=== PATIENT | female | born 1975 | race Two or more races ===

== ENCOUNTER → 2020-04-09 14:04 | Outpatient (REF) | payer MEDICAID, SELFPAY ==
--- NOTE | 2020-04-09 14:00 | ECG_ITS ---
Hook-up date: 2020-04-09 14:44:00 Duration: 40:23:00 Test Indications: TACHYCARDIA Medications: 459793 QRS complexes 5 Ventricular ectopics which represent <1 % of total QRS comp. 9 Supraventricular ectopics which represent <1 % of total QRS comp. * Paced QRS complexs which represent % of total QRS comp. VENTRICULAR ECTOPY 5 Isolated 0 Bigeminal Cycles 0 Couplets 0 Runs 0 Beats in Runs * Beats LONGEST at * BPM at :: -- * Beats FASTEST at * BPM at :: -- SUPRAVENTRICULAR ECTOPY 9 Isolated 0 Couplets 0 Runs 0 Beats in Runs * Beats LONGEST at * BPM at :: -- * Beats FASTEST at * BPM at :: -- HEART RATES 66 MIN at 02:18:55 2020-04-10 87 AVG 127 MAX at 17:58:15 2020-04-09 LONGEST RR 0.9760 secs at 15:48:35 2020-04-09 S-T LEVELS Channel 1 - 128 mm at 14:44:00 2020-04-09 - 128 mm at 14:44:00 2020-04-09 Channel 2 - 128 mm at 14:44:00 2020-04-09 - 128 mm at 14:44:00 2020-04-09 Channel 3 - 128 mm at 03:40:31 -- - 128 mm at 03:40:31 Underlying rhythm is sinus; Average ventricular rate 87/min; range 66-127/min; About 12% of the rates >100/min; No significant ectopy, tachy or nel arrhythmias; chest pressure', 'fast heart rate' in patient diary without any correlating findings on holter. Referred By: Dakota Monet Overread By: NANETTE PRESCOTT
== END ==
LOC: HO.CARD 14:04
PROVIDERS: Visit Provider Internal Medicine
DX: R00.0 Tachycardia, unspecified (principal)
CPT/HCPCS: 93225; 93226

== ENCOUNTER 2020-04-22 08:00 | Outpatient (RCR) | payer MEDICAID, SELFPAY | END 2020-04-22 08:54 | disposition other institution (70) | LOC: HO.PT 08:00 | PROVIDERS: PCP Internal Medicine; Visit Provider Internal Medicine | DX: M25.50 Pain in unspecified joint (principal) | CPT/HCPCS: 97110; 97140; 97161 ==

== ENCOUNTER 2020-11-30 07:58 | Outpatient (REF) | payer MEDICAID, SELFPAY ==
--- NOTE | ~2020-11-30 | XR_ITS ---
EXAMINATION: XR HAND, RIGHT CLINICAL INFORMATION: Trigger finger right index finger COMPARISON: None TECHNIQUE: PA, lateral, and oblique views of the right hand. FINDINGS: The bones and soft tissues are normal. No fracture. Alignment is anatomic. Joint spaces are maintained. No erosions or soft tissue calcifications. XR/XR hand RT min 3V IMPRESSION: Normal right hand.
== END 2020-11-30 07:59 | disposition home or self-care (01) ==
LOC: HO.XRAY 07:58
PROVIDERS: PCP Internal Medicine; Referring Provider Internal Medicine; Visit Provider Internal Medicine
DX: M65.321 Trigger finger, right index finger (principal)
CPT/HCPCS: 73130

== ENCOUNTER 2021-02-01 08:37 | Outpatient (REF) | payer MEDICAID, SELFPAY ==
--- NOTE | ~2021-02-01 | MM_ITS ---
EXAMINATION: MM SCREENING DIGITAL BREAST TOMOSYNTHESIS, BILATERAL CLINICAL INFORMATION: Screening. Asymptomatic. Prior history reduction mammoplasty over 10 years ago. The lifetime risk of breast cancer based on the Tyrer-Cuzick Model is 13%. COMPARISON: Mammography: 01/23/2020, 06/16/2019, 06/08/2019, 04/23/2018, 04/17/2017, 04/11/2016 TECHNIQUE: Digital breast tomosynthesis is performed in both the craniocaudal and mediolateral oblique views along with computer-aided detection (CAD). Synthesized 2D images are generated from the tomosynthesis. FINDINGS: There are scattered areas of fibroglandular density (ACR BI-RADS breast composition Category b). Parenchymal pattern is similar to prior studies. There is minor bilateral stable scarring consistent with the prior reduction mammoplasty. There are scattered stable bilateral asymmetries and minor shifting fibroglandular densities as expected. No developing density. No interval mass or architectural abnormality or abnormal calcifications. There are dermal lesions overlying the posterior medial breasts. Fine deodorant artifact overlies the axilla on the MLO views, corresponding to the skin on tomography. No significant changes. MM/MM tomosynthesis screening BI IMPRESSION: No significant changes from prior exams. ASSESSMENT: BI-RADS 2: Benign RECOMMENDATION: Routine annual mammography screening. This patient's information was entered into a reminder system with a target due date for their next mammogram.
== END 2021-02-01 08:38 | disposition home or self-care (01) ==
LOC: HO.MAMMO 08:37
PROVIDERS: PCP Internal Medicine; Visit Provider Advanced Practice Midwife
DX: Z12.31 Encounter for screening mammogram for malignant neoplasm of breast (principal)
CPT/HCPCS: 77063; 77067

== ENCOUNTER 2021-05-14 15:18 | Outpatient (REF) | payer MEDICAID, SELFPAY ==
--- NOTE | ~2021-05-14 | US_ITS ---
EXAMINATION: US PELVIS CLINICAL INFORMATION: Abnormal vaginal bleeding. COMPARISON: Previous pelvic ultrasound August 2017. TECHNIQUE: Ultrasound of the pelvis is performed using both transabdominal and transvaginal transducers along with Doppler. Transvaginal imaging is performed due to inadequate visualization transabdominally. FINDINGS: The uterus is anteverted and measures 10.4 x 3.8 x 4.7 cm in dimension. There is an IUD in the uterus in satisfactory position. The endometrium does not appear thickened measuring 0.6 cm. No focal uterine lesion is seen. The right ovary is enlarged and measures 4.4 x 4.1 x 3.5 cm. There is a 3 x 3.2 x 3.2 cm simple right ovarian cyst. The left ovary is normal-appearing and measures 2.8 x 1.4 x 2.8 cm. There is no fluid in the pelvis. US/US pelvic and transvaginal IMPRESSION: IUD in the uterus in satisfactory position. The endometrium does not appear thickened. 3 x 3.2 x 3.2 cm simple right ovarian cyst. This probably represents a benign functional cyst. No follow-up imaging recommended.
== END 2021-05-14 15:19 | disposition home or self-care (01) ==
LOC: HO.US 15:18
PROVIDERS: PCP Internal Medicine; Visit Provider Advanced Practice Midwife
DX: N39.9 Disorder of urinary system, unspecified (principal)
CPT/HCPCS: 76830; 76856

== ENCOUNTER 2021-06-07 07:52 | Outpatient (REF) | payer MEDICAID, SELFPAY ==
[2021-06-07 08:17] LABS: MANUAL DIFF FLAG NO
[2021-06-07 08:24] LABS: Basophils Percent Auto 0.5 % (0-2); Eosinophils Absolute Auto 0.1 X10*3/uL (0.0-0.4); Eosinophils Percent Auto 1.9 % (0-4); Hematocrit 41.6 % (37.0-47.0); Hemoglobin 13.9 g/dl (12.0-16.0); Imm Gran Abs Auto 0.02 X10*3/uL (0.00-0.03); Imm Gran Pct Auto 0.3 % (0.0-0.4); Lymphocytes Absolute Auto 1.6 X10*3/uL (1.2-4.9); Lymphocytes Percent Auto 25.5 % (20-40); Mean Corpuscular HGB Conc 33.4 g/dl (31.0-35.0); Mean Corpuscular Hemoglobin 28.6 pg (27.0-33.0); Mean Corpuscular Volume 85.6 fL (80.0-98.0); Mean Platelet Volume 9.5 fL (9.4-12.3); Monocytes Absolute Auto 0.5 X10*3/uL (0.1-1.2); Monocytes Percent Auto 7.9 % (2-11); Neutrophils Percent Auto 63.9 % (45-73); Platelet Count 196 X10*3/uL (160-400); Red Blood Count 4.86 X10*6/uL (4.20-5.50); Red Cell Distribution Width 13.8 % (11.0-16.0); White Blood Count 6.2 X10*3/uL (4.8-10.8)
[2021-06-07 09:04] LABS: Alanine Aminotransferase 15 U/L (0-31); Albumin Level 4.2 g/dL (3.5-5.0); Alkaline Phosphatase 68 U/L (39-117); Anion Gap 9 (12-20); Aspartate Amino Transferase 15 U/L (5-31); Bilirubin Direct 0.2 mg/dL (0.0-0.5); Bilirubin Total 0.6 mg/dL (0.0-1.0); Blood Urea Nitrogen 16 mg/dL (9-16); Carbon Dioxide 20 mmol/L (22-29); Chloride 114 mmol/L (96-108); Cholesterol 148 mg/dL; Estimated Glomerular Filt Rate > 60; Glucose Random 95 mg/dL (60-115); HDL Cholesterol 46 mg/dL; LDL Cholesterol Calculated 90 mg/dl; Potassium 3.9 mmol/L (3.3-5.1); Sodium 139 mmol/L (135-145); Total Protein 6.9 g/dL (6.5-8.0); Triglycerides 62 mg/dL
[2021-06-07 09:17] LABS: TSH reflex Free T4 1.35 uIU/mL (0.32-4.0); Vitamin D 25-OH Total 36.1 ng/mL (>30)
[2021-06-07 10:31] LABS: Vitamin B12 445 pg/mL (200-900)
[2021-06-10 05:07] LABS: Thyroglobulin Antibodies <1 IU/mL (< or = 1)
== END 2021-06-07 07:53 | disposition home or self-care (01) ==
LOC: HO.LAB 07:52
PROVIDERS: Absent Provider Internal Medicine; PCP Internal Medicine; Visit Provider Pediatrics
DX: D64.9 Anemia, unspecified (principal); E04.9 Nontoxic goiter, unspecified; Q85.00 Neurofibromatosis, unspecified
CPT/HCPCS: 36415; 80053; 80061; 82248; 82306; 82607; 84443; 85025; 86800

== ENCOUNTER 2021-06-18 14:49 | Outpatient (REF) | payer MEDICAID, SELFPAY ==
--- NOTE | ~2021-06-18 | US_ITS ---
EXAMINATION: US THYROID CLINICAL INFORMATION: Nontoxic goiter. COMPARISON: Ultrasound 2009. TECHNIQUE: Linear transducer grayscale and color Doppler examination with attention to the region of the thyroid. FINDINGS: SIZE: Measurements of the thyroid lobes and nodules are given in sagittal, anteroposterior and transverse dimensions respectively. Right Thyroid Lobe: 4.9 x 2.2 x 2.2 cm and volume 12.4 mL. Previously it measured 4.9 x 1.7 x 1.6 cm and volume 6.9 mL. Parenchyma: The gland echotexture is heterogeneous. Thyroid vascularity is hypervascular. There is a punctate calcification lower pole right thyroid lobe. Left Thyroid Lobe: 4.8 x 1.7 x 2.2 CM and volume 9.4 mL. Previously it measured 4.4 x 1.3 x 1.7 cm and volume 5.0 mL.. Parenchyma: The gland echotexture is heterogeneous. Thyroid vascularity is increased. Isthmus: 0.3 cm in maximum AP dimension. Previously it measured 0.4 cm. Estimated total number of nodules greater than or equal to 1 cm: 2. 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 Location: Right isthmus. Size: 1.5 x 0.9 x 1.8 cm, volume 1.2 mL. Previously: 1.2 x 0.4 x 1.0 cm, volume 0.3 mL. Nodule characteristics: Composition: Solid (2). Echogenicity: Hyperechoic (1). Shape: Not taller than wide (0). Margins: Ill-defined (0). Echogenic Foci: None (0). ACR TI-RADS total points: 3 ACR TI-RADS category: 3 Significant change in size (>/= 20% in 2 dimensions and minimal increase of 2 mm or 50% or greater increase in volume): None Change in features: None Change in ACR TI-RADS risk category: Not applicable 2. Location: Right mid. Size: 1.4 x 0.8 x 1.2 cm, volume 0.6 mL. Previously: Not seen. Nodule characteristics: Composition: Solid/almost completely solid (2). Echogenicity: Hyperechoic (1). Shape: Not taller than wide (0). Margins: Ill-defined (0). Echogenic Foci: None (0). ACR TI-RADS total points: 3 ACR TI-RADS category: 3 Significant change in size (>/= 20% in 2 dimensions and minimal increase of 2 mm or 50% or greater increase in volume): Not applicable Change in features: Not applicable Change in ACR TI-RADS risk category: Not applicable 3. Location: Left mid. Size: 0.9 x 0.6 x 0.9 cm, volume 0.3 mL. Previously: Not seen previously. Nodule characteristics: Composition: Mixed cystic and solid (1). Echogenicity: Hypoechoic (2). Shape: Not taller than wide (0). Margins: Smooth (0). Echogenic Foci: None (0). ACR TI-RADS total points: 3 ACR TI-RADS category: 3 Significant change in size (>/= 20% in 2 dimensions and minimal increase of 2 mm or 50% or greater increase in volume): Not applicable Change in features: Not applicable Change in ACR TI-RADS risk category: Not applicable NODES: No lymphadenopathy is seen in the tissue surrounding the thyroid gland. US/US thyroid IMPRESSION: Multinodular enlarged diffuse heterogeneous thyroid gland. Largest 3 nodules measured and are not suspicious. ACR TI-RADS RECOMMENDATION REFERENCE: Ultrasound-guided fine-needle aspiration, followup ultrasound, no further follow up. * TR1 (0 point) and TR 2 (2 points): No FNA or follow up * TR3 (3 points): FNA if more than or equal to 2.5 cm in maximum dimension, followup ultrasound in 1, 3 and 5 years if 1.5 to 2.4 cm in maximum dimension. * TR4 (4-6 points): FNA if more than or equal to 1.5 cm in maximum dimension, followup ultrasound in 1, 2, 3 and 5 years if 1 to 1.4 cm in maximum dimension. * TR5 (more than or equal to 7 points): FNA if more than or equal to 1 cm in maximum dimension, followup ultrasound every year for 5 years if 0.5 to 0.9 cm in maximum dimension. * TR3, TR4 or TR5 nodules that are below the size threshold for follow up receive no follow up.
== END 2021-06-18 14:50 | disposition home or self-care (01) ==
LOC: HO.US 14:49
PROVIDERS: PCP Internal Medicine; Visit Provider Pediatrics
DX: E04.9 Nontoxic goiter, unspecified (principal)
CPT/HCPCS: 76536

== ENCOUNTER 2021-07-05 07:36 | Outpatient (REF) | payer MEDICAID, SELFPAY ==
--- NOTE | ~2021-07-05 | XR_ITS ---
EXAMINATION: XR KNEE, RIGHT CLINICAL INFORMATION: Right knee pain. COMPARISON: None TECHNIQUE: Four views of the right knee. FINDINGS: Small suprapatellar joint effusion. Mild tricompartmental degenerative spurring. There is a cortical erosion or chondral defect involving the lateral condyle seen on the sunrise view. No fracture. XR/XR knee RT 4V IMPRESSION: Small suprapatellar joint effusion. Mild tricompartmental degenerative changes.
== END 2021-07-05 07:37 | disposition home or self-care (01) ==
LOC: HO.XRAY 07:36
PROVIDERS: Absent Provider Internal Medicine; PCP Internal Medicine; Visit Provider Internal Medicine
DX: M25.561 Pain in right knee (principal)
CPT/HCPCS: 73564

== ENCOUNTER → 2021-07-14 15:02 | Outpatient (BNVA) | payer MEDICAID, SELFPAY | PROVIDERS: PCP Internal Medicine; Referring Provider Internal Medicine; Visit Provider Nurse Practitioner Family | DX: Z01.818 Encounter for other preprocedural examination (principal); K59.01 Slow transit constipation; K64.9 Unspecified hemorrhoids | CPT/HCPCS: 99202 ==

== ENCOUNTER 2021-08-22 11:37 | Day surgery (SDC) | payer MEDICAID, SELFPAY ==
[2021-08-15 09:36] VITALS: BMI 30.3
[2021-08-22 12:01] VITALS: BP 111/68; PULSE 84; RESP 16; TEMP 36.5; O2SAT 98
--- NOTE | 2021-08-22 13:24 | MHC.SHP ---
Pre-Procedural Eval Section A Date of Service: 08/22/21 The patient is an INPATIENT: No The History & Physical has been completed within 30 days and I have reviewed it.: No Section B Chief Complaint: screening Details of Present Illness: Colon cancer screening, FH of colon cancer Relevant Family History (Specify if Yes): Yes Relevant Social History: None Present Medications: see Short Stay Collaborative assessment History of Previous Operations: Relevant previous surgery/procedure and date(s) (Hx of bilateral breast reduction surgery Hx of section Hx of colonoscopy Hx of tubal ligation) Allergies: Allergies Allergy/AdvReac Type Severity Reaction Status Date / Time No Known Allergies Allergy Verified 08/22/21 11:45 Review of Systems Sugical H&P ROS: Negative: Constitution, Cardiovascular and Respiratory and Yes, Specify: Gastrointestinal (constipation) Exam Surgical H&P Exam: Normal: Heart, Normal: Lungs, Normal: Extremities and Normal: Abdomen Plan Diagnosis/Plan: Unchanged I have reviewed the history and physical and performed a pertinent physical examination on my patient. No changes have occurred unless specified.
--- NOTE | 2021-08-22 13:25 | W.PM.OPN ---
Operative Note Operative Note Date of Service: 08/22/21 Narrative: Pre-op diagnosis: Colon cancer screen, family history of colon cancer (paternal aunt had colon cancer and at age 65) Post-op diagnosis:?other (hemorrhoids) Procedure: COLONOSCOPY TILL CECUM Consent: Indications for the procedure and potential complications of bleeding, perforation, reaction to medications and missed diagnosis were discussed with the patient and informed consent was obtained. Instrument: Olympus PCF H 190 L variable stiffness pediatric colonoscope Monitoring: Vital signs and clinical assessment, intermittent blood pressure monitoring, continuous EKG monitoring, Pulse oximetry and Carbon Dioxide monitoring were done throughout the procedure. Colon withdrawl time was 12 minutes. Procedure: The patient was placed in the left lateral decubitis position and pre-procedure medications were administered. After a digital rectal examination of the ano-rectum, the video colonoscope was inserted into the rectum and advanced through the colon to the cecum. The colonoscope was slowly withdrawn in a retrograde panoramic fashion and the colon mucosa was carefully examined including a retroflexed view of the rectum. Findings and interventions are described below. Procedure Difficulty: Without difficulty Findings: Terminal Ileum: Distal 10 cms was examined and appeared normal Cecum:? Normal Ascending Colon:? Normal Transverse Colon:? Normal Descending Colon:? Normal Sigmoid Colon:? Normal Rectum:? Normal Ano-rectum:? Moderate non-bleeding internal hemorrhoids Colon preparation: Excellent ? Impression and Post Procedure Diagnosis: Colonoscopy Findings: No polyps were detected. Moderate non-bleeding hemorrhoids on retroflexed exam - likely source for rectal bleeding. Plan: Await pathology results Patient has an appointment on 09/05/21 in the [facility] with Shala Carlisle FNP-BC. Repeat Colonoscopy in 5 years due to positive family hx. Above findings were reviewed with the patient and Hemorrhoids handouts were given in the discharge area Surgeon: Kamar Kim MD Anesthesia:?MAC (Dr Pike) Was an Claims Administrator used for this Procedure?:?No Claims Administrator:?Karen Flood Estimated blood loss (mL):?0 Pathology:?none sent Condition:?stable Disposition:?PACU
[2021-08-22 14:05] VITALS: BP 112/64; PULSE 93; RESP 16; TEMP 36.6; O2SAT 100
[2021-08-22 14:20] VITALS: BP 121/68; PULSE 78; RESP 18; TEMP 36.6; O2SAT 96
--- NOTE | 2021-08-22 17:55 | HO.POSTANES ---
Post Anesthesia Evaluation Post Anesthesia Evaluation Vital Signs: Vital Signs Temp Pulse Resp BP Pulse Ox 08/22/21 14:20 97.8 F 78 18 121/68 96 08/22/21 14:05 97.8 F 93 16 112/64 100 08/22/21 12:01 97.7 F 84 16 111/68 98 Anesthesia: Monitored Mental Status: Awake Pain Control: Satisfactory Nausea/Vomiting: None Hydration: Adequate Anesthesia-Related Issues: No Anes. Related Issues
== END 2021-08-22 14:49 | disposition home or self-care (01) ==
PROVIDERS: PCP Internal Medicine; Visit Provider Internal Medicine Gastroenterology
PROC: 0DJD8ZZ Inspection of Lower Intestinal Tract, Via Natural or Artificial Opening Endoscopic (ICD-10-PCS; CPT 45378; principal; 2021-08-22 12:50)
DX: Z12.11 Encounter for screening for malignant neoplasm of colon (principal); K59.01 Slow transit constipation; Z98.51 Tubal ligation status; Z98.890 Other specified postprocedural states; K64.8 Other hemorrhoids; Z80.0 Family history of malignant neoplasm of digestive organs
CPT/HCPCS: 45378

== ENCOUNTER 2021-08-26 07:24 | Outpatient (REF) | payer MEDICAID, SELFPAY ==
--- NOTE | ~2021-08-26 | XR_ITS ---
EXAMINATION: XR SHOULDER, RIGHT CLINICAL INFORMATION: Pain COMPARISON: 12/09/2018 TECHNIQUE: Three views of the right shoulder. FINDINGS: No acute fracture or dislocation. Acromioclavicular and glenohumeral joints unremarkable. No suspicious osseous lesions. Soft tissues unremarkable. XR/XR shoulder RT min 2V IMPRESSION: Normal right shoulder.
== END 2021-08-26 07:25 | disposition home or self-care (01) ==
LOC: HO.HOSX 07:24
PROVIDERS: Visit Provider Physician Assistant
DX: M75.101 Unspecified rotator cuff tear or rupture of right shoulder, not specified as traumatic (principal)
CPT/HCPCS: 20610; 73030; 99212; J1040

== ENCOUNTER → 2021-09-05 14:58 | Outpatient (BNVA) | payer MEDICAID, SELFPAY | PROVIDERS: PCP Internal Medicine; Referring Provider Internal Medicine; Visit Provider Nurse Practitioner Family | DX: K59.04 Chronic idiopathic constipation (principal); K64.9 Unspecified hemorrhoids; Z98.890 Other specified postprocedural states | CPT/HCPCS: 99212 ==

== ENCOUNTER 2021-11-07 13:54 | Outpatient (REF) | payer MEDICAID, SELFPAY ==
--- NOTE | ~2021-11-07 | CT_ITS ---
EXAMINATION: CT LUMBAR SPINE WITHOUT CONTRAST CLINICAL INFORMATION: Radiculopathy. COMPARISON: None TECHNIQUE: Contiguous axial CT images of the lumbar spine were obtained without contrast. Sagittal and coronal reformats were provided and reviewed. This CT examination was performed using dose optimization techniques as appropriate, variously including the following: *Automated exposure control *Adjustment of mA and/or kV according to patient size (this includes techniques or standardized protocols for targeted exams where dose is matched to indication/reason for exam; i.e. extremities or head) *Use of iterative reconstruction technique DLP; 510 mGy-cm FINDINGS: Normal vertebral body alignment. The lumbar lordosis is maintained. No acute fracture or subluxation. No loss of vertebral body or intervertebral disc height. No concerning lytic or blastic osseous lesion. Bilateral facet arthropathy at L4-L5 and L5-S1. The visualized paraspinal soft tissues are unremarkable. No abnormal soft tissue mass or fluid collection. No significant disc bulge. No central canal or neural foraminal stenosis. CT/CT lumbar spine wo con IMPRESSION: 1. Moderate bilateral facet arthropathy at L4-L5 and L5-S1. 2. No significant disc bulge, central canal stenosis, or neural foraminal stenosis.
== END 2021-11-07 13:55 | disposition home or self-care (01) ==
LOC: HO.CT 13:54
PROVIDERS: PCP Internal Medicine; Visit Provider Internal Medicine
DX: M54.16 Radiculopathy, lumbar region (principal); Q85.00 Neurofibromatosis, unspecified
CPT/HCPCS: 72131

== ENCOUNTER → 2021-12-29 14:58 | Outpatient (BNVA) | payer MEDICAID, SELFPAY | PROVIDERS: PCP Internal Medicine; Visit Provider Anesthesiology | DX: M47.817 Spondylosis without myelopathy or radiculopathy, lumbosacral region (principal); M47.816 Spondylosis without myelopathy or radiculopathy, lumbar region; Q85.01 Neurofibromatosis, type 1 | CPT/HCPCS: 99202 ==

== ENCOUNTER 2022-01-20 06:01 | Outpatient (REF) | payer MEDICAID, SELFPAY ==
--- NOTE | ~2022-01-20 | FL_ITS ---
EXAMINATION: XR FLUOROSCOPY WITH IMAGES CLINICAL INFORMATION: M47.816 - Spondylosis without myelopathy or radiculopathy, lumbar region COMPARISON: CT lumbar spine 11/07/2021 TECHNIQUE: Fluoroscopy performed by Dr. Marcell Costa. Fluoroscopy time: 0.5 minutes. Cumulative Dose: 18.6 mGy. DAP: 5.07 Gy-cm2. Images: 7. FINDINGS: There are spinal needles overlying the bilateral outer L3, L4, and L5 neural foramen. There is contrast seen in the respective nerve sheaths. Some early transforaminal epidural extension is suggested. No visible vascular communication. FL/FL guidance in treatment room IMPRESSION: Fluoroscopy for pain management procedures.
== END 2022-01-20 06:02 | disposition home or self-care (01) ==
LOC: HO.RADIR 06:01
PROVIDERS: Visit Provider Anesthesiology
DX: M47.816 Spondylosis without myelopathy or radiculopathy, lumbar region (principal)
CPT/HCPCS: 64493; 64494

== ENCOUNTER 2022-01-27 06:14 | Outpatient (REF) | payer MEDICAID, SELFPAY ==
--- NOTE | ~2022-01-27 | FL_ITS ---
EXAMINATION: Intraoperative fluoroscopy CLINICAL INFORMATION: Spondylosis COMPARISON: Intraoperative fluoroscopy January 20, 2022 TECHNIQUE: Intraoperative fluoroscopy was provided for use by Dr. Costa. A total of 6 images were saved to PACS. A radiologist was not present during imaging. Today's dictation is only for administrative purposes to document intraoperative fluoroscopic usage. TOTAL FLUOROSCOPIC TIME: 0.6 minutes FL/FL guidance in treatment room FINDINGS~\^^ Intraoperative fluoroscopy provided for use by Dr. Costa. Please see operative note for detailed findings.
== END 2022-01-27 06:15 | disposition home or self-care (01) ==
LOC: CF 06:14
PROVIDERS: Visit Provider Anesthesiology
DX: M47.816 Spondylosis without myelopathy or radiculopathy, lumbar region (principal); M47.817 Spondylosis without myelopathy or radiculopathy, lumbosacral region; Q85.01 Neurofibromatosis, type 1
CPT/HCPCS: 64493; 64494; J3300; Q9965

== ENCOUNTER → 2022-03-09 14:57 | Outpatient (BNVA) | payer MEDICAID, SELFPAY | PROVIDERS: PCP Internal Medicine; Referring Provider Internal Medicine; Visit Provider Nurse Practitioner Family | DX: K59.01 Slow transit constipation (principal) | CPT/HCPCS: 99212 ==

== ENCOUNTER 2022-03-31 06:20 | Outpatient (REF) | payer MEDICAID, SELFPAY ==
--- NOTE | ~2022-03-31 | FL_ITS ---
EXAMINATION: XR FLUOROSCOPY WITH IMAGES CLINICAL INFORMATION: Spondylosis. COMPARISON: CT lumbar spine 11/07/2021. TECHNIQUE: Fluoroscopy Supervised By: Dr. Marcell Costa. Fluoroscopy Time: 0.2 minutes. Cumulative Dose: 9.64 mGy. DAP: 2.62 Gycm2. Images: 3. FINDINGS: There is a spinal needle overlying mid left SI joint and spinal needle overlying mid right SI joint. There is contrast in the periarticular soft tissues with probable early intra-articular contrast on both sides. No definite vasculature communication appreciated. FL/FL guidance in treatment room IMPRESSION: Fluoroscopy for pain management procedures.
== END 2022-03-31 06:21 | disposition home or self-care (01) ==
LOC: CF 06:20
PROVIDERS: Visit Provider Anesthesiology
DX: Z13.89 Encounter for screening for other disorder (principal)

== ENCOUNTER 2022-05-05 06:09 | Outpatient (REF) | payer MEDICAID, SELFPAY | END 2022-05-05 06:10 | disposition home or self-care (01) | LOC: CF 06:09 | PROVIDERS: Visit Provider Anesthesiology | DX: M53.3 Sacrococcygeal disorders, not elsewhere classified (principal); M46.1 Sacroiliitis, not elsewhere classified | CPT/HCPCS: J2795; J3301 ==

== ENCOUNTER 2022-06-02 06:21 | Outpatient (REF) | payer MEDICAID, SELFPAY ==
--- NOTE | ~2022-06-02 | FL_ITS ---
EXAMINATION: XR FLUOROSCOPY WITH IMAGES CLINICAL INFORMATION: Sacrococcygeal disorder COMPARISON: None. TECHNIQUE: Fluoroscopy Supervised By: Loren. Fluoroscopy Time: 0.2 minutes. Cumulative Dose: 4.45 mGy. DAP: 1.21 Gycm2. Images: 2. FINDINGS: 2 digital images obtained revealing needle is positioned and SI joints with contrast opacifying the adjacent soft tissues. The SI joints are symmetrical and normal. No bony abnormality. Incidental finding of an IUD in the pelvis. FL/FL guidance in treatment room IMPRESSION: Fluoroscopy was provided to referring physician for pain management.
== END 2022-06-02 06:22 | disposition home or self-care (01) ==
LOC: CF 06:21
PROVIDERS: Visit Provider Anesthesiology
DX: M47.816 Spondylosis without myelopathy or radiculopathy, lumbar region (principal); M47.817 Spondylosis without myelopathy or radiculopathy, lumbosacral region; M53.3 Sacrococcygeal disorders, not elsewhere classified; M46.1 Sacroiliitis, not elsewhere classified
CPT/HCPCS: 27096; J3301

== ENCOUNTER → 2022-07-06 14:58 | Outpatient (BNVA) | payer MEDICAID, SELFPAY | PROVIDERS: PCP Internal Medicine; Visit Provider Anesthesiology | DX: M53.3 Sacrococcygeal disorders, not elsewhere classified (principal); M47.816 Spondylosis without myelopathy or radiculopathy, lumbar region; M46.1 Sacroiliitis, not elsewhere classified; Q85.01 Neurofibromatosis, type 1 | CPT/HCPCS: 99212 ==

== ENCOUNTER → 2022-09-02 15:47 | Outpatient (BNVA) | payer MEDICAID, SELFPAY | PROVIDERS: PCP Internal Medicine; Visit Provider Anesthesiology | DX: M53.3 Sacrococcygeal disorders, not elsewhere classified (principal); M47.816 Spondylosis without myelopathy or radiculopathy, lumbar region; M46.1 Sacroiliitis, not elsewhere classified; Q85.01 Neurofibromatosis, type 1 | CPT/HCPCS: 99212 ==

== ENCOUNTER 2022-09-22 06:17 | Outpatient (REF) | payer MEDICAID, SELFPAY ==
--- NOTE | ~2022-09-22 | FL_ITS ---
EXAMINATION: XR FLUOROSCOPY WITH IMAGES CLINICAL INFORMATION: M53.3 - Sacrococcygeal disorders, not elsewhere classified COMPARISON: CT lumbar spine 11/07/2021 TECHNIQUE: Fluoroscopy Supervised By: Dr. Marcell Costa. Fluoroscopy Time: 0.2 minutes. Cumulative Dose: 8.28 mGy. DAP: 2.25 Gycm2. Images: 2. FINDINGS: Spinal needle overlies mid left and spinal needle overlies mid right SI joint. There is contrast in the periarticular soft tissues with probable early intra-articular contrast. No definite vasculature communication appreciated. FL/FL guidance in treatment room IMPRESSION: Fluoroscopy for pain management procedure.
== END 2022-09-22 06:18 | disposition home or self-care (01) ==
LOC: CF 06:17
PROVIDERS: Visit Provider Anesthesiology
DX: M47.816 Spondylosis without myelopathy or radiculopathy, lumbar region (principal); M47.817 Spondylosis without myelopathy or radiculopathy, lumbosacral region; M46.1 Sacroiliitis, not elsewhere classified; M53.3 Sacrococcygeal disorders, not elsewhere classified
CPT/HCPCS: 27096; J3301

== ENCOUNTER → 2022-10-28 15:34 | Outpatient (BNVA) | payer MEDICAID, SELFPAY | PROVIDERS: PCP Internal Medicine; Visit Provider Anesthesiology ==

== ENCOUNTER 2023-01-01 14:28 | Outpatient (REF) | payer MEDICAID, SELFPAY ==
[2023-01-04 12:08] LABS: TS Negative Control Passed; TS Panel A 0; TS Panel B 0; TS Positive Control Passed; TSpotTB Negative (Negative)
== END 2023-01-01 14:29 | disposition home or self-care (01) ==
LOC: HO.HHCL 14:28
PROVIDERS: Visit Provider Internal Medicine
DX: Z02.1 Encounter for pre-employment examination (principal)
CPT/HCPCS: 36415; 86481

== ENCOUNTER 2023-01-08 13:25 | Outpatient (REF) | payer MEDICAID, SELFPAY ==
[2023-01-09 09:44] LABS: HBS Num1 0.07 mIU/mL (0-7.99); HBc Num1 0.14 S/CO (0.00-0.79); HBsAGNum1 0.28 S/CO (0.00-0.99); Hepatitis A Antibody IgM 0.29 Index (0-0.79); Hepatitis B Core Antibody Nonreactive (Nonreactive); Hepatitis B Surface Antigen Negative (Negative); ~HepC Num1 0.16 S/CO (0.00-0.79); ~Hepatitis A Antibody IgM Nonreactive (Nonreactive); ~Hepatitis B Surface Antibody NONREACTIVE (Nonreactive); ~Hepatitis C Antibody Nonreactive (Nonreactive)
== END 2023-01-08 13:26 | disposition home or self-care (01) ==
LOC: HO.CHCLDS 13:25
PROVIDERS: Visit Provider Internal Medicine
DX: Z02.1 Encounter for pre-employment examination (principal)
CPT/HCPCS: 36415; 86704; 86706; 86709; 86803; 87340

== ENCOUNTER 2023-01-20 14:42 | Outpatient (AMB) | payer MEDICAID, SELFPAY ==
[2023-01-20 15:04] VITALS: BP 130/76; PULSE 100; RESP 16; O2SAT 96; BMI 34.3
--- NOTE | 2023-01-20 15:04 | MHC.OFFVIS ---
Intake Vital Signs 01/20/23 15:04 Height 4 ft 10 in Weight 164 lb BMI 34.3 BP 130/76 Blood Pressure Location Lt brachial Position Sitting Respiration 16 Pulse 100 Pulse Source Pulse Oximeter Pulse Oximetry (%) 96 Oxygen Delivery Method Room Air Intake Visit Reasons: Procedure Discussion/Confirmed Allergies No Known Allergies Allergy (Verified 01/20/23 15:05) HPI HPI Comments History of Present Illness Details Patient is a 46 years old female who presents today via telehealth encounter to assess response to therapeutic sacroiliac joint injection which was performed on 10/23/2022. She reports about average 50% pain improvement after the procedure. She reports better mobility better activities of daily living better social interaction. She wants to repeat this injection. Also she reports stiffness in the morning on bilateral hands. 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 I will schedule her for rheumatology consult with diagnosis of rheumatoid arthritis. diagnostic bilateral SIJ injections on 03/31/22 resulted in 100% pain relief in her lower back pain on both sides, especially left side for over 24 hours after the procedure. Patient reports increased mobility, functioning and better sleep for one day. Her pain returned to its baseline little over 24 hours and rates it at 8/10 today. Patient is interested to proceed with therapeutic bilateral SIJ injections stim simone/jessica ray PNS versus SI joint fusion discussed with the patient. Unfortunately patient is sole breadwinner and she not a for 8 weeks or more in mobility and activities of daily living limitations. The RFA of SI J is not covered by insurance. Past Procedures: 10/23/2022: Bilateral therapeutic sacroiliac joint injection. 50% pain relief. 03/31/22: Diagnostic bilateral sacroiliac joint injections-100% pain relief >24 hours 01/27/22: Diagnostic bilateral medial branch block L3-L4 dorsal ramus L5-0% pain relief PRIOR Dr. Costa: Ms. Guevara is very pleasant 46 years old female who is in my office complaining on lower back pain and midback pain. She reports that her pain started about 3 years ago of the pain is mostly axial without radiation into lower extremities. She reports pain is 10/10 today. She tried NSAIDs to treat her pain and tizanidine with no effect. she was also administered pregabalin 150 mg b.i.d. she denies help from pregabalin. She went for CT scan which is dictated as below. She tried physical therapy 1 year ago with no significant help. She tried massage therapy which was not helpful. She never tried any injections. Her past medical significant for migraines, mental illness anxiety and depression and anemia. She also complains on dizziness. 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 Her past surgical history significant for C-sections x2 breast reduction and tubal ligation. [facility] Medical History COVID-19 vaccine series completed No pertinent past medical history Surgical History Hx of bilateral breast reduction surgery Hx of section Hx of colonoscopy Hx of tubal ligation Family History Mother Pancreas cancer Father Testicular cancer Paternal Aunt Colon cancer Breast CA Social History Household Members: None Are you a primary health care liaison to a significant other at home: No Do you presently have visiting nurse or other home services: No Alcohol intake: never Patient Tobacco Use Status: Never used Tobacco Current occupational status: employed 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 Review of Systems Const All systems reviewed & are unremarkable except as noted in HPI and below ENT Reports Normal hearing present Neuro Reports Normal hearing present and Denies confusion Psych Denies confusion Physical Exam Vital Signs: Last Vital Signs Pulse 100 01/20/23 15:04 Resp 16 01/20/23 15:04 BP 130/76 01/20/23 15:04 Pulse Ox 96 01/20/23 15:04 Oxygen Delivery Method Room Air 01/20/23 15:04 BMI result Body Mass Index 34.3 Const General: No confusion Orientation/consciousness: No confusion Resp Effort & Inspection: able to speak in complete sentences, no audible wheezes and no cough Back/Spine/Pelvis Other: Positive bilateral Gallo test, Stinchfield test, pelvis compression and pelvis destruction test, Timur finger test. 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 Bilateral Therapeutic SIJ injections with local and fluoroscopy resulted in very good pain relieve. She request to schedule this procedure again. Unable to go for PNS curonix versus SI joint fusion. She is sole breadwinner and cannot afford 8 weeks or more of mobility limitations. With diagnosis of rheumatoid arthritis I will schedule her for rheumatology consult. Anticoagulation: Patient not on anticoagulant Justification for interventional therapy: ? Patient with average pain > 6/10 ? Patient has exhausted conservative therapy, NSAIDs, physical therapy ? Diagnostic SIJ injections provided 100% pain relief for 24 hours Orders: Referrals Rheumatology Referral M06.9 - Rheumatoid arthritis, unspecified Coding Level of Care Code Est Pt Level 4 (75653) Diagnoses Sacroiliac joint dysfunction of both sides M53.3 Recklinghausen disease Q85.01 Neurofibromatosis Q85.00 Spondylosis of lumbar region without myelopathy or radiculopathy M47.816 Sacroiliitis M46.1 Rheumatoid arthritis M06.9 Pain of both sacroiliac joints M53.3
== END 2023-01-20 15:29 | disposition home or self-care (01) ==
PROVIDERS: PCP Internal Medicine; Visit Provider Anesthesiology
DX: M53.3 Sacrococcygeal disorders, not elsewhere classified (principal); Q85.01 Neurofibromatosis, type 1; M47.816 Spondylosis without myelopathy or radiculopathy, lumbar region; M46.1 Sacroiliitis, not elsewhere classified; M06.9 Rheumatoid arthritis, unspecified
CPT/HCPCS: 99214

== ENCOUNTER → 2023-01-20 14:42 | Outpatient (BNVA) | payer MEDICAID, SELFPAY | PROVIDERS: PCP Internal Medicine; Visit Provider Anesthesiology | DX: M53.3 Sacrococcygeal disorders, not elsewhere classified (principal); M47.816 Spondylosis without myelopathy or radiculopathy, lumbar region; M46.1 Sacroiliitis, not elsewhere classified; M06.9 Rheumatoid arthritis, unspecified; Q85.01 Neurofibromatosis, type 1 | CPT/HCPCS: 99212 ==

== ENCOUNTER 2023-02-16 07:33 | Outpatient (REF) | payer MEDICAID, SELFPAY ==
--- NOTE | ~2023-02-16 | FL_ITS ---
EXAMINATION: XR FLUOROSCOPY WITH IMAGES CLINICAL INFORMATION: Sacrococcygeal disorders, not elsewhere classified. COMPARISON: None available. TECHNIQUE: Fluoroscopy Supervised By: Dr. Marcell Costa. Fluoroscopy Time: 0.2 minutes. Cumulative Dose: 2.76 mGy. DAP: 0.753 Gycm2. Images: 2. FINDINGS: Images demonstrate needle placement and contrast injection over the bilateral sacroiliac joints FL/FL guidance in treatment room IMPRESSION: Fluoroscopy guidance for pain management procedure
== END 2023-02-16 07:34 | disposition home or self-care (01) ==
LOC: CF 07:33
PROVIDERS: Visit Provider Anesthesiology
DX: M53.3 Sacrococcygeal disorders, not elsewhere classified (principal); M47.816 Spondylosis without myelopathy or radiculopathy, lumbar region; M47.817 Spondylosis without myelopathy or radiculopathy, lumbosacral region
CPT/HCPCS: 27096; J3301

== ENCOUNTER 2023-02-16 14:54 | Outpatient (AMB) | payer MEDICAID, SELFPAY ==
[2023-02-16 15:05] VITALS: BP 134/76; PULSE 101; RESP 14; O2SAT 98; BMI 34.3
--- NOTE | 2023-02-16 15:05 | A.OFFVIS_ITS ---
Intake Vital Signs 02/16/23 15:05 02/16/23 15:06 Height 4 ft 10 in 4 ft 10 in Weight 164 lb 164 lb BMI 34.3 34.3 BP 134/76 122/62 Blood Pressure Location Rt brachial Lt brachial Position Sitting Sitting Respiration 14 14 Pulse 101 H 99 Pulse Source Pulse Oximeter Pulse Oximeter Pulse Oximetry (%) 98 98 Oxygen Delivery Method Room Air Room Air Comment pre-op post-op Intake Visit Reasons: BILAT SIJ STEROID INJ/LOCAL Allergies No Known Allergies Allergy (Verified 02/16/23 16:01) PFSH Medical History COVID-19 vaccine series completed No pertinent past medical history Surgical History Hx of bilateral breast reduction surgery Hx of section Hx of colonoscopy Hx of tubal ligation Family History Mother Pancreas cancer Father Testicular cancer Paternal Aunt Colon cancer Breast CA Social History Household Members: None Are you a primary senior resident care director to a significant other at home: No Do you presently have visiting nurse or other home services: No Alcohol intake: never Patient Tobacco Use Status: Never used Tobacco Current occupational status: employed 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 Physical Exam Vital Signs: Last Vital Signs Pulse 99 02/16/23 15:06 Resp 14 02/16/23 15:06 BP 122/62 02/16/23 15:06 Pulse Ox 98 02/16/23 15:06 Oxygen Delivery Method Room Air 02/16/23 15:06 BMI result Body Mass Index 34.3 Assessment & Plan Assessment & Plan (1) Spondylosis of lumbar region without myelopathy or radiculopathy: Code(s): M47.816 - Spondylosis without myelopathy or radiculopathy, lumbar region (2) 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 Informed consent was explained thoroughly to the patient.? All questions about benefits and risks for the procedure were answered. ? Patient came to the operating room and was positioned prone on the operating table with the pillow under the pelvis.? ? The lower back and buttocks of the patient were prepped with ChloraPrep prepped and draped with sterile utility towels.? Sterilely draped C-arm was brought over the operating field and sq picture of patient's pelvis was demonstrated on the screen. ? ?For the right joint - tilting C-arm contralateral to the site of the joint the most posterior portion of the joints was superimposed with anterior silhouette of the joint.? Skin was injected in the projection of the joint slightly medial to the location of the joint with 25 gauge 1/2 inch needle using local lidocaine 2% . After that 22 gauge 3 and 1/2 inch needle was driven to the right-joint in tunnel vision fashion.? When needle entered the joint capsule injection of the contrast was performed demonstrating intra-articular and minimally periarticular spread of the contrast.? After that 4 cc. of ropivacaine 0.5% mixed with Kenalog 40 mg was injected into the each joint.? Upon completion of the injections the needle was rediserted at the left side toward the left SI joint and the procedure was performed on the left in the mirroring fashion. After completion of the procedure the needle was removed, ? sterile dressing was applied.? Upon completion of the injection patient was taken outside of the operating room to the recovery room where recovered uneventfully. 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
[2023-02-16 15:06] VITALS: BP 122/62; PULSE 99; RESP 14; O2SAT 98; BMI 34.3
== END 2023-02-16 15:39 | disposition home or self-care (01) ==
LOC: HO.PMCPRC 14:54
PROVIDERS: PCP Internal Medicine; Visit Provider Anesthesiology
DX: M53.3 Sacrococcygeal disorders, not elsewhere classified (principal); M47.816 Spondylosis without myelopathy or radiculopathy, lumbar region; M47.817 Spondylosis without myelopathy or radiculopathy, lumbosacral region
CPT/HCPCS: 27096

== ENCOUNTER 2023-02-23 15:01 | Outpatient (AMB) | payer MEDICAID, SELFPAY ==
--- NOTE | 2023-02-23 15:02 | MHC.OFFVIS ---
Intake Vital Signs 02/23/23 15:06 Height 4 ft 10 in Weight 164 lb BMI 34.3 Intake Visit Reasons: ov- Painful arc syndrome of right shoulder Intake Note: Kenn a 45 year old right hand dominant female who presents today for right shoulder pain, last injection 08/26/22. She reports her last injection gave her a year plus of relief and she will like to repeat her injection. Allergies No Known Allergies Allergy (Verified 02/23/23 15:06) HPI ov- Painful arc syndrome of right shoulder HPI Details 47-year-old right hand dominant female who presents in the office today for a follow up of right shoulder pain. The patient had a cortisone injection in the right shoulder on . The patient reports the last injection gave her a year of relief. She would like to repeat the injection while in the office today. [facility] Medical History COVID-19 vaccine series completed No pertinent past medical history Surgical History Hx of bilateral breast reduction surgery Hx of section Hx of colonoscopy Hx of tubal ligation Family History Mother Pancreas cancer Father Testicular cancer Paternal Aunt Colon cancer Breast CA Social History Household Members: None Are you a primary pediatric acute care unit nurse to a significant other at home: No Do you presently have visiting nurse or other home services: No Alcohol intake: never Patient Tobacco Use Status: Never used Tobacco Current occupational status: employed 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 No ecchymosis, redness or edema. Patient is lacking about 15 degrees of forward flexion. Full range of motion with abduction and able to reach back pocket. Pain with cross-body reach. 4-5 strength with empty can. Negative drop-arm. NVI. Office Procedures Joint Injection/Drain Joint Injection/Drain Primary Site: right shoulder Prep: site was prepped using aseptic technique, ethochloride spray was applied and injection warnings given Injected: 80 mg of, DepoMedrol, with 8 mL of (2% plain lido ) and in the subcromial space Approach Used: posterolateral Procedure: The patient tolerated the procedure well, but had some pain with the injection and there was some relief with the local anesthesia Coding - Large joint Procedure code (CPT) selection complete Results Reviewed Results Reviewed: 02/23/23 15:05 Lidocaine HCl 2 % MPF [Xylocaine 2 % MPF] 5 ml .ROUTE .STK-MED ONE methylPREDNISolone acetate [DEPO-MedroL] 80 mg .ROUTE .STK-MED ONE Assessment & Plan Assessment & Plan (1) Painful arc syndrome of right shoulder: Code(s): M75.101 - Unspecified rotator cuff tear or rupture of right shoulder, not specified as traumatic Plan Ms. Guevara is a 47-year-old right hand dominant female who presents in the office today for a follow up of right shoulder pain. The patient had a cortisone injection in the right shoulder on . The patient reports the last injection gave her a year of relief. She would like to repeat the injection while in the office today. The patient was offered a cortisone injection in the right shoulder with 80 mg of DepoMedrol. The patient was explained the risk, benefits, and alternatives to receiving this injection. After receiving consent for the injection, the patient had the procedure done while in office today. The patient tolerated the procedure well with no complications. Follow up will be PRN, or sooner if needed. Patient Instructions: Scribed for Heather Jennings PA-C by gonzalo Salcedo scribe, on 02/23/2023 at 3:03 pm, EST. Coding Level of Care Code Est Pt Level 3 (46900) Diagnoses Painful arc syndrome of right shoulder M75.101 CPT Codes Coding - Large joint: 36282 - Large joint ([id number])
[2023-02-23 15:06] VITALS: BMI 34.3
== END 2023-02-23 15:15 | disposition home or self-care (01) ==
PROVIDERS: PCP Internal Medicine; Visit Provider Physician Assistant
DX: M75.101 Unspecified rotator cuff tear or rupture of right shoulder, not specified as traumatic (principal)
CPT/HCPCS: 20610; 99213

== ENCOUNTER → 2023-02-23 15:01 | Outpatient (BNVA) | payer MEDICAID, SELFPAY | PROVIDERS: PCP Internal Medicine; Visit Provider Physician Assistant | DX: M75.101 Unspecified rotator cuff tear or rupture of right shoulder, not specified as traumatic (principal) | CPT/HCPCS: 20610; 99212; J1040 ==

== ENCOUNTER 2023-03-22 15:04 | Outpatient (AMB) | payer MEDICAID, SELFPAY ==
[2023-03-22 15:11] VITALS: BP 121/82; PULSE 98; O2SAT 98; BMI 34.4
--- NOTE | 2023-03-22 15:11 | A.OFFVIS_ITS ---
Intake Vital Signs 03/22/23 15:11 Height 4 ft 10 in Weight 164 lb 6 oz BMI 34.4 BP 121/82 Blood Pressure Location Rt brachial Position Sitting Pulse 98 Pulse Source Pulse Oximeter Pulse Oximetry (%) 98 Oxygen Delivery Method Room Air Intake Visit Reasons: BILAT SIJ STEROID INJ 02/16/23/confirmed Intake Note: Pain today 08/10 Pet Care Assistant Required: No Accompanied by: Self / Same As Patient Allergies No Known Allergies Allergy (Verified 03/22/23 15:13) HPI HPI Comments History of Present Illness Details Patient is a pleasant 47 years old female presents today to assess response to Bilateral Therapeutic SIJ injection on 02/16/[address] Costa. Patient reports ongoing 60% pain relief since procedure with improved mobility, daily functioning, sleep and better social interactions. Patient is not interested in peripheral nerve stimulation for a sustained SIJ pain management. Sacroiliac joint RFA was not covered by her insurance. Patient reports current therapeutic SIJ injections allow her to be less symptomatic and more functional. She will continue to monitor her pain and reach out to our office next year when baseline pain symptoms return. Denies any fever, abdominal or groin pain, bladder or bowel dysfunction, or saddle anesthesia. Past Procedures: 10/23/2022: Bilateral therapeutic sacroi liac joint injection. 50% pain relief. 03/31/22: Diagnostic bilateral sacroilia c joint injections-100% pain relief >24 hours 01/27/22: Diagnostic bilateral medial br anch block L3-L4 dorsal ramus L5-0% pain relief PRIOR: Patient is a 46 years old female who presents today via telehealth encounter to assess response to therapeutic sacroiliac joint injection which was performed on 10/23/2022. She reports about average 50% pain improvement after the procedure. She reports better mobility better activities of daily living better social interaction. She wants to repeat this injection. Also she reports stiffness in the morning on bilateral hands. She would like to see a radio station operator. I will schedule her for rheumatology consult with diagnosis of rheumatoid arthritis. diagnostic bilateral SIJ injections on 03/31/22 resulted in 100% pain relief in her lower back pain on both sides, especially left side for over 24 hours after the procedure. Patient reports increased mobility, functioning and better sleep for one day. Her pain returned to its baseline little over 24 hours and rates it at 8/10 today. Patient is interested to proceed with therapeutic bilateral SIJ injections stim simone/jessica ray PNS versus SI joint fusion discussed with the patient. Unfortunately patient is sole breadwinner and she not a for 8 weeks or more in mobility and activities of daily living limitations. The RFA of SI J is not covered by insurance. Past Procedures: 10/23/2022: Bilateral therapeutic sacroi liac joint injection. 50% pain relief. 03/31/22: Diagnostic bilateral sacroilia c joint injections-100% pain relief >24 hours 01/27/22: Diagnostic bilateral medial br anch block L3-L4 dorsal ramus L5-0% pain relief PRIOR Dr. Costa: Ms. Guevara is very pleasant 46 years old female who is in my office complaining on lower back pain and midback pain. She reports that her pain started about 3 years ago of the pain is mostly axial without radiation into lower extremities. She reports pain is 10/10 today. She tried NSAIDs to treat her pain and tizanidine with no effect. she was also administered pregabalin 150 mg b.i.d. she denies help from pregabalin. She went for CT scan which is dictated as below. She tried physical therapy 1 year ago with no significant help. She tried massage therapy which was not helpful. She never tried any injections. Her past medical significant for migraines, mental illness anxiety and depression and anemia. She also complains on dizziness. 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 Her past surgical history significant for C-sections x2 breast reduction and tubal ligation. 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 Alert and oriented. Mood and affect appropriate. Follows and participates in conversation appropriately. Respiratory effort is unlabored. No cough. Able to transition from sit to stand unassisted. Ambulates with bilaterally normal heel strike and toe off. Back/Spine/Pelvis Cervical Spine: cervical ROM normal and No Cervical spine tenderness Thoracic/Lumbar Spine: thoracic and lumbar spine normal to inspection, thoraco- lumbar ROM normal, pain with thoraco-lumbar ROM (mild), No paraspinal muscle tenderness, No thoracic spinal tenderness and No lumbar spinal tenderness Sacroiliac joints: bilaterally (mild pain with Patricks, Pelvic compression) tender to palpation Results Reviewed Results Reviewed: CT lumbar spine without contrast 11/07/2021. Findings: Normal vertebral body alignment. The lumbar lordosis is maintained. No acute fracture subluxation. No loss of vertebral body or intervertebral disc height. No concentric disc or blastic osseous lesion. Bilateral facet arthropathy at L4-5 and L5-S1. No visualized pathology in soft tissues. No abnormal soft tissue mass of fluid collection. No significant disc bulge no central canal or neural foraminal stenosis. Assessment & Plan Assessment & Plan (1) Sacroiliac joint dysfunction of both sides: Code(s): M53.3 - Sacrococcygeal disorders, not elsewhere classified (2) Spondylosis of lumbar region without myelopathy or radiculopathy: Code(s): M47.816 - Spondylosis without myelopathy or radiculopathy, lumbar region Plan Patient is status post bilateral therapeutic sacroiliac joint injection with good pain relief. She is able to function, sleep and move better since injections. Patient is not interested in PNS Curonix trial or SIJ fusion and her insurance does not cover RFA procedure. She will continue to monitor her pain and longevity of most recent injection and notify our office when her symptoms return to baseline. All questions and concerns have been answered and patient agreed with the plan. Follow up as needed. Coding Level of Care Code Est Pt Level 3 (88923) Diagnoses Sacroiliac joint dysfunction of both sides M53.3 Spondylosis of lumbar region without myelopathy or radiculopathy M47.816
== END 2023-03-22 15:15 | disposition home or self-care (01) ==
PROVIDERS: PCP Internal Medicine; Visit Provider Nurse Practitioner Family
DX: M53.3 Sacrococcygeal disorders, not elsewhere classified (principal); M47.816 Spondylosis without myelopathy or radiculopathy, lumbar region
CPT/HCPCS: 99213

== ENCOUNTER → 2023-03-22 15:04 | Outpatient (BNVA) | payer MEDICAID, SELFPAY | PROVIDERS: PCP Internal Medicine; Visit Provider Nurse Practitioner Family | DX: M53.3 Sacrococcygeal disorders, not elsewhere classified (principal); M47.816 Spondylosis without myelopathy or radiculopathy, lumbar region | CPT/HCPCS: 99212 ==

== ENCOUNTER 2023-04-27 08:37 | Outpatient (AMB) | payer MEDICAID, SELFPAY ==
--- NOTE | 2023-04-27 08:39 | A.OFFVIS_ITS ---
Intake Vital Signs 04/27/23 08:40 Height 4 ft 10 in Weight 161 lb 2.526 oz BMI 33.7 BP 140/100 H Blood Pressure Location Rt brachial Position Sitting Pulse 91 Pulse Source Pulse Oximeter Temp 98.1 F Temp Source Skin Pulse Oximetry (%) 99 Oxygen Delivery Method Room Air Intake Visit Reasons: RA Intake Note: New pt presents today for RA consult. Referred by pain mgmt. No prior driver trainee. Diagnosed by PCP. c/o left leg swelling and current sensation, knees, toes, and fingers always locking up . finger tingling and numbness. Shift Engineer Required: No Accompanied by: Self / Same As Patient Allergies No Known Allergies Allergy (Verified 04/27/23 08:42) Medication List - Last Reconciled 04/27/23 by Jason nEgel MD hydroxyzine pamoate 25 mg PO TID PRN levonorgestrel (Mirena) intrauterine lidocaine 5% (Lidoderm) 1 patch topical DAILY loratadine 10 mg PO DAILY PRN melatonin 10 mg PO BEDTIME PRN pregabalin 200 mg PO TID quetiapine 150 mg PO BEDTIME sennosides (senna) 8.6 mg PO BEDTIME PRN sumatriptan succinate 50 mg PO DAILY PRN tizanidine 4 mg PO BEDTIME topiramate 100 mg PO BEDTIME trazodone 50 - 100 mg PO BEDTIME PRN HPI HPI Comments History of Present Illness Details 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 She states that she has diffuse pain throughout her body. She was evaluated by Pain Management and had few procedures with mixed results. She denies having any new rashes, no fevers. No weight change. Denies any history of DVT/PE [facility] Medical History (Updated 04/27/23 @ 09:07 by Jason Engel MD) COVID-19 vaccine series completed No pertinent past medical history Surgical History Hx of colonoscopy Hx of tubal ligation Hx of bilateral breast reduction surgery Hx of section Family History (Updated 04/27/23 @ 09:04 by Jason Engel MD) Mother Pancreas cancer Father Testicular cancer Paternal Aunt Colon cancer Breast CA Son JRA (juvenile rheumatoid arthritis) Social History Household Members: Children Household Members Other:: cat Are you a primary healthcare consulting manager to a significant other at home: No Do you presently have visiting nurse or other home services: No Alcohol intake: current Alcohol intake frequency: holidays/special occasions only Patient Tobacco Use Status: Never used Tobacco Substance Use Type: Marijuana Current occupational status: employed 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, 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 Female Reproductive History Menstrual Total pregnancies: 2 Review of Systems Const Reports headache(s) and Reports weakness ENT Reports dizziness, Reports headache(s), Reports tinnitus and Reports sore throat Resp Reports cough Musc Reports back pain and Reports arthralgias Skin/Breast Denies rash Neuro Reports dizziness, Reports headache(s), Reports memory loss and Reports weakness Psych Reports memory loss Endo Reports polydipsia Physical Exam Vital Signs: Last Vital Signs Temp 98.1 F 04/27/23 08:40 Pulse 91 04/27/23 08:40 BP 140/100 H 04/27/23 08:40 Pulse Ox 99 04/27/23 08:40 Oxygen Delivery Method Room Air 04/27/23 08:40 BMI result Body Mass Index 33.7 Const General: cooperative, healthy appearing and comfortable Nutritional Appearance: obese Orientation/consciousness: patient oriented x3 Limitations: no limitations HEENT Head: Yes normocephalic and Yes atraumatic Mouth: moist mucous membranes Resp Effort & Inspection: normal respiratory effort and able to speak in complete sentences Auscultation: clear to auscultation bilaterally Cardio Rate: regular rate Rhythm: regular rhythm GI Inspection: No distended Palpation (GI): Soft to palpation and nontender Skin Other: Widespread neurofibromatosis rashes Neuro General: patient oriented x3 Extrem Other: No active synovitis Normal nailfold capillaroscopy No swollen or tender joints Assessment & Plan Assessment & Plan (1) Polyarthralgia: Code(s): M25.50 - Pain in unspecified joint Plan: This is a 47-year-old female with neurofibromatosis who presents for evaluation of diffuse pain. I do not see any signs of an autoimmune rheumatic disease. Follow-up as needed Plan I spent 25 minutes reviewing patient's chart, evaluating patient, counseling patient and documenting in the chart Coding Level of Care Code New Pt Level 3 (83497) Diagnoses Polyarthralgia M25.50
[2023-04-27 08:40] VITALS: BP 140/100; PULSE 91; TEMP 36.7; O2SAT 99; BMI 33.7
== END 2023-04-27 09:39 | disposition home or self-care (01) ==
PROVIDERS: PCP Internal Medicine; Visit Provider Student in an Organized Health Care Education/Training Program
DX: M25.50 Pain in unspecified joint (principal)
CPT/HCPCS: 99203

== ENCOUNTER → 2023-04-27 08:37 | Outpatient (BNVA) | payer MEDICAID, SELFPAY | PROVIDERS: PCP Internal Medicine; Visit Provider Student in an Organized Health Care Education/Training Program | DX: M25.50 Pain in unspecified joint (principal) | CPT/HCPCS: 99202 ==

== ENCOUNTER 2023-06-24 08:33 | Outpatient (AMB) | payer MEDICAID, SELFPAY ==
--- NOTE | 2023-06-24 08:36 | A.OFFVIS_ITS ---
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: No Accompanied by: Self / Same As Patient Allergies No Known Allergies Allergy (Verified 06/24/23 08:44) Medication List - Last Reconciled 06/24/23 by VANITA Johnson hydroxyzine pamoate 25 mg PO TID PRN levonorgestrel (Mirena) intrauterine lidocaine 5% (Lidoderm) 1 patch topical DAILY loratadine 10 mg PO DAILY PRN melatonin 10 mg PO BEDTIME PRN meloxicam 15 mg PO DAILY paroxetine HCl 40 mg PO QAM pregabalin 200 mg PO TID quetiapine 150 mg PO BEDTIME sennosides (senna) 8.6 mg PO BEDTIME PRN sumatriptan succinate 50 mg PO DAILY PRN tizanidine 4 mg PO BEDTIME topiramate 100 mg PO BEDTIME trazodone 50 - 100 mg PO BEDTIME PRN HPI HPI Comments History of Present Illness Details Patient presents today for follow up for lower back pain in the project ion of bilateral sacroiliac joint areas. Patient reports previous SIJ therapeutic effects have faded out and she request to repeat therapeutic SIJ injections. Patient is not interested in peripheral nerve stimulation for a sustained SIJ pain management. Sacroiliac joint RFA was not covered by her insurance. Her last SIJ injections were in October 2022 and allowed her to be less symptomatic and more functional. Patient reports she has been taking Tylenol, Meloxicam and Pregabalin daily without significant relief. She continues home exercise program but finds this becoming very difficult due to increase in lower back and lateral hip pain as well as chronic multiple joint pain. Patient reports no annual basic labs in the past 2 years. Denies any recent cough, cold, infection, fever, bladder or bowel dysfunction, saddle anesthesia or any significant changes in her medical history, medications or recent hospitalizations. Past Procedures: 10/23/2022: Bilateral therapeutic sacroi liac joint injection. 50% pain relief. 03/31/22: Diagnostic bilateral sacroilia c joint injections-100% pain relief >24 hours 01/27/22: Diagnostic bilateral medial br anch block L3-L4 dorsal ramus L5-0% pain relief PRIOR: Patient is a 46 years old female who presents today via telehealth encounter to assess response to therapeutic sacroiliac joint injection which was performed on 10/23/2022. She reports about average 50% pain improvement after the procedure. She reports better mobility better activities of daily living better social interaction. She wants to repeat this injection. Also she reports stiffness in the morning on bilateral hands. She would like to see a center rep. I will schedule her for rheumatology consult with diagnosis of rheumatoid arthritis. diagnostic bilateral SIJ injections on 03/31/22 resulted in 100% pain relief in her lower back pain on both sides, especially left side for over 24 hours after the procedure. Patient reports increased mobility, functioning and better sleep for one day. Her pain returned to its baseline little over 24 hours and rates it at 8/10 today. Patient is interested to proceed with therapeutic bilateral SIJ injections stim simone/jessica ray PNS versus SI joint fusion discussed with the patient. Unfortunately patient is sole breadwinner and she not a for 8 weeks or more in mobility and activities of daily living limitations. The RFA of SI J is not covered by insurance. Past Procedures: 10/23/2022: Bilateral therapeutic sacroi liac joint injection. 50% pain relief. 03/31/22: Diagnostic bilateral sacroilia c joint injections-100% pain relief >24 hours 01/27/22: Diagnostic bilateral medial br anch block L3-L4 dorsal ramus L5-0% pain relief PRIOR Dr. Costa: Ms. Guevara is very pleasant 46 years old female who is in my office complaining on lower back pain and midback pain. She reports that her pain started about 3 years ago of the pain is mostly axial without radiation into lower extremities. She reports pain is 10/10 today. She tried NSAIDs to treat her pain and tizanidine with no effect. she was also administered pregabalin 150 mg b.i.d. she denies help from pregabalin. She went for CT scan which is dictated as below. She tried physical therapy 1 year ago with no significant help. She tried massage therapy which was not helpful. She never tried any injections. Her past medical significant for migraines, mental illness anxiety and depression and anemia. She also complains on dizziness. 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 Her past surgical history significant for C-sections x2 breast reduction and tubal ligation. [facility] Medical History COVID-19 vaccine series completed No pertinent past medical history Surgical History Hx of colonoscopy Hx of tubal ligation Hx of bilateral breast reduction surgery Hx of section Family History Mother Pancreas cancer Father Testicular cancer Paternal Aunt Colon cancer Breast CA Son URVASHI (juvenile rheumatoid arthritis) Social History Household Members: Children Household Members Other:: cat Are you a primary customer care voice consultant to a significant other at home: No Do you presently have visiting nurse or other home services: No Alcohol intake: current Alcohol intake frequency: holidays/special occasions only Patient Tobacco Use Status: Never used Tobacco Substance Use Type: Marijuana Current occupational status: employed 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 Alert and oriented. Mood and affect appropriate. Follows and participates in conversation appropriately. Respiratory effort is unlabored. No cough. Able to transition from sit to stand unassisted. Ambulates with bilaterally normal heel strike and toe off. Back/Spine/Pelvis Cervical Spine: cervical ROM normal and No Cervical spine tenderness Thoracic/Lumbar Spine: thoracic and lumbar spine normal to inspection, No Thoracic/lumbar spine scar(s), Lasegue's sign negative, straight leg raise negative bilaterally, pain with thoraco-lumbar ROM, No paraspinal muscle tenderness, thoraco-lumbar ROM limited, No thoracic spinal tenderness and lumbar spinal tenderness at L4 and at L5 Sacroiliac joints: bilaterally (+Patricks, Pelvic compression, Gaenslen, Stinchfield tests) tender to palpation Skin Rashes: rashes noted (widespread neurofibromatosis) Results Reviewed Results Reviewed: CT LUMBAR SPINE WITHOUT CONTRAST 11/07/21 CLINICAL INFORMATION: Radiculopathy. COMPARISON: None FINDINGS: Normal vertebral body alignment. The lumbar lordosis is maintained. No acute fracture or subluxation. No loss of vertebral body or intervertebral disc height. No concerning lytic or blastic osseous lesion. Bilateral facet arthropathy at L4-L5 and L5-S1. The visualized paraspinal soft tissues are unremarkable. No abnormal soft tissue mass or fluid collection. No significant disc bulge. No central canal or neural foraminal stenosis. IMPRESSION: 1. Moderate bilateral facet arthropathy at L4-L5 and L5-S1. 2. No significant disc bulge, central canal stenosis, or neural foraminal stenosis. Assessment & Plan Assessment & Plan (1) Polyarthralgia: Code(s): M25.50 - Pain in unspecified joint (2) Spondylosis of lumbar region without myelopathy or radiculopathy: Code(s): M47.816 - Spondylosis without myelopathy or radiculopathy, lumbar region (3) Pain of both sacroiliac joints: Code(s): M53.3 - Sacrococcygeal disorders, not elsewhere classified (4) Sacroiliitis: Code(s): M46.1 - Sacroiliitis, not elsewhere classified (5) Neurofibromatosis: Code(s): Q85.00 - Neurofibromatosis, unspecified Plan Schedule Bilateral Therapeutic Sacroiliac Joint Injections with local and fluoroscopy for chronic SIJ pain with positive provocative testing. Expectations, risks and benefits were reviewed. Patient is aware she will be contacted to schedule this procedure. Patient is not interested in PNS Curonix trial or SIJ fusion and her insurance does not cover RFA procedure. Lab script provided for CBC and basic metabolic profile to assess kidney function per patient's request. 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 Patient reports she takes Meloxicam for moderate-severe pain. Reports tramadol was ineffective. Continue Tylenol, lidocaine patches, heat therapy, activity modifications, rest and HEP as tolerated. All questions were answered and the patient is in agreement of plan. Follow-up after injections and sooner as needed. Orders: Orders Basic Metabolic Panel Fasting Today M25.50 - Pain in unspecified joint Complete Blood Count Auto Diff Today M25.50 - Pain in unspecified joint Coding Level of Care Code Est Pt Level 4 (85782) Diagnoses Polyarthralgia M25.50 Spondylosis of lumbar region without myelopathy or radiculopathy M47.816 Pain of both sacroiliac joints M53.3 Sacroiliitis M46.1 Neurofibromatosis Q85.00
[2023-06-24 08:43] VITALS: BP 112/69; PULSE 86; O2SAT 98; BMI 34.5
== END 2023-06-24 08:54 | disposition home or self-care (01) ==
PROVIDERS: PCP Internal Medicine; Visit Provider Nurse Practitioner Family
DX: M25.50 Pain in unspecified joint (principal); M47.816 Spondylosis without myelopathy or radiculopathy, lumbar region; M53.3 Sacrococcygeal disorders, not elsewhere classified; M46.1 Sacroiliitis, not elsewhere classified; Q85.00 Neurofibromatosis, unspecified
CPT/HCPCS: 99214

== ENCOUNTER 2023-06-24 08:33 | Outpatient (REF) | payer OTHER, SELFPAY ==
[2023-06-24 09:27] LABS: MANUAL DIFF FLAG NO
[2023-06-24 10:14] LABS: Basophils Absolute Auto 0.1 X10*3/uL (0.0-0.2); Basophils Percent Auto 0.8 % (0-2); Eosinophils Absolute Auto 0.1 X10*3/uL (0.0-0.4); Eosinophils Percent Auto 1.9 % (0-4); Hemoglobin 13.7 g/dl (12.0-16.0); Imm Gran Abs Auto 0.03 X10*3/uL (0.00-0.03); Imm Gran Pct Auto 0.5 % (0.0-0.4); Lymphocytes Absolute Auto 1.4 X10*3/uL (1.2-4.9); Lymphocytes Percent Auto 22.5 % (20-40); Mean Corpuscular HGB Conc 32.6 g/dl (31.0-35.0); Mean Corpuscular Hemoglobin 28.3 pg (27.0-33.0); Mean Corpuscular Volume 86.8 fL (80.0-98.0); Mean Platelet Volume 9.6 fL (9.4-12.3); Monocytes Absolute Auto 0.5 X10*3/uL (0.1-1.2); Monocytes Percent Auto 8.1 % (2-11); Neutrophils Absolute Auto 4.2 x10*3/uL (2.0-8.3); Neutrophils Percent Auto 66.2 % (45-73); Platelet Count 200 X10*3/uL (160-400); Red Blood Count 4.84 X10*6/uL (4.20-5.50); Red Cell Distribution Width 13.4 % (11.0-16.0); White Blood Count 6.3 X10*3/uL (4.8-10.8)
[2023-06-24 11:15] LABS: Anion Gap 12 (12-20); Blood Urea Nitrogen 17 mg/dL (9-16); Calcium 9.3 mg/dL (8.4-10.2); Carbon Dioxide 22 mmol/L (22-29); Chloride 113 mmol/L (96-108); Estimated Glomerular Filt Rate > 60; Glucose Fasting 82 mg/dL (60-99); Potassium 3.8 mmol/L (3.3-5.1); Sodium 143 mmol/L (135-145)
== END 2023-06-24 08:34 | disposition home or self-care (01) ==
LOC: HO.LAB 08:33
PROVIDERS: PCP Internal Medicine; Visit Provider Nurse Practitioner Family
DX: M25.50 Pain in unspecified joint (principal); M53.3 Sacrococcygeal disorders, not elsewhere classified; M47.816 Spondylosis without myelopathy or radiculopathy, lumbar region; M46.1 Sacroiliitis, not elsewhere classified; M25.559 Pain in unspecified hip; M25.642 Stiffness of left hand, not elsewhere classified; M25.641 Stiffness of right hand, not elsewhere classified; Q85.00 Neurofibromatosis, unspecified; Z79.899 Other long term (current) drug therapy
CPT/HCPCS: 36415; 80048; 85025; 99212

== ENCOUNTER 2023-10-21 15:26 | Outpatient (AMB) | payer OTHER, SELFPAY ==
--- NOTE | 2023-10-21 15:51 | MHC.OFFVIS ---
Vital Signs 10/21/23 15:57 Height 4 ft 10 in Weight 142 lb 4 oz BMI 29.7 BP 128/70 Blood Pressure Location Lt brachial Position Sitting Respiration 16 Pulse 91 Pulse Source Pulse Oximeter Pulse Oximetry (%) 98 Oxygen Delivery Method Room Air Intake Visit Reasons: Back pain Intake Note: Patient comes in for back pain. Reports pain 6/10. Allergies No Known Allergies Allergy (Verified 10/21/23 15:56) HPI Comments Details: Lidagma is very pleasant 47 years old female who presents in my office for the follow-up with the complains on the pain in the right sacroiliac joint. She reports that her pain is back. Initially she received diagnostic sacroiliac joint injection in the right which was very successful, she received therapeutic sacroiliac joint 2 times 1 was very successful and 1 was moderately successful for few weeks only. The patient is asking me whether or not we can perform other procedures to help her pain. I explained to the patient that sacroiliac joint fusion is 1 option, sacroiliac joint innervation stimulation is yet another option and possibly sprint PNS on medial cluneal nerve at the projection of the 2nd sacral foramina lateral border could be tried. However all this procedures would require her to abstain from heavy lifting torso twisting forward bending side bending for significant period of time from 8-10 weeks. 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 Then I offered her possible PRP injection into the right sacroiliac joint however it looks like that patient does not want to pay for this procedure. She requested me to schedule her for yet another sacroiliac joint injection. I will comply with her wishes. [facility] Medical History COVID-19 vaccine series completed No pertinent past medical history Surgical History Hx of colonoscopy Hx of tubal ligation Hx of bilateral breast reduction surgery Hx of section Family History Mother Pancreas cancer Father Testicular cancer Paternal Aunt Colon cancer Breast CA Son JRA (juvenile rheumatoid arthritis) Social History (Reviewed 06/24/23 @ 08:40 by NAHUN Johnson Household Members: Children Household Members Other:: cat Are you a primary auto care center manager to a significant other at home: No Do you presently have visiting nurse or other home services: No Alcohol intake: current Alcohol intake frequency: holidays/special occasions only Patient Tobacco Use Status: Never used Tobacco Substance Use Type: Marijuana Current occupational status: employed 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, 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 Review of Systems Const All systems reviewed & are unremarkable except as noted in HPI and below Physical Exam Vital Signs: Last Vital Signs Pulse 91 10/21/23 15:57 Resp 16 10/21/23 15:57 BP 128/70 10/21/23 15:57 Pulse Ox 98 10/21/23 15:57 Oxygen Delivery Method Room Air 10/21/23 15:57 BMI result Body Mass Index 29.7 Const General: healthy appearing, no acute distress and well developed Nutritional Appearance: well nourished Orientation/consciousness: patient oriented x3 HEENT Head: Yes normal to inspection, Yes normocephalic and Yes atraumatic Face and sinus: Yes normal facial exam Mouth: Normal oral and palatal mucosa present Throat: Yes posterior oropharynx normal, Yes tonsils normal and Yes uvula midline Eyes General: appearance normal, both eyes and all related structures Neck Neck: Yes normal visual inspection, Yes full ROM and Yes trachea midline Thyroid: Thyroid normal Resp Effort & Inspection: normal respiratory effort, able to speak in complete sentences, no tracheal deviation and symmetric chest movement Auscultation: clear to auscultation bilaterally Cardio Jugular venous distension: no JVD Rate: regular rate Heart sounds: S1 normal heart sound present, S2 normal heart sound present, no gallops and no murmurs GI Inspection: Yes normal to inspection, No distended and Yes obesity Palpation (GI): Soft to palpation, not firm, nontender and No hepatosplenomegaly present Auscultation: normal bowel sounds General: Yes no CVA tenderness Back/Spine/Pelvis Other: No weakness or numbness in bilateral lower extremities able to walk without difficulties stand on bilateral tiptoes and stand on bilateral heels. Loading test is positive on physical exam. Flexing forward and flexing backwards extremely painful. Tenderness of palpation paraspinal spinal region in the projection of the lower lumbar spine. Back: no CVA tenderness Skin General skin exam: elasticity normal, turgor normal and dry skin Neuro General: patient oriented x3 Psych Appearance: grossly normal Mental Status: mental status grossly normal Speech and movement: Normal speech and movement present Affect: normal affect Attitude: cooperative Thought process: Normal thought process present Thought content: Normal thought content present Insight: Good insight present (Psych) Judgement: Good judgement present (Psych) Assessment & Plan Assessment & Plan (1) Polyarthralgia: Code(s): M25.50 - Pain in unspecified joint Category: Medical (2) Spondylosis of lumbar region without myelopathy or radiculopathy: Code(s): M47.816 - Spondylosis without myelopathy or radiculopathy, lumbar region Category: Medical (3) Pain of both sacroiliac joints: Code(s): M53.3 - Sacrococcygeal disorders, not elsewhere classified Category: Medical (4) Sacroiliitis: Code(s): M46.1 - Sacroiliitis, not elsewhere classified Category: Medical (5) Neurofibromatosis: Code(s): Q85.00 - Neurofibromatosis, unspecified Category: Medical Plan Schedule Bilateral Therapeutic Sacroiliac Joint Injections with local and fluoroscopy for chronic SIJ pain with positive provocative testing. Expectations, risks and benefits were reviewed. Patient is aware she will be contacted to schedule this procedure. Patient is not interested in PNS Curonix trial or SIJ fusion and her insurance does not cover RFA procedure. PRP is explained patient is not interested. Coding Level of Care Code Est Pt Level 3 (11469) Diagnoses Polyarthralgia M25.50 Spondylosis of lumbar region without myelopathy or radiculopathy M47.816 Pain of both sacroiliac joints M53.3 Sacroiliitis M46.1 Neurofibromatosis Q85.00
[2023-10-21 15:57] VITALS: BP 128/70; PULSE 91; RESP 16; O2SAT 98; BMI 29.7
== END 2023-10-21 16:03 | disposition home or self-care (01) ==
PROVIDERS: PCP Internal Medicine; Visit Provider Anesthesiology
DX: M25.50 Pain in unspecified joint (principal); M47.816 Spondylosis without myelopathy or radiculopathy, lumbar region; M53.3 Sacrococcygeal disorders, not elsewhere classified; M46.1 Sacroiliitis, not elsewhere classified; Q85.00 Neurofibromatosis, unspecified
CPT/HCPCS: 99213

== ENCOUNTER → 2023-10-21 15:26 | Outpatient (BNVA) | payer OTHER, SELFPAY | PROVIDERS: PCP Internal Medicine; Visit Provider Anesthesiology | DX: M46.1 Sacroiliitis, not elsewhere classified (principal); M53.3 Sacrococcygeal disorders, not elsewhere classified; M47.816 Spondylosis without myelopathy or radiculopathy, lumbar region; M25.50 Pain in unspecified joint; Q85.00 Neurofibromatosis, unspecified | CPT/HCPCS: 99212 ==

== ENCOUNTER 2024-04-29 08:19 | Outpatient (REF) | payer OTHER, SELFPAY | END 2024-04-29 08:20 | disposition home or self-care (01) | LOC: HO.MAMMO 08:19 | PROVIDERS: PCP Internal Medicine; Visit Provider Internal Medicine | DX: Z12.31 Encounter for screening mammogram for malignant neoplasm of breast (principal) | CPT/HCPCS: 77063; 77067 ==

== ENCOUNTER → 2024-04-29 08:30 | Outpatient (BNV) | payer OTHER, SELFPAY | PROVIDERS: PCP Internal Medicine; Visit Provider Internal Medicine | DX: Z12.31 Encounter for screening mammogram for malignant neoplasm of breast (principal) | CPT/HCPCS: 77063; 77067 ==

== ENCOUNTER 2024-06-22 15:23 | Outpatient (AMB) | payer OTHER, SELFPAY ==
--- NOTE | 2024-06-22 15:24 | A.OFFVIS_ITS ---
Vital Signs 06/22/24 15:28 Height 4 ft 10 in Weight 137 lb 8 oz BMI 28.7 Intake Visit Reasons: soft tissue tumor on left foot Intake Note: This patient presents for soft tissue tumor left foot. Pt c/o; no complaints. Addiction Treatment Counselor Required: No Accompanied by: Self / Same As Patient Allergies No Known Allergies Allergy (Verified 06/22/24 15:28) Medication List - Last Reconciled 06/22/24 by George Smith MD hydroxyzine pamoate 25 mg PO TID PRN levonorgestrel (Mirena) intrauterine lidocaine 5% (Lidoderm) 1 patch topical DAILY loratadine 10 mg PO DAILY PRN melatonin 10 mg PO BEDTIME PRN meloxicam 15 mg PO DAILY paroxetine HCl 40 mg PO QAM pregabalin 200 mg PO TID quetiapine 150 mg PO BEDTIME sennosides (senna) 8.6 mg PO BEDTIME PRN sumatriptan succinate 50 mg PO DAILY PRN tizanidine 4 mg PO BEDTIME topiramate 100 mg PO BEDTIME trazodone 50 - 100 mg PO BEDTIME PRN HPI HPI soft tissue tumor on left foot: Details: 48 year old female referred for lesion on the plantar aspect of the left foot. She says she has had this for about 15 years but this has been increasing in size. She therefore describes some pain and discomfort now. She wants this removed. She says she is in good health overall. She does have known neurofibromatosis. [facility] Medical History (Updated 06/22/24 @ 15:33 by George Smith MD) Foot lesion COVID-19 vaccine series completed No pertinent past medical history Surgical History Hx of colonoscopy Hx of tubal ligation Hx of bilateral breast reduction surgery Hx of section Family History Mother Pancreas cancer Father Testicular cancer Paternal Aunt Colon cancer Breast CA Son JRA (juvenile rheumatoid arthritis) Social History Household Members: Children Household Members Other:: cat Are you a primary long term care social worker to a significant other at home: No Do you presently have visiting nurse or other home services: No Alcohol intake: current Alcohol intake frequency: holidays/special occasions only Patient Tobacco Use Status: Never used Tobacco Substance Use Type: Marijuana Current occupational status: employed 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, 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 Review of Systems Const Denies chills and Denies fever(s) Card Denies chest pain, Denies dyspnea and Denies dyspnea on exertion Resp Denies cough, Denies dyspnea and Denies dyspnea on exertion GI Denies hematochezia and Denies change in bowel habits Denies hematuria Musc Denies back pain and Denies limited range of motion Neuro Denies focal weakness and Denies convulsions Psych Denies depression and Denies mood swings Physical Exam Vital Signs: BMI result Body Mass Index 28.7 Const General: comfortable and no acute distress Orientation/consciousness: patient oriented x3 Neck Neck: Yes no lymphadenopathy Resp Auscultation: clear to auscultation bilaterally Cardio Rhythm: regular rhythm GI Palpation (GI): Soft to palpation, nontender and no guarding Neuro General: patient oriented x3 Extrem Other: Left foot with a soft, fleshy mass, about 1.2 cm in diameter, with a narrow base Assessment & Plan Assessment & Plan (1) Foot lesion: Code(s): L98.9 - Disorder of the skin and subcutaneous tissue, unspecified Category: Medical Plan: She has a lesion on the plantar aspect of the left foot as described above. This is likely to be part of her neurofibromatosis. She wants this excised that this has been bothering her. I explained the technique of excision under local anesthesia. I reviewed the risks including but not limited to bleeding and infections, as well as the benefits and alternatives. She understands and wants to proceed. This will be done in the office under local anesthesia. Coding Level of Care Code New Pt Level 3 (47145) Diagnoses Foot lesion L98.9
[2024-06-22 15:28] VITALS: BMI 28.7
--- OUTSIDE RECORDS SUMMARY | 2024-06-22 16:26 | XMS_ITS | Encounter Summary ---
Author Organization [employer] Address [address] [address] Care Team Providers Care Iphone Developer Name Role Phone Dakota Monet MD Primary Care Provider [phone] Reason for Visit * Reason Onset Date Comments PA 06/06/2024 Encounter Details Date Type Department Care Team (Late st Contact Info) Description 06/06/2024 Telephone [facility] MEDICINE [address] [place] [address] Dakota Monet MD [address] [place] [address] PA Social History Tobacco Use Types Packs/Day Years Used Date Smoking Tobacco: Never Passive Smoke Exposure: Never Smokeless Tobacco: Never Alcohol Use Standard Drinks/Week Comments Never 0 (1 standard drink = 0.6 oz pur e alcohol) Depression Answer Date Recorded Patient Health Questionnaire-9 Score 10 05/19/2022 Depression Answer Date Recorded Patient Health Questionnaire-2 Score 3 05/19/2022 Comments Unknown Sex and Gender Information Value Date Recorded Sex Assigned at Female 03/02/2022 10:16 AM EDT Legal Sex Female 10:16 AM EDT Gender Identity Female 03/02/2022 10:16 AM EDT Sexual Orientation Straight 03/02/2022 10 :16 AM EDT documented as of this encounter Miscellaneous Notes * Telephone Encounter - Chayito Ly - 06/21/2024 10:31 AM EST TC from pt requesting status on PA request. * Telephone Encounter - Anaid Heller LPN - 06/06/2024 11:52 AM EST Please review message below . If medication changed to Sumatriptan no Pa needed TC from pt requesting a PA for Medication Atogepant (Qulipta) 30 MG tablet Contact pt at [phone] * Telephone Encounter - Mike Parkinson - 06/06/2024 8:53 AM EST TC from pt requesting a PA for Medication Atogepant (Qulipta) 30 MG tablet Contact pt at [phone] documented in this encounter Plan of Treatment Upcoming Encounters Date Type Department Care Team ([facility] st Contact Info) Description 07/17/2024 3:30 PM EDT Office Visit [facility] MED & PEDS [address] [place] [address] Dakota Monet MD [address] [place] [address] documented as of this encounter Visit Diagnoses Not on filedocumented in this encounter Additional Health Concerns Assessment Noted Time PHQ-9 Depression Total Score: 10 023 3:54 PM EST documented as of this encounter Care Teams Iphone Developer Relationship Specialty Start Date End Date Dakota Monet MD [address] [place] [address] PCP - General Internal Medicine 05/10/13 documented as of this encounter
--- OUTSIDE RECORDS SUMMARY | 2024-06-22 16:26 | XMS_ITS | Encounter Summary ---
Author Organization [employer] Address [address] [place] [id number] Care Team Providers Care Program Management Intern Name Role Phone Dakota Monet MD Primary Care Provider [phone] Reason for Visit * Reason Comments Med Refill Encounter Details Date Type Department Care Team (Late Contact Info) Description 05/28/2024 Refill [facility] MEDICINE [address] [place], [place] [phone] Ann Givens MD [address] [place] [address] Primary insomnia Social History Tobacco Use Types Packs/Day Years [...] AM EDT documented as of this encounter Plan of Treatment Upcoming Encounters Date Type Department Care Team ([facility] Contact Info) Description 07/17/2024 3:30 PM EDT Office Visit [facility] MED & PEDS [address] [place], [place] [phone] Dakota Monet MD [address] [place] [address] documented as of this encounter Visit Diagnoses Diagnosis Primary insomnia Persistent disorder of initiating or maintaining sleep documented in this encounter Additional Health Concerns Assessment Noted Time PHQ-9 Depression Total Score: 10 023 3:54 PM EST documented as of this encounter Care Teams Program Management Intern Relationship Specialty Start Date End Date Dakota Monet MD [address] [place] [address] PCP - General Internal Medicine 05/10/13 documented as of this encounter
--- OUTSIDE RECORDS SUMMARY | 2024-06-22 16:26 | XMS_ITS | Clinical Summary ---
Author Organization [employer] Address [address] [place] [address] Care Team Providers Care Ticker Installer Name Role Phone Dakota Monet MD Primary Care Provider [phone] Allergies No known active allergies Medications traZODone (Desyrel) 50 MG tablet TAKE 1-2 TABLETS BY ORAL ROUTE 1 TIME PER DAY AT BEDTIME NEEDED INSOMNIA. Active SUMAtriptan (Imitrex) 50 MG tablet TAKE 1 TABLET BY MOUTH EVERY DAY NEEDED *FOR 30 DAYS* Active topiramate (Topamax) 100 MG tablet Take 100 mg by mouth at bedtime. Active Senna-Time 8.6 MG tablet TAKE 1 TABLET BY MOUTH EVERY DAY AT BEDTIME NEEDED FOR CONSTIPATION Active GaviLAX 17 GM/SCOOP powder MIX 1 CAPFUL (17G) WITH 8 OUNCES OF FLUID AND DRINK DAILY Active Levonorgestrel (Mirena, 52 MG,) 20 MCG/DAY intrauterine device 52 mg. Active hydrOXYzine HCl (Atarax) 50 MG tablet TAKE 1 TABLET BY ORAL ROUTE 3 TIMES PER DAY NEEDED FOR ANXIETY Active hydrocortisone (Anusol-HC) 2.5 % rectal cream APPLY RECTALLY 4 TIMES DAILY NEEDED FOR HEMORRHOIDS Active estradiol (Estrace) 0.1 MG/GM vaginal cream INSERT (1 GRAM) VAGINALLY TWICE A WEEK Active docusate sodium (Colace) 100 MG capsule Take 100 mg by mouth at bedtime. 022 Active Diclofenac Sodium 1 % gel APPLY 2 GRAMS TO AFFECTED AREA TWICE A DAY Active fexofenadine (Ashely) 180 MG tabletIndicatio ns:Seasonal allergies Take 1 tablet (180 mg) by mouth if needed each day (Allergies). 30 tablet 3 023 Active traMADol (Ultram) 50 MG tabletIndicatio ns:Chronic pain syndrome TAKE 1 TABLET BY MOUTH EVERY 12 HOURS NEEDED FOR SEVERE PAIN 30 tablet 023 Active rizatriptan (Maxalt) 10 MG tablet TAKE 1 TABLET BY MOUTH EVERY DAY NEEDED 10 023 Active Flowflex COVID-19 Ag Home Test kit USE DIRECTED 023 Active lidocaine (Lidoderm) 5 % patchIndication s:Radiculopathy , lumbar region APPLY 1 PATCH EVERY DAY MAY WEAR UP TO 12 HOURS DAILY 30 patch 5 024 Active fluticasone (Flonase) 50 MCG/ACT nasal sprayIndication s:Seasonal allergies SPRAY 2 SPRAYS INTO EACH NOSTRIL IN THE MORNING 48 mL 024 Active Blood Pressure kitIndications: Elevated BP without diagnosis of hypertension BP check at home daily 1 kit 024 Active gabapentin (Neurontin) 600 MG tabletIndicatio ns:Chronic pain syndrome Take 1 tablet (600 mg) by mouth 3 times daily. 90 tablet 11 024 2024 Active loratadine (Claritin) 10 MG tablet TAKE 1 TABLET BY MOUTH EVERY DAY NEEDED 90 tablet 1 024 Active tiZANidine (Zanaflex) 4 MG tabletIndicatio ns:Chronic pain syndrome TAKE 1 TABLET BY ORAL ROUTE ONCE A DAY AT BEDTIME 30 tablet 3 024 Active PARoxetine (Paxil) 40 MG tabletIndicatio ns:Anxiety TAKE 1 TABLET BY MOUTH EVERY DAY IN THE MORNING 30 tablet 5 024 Active hydrOXYzine pamoate (Vistaril) 25 MG capsule TAKE 1 CAPSULE BY MOUTH 3 TIMES EVERY DAY NEEDED FOR ANXIETY 90 capsule 1 024 Active QUEtiapine (SEROquel) 50 MG tabletIndicatio ns:Primary insomnia TAKE 3 TABLETS BY MOUTH AT BEDTIME 30 tablet 1 025 Active Atogepant (Qulipta) 30 MG tabletIndicatio ns:Chronic migraine with aura without status migrainosus, not intractable Take 30 mg by mouth Once per day. 30 tablet 2 025 Active celecoxib (CeleBREX) 200 MG capsuleIndicati ons:Chronic pain syndrome,Chroni c right-sided low back pain with right-sided sciatica TAKE 1 CAPSULE BY MOUTH 2 TIMES DAILY. 60 capsule 025 Active SUMAtriptan (Imitrex) 50 MG tabletIndicatio ns:Chronic migraine with aura without status migrainosus, not intractable Take 1 tablet (50 mg) by mouth 1 (one) time if needed for migraine for up to 108 doses. May repeat dose once in 2 hours if no relief. Do not exceed 2 doses in 24 hours. 9 tablet 11 025 Active QUEtiapine (SEROquel) 50 MG tabletIndicatio ns:Primary insomnia TAKE 3 TABLETS BY MOUTH AT BEDTIME 30 tablet 1 024 2024 Discontinued celecoxib (CeleBREX) 200 MG capsuleIndicati ons:Chronic pain syndrome,Chroni c right-sided low back pain with right-sided sciatica TAKE 1 CAPSULE BY MOUTH 2 TIMES DAILY. 60 capsule 025 2024 Discontinued Diclofenac Sodium 1 % gel To apply to the affected area 3 times a day 100 g 025 2024 Discontinued(E ntered in error) Active Problems Problem Noted Date Diagnosed Date Chronic pain syndrome 05/20/2022 Chronic pain of right knee 05/07/2022 Overview (05/07/2022): Steroid Injection -07/22 -05/25 Assessment & Plan (02/18/2023 4:22 PM EDT): Patient took the injection well, with no mayor or any complications. Patient was advised of the risks and side effects during, and after the procedure. Recommended to apply ice on the affected area. Additionally, patient was advised to notify the office if she notices a reaction or any side effect on the injection site. Assessment & Plan (05/07/2022 4:44 PM EST): Tolerated procedure well, recommended icing this afternoon and return to care if worsening symptoms or any signs of infection. 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 Anemia 10/22/2011 Depressive disorder 10/22/2011 Migraine 10/22/2011 Tachycardia 10/22/2011 Encounters Date Type Department Care Team Description 06/22/2024 Orders Only [facility] MED & PEDS [address] [place] [address] Dakota Monet MD Chronic migraine with aura without status migrainosus, not intractable (Primary Dx) 06/06/2024 Telephone [facility] MEDICINE [address] [place] [address] Dakota Monet MD PA 06/03/2024 Refill [facility] MED & PEDS [address] [place] [address] Dakota Monet MD Chronic pain syndrome; Chronic right-sided low back pain with right-sided sciatica 05/30/2024 4:00 PM EST Office Visit [facility] PED[facility] [address] [place] [address] Dakota Monet MD Neurofibromatosis syndrome (CMS/HCC) (Primary Dx); Chronic migraine with aura without status migrainosus, not intractable; Soft tissue tumor of left foot 05/30/2024 Travel 05/28/2024 Refill [facility] MEDICINE [address] [place] [address] Ann Givens MD Primary insomnia 05/02/2024 Refill [facility] MED & PEDS [address] [place] [address] Dakota Monet MD Chronic pain syndrome; Chronic right-sided low back pain with right-sided sciatica 04/29/2024 Orders Only [facility] MED & PEDS [address] [place] [address] Dakota Monet MD 04/17/2024 Telephone [facility] P[facility] [address] [place] [address] Dakota Monet MD Appointment Request (Pt needs appt ) 04/12/2024 Refill [facility] MEDICINE [address] [place] [address] Dakota Monet MD Primary insomnia 04/12/2024 Telephone [facility] MED[facility]INE [address] [place] [address] Dakota Monet MD Referral 04/07/2024 Refill [facility] PEDS [address] [place] [address] Ann Givens MD 04/07/2024 Refill [facility] PEDS [address] [place] [address] Dakota Monet MD Anxiety 03/27/2024 Telephone [facility] MEDICINE [address] [place] [address] Dakota Monet MD Nurse Triage 03/23/2024 Refill [facility] PEDS [address] [place] [address] Dakota Monet MD Chronic pain syndrome from Last 3 Months Immunizations Name Administration Dates Next Due HepB-CpG 03/02/2023,01/11/2023 Influenza Injectable Quadriv alant Preservative Free IIV4 MDCK 02/13/2019,12/27/2016 Influenza injectable quadriv alent preservative free 03/02/2023,02/25/2022,02/05/2021,2019,01/15/2018,01/21/2016 Influenza, High Dose Seasona l, Preservative Free 02/04/2017 Influenza, IIV3, injectable 01/23/2011, 0 Influenza, Injectable, MDCK, preservative free 12/26/2023 Moderna Covid-19 Vaccine 12+ 08/19/2020,07/23/19 21 Tdap 02/28/2024,12/08/2010 Social History Tobacco Use Types Packs/Day Years Used Date Smoking Tobacco: Never Passive Smoke Exposure: Never Smokeless Tobacco: Never Tobacco Cessation:Counseling Given: Not Answered Alcohol Use Standard Drinks/Week Comments Never 0 [...] Orientation Straight 03/02/2022 10 :16 AM EDT Last Filed Vital Signs Vital Sign Reading Time Taken Comments Blood Pressure 119/76 05/30/2024 3:49 PM EST Pulse 96 05/30/2024 3:49 PM EST Temperature 36.7 ??C (98 ??F) 05/30/2024 3:49 PM EST Respiratory Rate 20 05/30/2024 3:49 PM EST Oxygen Saturation 98% 05/30/2024 3:49 PM EST Inhaled Oxygen Concentration - - Weight 60.8 kg (134 lb) 05/30/2024 3:49 PM EST Height 149 cm (4' 10.66 ) 05/30/2024 3:49 PM EST Body Mass Index 27.38 05/30/2024 3:49 PM EST Plan of Treatment Upcoming Encounters Date Type Department Care Team (Late st Contact Info) Description 07/17/2024 3:30 PM EDT Office Visit [facility] MED & PEDS [address] [place] [address] Dakota Monet MD [address] [place] [address] Health Maintenance Due Date Last Done Comments CT Colonography 1975 FIT DNA/Cologuard 1975 FIT 1975 FOBT 1975 HIV Screening 1975 SDOH Screening 1975 Sigmoidoscopy 1975 Derm Melanoma Skin Check 06/18/1976 Alcohol/Substance Use Screening 1987 Family Planning (PISQ) 12/16/1990 Depression Monitoring (PHQ-9) 11/16/2022 05/19/2022, 05/19/2022 Depression Screening 05/19/2023 05/19/2022, 05/19/19 Pap Smear 11/28/2023 11/27/2020 Tobacco Screening 05/30/2025 05/30/2024 Cervical Cancer Screening 11/27/2025 HPV/Cotest 11/27/2025 11/27/2020, 04/13/2017 Zoster Vaccines (1 of 2) 12/16/2025 Mammogram 04/29/2026 04/29/2024, 01/02, 06/16/2019, Additional history exists Colonoscopy 08/22/2026 08/22/2021 Colorectal Cancer Screening 08/22/2026 DTaP/Tdap/Td Vaccines (3 - Td or Tdap) 02/27/2034 02/28/2024, 12/08/2010 RSV Patients and Patients Aged 60 years or older (1 - 1-dose 75+ series) 12/16/2050 Hepatitis C Screening Completed 01/08/2023 Hepatitis B Vaccines Completed 03/02/2023, 01/12/20 Influenza Vaccine Completed 12/26/2023, , 02/25/2022, Additional history exists COVID-19 Vaccine Completed 12/27/2023, , 02/28/2021, Additional history exists HIB Vaccines Aged Out No longer eligi ble based on patient's age to complete this topic HPV Vaccines Aged Out No longer eligi ble based on patient's age to complete this topic Hepatitis A Vaccines Aged Out No long er eligible based on patient's age to complete this topic IPV Vaccines Aged Out No longer eligi ble based on patient's age to complete this topic Meningococcal Vaccine Aged Out No luis f adryan eligible based on patient's age to complete this topic Pneumococcal Vaccine: Pediatrics (0 to 5 Years) and At-Risk Patients (6 to 49) Years) Aged Out No longer eligible based on patient's age to complete this topic RSV under 20 months Aged Out No longe r eligible based on patient's age to complete this topic Rotavirus Vaccines Aged Out No longer eligible based on patient's age to complete this topic Procedures Procedure Name Priority Date/Time Associated Diagnosis Comments BI MAMMOGRAM SCREENING TOMOSYNTHESIS BILATERAL Routine 04/29/2024 8:25 AM EST HEPATITIS PANEL, GENERAL Routine 01/08/2023 1:27 PM EDT Pre-employment examination HM COLONOSCOPY Routine 08/22/2021 HPV MRNA E6/E7 Routine 11/27/2020 3:44 PM EDT THINPREP PAP Routine 11/27/2020 3:44 PM EDT from Last 3 Months or Most Recently Relevant to Health Maintenance Results * BI Mammogram Screening Tomosynthesis Bilateral (04/29/2024 8:25 AM EST) Anatomical Region Laterality Modality Breast Bilateral Mammography 04/29/2024 8:25 AM EST Narrative 05/12/2024 3:20 PM EST ? [facility] [place] ? [address] ?[place] [address] ? Mammography Report ? Signed ? Patient: Paola,Lidagma ?MR#: [id number] ?? [id number] ? : 1975 ?Acct:[id number] ? Age/Sex: 48 / F ?ADM Date: 12/28/24 ? Loc: HO.MAMMO ? Attending Dr: Dakota Monet MD ? Ordering Physician: Dakota Monet MD ?Results: 2 ?? Benign Findings ? Date of Service: 12/28/24 ?Follow Up: 1 Year From Orig ?? inal Mammogram ? Procedure(s): MM tomosynthesis screening BI ?? Accession Number(s): [id number] ? cc: Dakota Monet MD ? EXAMINATION: ?? MM SCREENING DIGITAL BREAST TOMOSYNTHESIS, BILATERAL ? CLINICAL INFORMATION: ? Screening. Asymptomatic. ? COMPARISON: ?? Mammography: Comparison is made with available priors ? TECHNIQUE: ?? Digital breast mammography with tomosynthesis is performed in both the ?? craniocaudal and mediolateral oblique views along with computer-aided ?? detection (CAD). ? FINDINGS: ?? The breasts are heterogeneously dense, which may obscure small masses ?? (ACR BI-RADS breast composition Category c). ?? Bilateral reduction mammoplasty. ?? There are no significant masses, abnormal calcifications, or other ?? abnormalities. ? MM/MM tomosynthesis screening BI ?? IMPRESSION: ?? No mammographic evidence of malignancy. ? ASSESSMENT: ? BI-RADS BI-RADS 2 - Benign Findings ? RECOMMENDATION: ?? Routine annual mammography screening. ? 1 year F/U ? This examination should not preclude the clinical evaluation of a ?? suspicious palpable abnormality. ? This patient's information was entered into a reminder system with a ?? target due date for their next mammogram. ? Electronically signed by: ??Mishel Miles DO ??05/12/2024 03:16 PM EST ?? RP ? Dictated By: ?Mishel Miles DO ? Signed By: ?<Electronically signed by Mishel Miles, DO in OV> ? 05/12/24 1516 ? DD/ 4 ? TD/TT: 04/29/2436 ? Healthcare Administration Intern: ? Procedure Note Nallely, Image - 05/12/2024 [facility] [address] [place] [address] Dr. Jacob, [place]FA[place] [address] Mammography Report Signed Patient: Gerald Guevara#: [id number] : 1975Acct:[id number] Age/Sex: 48 / FADM Date: 04/29/24 Loc: HO.MAMMO Attending Dr: Dakota Monet MD Ordering Physician: Dakota Monet MDResults: 2 Benign Findings Date of Service: 04/29/24Follow Up: 1 Year From Orig ina Mammogram Procedure(s): MM tomosynthesis screening BI Accession Number(s): [id number] cc: Dakota Monet MD EXAMINATION: MM SCREENING DIGITAL BREAST TOMOSYNTHESIS, BILATERAL CLINICAL INFORMATION: Screening. Asymptomatic. COMPARISON: Mammography: Comparison is made with available priors TECHNIQUE: Digital breast mammography with tomosynthesis is performed in both the craniocaudal and mediolateral oblique views along with computer-aided detection (CAD). FINDINGS: The breasts are heterogeneously dense, which may obscure small masses (ACR BI-RADS breast composition Category c). Bilateral reduction mammoplasty. There are no significant masses, abnormal calcifications, or other abnormalities. MM/MM tomosynthesis screening BI IMPRESSION: No mammographic evidence of malignancy. ASSESSMENT: BI-RADS BI-RADS 2 - Benign Findings RECOMMENDATION: Routine annual mammography screening. 1 year F/U This examination should not preclude the clinical evaluation of a suspicious palpable abnormality. This patient's information was entered into a reminder system with a target due date for their next mammogram. Electronically signed by: Mishel Miles DO 05/12/2024 03:16 PM EST Dictated By: Mishel Miles DO Signed By: <Electronically signed by Mishel Miles DO in OV> 05/12/24 1516 DD/ 0825 TD/TT: 04/29/24 0836 Healthcare Administration Intern: us Dakota Monet MD IMG BI PROCEDURES Final Res ult * Hepatitis Panel, General (01/08/2023 1:27 PM EDT) Hepatitis A IgM Nonreactive Nonreactive [facility] Comment:IgM antibodies to MARIE V not detected; does not exclude earlyacute or recovered HAV infection. ~Hepatitis B Surface Antibody NONREACTIVE Nonreactive [facility] Comment:Nonreactive: < 8.00 mIU/mL Hepatitis B Core Antibody Nonreactive Nonreactive [facility] Hepatitis C Antibody Nonreactive Nonreactive [facility] Comment:Antibodies to HCV no t detected; does not exclude early acuteHCV infection. Hepatitis B Surface Ag Negative Negative [facility] Blood 01/08/2023 1:27 PM EDT 01/08/2023 2:43 PM EDT Dakota Monet MD LAB BLOOD ORDERABLES Final Result [facility] [address] [place] [phone] [phone] * Hm Colonoscopy (08/22/2021) Colonoscopy Normal Normal Narrative Milagro Bear - 08/22/2021 Recommended 5 year follow up Historical Provider HEALTH MAINTENANCE Final Result * THINPREP PAP (11/27/2020 3:44 PM EDT) Clinical Information: None given [facility] COMMENT SEE COMMENT [facility] Comment: EXPLANATORY NOTE: ? The Pap is a screening test for cervical cancer. It is ?? not a diagnostic test and is subject to false negative ?? and false positive results. It is most reliable when a ?? satisfactory sample, regularly obtained, is submitted ?? with relevant clinical findings and history, and when ?? the Pap result is evaluated along with historic and ?? current clinical information. ?? Oil Spraying Machine Operator : SEE COMMENT [facility] Comment: KF, CT(ASCP) CT screening location: [address] ??[id number] Interpretation/R esult: Negative for intraepithelial lesion or malignancy. [facility] LMP: NONE GIVEN [facility] Prev. BX: NONE [facility]IVEN [facility] Prev. PAP: NONE [facility]IVEN [facility] SOURCE: None given [facility] Statement Of Adequacy: SEE COMMENT [facility] Comment: Satisfactory for evaluation. Endocervical/transformation zone component absent. Age and/or menstrual status not provided 11/27/2020 3:44 PM EDT Tamar Carbajal [facility] PATHOLOGY ORDERABLES Final Result Performing Organization Address [facility] Co de Phone Number [facility] [address] * HPV mRNA E6/E7 (11/27/2020 3:44 PM EDT) HPV nRNA E6/E7 Not Detected Not Detected [facility] Comment: Methodology: Retail Coverage Merchandiser-Mediated Amplification This assay detects E6/E7 viral messenger RNA (mRNA) from 14 high-risk HPV types (16,18,31,33,35,39,45,51,52,56,58,59,66,68). ? The analytical performance characteristics of this assay have been determined by [employer]. The modifications have not been cleared or approved by the FDA. This assay has been validated pursuant to the CLIA regulations and is used for clinical purposes. ?? For additional information, please refer to http://education.[employer]/faq/LNX461i6 (This link if provided for information/ educational purposes only.) 11/27/2020 3:44 PM EDT Tamar Carbajal [facility] LAB BLOOD ORDERABLES Josiane l Result Performing Organization Address [facility] de Phone Number [facility] [address] from Last 3 Months or Most Recently Relevant to Health Maintenance Insurance [facility] [address] [place] [address] Care Teams Ticker Installer Relationship Specialty Start Date End Date Dakota Monet MD [address] [place] [phone] PCP - General Internal Medicine 05/10/13
--- OUTSIDE RECORDS SUMMARY | 2024-06-22 16:26 | XMS_ITS | Encounter Summary ---
Author Organization [email or web address] Address [address] [place] [address] [address] [place] [address] Care Team Providers Care Stock Patcher Name Role Phone Dakota Monet MD Primary Care Provider [phone] Encounter Details Date Type Department Care Team ([facility] Contact Info) Description 2023 Orders Only [facility] PED[facility] [address] [place], [place] [phone] Dakota Monet MD [address] [place] [address] Social History Tobacco Use Types Packs/Day Years [...] Encounters Date Type Department Care Team (Late Contact Info) Description 07/17/2024 3:30 PM EDT Office Visit [facility] [address] [place], [place] [phone] Dakota Monet MD [address] [place] [address] documented as of this encounter Visit Diagnoses Not on filedocumented in this encounter Additional Health Concerns Assessment Noted Time PHQ-9 Depression Total Score: 10 023 3:54 PM EST documented as of this encounter Care Teams Stock Patcher Relationship Specialty Start Date End Date Dakota Monet MD [address] [place] [address] [place] [address] PCP - General Internal Medicine 05/10/13 documented as of this encounter
--- OUTSIDE RECORDS SUMMARY | 2024-06-22 16:26 | XMS_ITS | Encounter Summary ---
Author Organization [email or web address] Address [address] [place] [address] [address] [address] Care Team Providers Care Cdl Bulk Driver Name Role Phone Dakota Monet MD Primary Care Provider [phone] Encounter Details Date Type Department Care Team (Late Contact Info) Description 03/05/2023 Abstract [facility] [address] [place] [address] Milagro Bear Social History Tobacco Use Types Packs/Day Years [...] Description 07/17/2024 3:30 PM EDT Office Visit [facility] PEDS [address] [place], [place] [phone] Dakota Monet MD [address] [place] [address] documented as of this encounter Procedures Procedure Name Priority Date/Time Associated Diagnosis Comments HM COLONOSCOPY Routine 08/22/2021 documented in this encounter Results * Hm Colonoscopy (08/22/2021) Colonoscopy Normal Normal Narrative Milagro Bear - 08/22/2021 Recommended 5 year follow up Historical Provider MD HEALTH MAINTENANCE Final Result documented in this encounter Visit Diagnoses Not on filedocumented in this encounter Additional Health Concerns Assessment Noted Time PHQ-9 Depression Total Score: 10 023 3:54 PM EST documented as of this encounter Care Teams Cdl Bulk Driver Relationship Specialty Start Date End Date Dakota Monet MD [address] [place] [phone] PCP - General Internal Medicine 05/10/13 documented as of this encounter
--- OUTSIDE RECORDS SUMMARY | 2024-06-22 16:26 | XMS_ITS | Encounter Summary ---
Author Organization [employer] Address [address] [place] [address] Care Team Providers Care Major Donor Coordinator Name Role Phone Dakota Monet MD Primary Care Provider [phone] Reason for Visit * Reason Comments Med Refill Encounter Details Date Type Department Care Team ([facility] Contact Info) Description 01/16/2024 Refill [facility] [address] [place] [address] Dakota Monet MD [address] [place] [address] Chronic pain syndrome; Chronic right-sided low back pain with right-sided sciatica Social History Tobacco Use Types Packs/Day Years [...] Upcoming Encounters Date Type Department Care Team ([facility] Contact Info) Description 07/17/2024 3:30 PM EDT Office Visit [facility] [address] [place] [address] Dakota Monet MD [address] [place] [address] documented as of this encounter Visit Diagnoses Diagnosis Chronic pain syndrome Chronic right-sided low back pain with right-sided sciatica documented in this encounter Additional Health Concerns Assessment Noted Time PHQ-9 Depression Total Score: 10 023 3:54 PM EST documented as of this encounter Care Teams Major Donor Coordinator Relationship Specialty Start Date End Date Dakota Monet MD [address] [place] [address] PCP - General Internal Medicine 05/10/13 documented as of this encounter
--- OUTSIDE RECORDS SUMMARY | 2024-06-22 16:26 | XMS_ITS | Encounter Summary ---
Author Organization [employer] Address [address] [address] Care Team Providers Care Conservation Coordinator Name Role Phone Dakota Monet MD Primary Care Provider +[phone]- [phone] Reason for Visit * Reason Onset Date Comments Appointment Request 04/22/2022 Encounter Details Date Type Department Care Team ([facility] st Contact Info) Description 04/22/2022 Telephone [facility] MEDICINE [address] [place] [address] Dakota Monet MD [address] [place], [place] [phone] Appointment Request Social History Tobacco Use Types Packs/Day Years Used Date Smoking Tobacco: Never Assessed Depression Answer Date Recorded Patient Health Questionnaire-9 Score 10 05/19/2022 Depression Answer Date Recorded Patient Health Questionnaire-2 Score 3 05/19/2022 Comments Unknown Sex and Gender Information Value Date Recorded Sex Assigned at Female 03/02/2022 10:16 AM EDT Legal Sex Female 10:16 AM EDT Gender Identity Female 03/02/2022 10:16 AM EDT Sexual Orientation Straight 03/02/2022 10 :16 AM EDT COVID-19 Exposure Response Date Recorded In the last 10 days, have yo u been in contact with someone who was confirmed or suspected to have Coronavirus/COVID-19? No / Unsure 09/24/2022 2:25 PM EDT documented as of this encounter Miscellaneous Notes * Telephone Encounter - Tianna Arron - 05/05/2022 3:37 PM EST Tc from pt requesting prescription for Lyrica, meloxicam, Seroquel, tramadol. * Telephone Encounter - Sita Arredondo RN - 04/22/2022 7:10 PM EST Call placed to pt. Per pt, seen by Dr. Ocampo months ago for an injection for right knee pain. Pt states the injection was very effective in relieving pain and requesting an appt for follow up. Pt c/o right knee pain for over 1 year. States the pain has worsened in the last 1.5 weeks. Also reports swelling to the knee. Pt denies redness or warmth to site. Denies injury or fall. Per pt, taking ibuprofen and using heating pads with no relief. Also reports use of knee brace/elevation which she states helps with pain/swelling somewhat. Pt agrees to follow up with Dr. Ocampo on 05/07/22 @3:30pm. Advised home recs. Pt to continue to monitor and follow up sooner as needed. Pt agrees. Will forward toDr. Ocampo to review. * Telephone Encounter - Zia Salas - 04/22/2022 3:44 PM EST Tc from pt returning call regarding message from 04/17/22, pt would like shot injection appt. Please contact at [phone] documented in this encounter Plan of Treatment Upcoming Encounters Date Type Department Care Team (Late st Contact Info) Description 07/17/2024 3:30 PM EDT Office Visit [facility] CHC MED & PEDS [address] [place] [address] Dakota Monet MD [address] [place] [address] documented as of this encounter Visit Diagnoses Not on filedocumented in this encounter Care Teams Conservation Coordinator Relationship Specialty Start Date End Date Dakota Monet MD [address] [place] [address] PCP - General Internal Medicine 05/10/13 documented as of this encounter
--- OUTSIDE RECORDS SUMMARY | 2024-06-22 16:26 | XMS_ITS | Encounter Summary ---
Author Organization [employer] Address [address] [place] [address] Care Team Providers Care Pull Worker Name Role Phone Dakota Monet MD Primary Care Provider [phone] Reason for Visit * Reason Comments Med Refill Encounter Details Date Type Department Care Team ([facility] Contact Info) Description 03/19/2024 Refill [facility] MED & PEDS [address] [place] [address] Dakota Monet MD [address] [place] [address] Primary insomnia Social History Tobacco Use Types [...] Upcoming Encounters Date Type Department Care Team ([facility] Contact Info) Description 07/17/2024 3:30 PM EDT Office Visit [facility] MED & PEDS [address] [place] [address] Dakota Monet MD [address] [place] [address] documented as of this encounter Visit Diagnoses Diagnosis Primary insomnia Persistent disorder of initiating or maintaining sleep documented in this encounter Additional Health Concerns Assessment Noted Time PHQ-9 Depression Total Score: 10 023 3:54 PM EST documented as of this encounter Care Teams Pull Worker Relationship Specialty Start Date End Date Dakota Monet MD [address] [place] [address] PCP - General Internal Medicine 05/10/13 documented as of this encounter
--- OUTSIDE RECORDS SUMMARY | 2024-06-22 16:26 | XMS_ITS | Encounter Summary ---
Author Organization [employer] Address [address] [place] [address] Care Team Providers Care Rental Car Porter Name Role Phone Dakota Monet MD Primary Care Provider +[phone] Reason for Visit * Reason Onset Date Comments Results 01/06/2023 Encounter Details Date Type Department Care Team ([facility] st Contact Info) Description 01/06/2023 Telephone [facility] CHC MED & PEDS [address] [place], [place] [phone] Dakota Monet MD [address] [place] [address] Results Social History Tobacco Use Types Packs/Day Years [...] encounter Miscellaneous Notes * Telephone Encounter - Sita Arredondo RN - 01/11/2023 1:57 PM EDT Call placed to pt and pt informed of below. Pt verbalizes understanding. States she will get the vaccine at [facility] pharmacy. Pt also requesting this message be forwarded to medical records to inform. Per pt, left vaccination forms with HIM dept. * Telephone Encounter - Sita Arredondo RN - 01/11/2023 1:56 PM EDT ----- Message from Dakota Monet MD sent at 01/11/2023 12:18 PM EDT ----- Please call. Hep B neg. Pt will need to get her Hep B series. * Telephone Encounter - Giovana Marie RN - 01/07/2023 8:51 AM EDT TC placed to pt regarding message below per Dr. Monet. Pt verbalized understanding. Pt reports no access to [employer]. RN informed link will be sent to pt's phone number. Pt in agreement. Pt to F/U as needed. T-spot neg. Hepatis panel still pending. The forms dropped off is being processed. Pt can reach outto Medical record to find out if the form is done. Ms Cornel Guevara can access my Chart to lookat her results. TC from pt requesting lab results and also some paper work that she dropped off 2 weeks ago . Please call pt to clarify . * Telephone Encounter - Chayito Ly - 01/06/2023 1:58 PM EDT TC from pt requesting lab results and also some paper work that she dropped off 2 weeks ago . Please call pt to clarify . documented in this encounter Plan of Treatment Upcoming Encounters Date Type Department Care Team (Late st Contact Info) Description 07/17/2024 3:30 PM EDT Office Visit [facility] MED & PEDS [address] [place] [address] Dakota Monet MD [address] [place] [address] documented as of this encounter Visit Diagnoses Diagnosis Chronic pain syndrome documented in this encounter Additional Health Concerns Assessment Noted Time PHQ-9 Depression Total Score: 10 023 3:54 PM EST documented as of this encounter Care Teams Rental Car Porter Relationship Specialty Start Date End Date Dakota Monet MD [address] [place] [address] PCP - General Internal Medicine 05/10/13 documented as of this encounter
--- OUTSIDE RECORDS SUMMARY | 2024-06-22 16:26 | XMS_ITS | Encounter Summary ---
Author Organization [employer] Address [address] [facility] [address] [place] [address] Care Team Providers Care Bacon De Rinder Name Role Phone Dakota Monet MD Primary Care Provider [phone]- [phone] Reason for Visit * Reason Onset Date Comments Referral 04/12/2024 Encounter Details Date Type Department Care Team ([facility] st Contact Info) Description 04/12/2024 Telephone [facility] MEDICINE [address] [place] [address] Dakota Monet MD [address] [place], [place] [phone] Referral Social History Tobacco Use Types Packs/Day Years [...] encounter Miscellaneous Notes * Telephone Encounter - Jazmín Luna RN - 04/14/2024 2:33 PM EST TC to pt- she states she has been with Dr Fuentes for 14 years. According to pt he doesn't even examine me anymore when I go, I have asked he try changing my medication and he does not listen. She would like to see: TC from pt requesting new referral : Address: [address] [place] [address] Facility Name: [facility] Type of Specialist: Neurology * Telephone Encounter - Toño Patel - 04/12/2024 10:06 AM EST TC from pt requesting new referral : Address: [address] [place] [address] Facility Name: [facility] Type of Specialist: Neurology documented in this encounter Plan of Treatment Upcoming Encounters Date Type Department Care Team (Late st Contact Info) Description 07/17/2024 3:30 PM EDT Office Visit [facility] MED & PEDS [address] [place] [address] Dakota Monet MD [address] [place] [address] documented as of this encounter Visit Diagnoses Not on filedocumented in this encounter Additional Health Concerns Assessment Noted Time PHQ-9 Depression Total Score: 10 023 3:54 PM EST documented as of this encounter Care Teams Bacon De Rinder Relationship Specialty Start Date End Date Dakota Monet MD [address] [place] [address] PCP - General Internal Medicine 05/10/13 documented as of this encounter
--- OUTSIDE RECORDS SUMMARY | 2024-06-22 16:26 | XMS_ITS | Encounter Summary ---
Author Organization [employer] Address [address] [place] [address] Care Team Providers Care International Trade Compliance Manager Name Role Phone Dakota Monet MD Primary Care Provider [phone] [phone] Reason for Visit * Reason Onset Date Comments Med Refill 12/21/2022 Encounter Details Date Type Department Care Team ([facility] st Contact Info) Description 12/21/2022 Telephone [facility] CHC MED & PEDS [address] [place] [address] Dakota Monet MD [address] [place] [address] Med Refill Social History Tobacco Use Types Packs/Day Years [...] encounter Miscellaneous Notes * Telephone Encounter - Patricia Menjivar LPN - 12/21/2022 12:09 PM EDT Medication pended to PCP. * Telephone Encounter - Gaby Rudy - 12/21/2022 11:35 AM EDT Tc from patient requesting a med refill for medication tiZANidine (Zanaflex) [address] Monet documented in this encounter Plan of Treatment Upcoming Encounters Date Type Department Care Team (Late st Contact Info) Description 07/17/2024 3:30 PM EDT Office Visit [facility] MED & PEDS [address] [place] [address] Dakota Monet MD [address] [place] [address] documented as of this encounter Visit Diagnoses Not on filedocumented in this encounter Additional Health Concerns Assessment Noted Time PHQ-9 Depression Total Score: 10 023 3:54 PM EST documented as of this encounter Care Teams International Trade Compliance Manager Relationship Specialty Start Date End Date Dakota Monet MD [address] [place] [address] PCP - General Internal Medicine 05/10/13 documented as of this encounter
--- OUTSIDE RECORDS SUMMARY | 2024-06-22 16:26 | XMS_ITS | Encounter Summary ---
Author Organization [employer] Address [address] [place] [address] Care Team Providers Care Blocker And Polisher Gold Wheel Name Role Phone Dakota Monet MD Primary Care Provider [phone] Reason for Visit * Reason Comments Med Refill Encounter Details Date Type Department Care Team ([facility] Contact Info) Description 06/03/2024 Refill [facility] MED & PEDS [address] [place] [address] Dakota Monet MD [address] [place] [address] Chronic pain syndrome; Chronic right-sided low back [...] Upcoming Encounters Date Type Department Care Team ([facility] Contact Info) Description 07/17/2024 3:30 PM EDT Office Visit [facility] MED & PEDS [address] [place] [address] Dakota Monet MD [address] [place] [address] documented as of this encounter Visit Diagnoses Diagnosis Chronic pain syndrome Chronic right-sided low back pain with right-sided sciatica documented in this encounter Additional Health Concerns Assessment Noted Time PHQ-9 Depression Total Score: 10 023 3:54 PM EST documented as of this encounter Care Teams Blocker And Polisher Gold Wheel Relationship Specialty Start Date End Date Dakota Monet MD [address] [place] [address] PCP - General Internal Medicine 05/10/13 documented as of this encounter
--- OUTSIDE RECORDS SUMMARY | 2024-06-22 16:26 | XMS_ITS | Encounter Summary ---
Author Organization [employer] Address [address] [place] [address] 7 [place] [address] Care Team Providers Care Wastewater Technician Name Role Phone Dakota Monet MD Primary Care Provider +1- [phone] Encounter Details Date Type Department Care Team (Latest Contact Info) Description 03/17/2023 Orders Only [facility] MED & PEDS [address] [place], [place] [phone] Dakota Monet MD [address] [place] [address] Neurofibromatosis syndrome (CMS/HCC) (Primary Dx) Social History Tobacco Use Types Packs/Day Years [...] Upcoming Encounters Date Type Department Care Team ( st Contact Info) Description 07/17/2024 3:30 PM EDT Office Visit [facility] MED & PEDS [address] [place], [place] [phone] Dakota Monet MD [address] [place] [address] documented as of this encounter Visit Diagnoses Diagnosis 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
--- OUTSIDE RECORDS SUMMARY | 2024-06-22 16:26 | XMS_ITS | Encounter Summary ---
Author Organization [employer] Address [address] [place] [address] 7 [place] [address] Care Team Providers Care Heavy Truck Mechanic Name Role Phone Dakota Monet MD Primary Care Provider +1 [phone] Encounter Details Date Type Department Care Team (Latest Contact Info) Description 02/06/2021 Abstract [facility] Dental, Provider, DDS Social History Tobacco Use Types Packs/Day Years Used Date Smoking Tobacco: Never Assessed Comments Unknown Sex and Gender Information Value [...] Description 07/17/2024 3:30 PM EDT Office Visit [facility] CHC MED & PEDS [address] [place] [address] Dakota Monet MD [address] [place] [address] documented as of this encounter Visit Diagnoses Not on filedocumented in this encounter Care Teams Heavy Truck Mechanic Relationship Specialty Start Date End Date Dakota Monet MD [address] [place] [address] PCP - General Internal Medicine 05/10/13 documented as of this encounter
--- OUTSIDE RECORDS SUMMARY | 2024-06-22 16:26 | XMS_ITS | Encounter Summary ---
Author Organization [employer] Address [address] [place] [address] 7 [place] [address] Care Team Providers Care Fifth Grade Teacher Name Role Phone Dakota Monet MD Primary Care Provider +1- [phone] Encounter Details Date Type Department Care Team (Late Contact Info) Description 06/22/2024 Orders Only [facility] MED & PEDS [address] [place], [place] [phone] Dakota Monet MD [address] [place] [address] Chronic migraine with aura without status migrainosus, not intractable (Primary Dx) Social History Tobacco Use Types [...] 07/17/2024 3:30 PM EDT Office Visit [facility] MED & PEDS [address] [place] [address] Dakota Monet MD [address] [place] [address] documented as of this encounter Visit Diagnoses Diagnosis Chronic migraine with aura without status migrainosus, not intractable- Primary documented in this encounter Additional Health Concerns Assessment Noted Time PHQ-9 Depression Total Score: 10 023 3:54 PM EST documented as of this encounter Care Teams Fifth Grade Teacher Relationship Specialty Start Date End Date Dakota Monet MD [address] [place] [address] PCP - General Internal Medicine 05/10/13 documented as of this encounter
--- OUTSIDE RECORDS SUMMARY | 2024-06-22 16:26 | XMS_ITS | Encounter Summary ---
Author Organization [employer] Address [address] [place] [address] Care Team Providers Care Hoop Flaring Machine Operator Helper Name Role Phone Dakota Monet MD Primary Care Provider +1- [phone] Reason for Visit * Reason Onset Date Comments Referral 03/19/2023 Encounter Details Date Type Department Care Team ([facility] st Contact Info) Description 03/19/2023 Telephone [facility] CHC MED & PEDS [address] [place], [place] [phone] Dakota Monet MD [address] [place] [address] Referral Social History Tobacco Use Types Packs/Day [...] encounter Miscellaneous Notes * Telephone Encounter - Sharri Gann - 03/23/2023 2:41 PM EST Thank you. Referral cancelled. * Telephone Encounter - Jazmín Luna RN - 03/23/2023 2:01 PM EST Incoming message from provider: We will hold off on the referral for now. Pt will be reevaluated sooner. I will ask to schedule her for that and then consider a new referral. TC to pt and she agrees to ov w/ PCP 04.22.23. 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 * Telephone Encounter - Sharri Gann - 03/22/2023 3:06 PM EST TC to [facility] neuro-surgery and there is doctors that will see patient with diagnosis but requires an MRI? Please advise, thank you. * Telephone Encounter - Didi Calhoun RN - 03/19/2023 3:45 PM EST Placed call to [facility] neuro regarding message below. Referral was received in October 2022 but Neurologist reviewed notes and felt pt is better suited to see a plastic surgeon. Office informed message would be sent to PCP for review of referral request to plastics. * Telephone Encounter - Promise Bailon - 03/19/2023 2:57 PM EST Tc from pt stating that for referral for Neurology, pt advised she called [facility] for an appt and [facility] advised they will not see her without explanation in why. Please contact pt at [phone] documented in this encounter Plan of Treatment Upcoming Encounters Date Type Department Care Team (Late st Contact Info) Description 07/17/2024 3:30 PM EDT Office Visit [facility] MED & PEDS [address] [place], [place] [phone] Dakota Monet MD [address] [place] [address] documented as of this encounter Visit Diagnoses Not on filedocumented in this encounter Additional Health Concerns Assessment Noted Time PHQ-9 Depression Total Score: 10 023 3:54 PM EST documented as of this encounter Care Teams Hoop Flaring Machine Operator Helper Relationship Specialty Start Date End Date Dakota Monet MD [address] [place] [address] RAFAEL Palacios [address] PCP - General Internal Medicine 05/10/13 documented as of this encounter
--- OUTSIDE RECORDS SUMMARY | 2024-06-22 16:26 | XMS_ITS | Encounter Summary ---
Author Organization [employer] Address [address] [place] [address], [place] [address] Care Team Providers Care Renewable Energy Project Manager Name Role Phone Dakota Monet MD Primary Care Provider +1- [phone] Encounter Details Date Type Department Care Team (Latest Contact Info) Description 05/30/2024 Travel Social History Tobacco Use Types Packs/Day Years [...] 3:30 PM EDT Office Visit [facility] CHC MED & PEDS [address] [place], [place] [phone] Dakota Monet MD [address] [place] [address] documented as of this encounter Visit Diagnoses Not on filedocumented in this encounter Additional Health Concerns Assessment Noted Time PHQ-9 Depression Total Score: 10 023 3:54 PM EST documented as of this encounter Care Teams Renewable Energy Project Manager Relationship Specialty Start Date End Date Dakota Monet MD [address] [place] [address] PCP - General Internal Medicine 05/10/13 documented as of this encounter
--- OUTSIDE RECORDS SUMMARY | 2024-06-22 16:26 | XMS_ITS | Encounter Summary ---
Author Organization [employer] Address [address] [place] [address] 7 [place] [address] Care Team Providers Care Register In Chancery Name Role Phone Dakota Monet MD Primary Care Provider [phone] Reason for Referral * Consultation (Routine) - Authorized Specialty Diagnoses / Procedures Referred By Diana t Referred To Contact General Surgery Diagnoses Soft tissue tumor of left foot Dakota Monet MD [address] [place] [address] Phone: tel: fax: [facility] General Surgeons [address] [place], [place] Phone: tel: fax: Referral ID Status Reason Start Date Expiration Date Visits Requested Visits Authorized [id number] Authorized Specialty Services Required 05/30/2024 05/30/2025 1 1 * Consultation (Routine) - Authorized Specialty Diagnoses / Procedures Referred By Contac t Referred To Contact Neurology Diagnoses Neurofibromatosis syndrome (CMS/HCC) Chronic migraine with aura without status migrainosus, not intractable Dakota Monet MD [address] [place] [address] Phone: tel: fax: Gay Fuentes MD [address] [place] [address] [place] [address] Phone: tel: fax: Referral ID Status Reason Start Date Expiration Date Visits Requested Visits Authorized [id number] Authorized Specialty Services Required 05/30/2024 05/30/2025 1 1 Reason for Visit * Reason Comments Follow-up Encounter Details Date Type Department Care Team (Latest Contact Info) Description 05/30/2024 4:00 PM EST Office Visit [facility] MED & PEDS [address] [place] [address] Dakota Monet MD [address] [place] [address] Neurofibromatosis syndrome (CMS/HCC) (Primary Dx); Chronic migraine with aura without status migrainosus, not intractable; Soft tissue tumor of left foot Social History Tobacco Use Types Packs/Day Years [...] AM EDT documented as of this encounter Last Filed Vital Signs Vital Sign Reading [...] Mass Index 27.38 05/30/2024 3:49 PM EST documented in this encounter Progress Notes * Dakota Monet MD - 05/30/2024 4:00 PM EST Subjective Patient ID: Cornel Guevara is a 48 y.o. female who presents for Follow-up. HPI Patient with history of neurofibromatosis and migraine here to request a referral to neurology. Patient has chronic daily migraine headache treated with topiramate and Fioricet without significant improvement. No reported associated fever, other constitutional symptoms. Patient Active Problem List Diagnosis Neurofibromatosis syndrome (CMS/HCC) Anemia Depressive disorder Migraine Class 1 obesity Tachycardia Macromastia Chronic pain of right knee Chronic pain syndrome Current Outpatient Medications on File Prior to Visit Medication Sig Dispense Refill Blood Pressure kit BP check at home daily 1 kit 0 celecoxib (CeleBREX) 200 MG capsule TAKE 1 CAPSULE BY MOUTH 2 TIMES DAILY. 60 capsule 0 Diclofenac Sodium 1 % gel APPLY 2 GRAMS TO AFFECTED AREA TWICE A DAY docusate sodium (Colace) 100 MG capsule Take 100 mg by mouth at bedtime. estradiol (Estrace) 0.1 MG/GM vaginal cream INSERT (1 GRAM) VAGINALLY TWICE A WEEK fexofenadine (Ashely) 180 MG tablet Take 1 tablet (180 mg) by mouth if needed each day (Allergies). 30 tablet 3 Flowflex COVID-19 Ag Home Test kit USE DIRECTED fluticasone (Flonase) 50 MCG/ACT nasal spray SPRAY 2 SPRAYS INTO EACH NOSTRIL IN THE MORNING 48 mL 0 gabapentin (Neurontin) 600 MG tablet Take 1 tablet (600 mg) by mouth 3 times daily. 90 tablet 11 GaviLAX 17 GM/SCOOP powder MIX 1 CAPFUL (17G) WITH 8 OUNCES OF FLUID AND DRINK DAILY hydrocortisone (Anusol-HC) 2.5 % rectal cream APPLY RECTALLY 4 TIMES DAILY NEEDED FOR HEMORRHOIDS hydrOXYzine HCl (Atarax) 50 MG tablet TAKE 1 TABLET BY ORAL ROUTE 3 TIMES PER DAY NEEDED FOR ANXIETY hydrOXYzine pamoate (Vistaril) 25 MG capsule TAKE 1 CAPSULE BY MOUTH 3 TIMES EVERY DAY NEEDED FOR ANXIETY 90 capsule 1 Levonorgestrel (Mirena, 52 MG,) 20 MCG/DAY intrauterine device 52 mg. lidocaine (Lidoderm) 5 % patch APPLY 1 PATCH EVERY DAY MAY WEAR UP TO 12 HOURS DAILY 30 patch 5 loratadine (Claritin) 10 MG tablet TAKE 1 TABLET BY MOUTH EVERY DAY NEEDED 90 tablet 1 PARoxetine (Paxil) 40 MG tablet TAKE 1 TABLET BY MOUTH EVERY DAY IN THE MORNING 30 tablet 5 QUEtiapine (SEROquel) 50 MG tablet TAKE 3 TABLETS BY MOUTH AT BEDTIME 30 tablet 1 rizatriptan (Maxalt) 10 MG tablet TAKE 1 TABLET BY MOUTH EVERY DAY NEEDED 10 Senna-Time 8.6 MG tablet TAKE 1 TABLET BY MOUTH EVERY DAY AT BEDTIME NEEDED FOR CONSTIPATION SUMAtriptan (Imitrex) 50 MG tablet TAKE 1 TABLET BY MOUTH EVERY DAY NEEDED *FOR 30 DAYS* tiZANidine (Zanaflex) 4 MG tablet TAKE 1 TABLET BY ORAL ROUTE ONCE A DAY AT BEDTIME 30 tablet 3 topiramate (Topamax) 100 MG tablet Take 100 mg by mouth at bedtime. traMADol (Ultram) 50 MG tablet TAKE 1 TABLET BY MOUTH EVERY 12 HOURS NEEDED FOR SEVERE PAIN 30 tablet 0 traZODone (Desyrel) 50 MG tablet TAKE 1-2 TABLETS BY ORAL ROUTE 1 TIME PER DAY AT BEDTIME NEEDEDINSOMNIA. [DISCONTINUED] QUEtiapine (SEROquel) 50 MG tablet TAKE 3 TABLETS BY MOUTH AT BEDTIME 30 tablet 1 No current facility-administered medications on file prior to visit. No Known Allergies Review of Systems Constitutional: Negative for appetite change, chills and diaphoresis. Eyes: Negative for photophobia, pain and redness. Respiratory: Negative for cough, choking and shortness of breath. Cardiovascular: Negative for leg swelling. Gastrointestinal: Negative for abdominal pain and anal bleeding. Musculoskeletal: Positive for arthralgias and back pain. Neurological: Positive for headaches. Objective Physical Exam Constitutional: General: She is not in acute distress. Appearance: Normal appearance. She is not ill-appearing, toxic-appearing or diaphoretic. Cardiovascular: Rate and Rhythm: Normal rate. Pulmonary: Effort: Pulmonary effort is normal. Abdominal: General: Abdomen is flat. Skin: Comments: 1 x 1 cm pedunculated growth of the left sole Neurological: Mental Status: She is alert. Assessment/Plan Diagnoses and all orders for this visit: Neurofibromatosis syndrome (CMS/HCC) - Referral to Neurology; Future Chronic migraine with aura without status migrainosus, not intractable - Referral to Neurology; Future - Atogepant (Qulipta) 30 MG tablet; Take 30 mg by mouth Once per day. Soft tissue tumor of left foot - Referral to General Surgery; Future documented in this encounter Plan of Treatment Upcoming Encounters Date Type Department Care Team (Late st Contact Info) Description 07/17/2024 3:30 PM EDT Office Visit [facility] MED [facility] [address] [place] [address] Dakota Monet MD [address] [place] [address] Scheduled Referrals Name Type Priority Associated Diagnoses Orde r Schedule Referral to Neurology Outpatient Referral Routine Neurofibromatosis syndrome (CMS/HCC) Chronic migraine with aura without status migrainosus, not intractable Expected: 05/30/2024 (Approximate), Expires: 05/30/2025 Referral to General Surgery Outpatient Referral Routine Soft tissue tumor of left foot Expected: 05/30/2024 (Approximate), Expires: 05/30/2025 documented as of this encounter Visit Diagnoses Diagnosis Neurofibromatosis syndrome (CMS/HCC)- Primary Neurofibromatosis, unspecified Chronic migraine with aura without status migrainosus, not intractable Soft tissue tumor of left foot documented in this encounter Additional Health Concerns Assessment Noted Time PHQ-9 Depression Total Score: 10 023 3:54 PM EST documented as of this encounter Care Teams Register In Chancery Relationship Specialty Start Date End Date Dakota Monet MD [address] [place] [address] PCP - General Internal Medicine 05/10/13 documented as of this encounter
== END 2024-06-22 15:34 | disposition home or self-care (01) ==
PROVIDERS: PCP Internal Medicine; Visit Provider Surgery
DX: L98.9 Disorder of the skin and subcutaneous tissue, unspecified (principal)
CPT/HCPCS: 99203

== ENCOUNTER 2024-06-24 16:15 | Emergency (ER) | payer OTHER, SELFPAY ==
--- NOTE | ~2024-06-24 | CT_ITS ---
CLINICAL HISTORY: fall, head strike, pain CT head without contrast Comparison: None Findings: Left lateral periorbital piercing metallic foreign body. Additional piercings include bilateral ureters, bilateral nodes. No acute intracranial hemorrhage. No midline shift or hydrocephalus. No arterial territorial infarction by CT. Mucosal thickening of the imaged paranasal sinuses. Imaged mastoid air cells are well aerated. No acute skull fracture, accounting for artifacts. Additional metal noted in imaged mouth. IMPRESSION: No acute intracranial abnormality by CT. This document has been electronically signed by: Javed Queen MD on 06/24/2024 19:28:13
--- NOTE | ~2024-06-24 | CT_ITS ---
CLINICAL HISTORY: fall, pain CT lumbar spine without contrast Comparison: CT of the lumbar spine from 11/07/2021 Findings: Normal heights of 5 lumbar vertebrae. New mild/minimal anterolisthesis at L4-L5. Worsening of multifocal facet arthropathy particularly L4-L5 and L5-S1, with gas phenomenon in the L4-L5 facet joints. No osseous spinal stenosis by CT. No paraspinal hematoma. Multifocal dermal nodularity as can be seen with neurofibromatosis. Moderate to severe stool burden in the [id number]. Cholelithiasis in the [id number]. IMPRESSION: 1. No acute fracture of the lumbar spine. 2. Worsening lower lumbar facet arthropathy compared to 11/07/2021. This document has been electronically signed by: Javed Queen MD on 06/24/2024 19:36:00
--- NOTE | ~2024-06-24 | CT_ITS ---
CLINICAL HISTORY: fall, head strike, pain CT cervical spine without contrast Comparison: None available Findings: No acute fracture cervical spine. Trace anterolisthesis at C2-C3 and C3-C4. Mild straightening of the cervical lordosis. Degenerative changes include multifocal facet arthropathy. No paraspinal hematoma. Multifocal dermal nodularity. Mild scarring of the imaged lung apices. IMPRESSION: No acute fracture of the cervical spine. This document has been electronically signed by: Javed Queen MD on 06/24/2024 19:25:18
--- NOTE | ~2024-06-24 | CT_ITS ---
CLINICAL HISTORY: fall, midline TTP T5-12, R posterior rib pain CT chest without contrast Comparison: None Findings: Airspace disease is nonspecific and multifocal including lower lobes, left worse than right. Superimposed on chronic lung disease with multifocal emphysematous changes, mild right upper bronchiectasis, and mild peripheral scarring. No pleural effusion or pneumothorax. Mild/borderline cardiomegaly. Nonenlarged mediastinal lymphadenopathy in this noncontrast study. No mediastinal hematoma. Foci of sclerosis appear nonaggressive including T2 and T3. Bone islands are considered most likely. Scalloping of upper thoracic vertebrae is nonspecific but likely due to nerve sheath tumors such as neurofibromas particularly given multifocal dermal nodularity. No acute fracture. Superficial metal piercing artifacts noted. Multiple cholelithiasis of the imaged upper abdomen. IMPRESSION: 1. No mediastinal hematoma from acute trauma. 2. Multifocal airspace disease is nonspecific and concerning for pneumonitis/pneumonia. Recommend attention on follow-up to ensure resolution. 3. Cholelithiasis. This document has been electronically signed by: Javed Queen MD on 06/24/2024 19:33:51
[2024-06-24 16:31] VITALS: BP 118/73; PULSE 107; RESP 16; TEMP 36.7; O2SAT 98; BMI 28.5
--- NOTE | 2024-06-24 16:31 | ED_ITS ---
HPI - General Adult General Chief complaint: Fall Stated complaint: slipped down stairs/back hurts Time Seen by Provider: 06/24/24 16:58 Source: patient Mode of arrival: wheelchair Limitations: no limitations History of Present Illness ED Provider: Kaylan Underwood NP HPI narrative: Patient is a 40-year-old female who presents emergency department with family for evaluation. Reports that this afternoon at approximately 15:00 she was walking down outdoor flight of stairs that was icy she slipped on the top step and ultimately fell backwards landing onto her buttock in her back and slid down approximately 12-14 stairs. Reports that she struck her head against the stairs. Denies any loss of consciousness. Denies use of anticoagulants or known coagulation disorders. She is complaining of the pain diffusely from her neck down her back and to the right lateral side. Denies dizziness, lightheadedness, vision changes, chest pain, shortness of breath, difficulty breathing, abdominal pain, nausea, vomiting, numbness or tingling of the extremities, bladder bowel dysfunction, saddle paresthesias. Related Data Home Medications ?Medication ?Instructions ?Recorded ?Confirmed melatonin 10 mg capsule 10 mg PO BEDTIME PRN 09/05/21 06/22/24 loratadine 10 mg tablet 10 mg PO DAILY PRN 12/29/21 06/22/24 quetiapine 50 mg tablet 150 mg PO BEDTIME 12/29/21 06/22/24 tizanidine 4 mg tablet 4 mg PO BEDTIME 12/29/21 06/22/24 lidocaine 5 % topical patch 1 patch topical DAILY 04/03/22 06/22/24 (Lidoderm) sumatriptan succinate 50 mg tablet 50 mg PO DAILY PRN 04/03/22 06/22/24 topiramate 100 mg tablet 100 mg PO BEDTIME 04/03/22 06/22/24 trazodone 50 mg tablet 50 - 100 mg PO BEDTIME PRN insomnia 04/03/22 06/22/24 hydroxyzine pamoate 25 mg capsule 25 mg PO TID PRN anxiety 03/22/23 06/22/24 sennosides 8.6 mg tablet (senna) 8.6 mg PO BEDTIME PRN constipation 03/22/23 06/22/24 levonorgestrel 21 mcg/24 hr (up to intrauterine 04/27/23 06/22/24 8 years) 52 mg intrauterine device (Mirena) pregabalin 200 mg capsule 200 mg PO TID 04/27/23 06/22/24 meloxicam 15 mg tablet 15 mg PO DAILY 06/24/23 06/22/24 paroxetine HCl 40 mg tablet 40 mg PO QAM 06/24/23 06/22/24 Allergies Allergy/AdvReac Type Severity Reaction Status Date / Time No Known Allergies Allergy Verified 06/24/24 16:34 Review of Systems Review of Systems: Yes all other systems are reviewed and are negative [facility] Past Medical History Attestation statement: The following information was validated with the patient. Source: old records reviewed Medical History Foot lesion COVID-19 vaccine series completed No pertinent past medical history Surgical History Hx of colonoscopy Hx of tubal ligation Hx of bilateral breast reduction surgery Hx of section Family History Family History Mother Pancreas cancer Father Testicular cancer Paternal Aunt Colon cancer Breast CA Son JRA (juvenile rheumatoid arthritis) Social History Social History Household Members: Children Household Members Other:: cat Are you a primary childcare attendant to a significant other at home: No Do you presently have visiting nurse or other home services: No Alcohol intake: current Alcohol intake frequency: holidays/special occasions only Patient Tobacco Use Status: Never used Tobacco Substance Use Type: Marijuana Advance Directives: No Advance Directives Information Provided: No Do you have a plan to hurt others: No Plan Current occupational status: employed 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 No acute distress.?Normal affect. Head: Normocephalic Eyes: Pupils equal, round and reactive to light. EOMI. Conjunctiva and sclera normal? No Valverde sign noted. No raccoon eyes noted ENT: No septal hematoma, nares patent bilaterally. External auditory canal normal tympanic membrane pearly resendiz and intact bilaterally. Dentition normal, no fractured teeth. No lesions or lacerations of oropharynx. Uvula midline. Moist mucous membranes. Neck/ back: Normal inspection.? Neck supple.? Hard cervical collar in place apurva or to my evaluation, placed in triage. Midline palpable tenderness C4-C7, T7- T12, L3-L5, without midline palpable step-offs or deformities CVS: Heart sounds normal. Normal heart rate and rhythm.? Pulses normal.?? Respiratory: No respiratory distress.? Lung sounds clear to auscultation bilaterally?? Abdomen: Soft and non-tender. Normoactive bowel sounds. ?? Skin: Skin warm and dry.? Normal skin color.? ?? Extremities: No lower extremity edema.? Neuro: Moves all extremities spontaneously. Sensation intact bilaterally. CN II- XII intact. No focal neuro deficits. Course Course Course Narrative: RME performed by Re Barber PA-C. Patient is a 48 year old assigned female at presenting to the emergency department with neck and back pain. Patient states that she slipped and fell down multiple steps due to ice, hit her head, and does have neck and back pain. Detailed physical exam and review of systems are deferred to the admissions clinician. Imaging ordered. Patient placed back in the waiting room pending room availability and results. Reevaluation(s) Reevaluation #1: Patient signed out to Connor GALEANO pending CT scans and re-evaluation Time: 18:58 Reevaluation #2: Re Barber PA-C ---> Patient's CT scans were largely unremarkable however, the radiologist made mention of possible pneumonia. The patient denies any symptoms consistent with this. No shortness of breath, no cough, no chest pain. I explained these results to the patient and made sure she understood the importance of following up with her PCP about this. Time: 20:00 Medications Administered Discontinued Medications Generic Name Dose Route Start Last Admin Trade Name Freq PRN Reason Stop Dose Admin Acetaminophen 975 mg 06/24/24 17:24 06/24/24 18:05 Acetaminophen 325 Mg Tablet PO 06/24/24 17:25 975 mg ONCE ONE Administration Tramadol HCl 50 mg 06/24/24 17:24 06/24/24 18:04 Tramadol Hcl 50 Mg Tablet PO 06/24/24 17:25 50 mg ONCE ONE Administration Medical Decision Making Medical Decision Making [facility] Narrative: Patient is a 48-year-old female with reported past medical history of migraine, arthritis, neurofibromatosis who presents emergency department for evaluation after mechanical slip and fall on the stairs sliding down them essentially semi seated position/supine as per HPI. Endorsing pain diffusely down the back and on the right side of her posterior thorax. On evaluation she has tenderness to palpation midline C4-C7 T7-T12, L3-L5, without midline palpable step-offs or deformities, diffusely tender throughout the right scapular region. Full range of motion to bilateral upper and lower extremities with positive straight leg test bilaterally. CT as per A orders; head, cervical spine, lumbar spine to evaluate for ICH, SDH, fracture, subluxation, in addition given palpable thoracic spine tenderness and right posterior chest wall tenderness, additionally obtaining CT chest to exclude rib fracture. Differential Diagnosis Differential Diagnoses: The differential diagnosis associated with the presentation includes (See narrative above) Admission/Observation Consideration of admission/observation: Escalation of care including admission/observation considered Radiology Impression Discussion of test interpretation with radiology: I have reviewed the radiologist's reading. Independent Historian Clinical information obtained from an independent historian. History obtained from or confirmed by: Other (Daughter) External Record Review External record reviewed: Outpatient record Prescription Management I considered prescription management with: Pain Medication Chronic Conditions Patient?s care impacted by: Other (See narrative above) Discharge Plan Discharge Clinical Impression: Fall Patient Disposition: Home, Self-Care Instructions: Fall Prevention (ED) Additional Instructions: Your chest CT showed evidence of pneumonia however, you have no clinical symptoms consistent with this diagnosis. This must be followed up on by your PCP. Follow up with your primary care provider. Return to the emergency department immediately if your symptoms worsen or if you develop any dizziness, shortness of breath, difficulty breathing, chest pain, blurry vision, loss of vision, nausea, vomiting, abdominal pain, fever, chills, back pain, or any other complaints. Prescriptions: No Action melatonin 10 mg capsule 10 mg PO BEDTIME PRN tizanidine 4 mg tablet 4 mg PO BEDTIME quetiapine 50 mg tablet 150 mg PO BEDTIME loratadine 10 mg tablet 10 mg PO DAILY PRN sumatriptan succinate 50 mg tablet 50 mg PO DAILY PRN lidocaine [Lidoderm] 5 % adhesive patch,medicated 1 patch topical DAILY trazodone 50 mg tablet 50 - 100 mg PO BEDTIME PRN (Reason: insomnia) topiramate 100 mg tablet 100 mg PO BEDTIME pregabalin 200 mg capsule 200 mg PO TID Mirena 21 mcg/24 hours (8 yrs) 52 mg intrauterine device intrauterine paroxetine HCl 40 mg tablet 40 mg PO QAM meloxicam 15 mg tablet 15 mg PO DAILY sennosides [senna] 8.6 mg tablet 8.6 mg PO BEDTIME PRN (Reason: constipation) hydroxyzine pamoate 25 mg capsule 25 mg PO TID PRN (Reason: anxiety) Referrals: Dakota Monet MD [Primary Care Provider] - Interventions: ED Discharge Assessment Last Done: 06/24/24 20:15 Discharge Date/Time: 06/24/24 20:16 Print Language: Cambodian
[2024-06-24] MEDS: traMADoL HCL 50 MG TABLET PO (18:04)
[2024-06-24] MEDS: Acetaminophen 325 MG TABLET 975 MG PO (18:05)
[2024-06-24 20:15] VITALS: BP 118/73; PULSE 107; RESP 16; TEMP 36.7; O2SAT 98
== END 2024-06-24 20:16 | disposition home or self-care (01) ==
PROVIDERS: Emergency Provider Emergency Medicine; PCP Internal Medicine
DX: M54.2 Cervicalgia (principal); R51.9 Headache, unspecified; Z91.81 History of falling
CPT/HCPCS: 70450; 71250; 72125; 72131; 99283; 99284

== ENCOUNTER → 2024-06-24 16:33 | Outpatient (BNV) | payer OTHER, SELFPAY | PROVIDERS: Emergency Provider Emergency Medicine; PCP Internal Medicine; Visit Provider Radiology Neuroradiology | DX: S00.93XA Contusion of unspecified part of head, initial encounter (principal); W19.XXXA Unspecified fall, initial encounter; M54.2 Cervicalgia; M54.50 Low back pain, unspecified; R07.82 Intercostal pain | CPT/HCPCS: 70450; 71250; 72125; 72131 ==

== ENCOUNTER 2024-06-29 16:24 | Outpatient (REF) | payer OTHER, SELFPAY ==
[2024-06-29 18:22] LABS: MANUAL DIFF FLAG NO
[2024-06-29 18:31] LABS: Basophils Percent Auto 0.6 % (0-2); Eosinophils Absolute Auto 0.1 X10*3/uL (0.0-0.4); Eosinophils Percent Auto 1.5 % (0-4); Hematocrit 39.2 % (37.0-47.0); Hemoglobin 13.1 g/dl (12.0-16.0); Imm Gran Abs Auto 0.02 X10*3/uL (0.00-0.03); Imm Gran Pct Auto 0.3 % (0.0-0.4); Lymphocytes Absolute Auto 1.9 X10*3/uL (1.2-4.9); Lymphocytes Percent Auto 28.9 % (20-40); Mean Corpuscular HGB Conc 33.4 g/dl (31.0-35.0); Mean Corpuscular Volume 86.7 fL (80.0-98.0); Mean Platelet Volume 9.6 fL (9.4-12.3); Monocytes Absolute Auto 0.5 X10*3/uL (0.1-1.2); Monocytes Percent Auto 8.2 % (2-11); Neutrophils Percent Auto 60.5 % (45-73); Platelet Count 226 X10*3/uL (160-400); Red Blood Count 4.52 X10*6/uL (4.20-5.50); White Blood Count 6.6 X10*3/uL (4.8-10.8)
[2024-06-29 18:57] LABS: Alanine Aminotransferase 51 U/L (0-31); Albumin Level 4.2 g/dL (3.5-5.0); Alkaline Phosphatase 77 U/L (39-117); Anion Gap 11 (12-20); Aspartate Amino Transferase 22 U/L (5-31); Bilirubin Total 0.5 mg/dL (0.0-1.0); Blood Urea Nitrogen 17 mg/dL (9-16); Calcium 9.3 mg/dL (8.4-10.2); Carbon Dioxide 26 mmol/L (22-29); Chloride 106 mmol/L (96-108); Cholesterol 163 mg/dL (<200); Estimated Glomerular Filt Rate > 60; Glucose Random 80 mg/dL (60-115); HDL Cholesterol 51 mg/dL (>40); LDL Cholesterol Calculated 95 mg/dL (<100); Potassium 3.9 mmol/L (3.3-5.1); Sodium 139 mmol/L (135-145); Total Protein 7.4 g/dL (6.5-8.0); Triglycerides 88 mg/dL (<150)
[2024-06-29 19:13] LABS: TSH reflex Free T4 3.04 uIU/mL (0.32-4.0)
--- OUTSIDE RECORDS SUMMARY | 2024-06-29 19:26 | XMS_ITS | Encounter Summary ---
Author Organization [employer] Address [address] [place] [address] Care Team Providers Care Senior Supply Chain Analyst Name Role Phone Dakota Monet MD Primary Care Provider [phone] Reason for Visit * Reason Onset Date Comments ER Follow-up 06/26/2024 Encounter Details Date Type Department Care Team ([facility] st Contact Info) Description 06/26/2024 Telephone [facility] [address] [place], [place] [id number] Dakota Monet MD [address] [place] [address] ER Follow-up Social History Tobacco Use Types Packs/Day Years [...] encounter Miscellaneous Notes * Telephone Encounter - Kendra Tee RN - 06/26/2024 11:00 AM EST TC to pt. Post ED follow up appointment scheduled for 06/29/24 at 3:30PM. Pt verbalized agreement with appointment date and time. Pt instructed to call office if appointment date or time cannot be kept. * Telephone Encounter - Chayito Ly - 06/26/2024 10:06 AM EST Patient calling to report ED visit on : Date: 06/24/24 Hospital: [facility] Seen for: fall but was also information follow up with pcp due to Pneumonia . Pt states has no symptoms Symptomatic No *if yes message should go to Triage Patient advised will forward to team nurse for follow up documented in this encounter Plan of Treatment Upcoming Encounters Date Type Department Care Team (Late st Contact Info) Description 07/17/2024 3:30 PM EDT Office Visit [facility] [address] [place] [address] Dakota Monet MD [address] [place] [address] documented as of this encounter Visit Diagnoses Not on filedocumented in this encounter Additional Health Concerns Assessment Noted Time PHQ-9 Depression Total Score: 10 023 3:54 PM EST documented as of this encounter Care Teams Senior Supply Chain Analyst Relationship Specialty Start Date End Date Dakota Monet MD [address] [place] [address] PCP - General Internal Medicine 05/10/13 documented as of this encounter
--- OUTSIDE RECORDS SUMMARY | 2024-06-29 19:26 | XMS_ITS | Encounter Summary ---
Author Organization [employer] Address [address] [place] [address] Care Team Providers Care Bilingual Secretary Name Role Phone Dakota Monet MD Primary Care Provider [phone] Reason for Visit * Reason Onset Date Comments Med Refill 12/21/2022 Encounter Details Date Type Department Care Team ([facility] st Contact Info) Description 12/21/2022 Telephone [facility] [address] [place] [address] Dakota Monet MD [address] [place] [address] Med Refill Social History Tobacco Use Types [...] 3:30 PM EDT Office Visit [facility] MED & PEDS [address] [place] [address] Dakota Monet MD [address] [place] [address] documented as of this encounter Visit Diagnoses Not on filedocumented in this encounter Additional Health Concerns Assessment Noted Time PHQ-9 Depression Total Score: 10 023 3:54 PM EST documented as of this encounter Care Teams Bilingual Secretary Relationship Specialty Start Date End Date Dakota Monet MD [address] [place] [address] PCP - General Internal Medicine 05/10/13 documented as of this encounter
--- OUTSIDE RECORDS SUMMARY | 2024-06-29 19:26 | XMS_ITS | Encounter Summary ---
Author Organization [employer] Address [address] [place] [address] [address] [address] Care Team Providers Care Claims Coordinator Name Role Phone Dakota Monet MD Primary Care Provider [phone]- [phone] Encounter Details Date Type Department Care Team [...] Description 07/17/2024 3:30 PM EDT Office Visit [facility] PEDS [address] [place], [place] [id number] Dakota Monet MD [address] [place] [address] documented as of this encounter Visit Diagnoses Not on filedocumented in this encounter Additional Health Concerns Assessment Noted Time PHQ-9 Depression Total Score: 10 023 3:54 PM EST documented as of this encounter Care Teams Claims Coordinator Relationship Specialty Start Date End Date Dakota Monet MD [address] [place] [id number] PCP - General Internal Medicine 05/10/13 documented as of this encounter
--- OUTSIDE RECORDS SUMMARY | 2024-06-29 19:26 | XMS_ITS | Encounter Summary ---
Author Organization [employer] Address [address] [place] [address] [address] [place] [address] Care Team Providers Care Boring Mill Set Up Operator Vertical Name Role Phone Dakota Monet MD Primary Care Provider [phone] Encounter Details Date Type Department Care Team (Latest Contact Info) Description 02/06/2021 Abstract [facility] CONVERSIONS Dental, Provider, DDS Social History Tobacco [...] Description 07/17/2024 3:30 PM EDT Office Visit [facility] MED & PEDS [address] [place] [address] Dakota Monet MD [address] [place] [address] documented as of this encounter Visit Diagnoses Not on filedocumented in this encounter Care Teams Boring Mill Set Up Operator Vertical Relationship Specialty Start Date End Date Dakota Monet MD [address] [place] [address] PCP - General Internal Medicine 05/10/13 documented as of this encounter
--- OUTSIDE RECORDS SUMMARY | 2024-06-29 19:26 | XMS_ITS | Encounter Summary ---
Author Organization [employer] Address [address] [place] [address] Care Team Providers Care Reinsurance Claims Analyst Name Role Phone Dakota Monet MD Primary Care Provider [phone]- [phone] Reason for Visit * Reason Onset Date Comments chart prep 06/26/2024 Encounter Details Date Type Department Care Team ([facility] st Contact Info) Description 06/26/2024 Telephone [facility] CH[facility] MED & PEDS [address] [place] [address] Dakota Monet MD [address] [place] [address] chart prep Social History Tobacco Use Types Packs/Day Years [...] encounter Miscellaneous Notes * Telephone Encounter - Tami YoungbloodRAFAEL borrero - 06/26/2024 12:57 PM EST Chart Prep Labs: not done Images: done Vaccines due: yes Referrals: complete Screenings: Overdue care gaps: Glucose, Sbirt, SDOH documented in this encounter Plan of Treatment Upcoming Encounters Date Type Department Care Team ([facility] st Contact Info) Description 07/17/2024 3:30 PM EDT Office Visit [facility] MED & PEDS [address] [place] [address] Dakota Monet MD [address] [place] [address] documented as of this encounter Visit Diagnoses Not on filedocumented in this encounter Additional Health Concerns Assessment Noted Time PHQ-9 Depression Total Score: 10 023 3:54 PM EST documented as of this encounter Care Teams Reinsurance Claims Analyst Relationship Specialty Start Date End Date Dakota Monet MD [address] [place] [address] PCP - General Internal Medicine 05/10/13 documented as of this encounter
--- OUTSIDE RECORDS SUMMARY | 2024-06-29 19:26 | XMS_ITS | Clinical Summary ---
Author Organization [employer] Address [address] [facility] [address] [place] [address] Care Team Providers Care Slitter Scorer Name Role Phone Dakota Monet MD Primary Care Provider [phone] Allergies No known active allergies Medications traZODone [...] AT BEDTIME 30 tablet 1 025 Active celecoxib (CeleBREX) 200 MG capsuleIndicati [...] 24 hours. 9 tablet 11 025 Active Atogepant (Qulipta) 30 MG tabletIndicatio ns:Chronic migraine with aura without status migrainosus, not intractable Take 30 mg by mouth Once per day. 30 tablet 2 025 Active celecoxib (CeleBREX) 200 MG capsuleIndicati ons:Chronic pain syndrome,Chroni c right-sided low back pain with right-sided sciatica TAKE 1 CAPSULE BY MOUTH 2 TIMES DAILY. 60 capsule 025 2024 Discontinued Atogepant (Qulipta) 30 MG tabletIndicatio ns:Chronic migraine with aura without status migrainosus, not intractable Take 30 mg by mouth Once per day. 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); Biliary calculus of other site without obstruction; Chronic pain syndrome; Chronic right-sided low back pain with right-sided sciatica; Calculus of gallbladder without cholecystitis without obstruction; Chronic migraine with aura without status migrainosus, not intractable 06/29/2024 Travel 06/26/2024 Telephone [facility] [address] [place] [address] Dakota Monet MD chart prep 06/26/2024 Telephone [facility] [address] [place] [address] Dakota Monet MD ER Follow-up 06/22/2024 Orders Only [facility] [address] [place] [address] Dakota Monet MD Chronic migraine with aura without status migrainosus, not intractable (Primary Dx) 06/06/2024 Telephone [facility] [address] [place] [phone] Dakota Monet MD PA 06/03/2024 Refill [facility] [address] [place] [address] Dakota Monet MD Chronic pain syndrome; Chronic right-sided low back pain with right-sided sciatica 05/30/2024 4:00 PM EST Office Visit [facility] [address] [place] [address] Dakota Monet MD Neurofibromatosis syndrome (CMS/HCC) (Primary Dx); Chronic migraine with aura without status migrainosus, not intractable; Soft tissue tumor of left foot 05/30/2024 Travel 05/28/2024 Refill [facility] [address] [place] [address] Ann Givens MD Primary insomnia 05/02/2024 Refill [facility] [address] [place] [address] Dakota Monet MD Chronic pain syndrome; Chronic right-sided low back pain with right-sided sciatica 04/29/2024 Orders Only [facility] [address] [place] [address] Dakota Monet MD 04/17/2024 Telephone [facility] [address] [place] [address] Dakota Monet MD Appointment Request (Pt needs appt ) 04/12/2024 Refill [facility] [address] [place] [address] Dakota Monet MD Primary insomnia 04/12/2024 Telephone [facility] [address] [place] [address] Dakota Monet MD Referral 04/07/2024 Refill [facility] [address] [place] [address] Ann Givens MD 04/07/2024 Refill [facility] [address] [place] [address] Dakota Monet MD Anxiety from Last 3 Months Immunizations Name Administration [...] Answer Date Recorded Patient Health Questionnaire-9 Score 8 06/29/2024 Patient Health Questionnaire-9 Score 8 06/29/2024 Last PHQ-9: Questionnaire Data Not on file 0 06/29/2024 Housing Stability Answer Date Recorded What is your housing situation today? I have rojelio wang 06/29/[address] you li ve. Do you have problems with any of the following? Mold;Water leaks 06/29/2024 Food Insecurity Answer Date Recorded Within the past 12 months, y ou worried that your food would run out before you got money to buy more: Sometimes True 2024 Within the past 12 months,th e food you bought just didn't last and you didn't have enough money to get more: Never True 06/29/2024 Transportation Answer Date Recorded In the past 12 months, has l ack of transportation kept you from medical appts, meetings, work or from getting things needed for daily living? No 06/29/2024 Utilities Answer Date Recorded In the past 12 months, has t he electric, gas, oil or water company threatened to shut off services in your home? Yes 06/29/2024 Depression Answer Date Recorded Patient Health Questionnaire-2 Score 2 06/29/2024 Internet Access Answer Date Recorded Internet Access Q1 Yes 06/29/2024 Internet Access Q2 Not on file 06/29/2024 Comments Unknown Sex and Gender Information Value Date Recorded Sex Assigned at Female 03/02/2022 10:16 AM EDT Legal Sex Female 10:16 AM EDT Gender Identity Female 03/02/2022 10:16 AM EDT Sexual Orientation Straight 03/02/2022 10 :16 AM EDT Last Filed Vital Signs Vital Sign Reading Time Taken Comments Blood Pressure 113/70 06/29/2024 3:32 PM EST Pulse 72 06/29/2024 3:32 PM EST Temperature 37 ??C (98.6 ??F) 06/29/2024 3:32 PM EST Respiratory Rate 20 06/29/2024 3:32 PM EST Oxygen Saturation 98% 06/29/2024 3:32 PM EST Inhaled Oxygen Concentration - - Weight 62.1 kg (136 lb 12.8 oz) 06/29/2024 3:32 PM EST Height 147.3 cm (4' 10 ) 06/29/2024 3:32 PM EST Body Mass Index 28.59 06/29/2024 3:32 PM EST Plan of Treatment Upcoming Encounters Date Type Department Care Team (Late st Contact Info) Description 07/17/2024 3:30 PM EDT Office Visit [facility] [address] [place] [address] Dakota Monet MD [address] [place] [address] Health Maintenance Due Date Last Done Comments CT Colonography 1975 FIT DNA/Cologuard 1975 FIT 1975 FOBT 1975 HIV Screening 1975 Sigmoidoscopy 1975 Derm Melanoma Skin Check 06/18/1976 Family Planning (PISQ) 12/16/1990 Pap Smear 11/28/2023 11/27/2020 Alcohol/Substance Use Screening 06/29/2025 06/29/2024 Depression Screening 06/29/2025 06/29/2024, 06/29/19 25 SDOH Screening 06/29/2025 06/29/2024 Tobacco Screening 06/29/2025 06/29/2024 Cervical Cancer Screening 11/27/2025 HPV/Cotest 11/27/2025 11/27/2020, 04/13/2017 Zoster Vaccines (1 of 2) 12/16/2025 Mammogram 04/29/2026 04/29/2024, 092 06/2019, 06/16/2019, Additional history exists Colonoscopy 08/22/2026 08/22/2021 [...] Procedure Name Priority Date/Time Associated Diagnosis Comments TSH W/REFLEX TO FT4 Routine 06/29/2024 4 :26 PM EST Elevated BP without diagnosis of hypertension LIPID PANEL, STANDARD Routine 06/29/2024 4:26 PM EST Elevated BP without diagnosis of hypertension COMPREHENSIVE METABOLIC PANEL Routine 06/29/2024 4:26 PM EST Elevated BP without diagnosis of hypertension CBC WITH AUTO DIFFERENTIAL Routine 06/29/2024 4:26 PM EST Elevated BP without diagnosis of hypertension CT LUMBAR SPINE WO CONTRAST Routine 06/24/2024 7:[address] CHEST WO CONTRAST Routine 06/24/2024 7:[address] HEAD WO CONTRAST Routine 06/24/2024 7 :[address] CERVICAL SPINE WO CONTRAST Routine 06/24/2024 7:25 PM EST BI MAMMOGRAM SCREENING TOMOSYNTHESIS BILATERAL Routine 04/29/2024 8:25 AM EST HEPATITIS PANEL, GENERAL Routine 01/08/2023 1:27 PM EDT Pre-employment examination HM COLONOSCOPY Routine 08/22/2021 HPV MRNA E6/E7 Routine 11/27/2020 3:44 PM EDT THINPREP PAP Routine 11/27/2020 3:44 PM EDT from Last 3 Months or Most Recently Relevant to Health Maintenance Results * TSH W/Reflex to FT4 (06/29/2024 4:26 PM EST) TSH reflex Free T4 3.04 0.32 - 4.0 uIU/mL [facility] Blood Venous blood specimen / Unknown 06/29/2024 4:26 PM EST 06/29/2024 6:11 PM EST us Dakota Monet MD LAB BLOOD ORDERABLES Final Result [facility] [address] [place] [address] [phone] * CBC auto differential (06/29/2024 4:26 PM EST) White Blood Count 6.6 4.8 - 10.8 X10*3/uL [facility] Red Blood Count 4.52 4.20 - 5.50 X10*6/uL [facility] Hemoglobin 13.1 12.0 - 16.0 g/dl [facility] Hematocrit 39.2 37.0 - 47.0 % [facility] Mean Corpuscular Volume 86.7 80.0 - 98.0 fL [facility] Mean Corpuscular Hemoglobin 29.0 27.0 - 33.0 pg [facility] Mean Corpuscular HGB Conc 33.4 31.0 - 35.0 g/dl [facility] Red Cell Distribution Width 13.0 11.0 - 16.0 % [facility] Platelet Count 226 160 - 400 X10*3/uL [facility] Mean Platelet Volume 9.6 9.4 - 12.3 fL [facility] Neutrophils Percent Auto 60.5 45 - 73 % [facility] Imm Gran Pct Auto 0.3 0.0 - 0.4 % [facility] Lymphocytes Percent Auto 28.9 20 - 40 % [facility] Monocytes Percent Auto 8.2 2 - 11 % [facility] Eosinophils Percent Auto 1.5 0 - 4 % [facility] Basophils Percent Auto 0.6 0 - 2 % [facility] NRBC Pct Auto 0.0 0.0 - 0.2 /100WBC [facility] Neutrophils Absolute Auto 4.0 2.0 - 8.3 x10*3/uL [facility] Imm Gran Abs Auto 0.02 0.00 - 0.03 X10*3/uL [facility] Lymphocytes Absolute Auto 1.9 1.2 - 4.9 X10*3/uL [facility] Monocytes Absolute Auto 0.5 0.1 - 1.2 X10*3/uL [facility] Eosinophils Absolute Auto 0.1 0.0 - 0.4 X10*3/uL [facility] Basophils Absolute Auto 0.0 0.0 - 0.2 X10*3/uL [facility] NRBC Abs Auto 0.000 0.0 - 0.012 X10*3/uL [facility] Blood Venous blood specimen / Unknown 06/29/2024 4:26 PM EST 06/29/2024 6:11 PM EST us Dakota Monet MD LAB BLOOD ORDERABLES Final Result Performing Organization Address [facility]/ZIP Co de Phone Number [facility] [address] [place] [address] [phone] * Lipid Panel, Standard (06/29/2024 4:26 PM EST) Triglycerides 88 <150 mg/dL [facility] Comment:Desirable Triglyceri de: less than 150 mg/dLBorderline High Triglyceride 150-199 mg/dLHigh Triglyceride: 200-499 mg/dLVery High Triglyceride: greater than or equal to 5OO mg/dL Cholesterol 163 <200 mg/dL [facility] Comment:Desirable Cholestero l: less than 200 mg/dLBorderline High Cholesterol: 200-239 mg/dLHigh Cholesterol: greater than 239 mg/dL LDL Cholesterol Calculated 95 <100 mg/dL [facility] Comment:Desirable LDL: less than 100 mg/dLNear Optimal/Above Optimal LDL: 110- 129 mg/dLBorderline High LDL: 130-159 mg/dLHigh LDL: 160-189 mg/dLVery High LDL: greater than or equal to 190 mg/dL HDL Cholesterol 51 >40 mg/dL [facility] Comment:Desirable HDL: great er than 40 mg/dL Note: This HDL assay may give artificially low results in patients with liver disease. Blood Venous blood specimen / Unknown 06/29/2024 4:26 PM EST 06/29/2024 6:11 PM EST us Dakota Monet MD LAB BLOOD ORDERABLES Final Result Performing Organization Address [facility]/ZIP Co de Phone Number [facility] [address] [place] [address] [phone] * (ABNORMAL) Comprehensive Metabolic Panel (06/29/2024 4:26 PM EST) Sodium 139 135 - 145 mmol/L [facility] Potassium 3.9 3.3 - 5.1 mmol/L [facility] Chloride 106 96 - 108 mmol/L [facility] Carbon Dioxide 26 22 - 29 mmol/L [facility] Anion Gap 11(L) 12 - 20 [facility] Urea Nitrogen (BUN) 17(H) 9 - 16 mg/dL [facility] Creatinine, Serum 0.66 0.5 - 1.4 mg/dL [facility] Estimated Glomerular Filt Rate >60 [facility] Comment:Chronic Kidney Disea se: Estimated GFR < 60 mL/min/1.75o1Lvywpv Kidney Disease: Estimated GFR < 15 mL/min/1.73m2 Glucose 80 60 - 115 mg/dL [facility] Calcium 9.3 8.4 - 10.2 mg/dL [facility] Bilirubin, Total 0.5 0.0 - 1.0 mg/dL [facility] Aspartate Amino Transferase 22 5 - 31 U/L [facility] Alanine Aminotransferase 51(H) 0 - 31 U/L [facility] Total Protein 7.4 6.5 - 8.0 g/dL [facility] Albumin Level 4.2 3.5 - 5.0 g/dL [facility] Alkaline Phosphatase 77 39 - 117 U/L [facility] Blood Venous blood specimen / Unknown 06/29/2024 4:26 PM EST 06/29/2024 6:11 PM EST us Dakota Monet MD LAB BLOOD ORDERABLES Final Result Performing Organization Address City/State/[facility] Co de Phone Number [facility] [address] [place] [address] [phone] * CT Lumbar Spine w/o Contrast (06/24/2024 7:36 PM EST) Anatomical Region Laterality Modality Spine, L-spine Computed Tomogra phy 06/24/2024 7:36 PM EST Narrative 06/24/2024 7:37 PM EST ? [facility] ?[address] ?[place] [address] ? CT Scan Report ? Signed ? Patient: Paola,Lidagma ?MR#: [id number] ?? 356 ? : 1975 ?Acct:[id number] ? Age/Sex: 48 / F ?ADM Date: 06/24/24 ? Loc: HO.ED ? Attending Dr: ? Ordering Physician: Re Barber ?? Date of Service: 06/24/24 ?? Procedure(s): CT lumbar spine wo IV con ?? Accession Number(s): [id number] ? cc: Dakota Monet MD; Re Barber ? Report Number: ?? [id number]: Total DLP = 2098.00 mGy-cm ? CLINICAL HISTORY: fall, pain ? CT lumbar spine without contrast ? Comparison: CT of the lumbar spine from 11/07/2021 ? Findings: ?? Normal heights of 5 lumbar vertebrae. ?? New mild/minimal anterolisthesis at L4-L5. ?? Worsening of multifocal facet arthropathy particularly L4-L5 and L5-S1, ?? with gas phenomenon in the L4-L5 facet joints. ?? No osseous spinal stenosis by CT. ?? No paraspinal hematoma. Multifocal dermal nodularity as can be seen with ?? neurofibromatosis. ?? Moderate to severe stool burden in the fqajc-dy-supi. Cholelithiasis in ?? the rfdhe-se-kkle. ? IMPRESSION: ?? 1. No acute fracture of the lumbar spine. ? 2. Worsening lower lumbar facet arthropathy compared to 11/07/2021. ? This document has been electronically signed by: Javed Queen MD on ?? 06/24/2024 19:36:00 ? Dictated By: ?Javed Queen MD ? Signed By: ?<Electronically signed by Javed Queen MD in OV> ? 06/24/241935 ? DD/ 35 ? TD/TT: 06/24/241935 ? Sewer Repairer: ? Procedure Note Satish Browning - 06/24/[address] [address] [address] Scan Report Signed Patient: Gerald Guevara#: [id number] 356 : 1975Acct:[id number] Age/Sex: 48 / FADM Date: 06/24/24 Loc: HO.ED Attending Dr: Ordering Physician: Re Barber Date of Service: 06/24/24 Procedure(s): CT lumbar spine wo IV con Accession Number(s): [id number] cc: Dakota Monet MD; Re Barber Report Number: [id number]: Total DLP = 2098.00 mGy-cm CLINICAL HISTORY: fall, pain CT lumbar spine without contrast Comparison: CT of the lumbar spine from 11/07/2021 Findings: Normal heights of 5 lumbar vertebrae. New mild/minimal anterolisthesis at L4-L5. Worsening of multifocal facet arthropathy particularly L4-L5 and L5-S1, with gas phenomenon in the L4-L5 facet joints. No osseous spinal stenosis by CT. No paraspinal hematoma. Multifocal dermal nodularity as can be seen with neurofibromatosis. Moderate to severe stool burden in the bdlhp-nn-avfn. Cholelithiasis in the wncor-hr-mtlv. IMPRESSION: 1. No acute fracture of the lumbar spine. 2. Worsening lower lumbar facet arthropathy compared to 11/07/2021. This document has been electronically signed by: Javed Queen MD on 06/24/2024 19:36:00 Dictated By: Javed Queen MD Signed By: <Electronically signed by Javed Queen MD in OV> 06/24/241935 DD/ 35 TD/TT: 06/24/241935 Sewer Repairer: [facility] External Provider IMG CT PROCEDURES Edited Result - Final * CT Chest w/o Contrast (06/24/2024 7:33 PM EST) Anatomical Region Laterality Modality Body, Chest Computed Tomogra phy 06/24/2024 7:33 PM EST Narrative 06/24/2024 7:35 PM EST ? [facility] ?[address] ?[place] [address] ? CT Scan Report ? Signed ? Patient: Paola,Lidagma ?MR#: [id number] ?? 356 ? : 1975 ?Acct:[id number] ? Age/Sex: 48 / F ?ADM Date: 02/22/25 ? Loc: HO.ED ? Attending Dr: ? Ordering Physician: Kaylan Underwood CNP ?? Date of Service: 06/24/24 ?? Procedure(s): CT chest wo IV con ?? Accession Number(s): [id number] ? cc: Kaylan Underwood CNP; Dakota Monet MD ? Report Number: ?? [id number]: Total DLP = 2098.00 mGy-cm ? CLINICAL HISTORY: fall, midline TTP T5-12, R posterior rib pain ? CT chest without contrast ? Comparison: None ? Findings: ?? Airspace disease is nonspecific and multifocal including lower lobes, left ?? worse than right. Superimposed on chronic lung disease with multifocal ?? emphysematous changes, mild right upper bronchiectasis, and mild ?? peripheral scarring. No pleural effusion or pneumothorax. Mild/borderline ?? cardiomegaly. Nonenlarged mediastinal lymphadenopathy in this noncontrast ?? study. No mediastinal hematoma. ?? Foci of sclerosis appear nonaggressive including T2 and T3. Bone islands ?? are considered most likely. Scalloping of upper thoracic vertebrae is ?? nonspecific but likely due to nerve sheath tumors such as neurofibromas ?? particularly given multifocal dermal nodularity. No acute fracture. ?? Superficial metal piercing artifacts noted. ?? Multiple cholelithiasis of the imaged upper abdomen. ? IMPRESSION: ?? 1. No mediastinal hematoma from acute trauma. ?? 2. Multifocal airspace disease is nonspecific and concerning for ?? pneumonitis/pneumonia. Recommend attention on follow-up to ensure ?? resolution. ?? 3. Cholelithiasis. ? This document has been electronically signed by: Javed Queen MD on ?? 06/24/2024 19:33:51 ? Dictated By: ?Javed Queen MD ? Signed By: ?<Electronically signed by Javed Queen MD in OV> ? 06/24/241933 ? DD/ 32 ? TD/TT: 06/24/241932 ? Sewer Repairer: ? Procedure Note Satish Browning - 06/24/[address] [address] [address] Scan Report Signed Patient: Sindy GuevaraZhanna#: [id number] 356 : 1975Acct:[id number] Age/Sex: 48 / FADM Date: 06/24/24 Loc: HO.ED Attending Dr: Ordering Physician: Kaylan Underwood CNP Date of Service: 06/24/24 Procedure(s): CT chest wo IV con Accession Number(s): [id number] cc: Kaylan Underwood CNP; Dakota Monet MD Report Number: [id number]: Total DLP = 2098.00 mGy-cm CLINICAL HISTORY: fall, midline TTP T5-12, R posterior rib pain CT chest without contrast Comparison: None Findings: Airspace disease is nonspecific and multifocal including lower lobes, left worse than right. Superimposed on chronic lung disease with multifocal emphysematous changes, mild right upper bronchiectasis, and mild peripheral scarring. No pleural effusion or pneumothorax. Mild/borderline cardiomegaly. Nonenlarged mediastinal lymphadenopathy in this noncontrast study. No mediastinal hematoma. Foci of sclerosis appear nonaggressive including T2 and T3. Bone islands are considered most likely. Scalloping of upper thoracic vertebrae is nonspecific but likely due to nerve sheath tumors such as neurofibromas particularly given multifocal dermal nodularity. No acute fracture. Superficial metal piercing artifacts noted. Multiple cholelithiasis of the imaged upper abdomen. IMPRESSION: 1. No mediastinal hematoma from acute trauma. 2. Multifocal airspace disease is nonspecific and concerning for pneumonitis/pneumonia. Recommend attention on follow-up to ensure resolution. 3. Cholelithiasis. This document has been electronically signed by: Javed Queen MD on 06/24/2024 19:33:51 Dictated By: Javed Queen MD Signed By: <Electronically signed by Javed Queen MD in OV> 06/24/241933 DD/ 32 TD/TT: 06/24/241932 Sewer Repairer: [facility] External Provider IMG CT PROCEDURES Edited Result - Final * CT Head w/o Contrast (06/24/2024 7:28 PM EST) Anatomical Region Laterality Modality Head, Neck Computed Tomogra phy 06/24/2024 7:28 PM EST Narrative 06/24/2024 7:30 PM EST ? [facility] ?[address] ?[place] [address] ? CT Scan Report ? Signed ? Patient: Paola,Lidagma ?MR#: [id number] ?? 356 ? : 1975 ?Acct:[id number] ? Age/Sex: 48 / F ?ADM Date: 06/24/24 ? Loc: HO.ED ? Attending Dr: ? Ordering Physician: Re Barber ?? Date of Service: 06/24/24 ?? Procedure(s): CT head/brain wo IV con ?? Accession Number(s): [id number] ? cc: Dakota Monet MD; Re Barber ? Report Number: ?? [id number]: Total DLP = 2098.00 mGy-cm ? CLINICAL HISTORY: fall, head strike, pain ? CT head without contrast ? Comparison: None ? Findings: ?? Left lateral periorbital piercing metallic foreign body. Additional ?? piercings include bilateral ureters, bilateral nodes. ?? No acute intracranial hemorrhage. No midline shift or hydrocephalus. No ?? arterial territorial infarction by CT. ?? Mucosal thickening of the imaged paranasal sinuses. Imaged mastoid air ?? cells are well aerated. ?? No acute skull fracture, accounting for artifacts. Additional metal noted ?? in imaged mouth. ? IMPRESSION: ?? No acute intracranial abnormality by CT. ? This document has been electronically signed by: Javed Queen MD on ?? 06/24/2024 19:28:13 ? Dictated By: ?Javed Queen MD ? Signed By: ?<Electronically signed by Javed Queen MD in OV> ? 06/24/241928 ? DD/ 27 ? TD/TT: 06/24/241927 ? Sewer Repairer: ? Procedure Note Nallely, Image - 06/24/[address] [address] [address] Scan Report Signed Patient: Gerald Guevara#: [id number] 356 : 1975Acct:[id number] Age/Sex: 48 / FADM Date: 06/24/24 Loc: HO.ED Attending Dr: Ordering Physician: Re Barber Date of Service: 06/24/24 Procedure(s): CT head/brain wo IV con Accession Number(s): [id number] cc: Dakota Monet MD; Re Barber Report Number: [id number]: Total DLP = 2098.00 mGy-cm CLINICAL HISTORY: fall, head strike, pain CT head without contrast Comparison: None Findings: Left lateral periorbital piercing metallic foreign body. Additional piercings include bilateral ureters, bilateral nodes. No acute intracranial hemorrhage. No midline shift or hydrocephalus. No arterial territorial infarction by CT. Mucosal thickening of the imaged paranasal sinuses. Imaged mastoid air cells are well aerated. No acute skull fracture, accounting for artifacts. Additional metal noted in imaged mouth. IMPRESSION: No acute intracranial abnormality by CT. This document has been electronically signed by: Javed Queen MD on 06/24/2024 19:28:13 Dictated By: Javed Queen MD Signed By: <Electronically signed by Javed Queen MD in OV> 06/24/241928 DD/ 27 TD/TT: 06/24/241927 Sewer Repairer: [facility] External Provider IMG CT PROCEDURES Edited Result - Final * CT Cervical Spine w/o Contrast (06/24/2024 7:25 PM EST) Anatomical Region Laterality Modality Spine, C-spine Computed Tomogra phy 06/24/2024 7:25 PM EST Narrative 06/24/2024 7:27 PM EST ? [facility] ?[address] ?[place] [address] ? CT Scan Report ? Signed ? Patient: Paola,Lidagma ?MR#: [id number] ?? 356 ? : 1975 ?Acct:[id number] ? Age/Sex: 48 / F ?ADM Date: 02/22/25 ? Loc: HO.ED ? Attending Dr: ? Ordering Physician: Re Barber ?? Date of Service: 06/24/24 ?? Procedure(s): CT cervical spine wo IV con ?? Accession Number(s): [id number] ? cc: Dakota Monet MD; Re Barber ? Report Number: ?? [id number]: Total DLP = 2098.00 mGy-cm ? CLINICAL HISTORY: fall, head strike, pain ? CT cervical spine without contrast ? Comparison: None available ? Findings: ?? No acute fracture cervical spine. ?? Trace anterolisthesis at C2-C3 and C3-C4. ?? Mild straightening of the cervical lordosis. ?? Degenerative changes include multifocal facet arthropathy. ?? No paraspinal hematoma. Multifocal dermal nodularity. Mild scarring of the ?? imaged lung apices. ? IMPRESSION: ?? No acute fracture of the cervical spine. ? This document has been electronically signed by: Javed Queen MD on ?? 06/24/2024 19:25:18 ? Dictated By: ?Javed Queen MD ? Signed By: ?<Electronically signed by Javed Queen MD in OV> ? 06/24/246 ? DD/ 24 ? TD/TT: 06/24/241924 ? Sewer Repairer: ? Procedure Note Nallely, Satish - 06/24/[address] [place] [address] [address] Scan Report Signed Patient: Gerald Guevara#: [id number] : 1975Acct:[id number] Age/Sex: 48 / FADM Date: 06/24/24 Loc: HO.ED Attending Dr: Ordering Physician: Re Barber Date of Service: 06/24/24 Procedure(s): CT cervical spine wo IV con Accession Number(s): [id number] cc: Dakota Monet MD; Re Barber Report Number: [id number]: Total DLP = 2098.00 mGy-cm CLINICAL HISTORY: fall, head strike, pain CT cervical spine without contrast Comparison: None available Findings: No acute fracture cervical spine. Trace anterolisthesis at C2-C3 and C3-C4. Mild straightening of the cervical lordosis. Degenerative changes include multifocal facet arthropathy. No paraspinal hematoma. Multifocal dermal nodularity. Mild scarring of the imaged lung apices. IMPRESSION: No acute fracture of the cervical spine. This document has been electronically signed by: Javed Queen MD on 06/24/2024 19:25:18 Dictated By: Javed Queen MD Signed By: <Electronically signed by Javed Queen MD in OV> 06/24/241925 DD/ 24 TD/TT: 06/24/241924 Sewer Repairer: [facility] External Provider IMG CT PROCEDURES Edited Result - Final * BI Mammogram Screening Tomosynthesis Bilateral (04/29/2024 8:25 AM EST) Anatomical Region Laterality Modality Breast Bilateral Mammography 04/29/2024 8:25 AM EST Narrative 05/12/2024 3:20 PM EST ? [facility] [place] ? [address] ?[place] [address] ? Mammography Report ? Signed ? Patient: Paola,Lidagma ?MR#: [id number] ?? [id number] ? : 1975 ?Acct:[id number] ? Age/Sex: 48 / F ?ADM Date: 12/28/24 ? Loc: HO.MAMMO ? Attending Dr: Dakota Monet MD ? Ordering Physician: Dakota Monet MD ?Results: 2 ?? Benign Findings ? Date of Service: 12/28/24 ?Follow Up: 1 Year From Orig ?? inal Mammogram ? Procedure(s): MM tomosynthesis screening BI ?? Accession Number(s): [id number] ? cc: Dakota Monet MD ? EXAMINATION: [...] ? DD/ 4 ? TD/TT: 04/29/2436 ? Sewer Repairer: ? Procedure Note Nallely, Image - 05/12/2024 [facility] [address] [place] [address] Dr. Jacob, RAFAEL [address] Mammography Report Signed Patient: Gerald Guevara#: [id number] : 1975Acct:[id number] Age/Sex: 48 / FADM Date: 04/29/24 Loc: HO.MAMMO Attending Dr: Dakota Monet MD Ordering Physician: Dakota Monet MDResults: 2 Benign Findings Date of Service: 04/29/24Follow Up: 1 Year From Orig ina Mammogram Procedure(s): MM tomosynthesis screening BI Accession Number(s): [id number] cc: Dakota Monet MD EXAMINATION: MM SCREENING [...] 05/12/24 1516 DD/ 0825 TD/TT: 04/29/24 0836 Sewer Repairer: us Dakota Monet MD IMG BI PROCEDURES Final Res ult * Hepatitis Panel, General (01/08/2023 1:27 PM EDT) Hepatitis A IgM Nonreactive Nonreactive [facility] Comment:IgM antibodies to MARIE V not detected; does not exclude earlyacute or recovered HAV infection. ~Hepatitis B Surface Antibody NONREACTIVE Nonreactive [facility] Comment:Nonreactive: < 8.00 mIU/mL Hepatitis B Core Antibody Nonreactive Nonreactive [facility] Hepatitis C Antibody Nonreactive Nonreactive [facility] Comment:Antibodies to HCV no t detected; does not exclude early acuteHCV infection. Hepatitis B Surface Ag Negative Negative [facility] Blood 01/08/2023 1:27 PM EDT 01/08/2023 2:43 PM EDT Dakota Monet MD LAB BLOOD ORDERABLES Final Result [facility] [address] [place] [address] [phone] * Hm Colonoscopy (08/22/2021) Colonoscopy Normal [...] historic and ?? current clinical information. ?? Cook Helper Vegetable : SEE COMMENT [facility] Comment: KF, CT(ASCP) CT screening location: [address] ??[address] Interpretation/R esult: Negative for intraepithelial lesion or malignancy. [facility] LMP: NONE [facility]IV[facility] Prev. BX: NONE [facility]IV[facility] Prev. PAP: NONE [facility]IV[facility] SOURCE: None given [facility] Statement Of Adequacy: SEE COMMENT [facility] Comment: Satisfactory for evaluation. Endocervical/transformation zone component absent. Age and/or menstrual status not provided 11/27/2020 3:44 PM EDT Tamar Carbajal [facility] PATHOLOGY ORDERABLES Final Result Performing Organization Address [facility] Co de Phone Number [facility] [address] * HPV mRNA E6/E7 (11/27/2020 3:44 PM EDT) HPV nRNA E6/E7 Not Detected Not Detected [facility] Comment: Methodology: Algology Teacher-Mediated Amplification This assay detects E6/E7 viral messenger RNA (mRNA) from 14 high-risk HPV types (16,18,31,33,35,39,45,51,52,56,58,59,66,68). ? The analytical performance characteristics of this assay have been determined by [employer]. The modifications have not been cleared or approved by the FDA. This assay has been validated pursuant to the CLIA regulations and is used for clinical purposes. ?? For additional information, please refer to http://education.[employer]/faq/PRW127c7 (This link if provided for information/ educational purposes only.) 11/27/2020 3:44 PM EDT Tamar Carbajal [facility] LAB BLOOD ORDERABLES Josiane l Result Performing Organization Address [facility] de Phone Number [facility] [address] from Last 3 Months or Most Recently Relevant to Health Maintenance Insurance [facility] [address] [place] [address] Care Teams Slitter Scorer Relationship Specialty Start Date End Date Dakota Monet MD [address] [place] [address] PCP - General Internal Medicine 05/10/13
--- OUTSIDE RECORDS SUMMARY | 2024-06-29 19:26 | XMS_ITS | Encounter Summary ---
Author Organization [employer] Address [address] [place] [address] Care Team Providers Care Tray Line Worker Name Role Phone Dakota Monet MD Primary Care Provider [phone] Reason for Visit * Reason Comments Med Refill Encounter Details Date Type Department Care Team ([facility] Contact Info) Description 01/16/2024 Refill [facility] [address] [place] [address] Dakota Monet MD [address] [place] [address] Chronic pain syndrome; Chronic right-sided low back [...] Upcoming Encounters Date Type Department Care Team ([facility] Contact Info) Description 07/17/2024 3:30 PM EDT Office Visit [facility] [address] [place] [address] Dakota Monet MD [address] [place] [address] documented as of this encounter Visit Diagnoses Diagnosis Chronic pain syndrome Chronic right-sided low back pain with right-sided sciatica documented in this encounter Additional Health Concerns Assessment Noted Time PHQ-9 Depression Total Score: 10 023 3:54 PM EST documented as of this encounter Care Teams Tray Line Worker Relationship Specialty Start Date End Date Dakota Monet MD [address] [place] [address] PCP - General Internal Medicine 05/10/13 documented as of this encounter
--- OUTSIDE RECORDS SUMMARY | 2024-06-29 19:26 | XMS_ITS | Encounter Summary ---
Author Organization [employer] Address [address] [place] [address] [address] [place] [address] Care Team Providers Care Recorder Of Deeds Name Role Phone Dakota Monet MD Primary Care Provider [phone] Encounter Details Date Type Department Care Team ([facility] Contact Info) Description 2023 Orders Only [facility] MED & PEDS [address] [place], [place] [phone] Dakota Monet MD [address] [place] [address] Social History Tobacco Use Types Packs/Day Years [...] Description 07/17/2024 3:30 PM EDT Office Visit [facility] [address] [place], [place] [phone] Dakota Monet MD [address] [place] [address] documented as of this encounter Visit Diagnoses Not on filedocumented in this encounter Additional Health Concerns Assessment Noted Time PHQ-9 Depression Total Score: 10 023 3:54 PM EST documented as of this encounter Care Teams Recorder Of Deeds Relationship Specialty Start Date End Date Dakota Monet MD [address] [place] [address] [place]FA[place]ios [address] PCP - General Internal Medicine 05/10/13 documented as of this encounter
--- OUTSIDE RECORDS SUMMARY | 2024-06-29 19:26 | XMS_ITS | Encounter Summary ---
Author Organization [employer] Address [address] [place] [address] 7 [place] [address] Care Team Providers Care Machine Packaging Technician Name Role Phone Dakota Monet MD Primary Care Provider [phone] Reason for Referral * Consultation (Routine) - Authorized Specialty Diagnoses / Procedures Referred By Diana t Referred To Contact General Surgery Diagnoses Soft tissue tumor of left foot Dakota Monet MD [address] [place] [address] Phone: tel: fax: [facility] General Surgeons [address] [place], [place] Phone: tel: fax: Referral ID Status Reason Start Date Expiration Date Visits Requested Visits Authorized [id number] Authorized Specialty Services Required 05/30/2024 05/30/2025 1 1 * Consultation (Routine) - Authorized Specialty Diagnoses / Procedures Referred By Contac t Referred To Contact Neurology Diagnoses Neurofibromatosis syndrome (CMS/HCC) Chronic migraine with aura without status migrainosus, not intractable Dakota Monet MD [address] [place] [address] Phone: tel: fax: Gay Fuentes MD [address] [place] [address] [place] [address] Phone: tel: fax: Referral ID Status Reason Start Date Expiration Date Visits Requested Visits Authorized [id number] Authorized Specialty Services Required 05/30/2024 05/30/2025 1 1 Reason for Visit * Reason Comments Follow-up Encounter Details Date Type Department Care Team (Latest Contact Info) Description 05/30/2024 4:00 PM EST Office Visit [facility] [address] [place] [address] Dakota Monet MD [address] [place] [address] Neurofibromatosis syndrome (CMS/HCC) (Primary Dx); Chronic migraine [...] 07/17/2024 3:30 PM EDT Office Visit [facility] [address] [place] [address] Dakota Monet MD [address] [place] [address] Scheduled Referrals Name Type Priority Associated Diagnoses [...] documented as of this encounter Care Teams Machine Packaging Technician Relationship Specialty Start Date End Date Dakoat Monet MD [address] [place] [address] PCP - General Internal Medicine 05/10/13 documented as of this encounter
--- OUTSIDE RECORDS SUMMARY | 2024-06-29 19:26 | XMS_ITS | Encounter Summary ---
Author Organization [employer] Address [address] [place] [address] Care Team Providers Care Card Dealer Name Role Phone Dakota Monet MD Primary Care Provider [phone] Reason for Visit * Reason Onset Date Comments Results 01/06/2023 Encounter Details Date Type Department Care Team ([facility] st Contact Info) Description 01/06/2023 Telephone [facility]EDS [address] [place], [place] [phone] Dakota Monet MD [address] [place] [address] Results Social History Tobacco Use Types Packs/Day [...] States she will get the vaccine at [facility] pharmacy. Pt also requesting this message be [...] verbalized understanding. Pt reports no access to [employer]*. RN informed link will be sent to [...] 3:30 PM EDT Office Visit [facility] MED [facility] [address] [place] [address] Dakota Monet MD [address] [place] [address] documented as of this encounter Visit Diagnoses Diagnosis Chronic pain syndrome documented in this encounter Additional Health Concerns Assessment Noted Time PHQ-9 Depression Total Score: 10 023 3:54 PM EST documented as of this encounter Care Teams Card Dealer Relationship Specialty Start Date End Date Dakota Monet MD [address] [place] [address] PCP - General Internal Medicine 05/10/13 documented as of this encounter
--- OUTSIDE RECORDS SUMMARY | 2024-06-29 19:26 | XMS_ITS | Encounter Summary ---
Author Organization [employer] Address [address] [place] [address] Care Team Providers Care Bit And Shank Department Supervisor Name Role Phone Dakota Monet MD Primary Care Provider [phone] Reason for Referral * Medications - Pending Review Specialty Diagnoses / Procedures Referred By Contac t Referred To Contact Diagnoses Chronic migraine with aura without status migrainosus, not intractable Dakota Monet MD [address] [place] [address] Phone: tel: fax: Referral ID Status Reason Start Date Expiration Date V isits Requested Visits Authorized [id number] Pending Review 06/29/2024 06/29/2025 1 1 Encounter Details Date Type Department Care Team (Latest Contact Info) Description 06/29/2024 3:30 PM EST Office Visit [facility]EDS [address] [place] [address] Dakota Monet MD [address] [place] [address] 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 female who presents for No chief complaint on file.. HPI Patient is here for an emergency department visit follow-up. She presented herself on June 24, 2024 after she slipped down stairs and fell. Patient reports that the door was icy and landed on herbuttock. Fell over 12-14 stairs. No reported loss of consciousness. Was complaining of pain from her neck down to her low back especially on the right side. CT of the lumbar spine: Unremarkable Chest CT: No rib fracture, possible pneumonia. Patient had no symptoms consistent with pneumonia. His low back pain has improved since his evaluation at the emergency department. No alarming symptoms. Patient is requesting to get Qulipta prescribed Patient Active Problem List Diagnosis Neurofibromatosis syndrome (CMS/HCC) Anemia Depressive disorder Migraine Class 1 obesity Tachycardia Macromastia Chronic pain of right knee Chronic pain syndrome Calculus of gallbladder without cholecystitis without obstruction Current Outpatient Medications on File Prior to [...] MOUTH EVERY DAY NEEDED *FOR 30 DAYS* SUMAtriptan (Imitrex) 50 MG tablet Take 1 tablet (50 mg) by mouth 1 (one) time if needed for migraine for up to 108 doses. May repeat dose once in 2 hours if no relief. Do not exceed 2 doses in 24 hours. 9 tablet 11 tiZANidine (Zanaflex) 4 MG tablet TAKE 1 [...] TIME PER DAY AT BEDTIME NEEDEDINSOMNIA. [DISCONTINUED] Atogepant (Qulipta) 30 MG tablet Take 30 mg by mouth Once per day. 30 tablet 2 No current facility-administered medications on file prior to visit. No Known Allergies Review of Systems Constitutional: Negative for appetite change, chills and diaphoresis. Respiratory: Negative for cough, choking and chest tightness. Cardiovascular: Negative for leg swelling. Gastrointestinal: Negative for anal bleeding, blood in stool and constipation. Musculoskeletal: Positive for back pain. Objective BP 113/70 (BP Location: Right arm, Patient Position: Sitting, BP Cuff Size: Adult) Pulse 72 Temp 98.6 ??F (37 ??C) (Oral) Resp 20 Ht 4' 10 (1.473 m) Wt 136 lb 12.8 oz (62.1 kg) SpO2 98% BMI 28.59 kg/m?? Physical Exam Constitutional: General: She is not in acute distress. Appearance: Normal appearance. She is not ill-appearing, toxic-appearing or diaphoretic. Cardiovascular: Rate and Rhythm: Normal rate. Pulmonary: Effort: Pulmonary effort is normal. Neurological: General: No focal deficit present. Mental Status: She is alert. Psychiatric: Mood and Affect: Mood normal. 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 Patient will be contacted with the results Orders: - XR Chest 2 Views; Future Biliary calculus of other site without obstruction Comments: Incidental finding during the last ED visit No acute intervention needed Patient is to contact the office if having right upper quadrant abdominal pain Chronic pain syndrome Comments: Continue with the current medication for now Chronic right-sided low back pain with right-sided sciatica Calculus of gallbladder without cholecystitis without obstruction Chronic migraine with aura without status migrainosus, not intractable Comments: We will fill out prior authorization for Qulipta if requested. Orders: - Atogepant (Qulipta) 30 MG tablet; Take 30 mg by mouth Once per day. 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)- Primary Biliary calculus of other site without obstruction Chronic pain syndrome Chronic right-sided low back pain with right-sided sciatica Calculus of gallbladder without cholecystitis without obstruction Chronic migraine with aura without status migrainosus, not intractable documented in this encounter Additional Health Concerns Assessment Noted Time PHQ-9 Depression Total Score: 8 06/29/19 25 3:42 PM EST documented as of this encounter Care Teams Bit And Shank Department Supervisor Relationship Specialty Start Date End Date Dakota Monet MD [address] [place] [address] PCP - General Internal Medicine 05/10/13 documented as of this encounter
--- OUTSIDE RECORDS SUMMARY | 2024-06-29 19:26 | XMS_ITS | Encounter Summary ---
Author Organization [employer] Address [address] [place] [address] Care Team Providers Care Six Color Press Operator Name Role Phone Dakota Monet MD Primary Care Provider [phone] Reason for Visit * Reason Comments Med Refill Encounter Details Date Type Department Care Team (Late Contact Info) Description 05/28/2024 Refill [facility] [address] [place], [place] [phone] Ann Givens MD [address] [place] [address] Primary insomnia Social History Tobacco Use Types [...] Upcoming Encounters Date Type Department Care Team ([facility] Contact Info) Description 07/17/2024 3:30 PM EDT Office Visit [facility] [address] [place], [place] [phone] Dakota Monet MD [address] [place] [address] documented as of this encounter Visit Diagnoses Diagnosis Primary insomnia Persistent disorder of initiating or maintaining sleep documented in this encounter Additional Health Concerns Assessment Noted Time PHQ-9 Depression Total Score: 10 023 3:54 PM EST documented as of this encounter Care Teams Six Color Press Operator Relationship Specialty Start Date End Date Dakota Monet MD [address] [place] [address] PCP - General Internal Medicine 05/10/13 documented as of this encounter
--- OUTSIDE RECORDS SUMMARY | 2024-06-29 19:26 | XMS_ITS | Encounter Summary ---
Author Organization [employer] Address [address] [place] [address] Care Team Providers Care Physical Security Manager Name Role Phone Dakota Monet MD Primary Care Provider [phone] Reason for Visit * Reason Comments Med Refill Encounter Details Date Type Department Care Team ([facility] Contact Info) Description 06/03/2024 Refill [facility] MED [facility] PED[facility] [address] [place] [address] Dakota Monet MD [address] [place] [address] Chronic pain syndrome; Chronic right-sided low back [...] Upcoming Encounters Date Type Department Care Team ([facility] Contact Info) Description 07/17/2024 3:30 PM EDT Office Visit [facility] P[facility] [address] [place] [address] Dakota Monet MD [address] [place] [address] documented as of this encounter Visit Diagnoses Diagnosis Chronic pain syndrome Chronic right-sided low back pain with right-sided sciatica documented in this encounter Additional Health Concerns Assessment Noted Time PHQ-9 Depression Total Score: 10 023 3:54 PM EST documented as of this encounter Care Teams Physical Security Manager Relationship Specialty Start Date End Date Dakota Monet MD [address] [place] [address] PCP - General Internal Medicine 05/10/13 documented as of this encounter
--- OUTSIDE RECORDS SUMMARY | 2024-06-29 19:26 | XMS_ITS | Encounter Summary ---
Author Organization [employer] Address [address] [facility] [address] [place] [address] Care Team Providers Care Supervisor Rubber Covering Name Role Phone Dakota Monet MD Primary Care Provider [phone] Reason for Visit * Reason Onset Date Comments Referral 04/12/2024 Encounter Details Date Type Department Care Team ([facility] st Contact Info) Description 04/12/2024 Telephone [facility] MED[facility] [address] [place] [address] Dakota Monet MD [address] [place], [place] [phone] Referral Social History Tobacco Use Types Packs/Day [...] from pt requesting new referral : Address: [address] [place] [address] Facility Name: [facility] Type of Specialist: Neurology * Telephone Encounter - Toño Patel - 04/12/2024 10:06 AM EST TC from pt requesting new referral : Address: [address] [place] [address] Facility Name: [facility] Type of Specialist: Neurology documented in this encounter Plan of Treatment Upcoming Encounters Date Type Department Care Team (Late st Contact Info) Description 07/17/2024 3:30 PM EDT Office Visit [facility] MED & PEDS [address] [place] [address] Dakota Monet MD [address] [place] [address] documented as of this encounter Visit Diagnoses Not on filedocumented in this encounter Additional Health Concerns Assessment Noted Time PHQ-9 Depression Total Score: 10 023 3:54 PM EST documented as of this encounter Care Teams Supervisor Rubber Covering Relationship Specialty Start Date End Date Dakota Monet MD [address] [place] [address] PCP - General Internal Medicine 05/10/13 documented as of this encounter
--- OUTSIDE RECORDS SUMMARY | 2024-06-29 19:26 | XMS_ITS | Encounter Summary ---
Author Organization [employer] Address [address] [facility] 7t [place] [address] Care Team Providers Care Coat Cutter Name Role Phone Dakota Monet MD Primary Care Provider [phone] Encounter Details Date Type Department Care Team (Latest Contact Info) Description 06/29/2024 Travel Social History Tobacco Use Types Packs/Day [...] is your housing situation today? I have rojeliosinan wang 06/29/[address] you [...] Description 07/17/2024 3:30 PM EDT Office Visit [facility] MED & PEDS [address] [place] [address] Dakota Monet MD [address] [place] [address] documented as of this encounter Visit Diagnoses Not on filedocumented in this encounter Additional Health Concerns Assessment Noted Time PHQ-9 Depression Total Score: 8 06/29/19 25 3:42 PM EST documented as of this encounter Care Teams Coat Cutter Relationship Specialty Start Date End Date Dakota Monet MD [address] [place] [address] PCP - General Internal Medicine 05/10/13 documented as of this encounter
--- OUTSIDE RECORDS SUMMARY | 2024-06-29 19:26 | XMS_ITS | Encounter Summary ---
Author Organization [employer] Address [address] [address] Care Team Providers Care Development Rep Name Role Phone Dakota Monet MD Primary Care Provider [phone] Reason for Visit * Reason Onset Date Comments PA 06/06/2024 Encounter Details Date Type Department Care Team (Late st Contact Info) Description 06/06/2024 Telephone [facility] MEDICINE [address] [place] [address] Dakota Monet MD [address] [place] [address] PA Social History Tobacco Use Types Packs/Day [...] (Qulipta) 30 MG tablet Contact pt at [phone] * Telephone Encounter - Mike Parkinson - 06/06/2024 8:53 AM EST TC from pt requesting a PA for Medication Atogepant (Qulipta) 30 MG tablet Contact pt at [phone] documented in this encounter Plan of Treatment Upcoming Encounters Date Type Department Care Team ([facility] st Contact Info) Description 07/17/2024 3:30 PM EDT Office Visit [facility] MED & PEDS [address] [place] [address] Dakota Monet MD [address] [place] [address] documented as of this encounter Visit Diagnoses Not on filedocumented in this encounter Additional Health Concerns Assessment Noted Time PHQ-9 Depression Total Score: 10 023 3:54 PM EST documented as of this encounter Care Teams Development Rep Relationship Specialty Start Date End Date Dakota Monet MD [address] [place] [address] PCP - General Internal Medicine 05/10/13 documented as of this encounter
--- OUTSIDE RECORDS SUMMARY | 2024-06-29 19:26 | XMS_ITS | Encounter Summary ---
Author Organization [employer] [facility] [employer] Address [address] [place] [address] Care Team Providers Care Court Security Officer Name Role Phone Dakota Monet MD Primary Care Provider [phone] Reason for Visit * Reason Comments Med Refill Encounter Details Date Type Department Care Team ([facility] Contact Info) Description 03/19/2024 Refill [facility] MED & PEDS [address] [place] [address] Dakota Monet MD [address] [place] [address] Primary insomnia Social History Tobacco Use Types [...] Upcoming Encounters Date Type Department Care Team ([facility] Contact Info) Description 07/17/2024 3:30 PM EDT Office Visit [facility] MED & PEDS [address] [place] [address] Dakota Monet MD [address] [place] [address] documented as of this encounter Visit Diagnoses Diagnosis Primary insomnia Persistent disorder of initiating or maintaining sleep documented in this encounter Additional Health Concerns Assessment Noted Time PHQ-9 Depression Total Score: 10 023 3:54 PM EST documented as of this encounter Care Teams Court Security Officer Relationship Specialty Start Date End Date Dakota Monet MD [address] [place] [address] PCP - General Internal Medicine 05/10/13 documented as of this encounter
--- OUTSIDE RECORDS SUMMARY | 2024-06-29 19:26 | XMS_ITS | Encounter Summary ---
Author Organization [employer] Address [address] [place] [address] 7 [place] [address] Care Team Providers Care Bakery Clerk Name Role Phone Dakota Monet MD Primary Care Provider [phone] Encounter Details Date Type Department Care Team (Late Contact Info) Description 06/22/2024 Orders Only [facility] MED & PEDS [address] [place], [place] [phone] Dakota Monet MD 505 [place] [address] Chronic migraine with aura without status migrainosus, [...] [facility] MED & PEDS [address] [place] [address] Dakota Monet MD 505 [facility] [place] [address] documented as of this encounter Procedures Procedure Name Priority Date/Time Associated Diagnosis Comments CT LUMBAR SPINE WO CONTRAST Routine 06/24/2024 7:[address] CHEST WO CONTRAST Routine 06/24/2024 7:[address] HEAD WO CONTRAST Routine 06/24/2024 7 :[address] CERVICAL SPINE WO CONTRAST Routine 06/24/2024 7:25 PM EST documented in this encounter Results * CT Lumbar Spine w/o Contrast (06/24/2024 7:36 PM EST) Anatomical Region Laterality Modality Spine, L-spine Computed Tomogra phy 06/24/2024 7:36 PM EST Narrative 06/24/2024 7:37 PM EST ? [facility] ?[address] ?[place] [address] ? CT Scan Report ? Signed ? Patient: Paola,Lidagma ?MR#: [id number] ?? 356 ? : 1975 ?Acct:[id number] ? Age/Sex: 48 / F ?ADM Date: 06/24/24 ? Loc: HO.ED ? Attending Dr: ? Ordering Physician: Re Barber ?? Date of Service: 06/24/24 ?? Procedure(s): CT lumbar spine wo IV con ?? Accession Number(s): [id number] ? cc: Dakota Monet MD; Re Barber ? Report Number: ?? [id number]: Total DLP = 2098.00 mGy-cm ? CLINICAL [...] Moderate to severe stool burden in the wclue-ad-vzoa. Cholelithiasis in ?? the fehlw-dz-pctl. ? IMPRESSION: ?? 1. No acute fracture of the lumbar spine. ? 2. Worsening lower lumbar facet arthropathy compared to 11/07/2021. ? This document has been electronically signed by: Javed Queen MD on ?? 06/24/2024 19:36:00 ? Dictated By: ?Javed Queen MD ? Signed By: ?<Electronically signed by Javed Queen MD in OV> ? 06/24/24 1936 ? DD/ 35 ? TD/TT: 06/24/241935 ? Hat Measurer: ? Procedure Note Dondanielter, Image - 06/24/[address] [place] [address] [address] Scan Report Signed Patient: Gerald Guevara#: [id number] 356 : 1975Acct:[id number] Age/Sex: 48 / FADM Date: 06/24/24 Loc: HO.ED Attending Dr: Ordering Physician: Re Barber Date of Service: 06/24/24 Procedure(s): CT lumbar spine wo IV con Accession Number(s): [id number] cc: Dakota Monet MD; Re Barber Report Number: [id number]: Total DLP = 2098.00 mGy-cm CLINICAL HISTORY: [...] Moderate to severe stool burden in the ecptq-op-gncc. Cholelithiasis in the zzswg-ql-zvjn. IMPRESSION: 1. No acute fracture of the lumbar spine. 2. Worsening lower lumbar facet arthropathy compared to 11/07/2021. This document has been electronically signed by: Javed Queen MD on 06/24/2024 19:36:00 Dictated By: Javed Queen MD Signed By: <Electronically signed by Javed Queen MD in OV> 06/24/241935 DD/ 35 TD/TT: 06/24/241935 Hat Measurer: [facility] External Provider IMG CT PROCEDURES Edited Result - Final * CT Chest w/o Contrast (06/24/2024 7:33 PM EST) Anatomical Region Laterality Modality Body, Chest Computed Tomogra phy 06/24/2024 7:33 PM EST Narrative 06/24/2024 7:35 PM EST ? [facility] ?[address] ?[place] [address] ? CT Scan Report ? Signed ? Patient: Paola,Lidagma ?MR#: [id number] ?? 356 ? : 1975 ?Acct:[id number] ? Age/Sex: 48 / F ?ADM Date: 06/24/24 ? Loc: HO.ED ? Attending Dr: ? Ordering Physician: Kaylan Underwood CNP ?? Date of Service: 06/24/24 ?? Procedure(s): CT chest wo IV con ?? Accession Number(s): [id number] ? cc: Kaylan Underwood CNP; Dakota Monet MD ? Report Number: ?? [id number]: Total DLP = 2098.00 mGy-cm ? CLINICAL [...] on ?? 06/24/2024 19:33:51 ? Dictated By: ?aJved Queen MD ? Signed By: ?<Electronically signed by Javed Queen MD in OV> ? 06/24/241933 ? DD/ 32 ? TD/TT: 06/24/241932 ? Hat Measurer: ? Procedure Note Nallely, Satish - 06/24/[address] [place] [address] [address] Scan Report Signed Patient: Gerald Guevara#: [id number] 356 : 1975Acct:[id number] Age/Sex: 48 / FADM Date: 06/24/24 Loc: HO.ED Attending Dr: Ordering Physician: Kaylan Underwood CNP Date of Service: 06/24/24 Procedure(s): CT chest wo IV con Accession Number(s): [id number] cc: Kaylan Underwood CNP; Dakota Monet MD Report Number: [id number]: Total DLP = 2098.00 mGy-cm CLINICAL HISTORY: [...] in OV> 06/24/241933 DD/ 32 TD/TT: 06/24/241932 Hat Measurer: [facility] External Provider IMG CT PROCEDURES Edited Result - Final * CT Head w/o Contrast (06/24/2024 7:28 PM EST) Anatomical Region Laterality Modality Head, Neck Computed Tomogra phy 06/24/2024 7:28 PM EST Narrative 06/24/2024 7:30 PM EST ? [facility] ?[address] ?[place] [address] ? CT Scan Report ? Signed ? Patient: Paola,Lidagma ?MR#: [id number] ?? 356 ? : 1975 ?Acct:[id number] ? Age/Sex: 48 / F ?ADM Date: 06/24/24 ? Loc: HO.ED ? Attending Dr: ? Ordering Physician: Re Barber ?? Date of Service: 06/24/24 ?? Procedure(s): CT head/brain wo IV con ?? Accession Number(s): [id number] ? cc: Dakota Monet MD; Re Barber ? Report Number: ?? [id number]: Total DLP = 2098.00 mGy-cm ? CLINICAL [...] ? DD/ 27 ? TD/TT: 06/24/241927 ? Hat Measurer: ? Procedure Note Nallely, Image - 06/24/[address] [place] [address] [address] Scan Report Signed Patient: Gerald Guevara#: [id number] 356 : 1975Acct:[id number] Age/Sex: 48 / FADM Date: 06/24/24 Loc: HO.ED Attending Dr: Ordering Physician: Re Barber Date of Service: 06/24/24 Procedure(s): CT head/brain wo IV con Accession Number(s): [id number] cc: Dakota Monet MD; Re Barber Report Number: [id number]: Total DLP = 2098.00 mGy-cm CLINICAL HISTORY: [...] in OV> 06/24/241928 DD/ 27 TD/TT: 06/24/241927 Hat Measurer: [facility] External Provider IMG CT PROCEDURES Edited Result - Final * CT Cervical Spine w/o Contrast (06/24/2024 7:25 PM EST) Anatomical Region Laterality Modality Spine, C-spine Computed Tomogra phy 06/24/2024 7:25 PM EST Narrative 06/24/2024 7:27 PM EST ? [facility] ?[address] ?[place] [address] ? CT Scan Report ? Signed ? Patient: Paola,Lidagma ?MR#: [id number] ?? 356 ? : 1975 ?Acct:[id number] ? Age/Sex: 48 / F ?ADM Date: 06/24/24 ? Loc: HO.ED ? Attending Dr: ? Ordering Physician: Re Barber ?? Date of Service: 06/24/24 ?? Procedure(s): CT cervical spine wo IV con ?? Accession Number(s): [id number] ? cc: Dakota Monet MD; Re Barber ? Report Number: ?? [id number]: Total DLP = 2098.00 mGy-cm ? CLINICAL [...] by Javed Queen MD in OV> ? 06/24/241925 ? DD/ 24 ? TD/TT: 06/24/241924 ? Hat Measurer: ? Procedure Note Donotuseinterpreter, Image - 06/24/[address] [address] [address] Scan Report Signed Patient: Gerald Guevara#: [id number] 356 : 1975Acct:[id number] Age/Sex: 48 / FADM Date: 06/24/24 Loc: HO.ED Attending Dr: Ordering Physician: Re Barber Date of Service: 06/24/24 Procedure(s): CT cervical spine wo IV con Accession Number(s): [id number] cc: Dakota Monet MD; Re Barber Report Number: [id number]: Total DLP = 2098.00 mGy-cm CLINICAL HISTORY: [...] in OV> 06/24/241925 DD/ 24 TD/TT: 06/24/241924 Hat Measurer: [facility] External Provider IMG CT PROCEDURES Edited Result - Final documented in this encounter Visit Diagnoses Diagnosis Chronic migraine with aura without status migrainosus, not intractable- Primary documented in this encounter Additional Health Concerns Assessment Noted Time PHQ-9 Depression Total Score: 10 023 3:54 PM EST documented as of this encounter Care Teams Bakery Clerk Relationship Specialty Start Date End Date Dakota Monet MD [address] [place] [address] PCP - General Internal Medicine 05/10/13 documented as of this encounter
--- OUTSIDE RECORDS SUMMARY | 2024-06-29 19:26 | XMS_ITS | Encounter Summary ---
Author Organization [employer] Address [address] [place] [address] Care Team Providers Care Communications Tower Climber Name Role Phone Dakota Monet MD Primary Care Provider [phone]- [phone] Reason for Visit * Reason Onset Date Comments Referral 03/19/2023 Encounter Details Date Type Department Care Team ([facility] st Contact Info) Description 03/19/2023 Telephone [facility] CHC MED & PEDS [address] [place], [place] [phone] Dakota Monet MD 505 [place] [address] Referral Social History Tobacco Use Types Packs/Day [...] to ov w/ PCP 04.22.23. Will FYI distribution specialist neuro referral on hold for now. * Telephone Encounter - Sharri Gann - 03/22/2023 3:06 PM EST TC to [facility] [place] neuro-surgery and there is doctors that will see patient with diagnosis but requires an MRI? Please advise, thank you. * Telephone Encounter - Didi Calhoun RN - 03/19/2023 3:45 PM EST Placed call to [facility] [place] neuro regarding message below. Referral was received [...] referral for Neurology, pt advised she called [facility] [place] for an appt and [facility] [place] advised they will not see her without explanation in why. Please contact pt at [phone] documented in this encounter Plan of Treatment Upcoming Encounters Date Type Department Care Team (Late st Contact Info) Description 07/17/2024 3:30 PM EDT Office Visit [facility] MED & PEDS [address] [place], [place] [phone] Dakota Monet MD [address] [place] [address] documented as of this encounter Visit Diagnoses Not on filedocumented in this encounter Additional Health Concerns Assessment Noted Time PHQ-9 Depression Total Score: 10 023 3:54 PM EST documented as of this encounter Care Teams Communications Tower Climber Relationship Specialty Start Date End Date Dakota Monet MD [address] [place] [address] [place] [address] PCP - General Internal Medicine 05/10/13 documented as of this encounter
--- OUTSIDE RECORDS SUMMARY | 2024-06-29 19:26 | XMS_ITS | Encounter Summary ---
Author Organization [employer] Address [address] [place] [address] 7 [place] [address] Care Team Providers Care Valve Lapper Name Role Phone Dakota Monet MD Primary Care Provider [phone]- [phone] Encounter Details Date Type Department Care Team (Latest Contact Info) Description 03/17/2023 Orders Only [facility] MED & PEDS [address] [place], [place] [phone] Dakota Monet MD [address] [place] [address] Neurofibromatosis syndrome (CMS/HCC) (Primary Dx) Social History [...] 3:30 PM EDT Office Visit [facility] MED & PEDS [address] [place], [place] [phone] Dakota Monet MD [address] [place] [address] documented as of this encounter Visit Diagnoses Diagnosis Neurofibromatosis syndrome (CMS/HCC)- Primary Neurofibromatosis, unspecified documented in this encounter Additional Health Concerns Assessment Noted Time PHQ-9 Depression Total Score: 10 023 3:54 PM EST documented as of this encounter Care Teams Valve Lapper Relationship Specialty Start Date End Date Dakota Monet MD [address] [place] [address] PCP - General Internal Medicine 05/10/13 documented as of this encounter
--- OUTSIDE RECORDS SUMMARY | 2024-06-29 19:27 | XMS_ITS | Encounter Summary ---
Author Organization [employer] Address [address] [place] [address] [place], [place] [address] Care Team Providers Care Personal Security Specialist Name Role Phone Dakota Monet MD Primary Care Provider [phone]- [phone] Encounter Details Date Type Department Care Team (Late Contact Info) Description 03/05/2023 Abstract [facility] MEDICINE [address] [place] [address] Milagro Bear Social History Tobacco Use Types [...] Description 07/17/2024 3:30 PM EDT Office Visit [facility] CHC MED & PEDS [address] [place], [place] [phone] Dakota Monet MD 505 [place] [address] documented as of this encounter Procedures Procedure [...] documented as of this encounter Care Teams Personal Security Specialist Relationship Specialty Start Date End Date Dakota Monet MD [address] [place] [address] PCP - General Internal Medicine 05/10/13 documented as of this encounter
== END 2024-06-29 16:25 | disposition home or self-care (01) ==
LOC: HO.CHCLDS 16:24
PROVIDERS: Visit Provider Internal Medicine
DX: R03.0 Elevated blood-pressure reading, without diagnosis of hypertension (principal)
CPT/HCPCS: 36415; 80053; 80061; 84443; 85025

== ENCOUNTER 2024-07-01 08:01 | Outpatient (REF) | payer OTHER, SELFPAY ==
--- NOTE | ~2024-07-01 | XR_ITS ---
EXAMINATION: XR CHEST 2 VIEWS HISTORY: pain COMPARISON: There are no prior studies for comparison. FINDINGS: PA and lateral views of the chest are submitted. The lungs are expanded and clear. There is no pleural effusion, pneumothorax, or pulmonary vascular congestion. The heart is normal in size. The bones are intact. XR/XR chest 2V IMPRESSION: Clear lungs. Electronically signed by: Geoff Millan MD 07/03/2024 09:59 AM EST
[2024-07-03 09:13] LABS: HBS Num1 40.73 mIU/mL (0-7.99); HBc Num1 0.07 S/CO (0.00-0.79); HBsAGNum1 1.59 S/CO (0.00-0.99); Hepatitis A Antibody IgM 0.23 Index (0-0.79); Hepatitis B Core Antibody Nonreactive (Nonreactive); ~Hepatitis A Antibody IgM Nonreactive (Nonreactive); ~Hepatitis B Surface Antibody REACTIVE (Nonreactive); ~Hepatitis C Antibody Nonreactive (Nonreactive)
[2024-07-03 10:08] LABS: HBsAGNum2 Nonreactive
[2024-07-03 10:09] LABS: HBsAGNum3 Nonreactive; Hepatitis B Surface Antigen NEGATIVE (Negative)
== END 2024-07-01 08:02 | disposition home or self-care (01) ==
LOC: HO.XRAY 08:01
PROVIDERS: PCP Internal Medicine; Visit Provider Internal Medicine
DX: J66.8 Airway disease due to other specific organic dusts (principal); R74.01 Elevation of levels of liver transaminase levels; R52 Pain, unspecified
CPT/HCPCS: 36415; 71046; 86704; 86706; 86709; 86803; 87340

== ENCOUNTER → 2024-07-01 08:16 | Outpatient (BNV) | payer OTHER, SELFPAY | PROVIDERS: PCP Internal Medicine; Visit Provider Radiology Diagnostic Radiology | DX: R07.9 Chest pain, unspecified (principal); J66.8 Airway disease due to other specific organic dusts | CPT/HCPCS: 71046 ==

== ENCOUNTER 2024-07-03 15:22 | Outpatient (AMB) | payer OTHER, SELFPAY ==
--- NOTE | 2024-07-03 15:23 | A.OFFVIS_ITS ---
Intake Visit Reasons: excision soft tissue tumor on left foot Intake Note: Office procedure: excision soft tissue tumor on left foot [employer] Farm Manager Required: No Accompanied by: Self / Same As Patient Allergies No Known Allergies Allergy (Verified 07/03/24 15:23) HPI HPI excision soft tissue tumor on left foot: Details: She is here for excision of soft-tissue mass on the left foot PFSH Medical History Foot lesion COVID-19 vaccine series completed No pertinent past medical history Surgical History Hx of colonoscopy Hx of tubal ligation Hx of bilateral breast reduction surgery Hx of section Family History Mother Pancreas cancer Father Testicular cancer Paternal Aunt Colon cancer Breast CA Son JRA (juvenile rheumatoid arthritis) Social History Household Members: Children Household Members Other:: cat Are you a primary workforce investment act career manager to a significant other at home: No Do you presently have visiting nurse or other home services: No Alcohol intake: current Alcohol intake frequency: holidays/special occasions only Patient Tobacco Use Status: Never used Tobacco Substance Use Type: Marijuana Current occupational status: employed 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 Lidocaine 1% was used for local anesthesia. I made an elliptical incision on the skin surrounding this lesion. This was carried down through the full-thickness of the skin and subcutaneous fat to excise this entire lesion. The lesion was a soft, fleshy mass, about 1.3 cm in diameter. The incision with a closed with full-thickness nylon 3-0 simple interrupted sutures. Dressings were applied. The procedure was completed. She tolerated the procedure well. There were no immediate complications. There was minimal blood loss. 31023-ehlqt/arms/legs 1.1-2cm Procedure code (CPT) selection complete Assessment & Plan Assessment & Plan (1) Foot lesion: Code(s): L98.9 - Disorder of the skin and subcutaneous tissue, unspecified Category: Medical Plan: Excision was done in the office under local anesthesia. She was given wound car e instructions. I will see her in the office for removal sutures in about 2 weeks. Coding Level of Care Code Procedure Only Diagnoses Foot lesion L98.9 CPT Codes Trunk/Arms/Legs - CPT: 93949-vpytr/arms/legs 1.1-2cm ([id number]) Scalp/Neck/Hands/Feet/Genetalia - CPT: 38171-Gmzmzcfo s calp/neck/hands/feet/genitalia 1.1cm-2cm ([id number])
--- OUTSIDE RECORDS SUMMARY | 2024-07-03 18:16 | XMS_ITS | Encounter Summary ---
Author Organization [employer] Address [address] [facility] 7t [place] [address] Care Team Providers Care International Affairs Vice President Name Role Phone Dakota Monet MD Primary Care Provider [phone] Encounter Details Date Type Department Care Team ([facility] st Contact Info) Description 06/30/2024 Telephone [facility] MEDICINE [address] [place] [address] Dakota Monet MD [address] [place] [address] Social History Tobacco Use Types Packs/Day Years [...] encounter Miscellaneous Notes * Telephone Encounter - Milena Richey RN - 06/30/2024 11:19 AM EST TC placed to pt to inform and advise of below PCP message. Pt verbalized understanding of results and orders and denies questions or concerns at this time. ----- Message from Dakota Monet MD sent at 06/30/2024 9:05 AM EST ----- Please call. Labs reviewed. Normal blood work except for abnormal liver test. Patient needs an hepatitis panel and an ultrasound of the abdomen. The test ordered and placed in the chart. documented in this encounter Plan of Treatment Upcoming Encounters Date Type Department Care Team (Late st Contact Info) Description 07/17/2024 3:30 PM EDT Office Visit [facility] MED & PEDS [address] [place], [place] [phone] Dakota Monet MD [address] [place] [address] documented as of this encounter Visit Diagnoses Not on filedocumented in this encounter Additional Health Concerns Assessment Noted Time PHQ-9 Depression Total Score: 8 06/29/19 25 3:42 PM EST documented as of this encounter Care Teams International Affairs Vice President Relationship Specialty Start Date End Date Dakota Monet MD [address] [place] [address] PCP - General Internal Medicine 05/10/13 documented as of this encounter
--- OUTSIDE RECORDS SUMMARY | 2024-07-03 18:16 | XMS_ITS | Encounter Summary ---
Author Organization [employer] Address [address] [place] [address] 7 [place] [address] Care Team Providers Care Lead Carpenter Name Role Phone Dakota Monet MD Primary Care Provider [phone] Encounter Details Date Type Department Care Team (Latest Contact Info) Description 02/06/2021 Abstract [facility] CONVERSIONS Dental, Provider, DDS Social History Tobacco [...] 3:30 PM EDT Office Visit [facility] CHC MED & PEDS [address] [place] [address] Dakota Monet MD [address] [place] [address] documented as of this encounter Visit Diagnoses Not on filedocumented in this encounter Care Teams Lead Carpenter Relationship Specialty Start Date End Date Dakota Monet MD [address] [place] [address] PCP - General Internal Medicine 05/10/13 documented as of this encounter
--- OUTSIDE RECORDS SUMMARY | 2024-07-03 18:16 | XMS_ITS | Encounter Summary ---
Author Organization [employer] Address [address] [place] [address] Care Team Providers Care Textile Machinery Sales Representative Name Role Phone Dakota Monet MD Primary Care Provider [phone] Reason for Visit * Reason Comments Med Refill Encounter Details Date Type Department Care Team ([facility] Contact Info) Description 06/03/2024 Refill [facility] MED & PEDS [address] [place] [address] Dakota Monet MD [address] [place] [address] Chronic pain syndrome; Chronic right-sided low back [...] Upcoming Encounters Date Type Department Care Team ([facility] Contact Info) Description 07/17/2024 3:30 PM EDT Office Visit [facility] MED & PEDS [address] [place] [address] Dakota Monet MD [address] [place] [address] documented as of this encounter Visit Diagnoses Diagnosis Chronic pain syndrome Chronic right-sided low back pain with right-sided sciatica documented in this encounter Additional Health Concerns Assessment Noted Time PHQ-9 Depression Total Score: 10 023 3:54 PM EST documented as of this encounter Care Teams Textile Machinery Sales Representative Relationship Specialty Start Date End Date Dakota Monet MD [address] [place] [address] PCP - General Internal Medicine 05/10/13 documented as of this encounter
--- OUTSIDE RECORDS SUMMARY | 2024-07-03 18:16 | XMS_ITS | Clinical Summary ---
Author Organization [employer] Address [address] [facility] 7[address] [place] [address] Care Team Providers Care Pizzamaker Name Role Phone Dakota Monet MD Primary Care Provider [phone] Allergies No known active allergies Medications traZODone [...] Encounters Date Type Department Care Team Description 07/03/[address] [address] Dakota Monet MD Prior Authorization 07/01/2024 Orders Only [facility] [address] [place] [address] Dakota Monet MD 06/30/[address] [address] Dakota Monet MD 06/30/2024 Orders Only [address] [address] Dakota Monet MD Transaminitis (Primary Dx) 06/29/2024 3:30 PM EST Office Visit [facility] [address] [place] [address] Dakota Monet MD 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); Biliary calculus of other site without obstruction; Chronic pain syndrome; Chronic right-sided low back pain with right-sided sciatica; Calculus of gallbladder without cholecystitis without obstruction; Chronic migraine with aura without status migrainosus, not intractable 06/29/2024 Travel 06/26/2024 Telephone [facility] [address] [facility] [place] [address] Dakota Monet MD chart prep 06/26/2024 Telephone [facility] [address] [place] [place] [address] Dakota Monet MD ER Follow-up 06/22/2024 Orders Only [facility] [address] [place], [place] [phone] Dakota Monet MD Chronic migraine with aura without status migrainosus, not intractable (Primary Dx) 06/06/2024 Telephone [facility] [address] [place] [address] Dakota Monet MD PA 06/03/2024 Refill [facility] [address] [place], [place] [phone] Dakota Monet MD Chronic pain syndrome; Chronic right-sided low back pain with right-sided sciatica 05/30/2024 4:00 PM EST Office Visit [facility] [address] [place], [place] [phone] Dakota Monet MD Neurofibromatosis syndrome (CMS/HCC) (Primary Dx); Chronic migraine with aura without status migrainosus, not intractable; Soft tissue tumor of left foot 05/30/2024 Travel 05/28/2024 Refill [facility] [address] [place] [address] Ann Givens MD Primary insomnia 05/02/2024 Refill [facility] [address] [place], [place] [phone] Dakota Monet MD Chronic pain syndrome; Chronic right-sided low back pain with right-sided sciatica 04/29/2024 Orders Only [facility] [address] [place], [place] [phone] Dakota Monet MD 04/17/2024 Telephone [facility] [address] [place], [place] [phone] Dakota Monet MD Appointment Request (Pt needs appt ) 04/12/2024 Refill [facility] [address] [place] [address] Dakota Monet MD Primary insomnia 04/12/2024 Telephone [facility] [address] [place], [place] [phone] Dakota Monet MD Referral 04/07/2024 Refill [facility] [address] [place] [address] Ann iGvens MD 04/07/2024 Refill [facility] [address] [place] [address] Dakota Monet MD Anxiety from Last 3 [...] 3:30 PM EDT Office Visit [facility] [address] [place] [address] Dakota Monet MD [address] [place] [address] Health Maintenance Due Date Last Done Comments [...] (1 - 1-dose 75+ series) 12/16/2050 Hepatitis B Vaccines Completed 03/02/2023, 01/12/20 23 Influenza Vaccine Completed 12/26/2023, , 02/25/2022, Additional history exists COVID-19 Vaccine Completed 12/27/2023, , 02/28/2021, Additional history exists Hepatitis C Screening Completed 07/01/2024, 023 HIB Vaccines Aged Out No longer eligi [...] Procedure Name Priority Date/Time Associated Diagnosis Comments XR CHEST 2 VIEWS Routine 07/01/2024 8:16 AM EST 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) HEPATITIS B SURFACE ANTIGEN (NON ORDERABLE) Routine 07/01/2024 8:14 AM EST HEPATITIS PANEL, GENERAL Routine 07/01/2024 8:14 AM EST Transaminitis TSH W/REFLEX TO FT4 Routine 06/29/2024 4 [...] TOMOSYNTHESIS BILATERAL Routine 04/29/2024 8:25 AM EST HM COLONOSCOPY Routine 08/22/2021 HPV MRNA E6/E7 Routine 11/27/2020 3:44 PM EDT THINPREP PAP Routine 11/27/2020 3:44 PM EDT from Last 3 Months or Most Recently Relevant to Health Maintenance Results * XR Chest 2 Views (07/01/2024 8:16 AM EST) Anatomical Region Laterality Modality Chest Radiographic Odette ging 07/01/2024 8:16 AM EST Narrative 07/03/2024 10:02 AM EST ? [facility] ?[address] ?[place] [address] ?XRay Report ? Signed ? Patient: Paola,Lidagma ?MR#: [id number] ?? 356 ? : 1975 ?Acct:[id number] ? Age/Sex: 48 / F ?ADM Date: 07/01/24 ? Loc: HO.XRAY ? Attending Dr: Dakota Monet MD ? Ordering Physician: Dakota Monet MD ?? Date of Service: 07/01/24 ?? Procedure(s): XR chest 2V ?? Accession Number(s): [id number] ? cc: Dakota Monet MD ? EXAMINATION: ??XR CHEST 2 VIEWS ? HISTORY: pain ? COMPARISON: There are no prior studies for comparison. ? FINDINGS: ??PA and lateral views of the chest are submitted. The lungs ?? are expanded and clear. ??There is no pleural effusion, pneumothorax, or ?? pulmonary vascular congestion. ??The heart is normal in size. ??The bones ?? are intact. ? XR/XR chest 2V ?? IMPRESSION: ?? Clear lungs. ? Electronically signed by: ??Geoff Millan MD ??07/03/2024 09:59 AM EST ?? RP ? Dictated By: ?Geoff Millan MD ? Signed By: ?<Electronically signed by Geoff Millan MD in OV> ?07/03/24 0959 ? DD/ 5 ? TD/TT: 07/01/248[address] ? Mechanical Maintenance: ? Procedure Note Satish Browning - 07/03/[address] [address] XRay Report Signed Patient: Gerald Guevara#: [id number] 356 : 1975Acct:[id number] Age/Sex: 48 / FADM Date: 07/01/24 Loc: HO.XRAY Attending Dr: Dakota Monet MD Ordering Physician: Dakota Monet MD Date of Service: 07/01/24 Procedure(s): XR chest 2V Accession Number(s): [id number] cc: Dakota Monet MD EXAMINATION: XR CHEST 2 VIEWS HISTORY: pain COMPARISON: There are no prior studies for comparison. FINDINGS: PA and lateral views of the chest are submitted. The lungs are expanded and clear. There is no pleural effusion, pneumothorax, or pulmonary vascular congestion. The heart is normal in size. The bones are intact. XR/XR chest 2V IMPRESSION: Clear lungs. Electronically signed by: Geoff Millan MD 07/03/2024 09:59 AM EST RP Dictated By: Geoff Millan MD Signed By: <Electronically signed by Geoff Millan MD in OV> 07/03/24 0959 DD/ 0816 TD/TT: 07/01/24 0824 Mechanical Maintenance: us Dakota Monet MD IMG XR PROCEDURES Final Res ult * Hepatitis B Surface Antigen (07/01/2024 8:14 AM EST) Pathologist [facility] Hepatitis B Surface Ag NEGATIVE Negative [facility] 07/01/2024 8:14 AM EST 07/01/2024 8:14 AM EST us Dakota Monet MD HISTORICAL/NON ORDERABLE LA BS Final Result [facility] [address] [place] [phone] * Hepatitis A,B,C Profile (07/01/2024 8:14 AM EST) Hepatitis A IgM Nonreactive Nonreactive [facility] Comment:IgM antibodies to MARIE V not detected; does not exclude earlyacute or recovered HAV infection. ~Hepatitis B Surface Antibody REACTIVE Nonreactive [facility] Comment:REACTIVE: > 11.99 mI U/mL Hepatitis B Core Antibody Nonreactive Nonreactive [facility] Hepatitis C Antibody Nonreactive Nonreactive [facility] Comment:Antibodies to HCV no t detected; does not exclude early acuteHCV infection. Blood Venous blood specimen / Unknown 07/01/2024 8:14 AM EST 07/01/2024 8:14 AM EST Dakota Monet MD LAB BLOOD ORDERABLES Final Result Performing Organization Address [facility] Co de Phone Number [facility] [address] [place] [phone] * TSH W/Reflex to FT4 (06/29/2024 4:26 PM EST) Pathologist [facility] TSH reflex Free T4 3.04 0.32 - 4.0 uIU/mL [facility] Blood Venous blood specimen / Unknown 06/29/2024 4:26 PM EST 06/29/2024 6:11 PM EST us Dakota Monet MD LAB BLOOD ORDERABLES Final Result Performing Organization Address [facility] de Phone Number [facility] [address] [place] [phone] * CBC auto differential (06/29/2024 4:26 PM EST) White Blood Count 6.6 4.8 - 10.8 X10*3/uL [facility] Red Blood Count 4.52 4.20 - 5.50 X10*6/uL [facility] Hemoglobin 13.1 12.0 - 16.0 g/dl [facility] Hematocrit 39.2 37.0 - 47.0 % [facility] Mean Corpuscular Volume 86.7 80.0 - 98.0 fL [facility] Mean Corpuscular Hemoglobin 29.0 27.0 - 33.0 pg [facility] Mean Corpuscular HGB Conc 33.4 31.0 - 35.0 g/dl [facility] Red Cell Distribution Width 13.0 11.0 - 16.0 % [facility] Platelet Count 226 160 - 400 X10*3/uL [facility] Mean Platelet Volume 9.6 9.4 - 12.3 fL [facility] Neutrophils Percent Auto 60.5 45 - 73 % [facility] Imm Gran Pct Auto 0.3 0.0 - 0.4 % [facility] Lymphocytes Percent Auto 28.9 20 - 40 % [facility] Monocytes Percent Auto 8.2 2 - 11 % [facility] Eosinophils Percent Auto 1.5 0 - 4 % [facility] Basophils Percent Auto 0.6 0 - 2 % [facility] NRBC Pct Auto 0.0 0.0 - 0.2 /100WBC [facility] Neutrophils Absolute Auto 4.0 2.0 - 8.3 x10*3/uL [facility] Imm Gran Abs Auto 0.02 0.00 - 0.03 X10*3/uL [facility] Lymphocytes Absolute Auto 1.9 1.2 - 4.9 X10*3/uL [facility] Monocytes Absolute Auto 0.5 0.1 - 1.2 X10*3/uL [facility] Eosinophils Absolute Auto 0.1 0.0 - 0.4 X10*3/uL [facility] Basophils Absolute Auto 0.0 0.0 - 0.2 X10*3/uL [facility] NRBC Abs Auto 0.000 0.0 - 0.012 X10*3/uL [facility] Blood Venous blood specimen / Unknown 06/29/2024 4:26 PM EST 06/29/2024 6:11 PM EST us Dakota Monet MD LAB BLOOD ORDERABLES Final Result [facility] [address] [place] [phone] * Lipid Panel, Standard (06/29/2024 4:26 PM EST) Triglycerides 88 <150 mg/dL [facility] Comment:Desirable Triglyceri de: less than 150 mg/dLBorderline High Triglyceride 150-199 mg/dLHigh Triglyceride: 200-499 mg/dLVery High Triglyceride: greater than or equal to 5OO mg/dL Cholesterol 163 <200 mg/dL [facility] Comment:Desirable Cholestero l: less than 200 mg/dLBorderline High Cholesterol: 200-239 mg/dLHigh Cholesterol: greater than 239 mg/dL LDL Cholesterol Calculated 95 <100 mg/dL [facility] Comment:Desirable LDL: less than 100 mg/dLNear Optimal/Above Optimal LDL: 110- 129 mg/dLBorderline High LDL: 130-159 mg/dLHigh LDL: 160-189 mg/dLVery High LDL: greater than or equal to 190 mg/dL HDL Cholesterol 51 >40 mg/dL [facility] Comment:Desirable HDL: great er than 40 mg/dL Note: This HDL assay may give artificially low results in patients with liver disease. Blood Venous blood specimen / Unknown 06/29/2024 4:26 PM EST 06/29/2024 6:11 PM EST us Dakota Monet MD LAB BLOOD ORDERABLES Final Result [facility] [address] [place] [phone] * (ABNORMAL) Comprehensive Metabolic Panel (06/29/2024 4:26 PM EST) Pathologist [facility] Sodium 139 135 - 145 mmol/L [facility] Potassium 3.9 3.3 - 5.1 mmol/L [facility] Chloride 106 96 - 108 mmol/L [facility] Carbon Dioxide 26 22 - 29 mmol/L [facility] Anion Gap 11(L) 12 - 20 [facility] Urea Nitrogen (BUN) 17(H) 9 - 16 mg/dL [facility] Creatinine, Serum 0.66 0.5 - 1.4 mg/dL [facility] Estimated Glomerular Filt Rate >60 [facility] Comment:Chronic Kidney Disea se: Estimated GFR < 60 mL/min/1.89e1Oqmjrw Kidney Disease: Estimated GFR < 15 mL/min/1.73m2 Glucose 80 60 - 115 mg/dL [facility] Calcium 9.3 8.4 - 10.2 mg/dL [facility] Bilirubin, Total 0.5 0.0 - 1.0 mg/dL [facility] Aspartate Amino Transferase 22 5 - 31 U/L [facility] Alanine Aminotransferase 51(H) 0 - 31 U/L [facility] Total Protein 7.4 6.5 - 8.0 g/dL [facility] Albumin Level 4.2 3.5 - 5.0 g/dL [facility] Alkaline Phosphatase 77 39 - 117 U/L [facility] Blood Venous blood specimen / Unknown 06/29/2024 4:26 PM EST 06/29/2024 6:11 PM EST us Dakota Monet MD LAB BLOOD ORDERABLES Final Result [facility] [address] [place] [phone] [phone] * CT Lumbar Spine w/o Contrast (06/24/2024 7:36 PM EST) Anatomical Region Laterality Modality Spine, L-spine Computed Tomogra phy 06/24/2024 7:3 6 PM EST Narrative 06/24/2024 7:37 PM EST ? [facility] ?[address] ?[place] [address] ? CT Scan Report ? Signed ? Patient: Paola,Lidagma ?MR#: [id number] ?? 356 ? : 1975 ?Acct:[id number] ? Age/Sex: 48 / F ?ADM Date: 02/22/25 ? Loc: HO.ED ? Attending Dr: ? Ordering Physician: Re Barber ?? Date of Service: 06/24/24 ?? Procedure(s): CT lumbar spine wo IV con ?? Accession Number(s): [id number] ? cc: Dakota Monet MD; Re Barber ? Report Number: ?? [id number]: Total DLP = 2098.00 mGy-cm ? CLINICAL [...] Moderate to severe stool burden in the weiry-lo-wmbm. Cholelithiasis in ?? the omytc-eb-pqia. ? IMPRESSION: ?? 1. No acute fracture of the lumbar spine. ? 2. Worsening lower lumbar facet arthropathy compared to 11/07/2021. ? This document has been electronically signed by: Javed Queen MD on ?? 06/24/2024 19:36:00 ? Dictated By: ?Javed Queen MD ? Signed By: ?<Electronically signed by Javed Queen MD in OV> ? 06/24/241935 ? DD/ 35 ? TD/TT: 06/24/241935 ? Mechanical Maintenance: ? Procedure Note Nallely, Image - 06/24/[address] [place] [address] [address] Scan Report Signed Patient: Gerald Guevara#: [id number] 356 : 1975Acct:[id number] Age/Sex: 48 / FADM Date: 06/24/24 Loc: HO.ED Attending Dr: Ordering Physician: Re Barber Date of Service: 06/24/24 Procedure(s): CT lumbar spine wo IV con Accession Number(s): [id number] cc: Dakota Monet MD; Re Barber Report Number: [id number]: Total DLP = 2098.00 mGy-cm CLINICAL HISTORY: [...] Moderate to severe stool burden in the mwztl-dy-ersc. Cholelithiasis in the lzonp-fm-hpic. IMPRESSION: 1. No acute fracture of the lumbar spine. 2. Worsening lower lumbar facet arthropathy compared to 11/07/2021. This document has been electronically signed by: Javed Queen MD on 06/24/2024 19:36:00 Dictated By: Javed Queen MD Signed By: <Electronically signed by Javed Queen MD in OV> 06/24/241935 DD/ 35 TD/TT: 06/24/241935 Mechanical Maintenance: [facility] External Provider IMG CT PROCEDURES Edited Result - Final * CT Chest w/o Contrast (06/24/2024 7:33 PM EST) Anatomical Region Laterality Modality Body, Chest Computed Tomogra phy 06/24/2024 7:33 PM EST Narrative 06/24/2024 7:35 PM EST ? [facility] ?[address] ?[place] [address] ? CT Scan Report ? Signed ? Patient: Paola,Lidagma ?MR#: [id number] ?? 356 ? : 1975 ?Acct:[id number] ? Age/Sex: 48 / F ?ADM Date: //25 ? Loc: HO.ED ? Attending Dr: ? Ordering Physician: Kaylan Underwood CNP ?? Date of Service: 06/24/24 ?? Procedure(s): CT chest wo IV con ?? Accession Number(s): [id number] ? cc: Kaylan Underwood CNP; Dakota Monet MD ? Report Number: ?? [id number]: Total DLP = 2098.00 mGy-cm ? CLINICAL [...] ? DD/ 32 ? TD/TT: 06/24/241932 ? Mechanical Maintenance: ? Procedure Note Satish Browning - 06/24/[address] [place] [address] [address] Scan Report Signed Patient: Gerald Guevara#: [id number] 356 : 1975Acct:[id number] Age/Sex: 48 / FADM Date: 06/24/24 Loc: HO.ED Attending Dr: Ordering Physician: Kaylan Underwood CNP Date of Service: 06/24/24 Procedure(s): CT chest wo IV con Accession Number(s): [id number] cc: Kaylan Underwood CNP; Dakota Monet MD Report Number: [id number]: Total DLP = 2098.00 mGy-cm CLINICAL HISTORY: [...] in OV> 06/24/241933 DD/ 32 TD/TT: 06/24/241932 Mechanical Maintenance: [facility] External Provider IMG CT PROCEDURES Edited Result - Final * CT Head w/o Contrast (06/24/2024 7:28 PM EST) Anatomical Region Laterality Modality Head, Neck Computed Tomogra phy 06/24/2024 7:28 PM EST Narrative 06/24/2024 7:30 PM EST ? [facility] ?[address] ?[place] [address] ? CT Scan Report ? Signed ? Patient: Paola,Lidagma ?MR#: [id number] ?? 356 ? : 1975 ?Acct:[id number] ? Age/Sex: 48 / F ?ADM Date: 02/22/25 ? Loc: HO.ED ? Attending Dr: ? Ordering Physician: Re Barber ?? Date of Service: 06/24/24 ?? Procedure(s): CT head/brain wo IV con ?? Accession Number(s): [id number] ? cc: Dakota Monet MD; Re Barber ? Report Number: ?? [id number]: Total DLP = 2098.00 mGy-cm ? CLINICAL [...] ? DD/ 27 ? TD/TT: 06/24/241927 ? Mechanical Maintenance: ? Procedure Note Nallely, Image - 06/24/[address] [place] [address] [address] Scan Report Signed Patient: Gerald Guevara#: [id number] 356 : 1975Acct:[id number] Age/Sex: 48 / FADM Date: 06/24/24 Loc: HO.ED Attending Dr: Ordering Physician: Re Barber Date of Service: 06/24/24 Procedure(s): CT head/brain wo IV con Accession Number(s): [id number] cc: Dakota Monet MD; Re Barber Report Number: [id number]: Total DLP = 2098.00 mGy-cm CLINICAL HISTORY: [...] in OV> 06/24/241928 DD/ 27 TD/TT: 06/24/241927 Mechanical Maintenance: [facility] External Provider IMG CT PROCEDURES Edited Result - Final * CT Cervical Spine w/o Contrast (06/24/2024 7:25 PM EST) Anatomical Region Laterality Modality Spine, C-spine Computed Tomogra phy 06/24/2024 7:25 PM EST Narrative 06/24/2024 7:27 PM EST ? [facility] ?[address] ?[place] [address] ? CT Scan Report ? Signed ? Patient: Paola,Lidagma ?MR#: [id number] ?? 356 ? : 1975 ?Acct:[id number] ? Age/Sex: 48 / F ?ADM Date: 06/24/24 ? Loc: HO.ED ? Attending Dr: ? Ordering Physician: Re Barber ?? Date of Service: 06/24/24 ?? Procedure(s): CT cervical spine wo IV con ?? Accession Number(s): [id number] ? cc: Dakota Monet MD; Re Barber ? Report Number: ?? [id number]: Total DLP = 2098.00 mGy-cm ? CLINICAL [...] ? DD/ 24 ? TD/TT: 06/24/241924 ? Mechanical Maintenance: ? Procedure Note Dondanielter, Image - 06/24/[address] [place] [address] [address] Scan Report Signed Patient: Gerald Guevara#: [id number] 356 : 1975Acct:[id number] Age/Sex: 48 / FADM Date: 06/24/24 Loc: HO.ED Attending Dr: Ordering Physician: Re Barber Date of Service: 06/24/24 Procedure(s): CT cervical spine wo IV con Accession Number(s): [id number] cc: Dakota Monet MD; Re Barbre Report Number: [id number]: Total DLP = 2098.00 mGy-cm CLINICAL HISTORY: [...] in OV> 06/24/241925 DD/ 24 TD/TT: 06/24/241924 Mechanical Maintenance: us [facility] External Provider IMG CT PROCEDURES Edited Result - Final * BI Mammogram Screening Tomosynthesis Bilateral (04/29/2024 8:25 AM EST) Anatomical Region Laterality Modality Breast Bilateral Mammography 04/29/2024 8:25 AM EST Narrative 05/12/2024 3:20 PM EST ? [facility] ? [address] ?[place] [address] ? Mammography Report ? Signed ? Patient: Paola,Lidagma ?MR#: [id number] ?? 356 ? : 1975 ?Acct:[id number] ? Age/Sex: 48 / F ?ADM Date: 04/29/ ? Loc: HO.MAMMO ? Attending Dr: Dakota Monet MD ? Ordering Physician: Dakota Monet MD ?Results: 2 ?? Benign Findings ? Date of Service: 04/29/ ?Follow Up: 1 Year From Orig ?? inal Mammogram ? Procedure(s): MM tomosynthesis screening BI ?? Accession Number(s): [id number] ? cc: Dakota Monet MD ? EXAMINATION: [...] ??Mishel Miles DO ??05/12/2024 03:16 PM EST ? Dictated By: ?Mishel Miles DO ? Signed By: ?<Electronically signed by Mishel Miles, DO in OV> ? 05/12/24 1516 ? DD/ 0825 ? TD/TT: 04/29/24 0836 ? Mechanical Maintenance: ? Procedure Note Maximinojami, Image - 05/12/2024 [facility] [address] [place] [address] Mammography Report Signed Patient: Gerald Guevara#: [id number] 356 : 1975Acct:[id number] Age/Sex: 48 / FADM Date: 04/29/24 Loc: HO.MAMMO Attending Dr: Dakota Monet MD Ordering Physician: Dakota Monet MDResults: 2 Benign Findings Date of Service: 04/29/24Follow Up: 1 Year From Orig inal Mammogram Procedure(s): MM tomosynthesis screening BI Accession Number(s): [id number] cc: Dakota Monet MD EXAMINATION: MM SCREENING [...] 05/12/24 1516 DD/ 0825 TD/TT: 04/29/24 0836 Mechanical Maintenance: Dakota Monet MD IMG BI PROCEDURES Final Res ult * Hm Colonoscopy (08/22/2021) Colonoscopy Normal Normal [...] historic and ?? current clinical information. ?? Health Science Instructor : SEE COMMENT [facility] Comment: KF, CT(ASCP) CT screening location: [address] ??[address] Interpretation/R esult: Negative for intraepithelial lesion or malignancy. [facility] LMP: NONE GIVEN [facility] Prev. BX: NONE GIVEN [facility] Prev. PAP: NONE GIVEN [facility] SOURCE: None given [facility] Statement Of Adequacy: SEE COMMENT [facility] Comment: Satisfactory for evaluation. Endocervical/transformation zone component absent. Age and/or menstrual status not provided 11/27/2020 3:44 PM EDT [facility] PATHOLOGY ORDERABLES Final Result Performing Organization Address [facility] de Phone Number [facility] [address] * HPV mRNA E6/E7 (11/27/2020 3:44 PM EDT) HPV nRNA E6/E7 Not Detected Not Detected [facility] Comment: Methodology: Log Marker-Mediated Amplification This assay detects E6/E7 viral messenger RNA (mRNA) from 14 high-risk HPV types (16,18,31,33,35,39,45,51,52,56,58,59,66,68). ? The analytical performance characteristics of this assay have been determined by [employer]. The modifications have not been cleared or approved by the FDA. This assay has been validated pursuant to the CLIA regulations and is used for clinical purposes. ?? For additional information, please refer to http://education.[employer].Colppy/faq/CHC926z1 (This link if provided for information/ educational purposes only.) 11/27/2020 3:44 PM EDT [facility] BLOOD ORDERABLES Josiane l Result Performing Organization Address [facility] Co de Phone Number [facility] [address] from Last 3 Months or Most Recently Relevant to Health Maintenance Insurance [facility] , [address] [place] [address] Care Teams Pizzamaker Relationship Specialty Start Date End Date Dakota Monet MD [address] [place] [phone] PCP - General Internal Medicine 05/10/13
--- OUTSIDE RECORDS SUMMARY | 2024-07-03 18:16 | XMS_ITS | Encounter Summary ---
Author Organization [email or web address] Address [address] [place] [address] Care Team Providers Care Dental Equipment Installer And Servicer Name Role Phone Dakota Monet MD Primary Care Provider [phone] Reason for Visit * Reason Onset Date Comments Med Refill 12/21/2022 Encounter Details Date Type Department Care Team ([facility] st Contact Info) Description 12/21/2022 Telephone [facility] [address] [place] [phone] Dakota Monet MD [address] [place] [address] Med Refill Social History Tobacco Use Types [...] 07/17/2024 3:30 PM EDT Office Visit [facility] [address] [place] [address] Dakota Mnoet MD [address] [place] [address] documented as of this encounter Visit Diagnoses Not on filedocumented in this encounter Additional Health Concerns Assessment Noted Time PHQ-9 Depression Total Score: 10 023 3:54 PM EST documented as of this encounter Care Teams Dental Equipment Installer And Servicer Relationship Specialty Start Date End Date Dakota Monet MD [address] [place] [address] PCP - General Internal Medicine 05/10/13 documented as of this encounter
--- OUTSIDE RECORDS SUMMARY | 2024-07-03 18:16 | XMS_ITS | Encounter Summary ---
Author Organization [employer] Address [address] [address] Care Team Providers Care Visitor Service Assistant Name Role Phone Dakota Monet MD Primary Care Provider [phone] Reason for Visit * Reason Onset Date Comments Prior Authorization 07/03/2024 Encounter Details Date Type Department Care Team ([facility] Contact Info) Description 07/03/[address] [facility] MEDICINE [address] [place] [address] Dakota Monet MD [address] [place] [address] Prior Authorization Social History Tobacco Use Types Packs/Day Years [...] your housing situation today? I have rojelio kathleen 06/29/[address] you li [...] encounter Miscellaneous Notes * Telephone Encounter - Anaid Heller LPN - 07/03/2024 1:21 PM EST Pa generated and placed on PCP desk for review and signature. TC from pt reports speaking to her insurance that is requiring another PA for Atogepant (Qulipta) 30 MG tablet . Pt states pcp team should also contact [facility] . * Telephone Encounter - Tobi Rubio - 07/03/2024 11:04 AM EST TC from pt reports speaking to her insurance that is requiring another PA for Atogepant (Qulipta) 30 MG tablet . Pt states pcp team should also contact [facility] . documented in this encounter Plan of Treatment Upcoming Encounters Date Type Department Care Team ([facility] st Contact Info) Description 07/17/2024 3:30 PM EDT Office Visit [facility] MED & PEDS 505 [place] [address] Dakota Monet MD [address] [place], [place] [phone] documented as of this encounter Visit Diagnoses Not on filedocumented in this encounter Additional Health Concerns Assessment Noted Time PHQ-9 Depression Total Score: 8 06/29/19 25 3:42 PM EST documented as of this encounter Care Teams Visitor Service Assistant Relationship Specialty Start Date End Date Dakota Monet MD [address] [place] [address] PCP - General Internal Medicine 05/10/13 documented as of this encounter
--- OUTSIDE RECORDS SUMMARY | 2024-07-03 18:16 | XMS_ITS | Encounter Summary ---
Author Organization [employer] Address [address] [place] [address] [facility] [place] [address] Care Team Providers Care Crane Rigger Name Role Phone Dakota Monet MD Primary Care Provider [phone]- [phone] Encounter Details Date Type Department Care Team ([facility] Contact Info) Description 2023 Orders Only [facility] MED & PEDS [address] [place], [place] [phone] Dakota Monet MD 505 [place] [address] Social History Tobacco Use Types Packs/Day Years [...] 3:30 PM EDT Office Visit [facility] MED & PEDS [address] [place], [place] [phone] Dakota Monet MD 505 [place] [address] documented as of this encounter Visit Diagnoses Not on filedocumented in this encounter Additional Health Concerns Assessment Noted Time PHQ-9 Depression Total Score: 10 023 3:54 PM EST documented as of this encounter Care Teams Crane Rigger Relationship Specialty Start Date End Date Dakota Monet MD [address] [place] [address] [place] Pal[place]ios [address] PCP - General Internal Medicine 05/10/13 documented as of this encounter
--- OUTSIDE RECORDS SUMMARY | 2024-07-03 18:16 | XMS_ITS | Encounter Summary ---
Author Organization [employer] Address 75 [facility] 7 [place] [address] Care Team Providers Care Art Gallery Internship Name Role Phone Dakota Monet MD Primary Care Provider [phone]- [phone] Reason for Visit * Reason Onset Date Comments Referral 04/12/2024 Encounter Details Date Type Department Care Team ([facility] st Contact Info) Description 04/12/2024 Telephone [facility] MEDICINE 230 [place] [address] Dakota Monet MD [address] [place], [place] [phone] Referral Social History Tobacco Use Types Packs/Day [...] from pt requesting new referral : Address: [address] [place] [address] Facility Name: [facility] Type of Specialist: Neurology * Telephone Encounter - Toño Patel - 04/12/2024 10:06 AM EST TC from pt requesting new referral : Address: [address] [place] [address] Facility Name: [facility] Type of Specialist: Neurology documented in this encounter Plan of Treatment Upcoming Encounters Date Type Department Care Team (Late st Contact Info) Description 07/17/2024 3:30 PM EDT Office Visit [facility] MED & PEDS 505 [place] [address] Dakota Monet MD [address] [place] [address] documented as of this encounter Visit Diagnoses Not on filedocumented in this encounter Additional Health Concerns Assessment Noted Time PHQ-9 Depression Total Score: 10 023 3:54 PM EST documented as of this encounter Care Teams Art Gallery Internship Relationship Specialty Start Date End Date Dakota Monet MD [address] [place] [address] PCP - General Internal Medicine 05/10/13 documented as of this encounter
--- OUTSIDE RECORDS SUMMARY | 2024-07-03 18:16 | XMS_ITS | Encounter Summary ---
Author Organization [employer] Address [address] [address] Care Team Providers Care Solar Sales Name Role Phone Dakota Monet MD Primary Care Provider [phone] Reason for Visit * Reason Onset Date Comments PA 06/06/2024 Encounter Details Date Type Department Care Team (Late st Contact Info) Description 06/06/2024 Telephone [facility] MEDICINE 230 [place] [address] Dakota Monet MD 505 [place] [address] PA Social History Tobacco Use Types Packs/Day [...] (Qulipta) 30 MG tablet Contact pt at [phone] * Telephone Encounter - Mike Parkinson - 06/06/2024 8:53 AM EST TC from pt requesting a PA for Medication Atogepant (Qulipta) 30 MG tablet Contact pt at [phone] documented in this encounter Plan of Treatment Upcoming Encounters Date Type Department Care Team ([facility] st Contact Info) Description 07/17/2024 3:30 PM EDT Office Visit [facility] MED & PEDS 505 [place] [address] Dakota Monet MD 505 [place] [address] documented as of this encounter Visit Diagnoses Not on filedocumented in this encounter Additional Health Concerns Assessment Noted Time PHQ-9 Depression Total Score: 10 023 3:54 PM EST documented as of this encounter Care Teams Solar Sales Relationship Specialty Start Date End Date Dakota Monet MD 505 [place] [address] PCP - General Internal Medicine 05/10/13 documented as of this encounter
--- OUTSIDE RECORDS SUMMARY | 2024-07-03 18:16 | XMS_ITS | Encounter Summary ---
Author Organization [employer] Address 75 [facility] 7t [place] [address] Care Team Providers Care Electroencephalographic Technician Name Role Phone Dakota Monet MD Primary Care Provider [phone] Encounter Details Date Type Department Care Team ([facility] st Contact Info) Description 07/01/2024 Orders Only [facility] MED & PEDS 505 [place], [place] [phone] Dakota Monet MD 505 [place] [address] Social History Tobacco Use Types Packs/Day Years [...] [facility] MED & PEDS [address] [place] [address] Dakota Monet MD [address] [place] [address] documented as of this encounter Procedures Procedure Name Priority Date/Time Associated Diagnosis Comments HEPATITIS B SURFACE ANTIGEN (NON ORDERABLE) Routine 07/01/2024 8:14 AM EST documented in this encounter Results * Hepatitis B Surface Antigen (07/01/2024 8:14 AM EST) Hepatitis B Surface Ag NEGATIVE Negative [facility] 07/01/2024 8:14 AM EST 07/01/2024 8:14 AM EST us Dakota Monet MD HISTORICAL/NON ORDERABLE LA BS Final Result [facility] [address] [place] [address] [phone] documented in this encounter Visit Diagnoses Not on filedocumented in this encounter Additional Health Concerns Assessment Noted Time PHQ-9 Depression Total Score: 8 06/29/19 25 3:42 PM EST documented as of this encounter Care Teams Electroencephalographic Technician Relationship Specialty Start Date End Date Dakota Monet MD [address] [place] [address] PCP - General Internal Medicine 05/10/13 documented as of this encounter
--- OUTSIDE RECORDS SUMMARY | 2024-07-03 18:16 | XMS_ITS | Encounter Summary ---
Author Organization [employer] Address [address] [place] [address] 7 [place] [address] Care Team Providers Care Merchandise Complaint Adjuster Name Role Phone Dakota Monet MD Primary Care Provider [phone]- [phone] Encounter Details Date Type Department Care Team (Late Contact Info) Description 06/22/2024 Orders Only [facility] MED & PEDS [address] [place] [address] Dakota Monet MD [address] [place] [address] Chronic migraine with aura without status migrainosus, [...] [facility] [address] [place] [address] Dakota Monet MD 505 [facility] [place] [address] documented as of this encounter Procedures Procedure [...] EST Narrative 06/24/2024 7:37 PM EST ? [facility] ?[address] ?[place] [address] ? CT Scan Report ? Signed ? Patient: Paola,Lidagma ?MR#: [id number] ?? 356 ? : 1975 ?Acct:[id number] ? Age/Sex: 48 / F ?ADM Date: 06/24/24 ? Loc: HO.ED ? Attending Dr: ? Ordering Physician: Re Barber ?? Date of Service: 06/24/24 ?? Procedure(s): CT lumbar spine wo IV con ?? Accession Number(s): [id number] ? cc: Dakota Monet MD; Re Barber ? Report Number: ?? [id number]: Total DLP = 2098.00 mGy-cm ? CLINICAL [...] Moderate to severe stool burden in the qyedp-xk-vzsu. Cholelithiasis in ?? the fadyh-di-guqa. ? IMPRESSION: ?? 1. No acute fracture of the lumbar spine. ? 2. Worsening lower lumbar facet arthropathy compared to 11/07/2021. ? This document has been electronically signed by: Javed Queen MD on ?? 06/24/2024 19:36:00 ? Dictated By: ?Javed Queen MD ? Signed By: ?<Electronically signed by Javed Queen MD in OV> ? 06/24/24 1936 ? DD/ 35 ? TD/TT: 06/24/241935 ? Singing Messenger: ? Procedure Note Dondanielter, Image - 06/24/[address] [place] [address] [address] Scan Report Signed Patient: Gerald Guevara#: [id number] 356 : 1975Acct:[id number] Age/Sex: 48 / FADM Date: 06/24/24 Loc: HO.ED Attending Dr: Ordering Physician: Re Barber Date of Service: 06/24/24 Procedure(s): CT lumbar spine wo IV con Accession Number(s): [id number] cc: Dakota Monet MD; Re Barber Report Number: [id number]: Total DLP = 2098.00 mGy-cm CLINICAL HISTORY: [...] Moderate to severe stool burden in the ovkxj-nn-nvhi. Cholelithiasis in the yxief-by-nico. IMPRESSION: 1. No acute fracture of the lumbar spine. 2. Worsening lower lumbar facet arthropathy compared to 11/07/2021. This document has been electronically signed by: Javed Queen MD on 06/24/2024 19:36:00 Dictated By: Javed Queen MD Signed By: <Electronically signed by Javed Queen MD in OV> 06/24/241935 DD/ 35 TD/TT: 06/24/241935 Singing Messenger: [facility] External Provider IMG CT PROCEDURES Edited Result - Final * CT Chest w/o Contrast (06/24/2024 7:33 PM EST) Anatomical Region Laterality Modality Body, Chest Computed Tomogra phy 06/24/2024 7:33 PM EST Narrative 06/24/2024 7:35 PM EST ? [facility] ?[address] ?[place] [address] ? CT Scan Report ? Signed ? Patient: Paola,Lidagma ?MR#: [id number] ?? 356 ? : 1975 ?Acct:[id number] ? Age/Sex: 48 / F ?ADM Date: 06/24/24 ? Loc: HO.ED ? Attending Dr: ? Ordering Physician: Kaylan Underwood CNP ?? Date of Service: 06/24/24 ?? Procedure(s): CT chest wo IV con ?? Accession Number(s): [id number] ? cc: Kaylan Underwood CNP; Dakota Monet MD ? Report Number: ?? [id number]: Total DLP = 2098.00 mGy-cm ? CLINICAL [...] ? DD/ 32 ? TD/TT: 06/24/241932 ? Singing Messenger: ? Procedure Note Nallely, Satish - 06/24/[address] [place] [address] [address] Scan Report Signed Patient: Gerald Guevara#: [id number] 356 : 1975Acct:[id number] Age/Sex: 48 / FADM Date: 06/24/24 Loc: HO.ED Attending Dr: Ordering Physician: Kaylan Underwood CNP Date of Service: 06/24/24 Procedure(s): CT chest wo IV con Accession Number(s): [id number] cc: Kaylan Underwood CNP; Dakota Monet MD Report Number: [id number]: Total DLP = 2098.00 mGy-cm CLINICAL HISTORY: [...] in OV> 06/24/241933 DD/ 32 TD/TT: 06/24/241932 Singing Messenger: [facility] External Provider IMG CT PROCEDURES Edited Result - Final * CT Head w/o Contrast (06/24/2024 7:28 PM EST) Anatomical Region Laterality Modality Head, Neck Computed Tomogra phy 06/24/2024 7:28 PM EST Narrative 06/24/2024 7:30 PM EST ? [facility] ?[address] ?[place] [address] ? CT Scan Report ? Signed ? Patient: Paola,Lidagma ?MR#: [id number] ?? 356 ? : 1975 ?Acct:[id number] ? Age/Sex: 48 / F ?ADM Date: 06/24/24 ? Loc: HO.ED ? Attending Dr: ? Ordering Physician: Re Barber ?? Date of Service: 06/24/24 ?? Procedure(s): CT head/brain wo IV con ?? Accession Number(s): [id number] ? cc: Dakota Monet MD; Re Barber ? Report Number: ?? [id number]: Total DLP = 2098.00 mGy-cm ? CLINICAL [...] ? DD/ 27 ? TD/TT: 06/24/241927 ? Singing Messenger: ? Procedure Note Nallely, Image - 06/24/[address] [place] [address] [address] Scan Report Signed Patient: Gerald Guevara#: [id number] 356 : 1975Acct:[id number] Age/Sex: 48 / FADM Date: 06/24/24 Loc: HO.ED Attending Dr: Ordering Physician: Re Barber Date of Service: 06/24/24 Procedure(s): CT head/brain wo IV con Accession Number(s): [id number] cc: Dakota Monet MD; Re Barber Report Number: [id number]: Total DLP = 2098.00 mGy-cm CLINICAL HISTORY: [...] in OV> 06/24/241928 DD/ 27 TD/TT: 06/24/241927 Singing Messenger: [facility] External Provider IMG CT PROCEDURES Edited Result - Final * CT Cervical Spine w/o Contrast (06/24/2024 7:25 PM EST) Anatomical Region Laterality Modality Spine, C-spine Computed Tomogra phy 06/24/2024 7:25 PM EST Narrative 06/24/2024 7:27 PM EST ? [facility] ?[address] ?[place] [address] ? CT Scan Report ? Signed ? Patient: Paola,Lidagma ?MR#: [id number] ?? 356 ? : 1975 ?Acct:[id number] ? Age/Sex: 48 / F ?ADM Date: 06/24/24 ? Loc: HO.ED ? Attending Dr: ? Ordering Physician: Re Barber ?? Date of Service: 06/24/24 ?? Procedure(s): CT cervical spine wo IV con ?? Accession Number(s): [id number] ? cc: Dakota Monet MD; Re Barber ? Report Number: ?? [id number]: Total DLP = 2098.00 mGy-cm ? CLINICAL [...] ? DD/ 24 ? TD/TT: 06/24/241924 ? Singing Messenger: ? Procedure Note Donotuseinterpreter, Image - 06/24/[address] [address] [address] Scan Report Signed Patient: Gerald Guevara#: [id number] 356 : 1975Acct:[id number] Age/Sex: 48 / FADM Date: 06/24/24 Loc: HO.ED Attending Dr: Ordering Physician: Re Barber Date of Service: 06/24/24 Procedure(s): CT cervical spine wo IV con Accession Number(s): [id number] cc: Dakota Monet MD; Re Barber Report Number: [id number]: Total DLP = 2098.00 mGy-cm CLINICAL HISTORY: [...] in OV> 06/24/241925 DD/ 24 TD/TT: 06/24/241924 Singing Messenger: [facility] External Provider IMG CT PROCEDURES Edited Result - Final documented in this encounter Visit Diagnoses Diagnosis Chronic migraine with aura without status migrainosus, not intractable- Primary documented in this encounter Additional Health Concerns Assessment Noted Time PHQ-9 Depression Total Score: 10 023 3:54 PM EST documented as of this encounter Care Teams Merchandise Complaint Adjuster Relationship Specialty Start Date End Date Dakota Monet MD [address] [place] [address] PCP - General Internal Medicine 05/10/13 documented as of this encounter
--- OUTSIDE RECORDS SUMMARY | 2024-07-03 18:16 | XMS_ITS | Encounter Summary ---
Author Organization [employer] Address [address] [place] [address] Care Team Providers Care Director Business Systems Name Role Phone Dakota Monet MD Primary Care Provider [phone] Reason for Referral * Imaging (Routine) - Closed Specialty Diagnoses / Procedures Referred By Contanabela t Referred To Contact Radiology Diagnoses Transaminitis Procedures US Abdomen Complete Dakota Monet MD [address] [place] [address] Phone: tel: fax: [address] Phone: tel: fax: Referral ID Status Reason Start Date Expiration Date Visits Re quested Visits Authorized [id number] Closed 06/30/2024 06/30/2025 1 1 Encounter Details Date Type Department Care Team (Late st Contact Info) Description 06/30/2024 Orders Only [facility] MEDICINE [address] [place] [address] Dakota Monet MD [address] [place] [address] Transaminitis (Primary Dx) Social History Tobacco Use Types [...] Upcoming Encounters Date Type Department Care Team ([facility] st Contact Info) Description 07/17/2024 3:30 PM EDT Office Visit [facility] MED & PEDS [address] [place] [address] Dakota Monet MD [address] [place] [address] Scheduled Orders Name Type Priority Associated Diagnoses Orde r Schedule US Abdomen Complete Imaging Routine Transaminitis Expected: 06/30/2024, Expires: 06/30/2025 documented as of this encounter Procedures Procedure Name Priority Date/Time Associated Diagnosis Comments HEPATITIS PANEL, GENERAL Routine 07/01/2024 8:14 AM EST Transaminitis documented in this encounter Results * Hepatitis A,B,C Profile (07/01/2024 8:14 AM EST) Hepatitis A IgM Nonreactive Nonreactive [facility] Comment:IgM antibodies to MARIE V not detected; does not exclude earlyacute or recovered HAV infection. ~Hepatitis B Surface Antibody REACTIVE Nonreactive [facility] Comment:REACTIVE: > 11.99 mI U/mL Hepatitis B Core Antibody Nonreactive Nonreactive [facility] Hepatitis C Antibody Nonreactive Nonreactive [facility] Comment:Antibodies to HCV no t detected; does not exclude early acuteHCV infection. Blood Venous blood specimen / Unknown 07/01/2024 8:14 AM EST 07/01/2024 8:14 AM EST us Dakota Monet MD LAB BLOOD ORDERABLES Final Result [facility] [address] [place] [address] [phone] documented in this encounter Visit Diagnoses Diagnosis Transaminitis- Primary Nonspecific elevation of levels of transaminase or lactic acid dehydrogenase (LDH) documented in this encounter Additional Health Concerns Assessment Noted Time PHQ-9 Depression Total Score: 8 06/29/19 25 3:42 PM EST documented as of this encounter Care Teams Director Business Systems Relationship Specialty Start Date End Date Dakota Monet MD [address] [place] [address] PCP - General Internal Medicine 05/10/13 documented as of this encounter
--- OUTSIDE RECORDS SUMMARY | 2024-07-03 18:17 | XMS_ITS | Encounter Summary ---
Author Organization [employer] Address [address] [place] [address] Care Team Providers Care Event Producer Name Role Phone Dakota Monet MD Primary Care Provider [phone] Reason for Visit * Reason Onset Date Comments chart prep 06/26/2024 Encounter Details Date Type Department Care Team ([facility] st Contact Info) Description 06/26/2024 Telephone [facility] MED & PEDS [address] [place] [address] Dakota Monet MD [address] [place] [address] chart prep Social History Tobacco Use Types [...] Upcoming Encounters Date Type Department Care Team ([facility] st Contact Info) Description 07/17/2024 3:30 PM EDT Office Visit [facility] MED & PEDS [address] [place] [address] Dakota Monet MD [address] [place] [address] documented as of this encounter Visit Diagnoses Not on filedocumented in this encounter Additional Health Concerns Assessment Noted Time PHQ-9 Depression Total Score: 10 023 3:54 PM EST documented as of this encounter Care Teams Event Producer Relationship Specialty Start Date End Date Dakota Monet MD [address] [place] [address] PCP - General Internal Medicine 05/10/13 documented as of this encounter
--- OUTSIDE RECORDS SUMMARY | 2024-07-03 18:17 | XMS_ITS | Encounter Summary ---
Author Organization [employer] Address [address] [place] [address] Care Team Providers Care Windchill Administrator Name Role Phone Dakota Monet MD Primary Care Provider [phone] Reason for Visit * Reason Onset Date Comments ER Follow-up 06/26/2024 Encounter Details Date Type Department Care Team ([facility] st Contact Info) Description 06/26/2024 Telephone [facility] MED [facility] PEDS [address] [place], [place] [phone] Dakota Monet MD [address] [place] [address] ER Follow-up Social History Tobacco Use Types [...] ED visit on : Date: 06/24/24 Hospital: [facility] Seen for: fall but was also information [...] 3:30 PM EDT Office Visit [facility] MED & PEDS [address] [place] [address] Dakota Monet MD [address] [place] [address] documented as of this encounter Visit Diagnoses Not on filedocumented in this encounter Additional Health Concerns Assessment Noted Time PHQ-9 Depression Total Score: 10 023 3:54 PM EST documented as of this encounter Care Teams Windchill Administrator Relationship Specialty Start Date End Date Dakota Monet MD [address] [place] [address] PCP - General Internal Medicine 05/10/13 documented as of this encounter
--- OUTSIDE RECORDS SUMMARY | 2024-07-03 18:17 | XMS_ITS | Encounter Summary ---
Author Organization [employer] Address [address] [place] [address] Care Team Providers Care Direct Service Worker Name Role Phone Dakota Monet MD Primary Care Provider [phone] Reason for Visit * Reason Onset Date Comments Results 01/06/2023 Encounter Details Date Type Department Care Team ([facility] st Contact Info) Description 01/06/2023 Telephone [facility] MED & PEDS [address] [place], [place] [phone] Dakota Monet MD [address] [place] [address] Results Social History Tobacco Use Types Packs/Day [...] States she will get the vaccine at [facility] pharmacy. Pt also requesting this message [...] verbalized understanding. Pt reports no access to [employer] RN informed link will be sent to [...] [facility] [address] [place] [address] Dakota Monet MD [address] [place] [address] documented as of this encounter Visit Diagnoses Diagnosis Chronic pain syndrome documented in this encounter Additional Health Concerns Assessment Noted Time PHQ-9 Depression Total Score: 10 023 3:54 PM EST documented as of this encounter Care Teams Direct Service Worker Relationship Specialty Start Date End Date Dakota Monet MD [address] [place] [address] PCP - General Internal Medicine 05/10/13 documented as of this encounter
--- OUTSIDE RECORDS SUMMARY | 2024-07-03 18:17 | XMS_ITS | Encounter Summary ---
Author Organization [employer] Address [address] [place] [address] Care Team Providers Care Senior Product Designer Name Role Phone Dakota Monet MD Primary Care Provider [phone] Reason for Visit * Reason Comments Med Refill Encounter Details Date Type Department Care Team ([facility] Contact Info) Description 01/16/2024 Refill [facility] MED [facility] PEDS [address] [place] [address] Dakota Monet MD [address] [place] [address] Chronic pain syndrome; Chronic right-sided low back [...] Upcoming Encounters Date Type Department Care Team ([facility] Contact Info) Description 07/17/2024 3:30 PM EDT Office Visit [facility] MED [facility] PEDS [address] [place] [address] Dakota Monet MD [address] [place] [address] documented as of this encounter Visit Diagnoses Diagnosis Chronic pain syndrome Chronic right-sided low back pain with right-sided sciatica documented in this encounter Additional Health Concerns Assessment Noted Time PHQ-9 Depression Total Score: 10 023 3:54 PM EST documented as of this encounter Care Teams Senior Product Designer Relationship Specialty Start Date End Date Dakota Monet MD [address] [place] [address] PCP - General Internal Medicine 05/10/13 documented as of this encounter
--- OUTSIDE RECORDS SUMMARY | 2024-07-03 18:17 | XMS_ITS | Encounter Summary ---
Author Organization [email or web address] Address [address] [place] [address] Care Team Providers Care Rustic Fence Builder Name Role Phone Dakota Monet MD Primary Care Provider [phone] Reason for Referral * Medications - Pending Review Specialty Diagnoses / Procedures Referred By Contac t Referred To Contact Diagnoses Chronic migraine with aura without status migrainosus, not intractable Dakota Monet MD [address] [place] [address] Phone: tel: fax: Referral ID Status Reason Start Date Expiration Date V isits Requested Visits Authorized [id number] Pending Review 06/29/2024 06/29/2025 1 1 Encounter Details Date Type Department Care Team (Latest Contact Info) Description 06/29/2024 3:30 PM EST Office Visit [facility] CHC MED & PEDS [address] [place] [address] Dakota Monet MD [address] [place] [address] Airway disease due to other specific organic [...] Progress Notes * Dakota Monet MD - 06/29/2024 3:30 PM EST Subjective [...] disease due to other specific organic dusts ([facility]) Comments: An x-ray was ordered to perform [...] Encounters Date Type Department Care Team ([facility] Contact Info) Description 07/17/2024 3:30 PM EDT Office Visit 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 [facility] ?[address] ?[place] [address] ?XRay Report ? Signed ? Patient: Paola,Lidagma ?MR#: [id number] ?? [id number] ? : 1975 ?Acct:[id number] ? Age/Sex: 48 / F ?ADM Date: 07/01/24 ? Loc: HO.XRAY ? Attending Dr: Dakota Monet MD ? Ordering Physician: Dakota Monet MD ?? Date of Service: 07/01/24 ?? Procedure(s): XR chest 2V ?? Accession Number(s): [id number] ? cc: Dakota Monet MD ? EXAMINATION: [...] Millan MD in OV> ?07/03/24 0959 ? DD/DT: 03//25 0816 ? TD/TT: 07/01/25 0824 ? Signal Intelligence Analyst: ? Procedure Note Donotuseinterpreter, Image - 07/03/[address] [address] XRay Report Signed Patient: Gerald Guevara#: [id number] : 1975Acct:[id number] Age/Sex: 48 / FADM Date: 07/01/24 Loc: HO.XRAY Attending Dr: Dakota Monet MD Ordering Physician: Dakota Monet MD Date of Service: 07/01/24 Procedure(s): XR chest 2V Accession Number(s): [id number] cc: Dakota Monet MD EXAMINATION: XR CHEST [...] Geoff Millan MD 07/03/2024 09:59 AM EST Dictated By: Geoff Millan MD Signed By: <Electronically signed by Geoff Millan MD in OV> 07/03/24 0959 DD/ 0816 TD/TT: 07/01/24 0824 Signal Intelligence Analyst: Dakota Monet MD IMG XR PROCEDURES Final Res ult documented in this encounter Visit Diagnoses Diagnosis 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 ([facility])- Primary Biliary calculus of other site without obstruction Chronic pain syndrome Chronic right-sided low back pain with right-sided sciatica Calculus of gallbladder without cholecystitis without obstruction Chronic migraine with aura without status migrainosus, not intractable documented in this encounter Additional Health Concerns Assessment Noted Time PHQ-9 Depression Total Score: 8 06/29/19 25 3:42 PM EST documented as of this encounter Care Teams Rustic Fence Builder Relationship Specialty Start Date End Date Dakota Monet MD [address] [place] [address] PCP - General Internal Medicine 05/10/13 documented as of this encounter
--- OUTSIDE RECORDS SUMMARY | 2024-07-03 18:17 | XMS_ITS | Encounter Summary ---
Author Organization [employer] Address [address] [place] [address] 7 [place] [address] Care Team Providers Care Hemodialysis Patient Care Specialist Name Role Phone Dakota Monet MD Primary Care Provider [phone] Encounter Details Date Type Department Care Team (Latest Contact Info) Description 03/17/2023 Orders Only [facility] MED & PEDS [address] [place], [place] [phone] Dakota Monet MD 505 [place] [address] Neurofibromatosis syndrome (CMS/HCC) (Primary Dx) Social History [...] Visit [facility] MED & PEDS [address] [place], [place] [phone] Dakota Monet MD [address] [place] [address] documented as of this encounter Visit Diagnoses Diagnosis 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
--- OUTSIDE RECORDS SUMMARY | 2024-07-03 18:17 | XMS_ITS | Encounter Summary ---
Author Organization [employer] Address [address] [place] [address] 7 [place] [address] Care Team Providers Care Smt Technician Name Role Phone Dakota Monet MD Primary Care Provider [phone] Encounter Details Date Type Department Care Team (Late Contact Info) Description 03/05/[address] [facility] MEDICINE [address] [place] [address] Milagro Bear Social History Tobacco Use Types [...] PM EDT Office Visit [facility] CHC MED & PEDS [address] [place], [place] [phone] Dakota Monet MD 505 [place] [address] documented as of this encounter Procedures Procedure [...] documented as of this encounter Care Teams Smt Technician Relationship Specialty Start Date End Date Dakota Monet MD [address] [place] [address] PCP - General Internal Medicine 05/10/13 documented as of this encounter
--- OUTSIDE RECORDS SUMMARY | 2024-07-03 18:17 | XMS_ITS | Encounter Summary ---
Author Organization [employer] Address [address] [facility] 7t [place] [address] Care Team Providers Care Cnc Supervisor Name Role Phone Dakota Monet MD Primary Care Provider [phone] Encounter Details Date Type Department Care Team [...] Description 07/17/2024 3:30 PM EDT Office Visit [facility] CHC MED & PEDS [address] [place] [address] Dakota Monet MD [address] [place] [address] documented as of this encounter Visit Diagnoses Not on filedocumented in this encounter Additional Health Concerns Assessment Noted Time PHQ-9 Depression Total Score: 8 06/29/19 25 3:42 PM EST documented as of this encounter Care Teams Cnc Supervisor Relationship Specialty Start Date End Date Dakota Monet MD [address] [place] [address] PCP - General Internal Medicine 05/10/13 documented as of this encounter
--- OUTSIDE RECORDS SUMMARY | 2024-07-03 18:17 | XMS_ITS | Encounter Summary ---
Author Organization [employer] Address [address] [place] [address] Care Team Providers Care Mold Insert Changer Name Role Phone Dakota Monet MD Primary Care Provider [phone] Reason for Visit * Reason Comments Med Refill Encounter Details Date Type Department Care Team ([facility] Contact Info) Description 03/19/2024 Refill [facility] MED & PEDS [address] [place] [address] Dakota Monet MD [address] [place] [address] Primary insomnia Social History Tobacco Use Types [...] Upcoming Encounters Date Type Department Care Team ([facility] Contact Info) Description 07/17/2024 3:30 PM EDT Office Visit [facility] MED & PEDS [address] [place] [address] Dakota Monet MD [address] [place] [address] documented as of this encounter Visit Diagnoses Diagnosis Primary insomnia Persistent disorder of initiating or maintaining sleep documented in this encounter Additional Health Concerns Assessment Noted Time PHQ-9 Depression Total Score: 10 023 3:54 PM EST documented as of this encounter Care Teams Mold Insert Changer Relationship Specialty Start Date End Date Dakota Monet MD [address] [place] [address] PCP - General Internal Medicine 05/10/13 documented as of this encounter
--- OUTSIDE RECORDS SUMMARY | 2024-07-03 18:17 | XMS_ITS | Encounter Summary ---
Author Organization [employer] Address [address] [place] [address] Care Team Providers Care Stitching Machine Setter Name Role Phone Dakota Monet MD Primary Care Provider [phone] Reason for Visit * Reason Onset Date Comments Referral 03/19/2023 Encounter Details Date Type Department Care Team ([facility] st Contact Info) Description 03/19/2023 Telephone [facility] CHC MED & PEDS [address] [place], [place] [phone] Dakota Monet MD [address] [place] [address] Referral Social History Tobacco Use Types Packs/Day [...] to ov w/ PCP 04.22.23. Will FYI pr specialist neuro referral on hold for now. * Telephone Encounter - Sharri Gann - 03/22/2023 3:06 PM EST TC to [facility] neuro-surgery and there is doctors that will see patient with diagnosis but requires an MRI? Please advise, thank you. * Telephone Encounter - Didi Calhoun RN - 03/19/2023 3:45 PM EST Placed call to [facility] neuro regarding message below. Referral was received [...] referral for Neurology, pt advised she called [facility] for an appt and [facility] advised they will not see her without explanation in why. Please contact pt at [phone] documented in this encounter Plan of Treatment Upcoming Encounters Date Type Department Care Team (Late st Contact Info) Description 07/17/2024 3:30 PM EDT Office Visit [facility] MED & PEDS [address] [place], [place] [phone] Dakota Monet MD [address] [place] [address] documented as of this encounter Visit Diagnoses Not on filedocumented in this encounter Additional Health Concerns Assessment Noted Time PHQ-9 Depression Total Score: 10 023 3:54 PM EST documented as of this encounter Care Teams Stitching Machine Setter Relationship Specialty Start Date End Date Dakota Monet MD [address] [place] [address] RAFAEL Palacios [address] PCP - General Internal Medicine 05/10/13 documented as of this encounter
== END 2024-07-03 15:52 | disposition home or self-care (01) ==
PROVIDERS: PCP Internal Medicine; Visit Provider Surgery
DX: L98.9 Disorder of the skin and subcutaneous tissue, unspecified (principal)
CPT/HCPCS: 11403

== ENCOUNTER 2024-07-03 15:22 | Outpatient (REF) | payer OTHER, SELFPAY ==
--- OUTSIDE RECORDS SUMMARY | 2024-07-03 18:37 | XMS_ITS | Encounter Summary ---
Author Organization [employer] Address [address] [facility] 7t [place] [address] Care Team Providers Care Engraver Lettering Name Role Phone Dakota Monet MD Primary Care Provider [phone] Encounter Details Date Type Department Care Team ([facility] st Contact Info) Description 07/01/2024 Orders Only [facility] CHC MED & PEDS [address] [place], [place] [phone] Dakota Monet MD [address] [place] [address] Social History Tobacco Use Types Packs/Day Years [...] Description 07/17/2024 3:30 PM EDT Office Visit [facility] MED & PEDS [address] [place] [address] Dakota Monet MD 505 [place] [address] documented as of this encounter Procedures Procedure Name Priority Date/Time Associated Diagnosis Comments HEPATITIS B SURFACE ANTIGEN (NON ORDERABLE) Routine 07/01/2024 8:14 AM EST documented in this encounter Results * Hepatitis B Surface Antigen (07/01/2024 8:14 AM EST) Hepatitis B Surface Ag NEGATIVE Negative [facility] 07/01/2024 8:14 AM EST 07/01/2024 8:14 AM EST us Dakota Monet MD HISTORICAL/NON ORDERABLE LA BS Final Result [facility] [address] [place] [phone] documented in this encounter Visit Diagnoses Not on filedocumented in this encounter Additional Health Concerns Assessment Noted Time PHQ-9 Depression Total Score: 8 06/29/19 25 3:42 PM EST documented as of this encounter Care Teams Engraver Lettering Relationship Specialty Start Date End Date Dakota Monet MD [address] [place] [address] PCP - General Internal Medicine 05/10/13 documented as of this encounter
--- OUTSIDE RECORDS SUMMARY | 2024-07-03 18:37 | XMS_ITS | Encounter Summary ---
Author Organization [employer] Address [address] [facility] 7t [place] [address] Care Team Providers Care Hat Finishing Materials Preparer Name Role Phone Dakota Monet MD Primary Care Provider [phone] Encounter Details Date Type Department Care Team ([facility] st Contact Info) Description 06/30/2024 Telephone [facility] MEDICINE [address] [place] [address] Dakota Monet MD [address] [place] [address] Social History Tobacco Use Types Packs/Day Years [...] 07/17/2024 3:30 PM EDT Office Visit [facility] MED & PEDS [address] [place], [place] [phone] Dakota Monet MD 505 [place] [address] documented as of this encounter Visit Diagnoses Not on filedocumented in this encounter Additional Health Concerns Assessment Noted Time PHQ-9 Depression Total Score: 8 06/29/19 25 3:42 PM EST documented as of this encounter Care Teams Hat Finishing Materials Preparer Relationship Specialty Start Date End Date Dakota Monet MD [address] [place] [address] PCP - General Internal Medicine 05/10/13 documented as of this encounter
--- OUTSIDE RECORDS SUMMARY | 2024-07-03 18:37 | XMS_ITS | Encounter Summary ---
Author Organization [employer] Address [address] [place] [address] Care Team Providers Care Flying I Instructor Name Role Phone Dakota Monet MD Primary Care Provider [phone] Reason for Visit * Reason Onset Date Comments Med Refill 12/21/2022 Encounter Details Date Type Department Care Team ([facility] st Contact Info) Description 12/21/[address] [facility] CHC MED & PEDS [address] [place] [address] Dakota Monet MD [address] [place] [address] Med Refill Social History Tobacco Use Types [...] [facility] MED & PEDS [address] [place] [address] Dakota Monet MD [address] [place] [address] documented as of this encounter Visit Diagnoses Not on filedocumented in this encounter Additional Health Concerns Assessment Noted Time PHQ-9 Depression Total Score: 10 023 3:54 PM EST documented as of this encounter Care Teams Flying I Instructor Relationship Specialty Start Date End Date Dakota Monet MD [address] [place] [address] PCP - General Internal Medicine 05/10/13 documented as of this encounter
--- OUTSIDE RECORDS SUMMARY | 2024-07-03 18:37 | XMS_ITS | Encounter Summary ---
Author Organization [employer] Address [address] [address] Care Team Providers Care Mechanical And Auto Body Car Checker Name Role Phone Dakota Monet MD Primary Care Provider [phone] Reason for Visit * Reason Onset Date Comments Prior Authorization 07/03/2024 Encounter Details Date Type Department Care Team ([facility] Contact Info) Description 07/03/2024 Telephone [facility] MEDICINE [address] [place] [address] Dakota Monet MD [address] [place] [address] Prior Authorization Social History Tobacco Use Types [...] Upcoming Encounters Date Type Department Care Team ([facility] st Contact Info) Description 07/17/2024 3:30 PM EDT Office Visit [facility] MED & PEDS [address] [place] [address] Dakota Monet MD [address] [place], [place] [phone] documented as of this encounter Visit Diagnoses Not on filedocumented in this encounter Additional Health Concerns Assessment Noted Time PHQ-9 Depression Total Score: 8 06/29/19 25 3:42 PM EST documented as of this encounter Care Teams Mechanical And Auto Body Car Checker Relationship Specialty Start Date End Date Dakota Monet MD [address] [place] [address] PCP - General Internal Medicine 05/10/13 documented as of this encounter
--- OUTSIDE RECORDS SUMMARY | 2024-07-03 18:37 | XMS_ITS | Encounter Summary ---
Author Organization [employer] Address [address] [place] [address] Care Team Providers Care Clipper And Turner Name Role Phone Dakota Monet MD Primary Care Provider [phone] Reason for Referral * Imaging (Routine) - Closed Specialty Diagnoses / Procedures Referred By Contanabela t Referred To Contact Radiology Diagnoses Transaminitis Procedures US Abdomen Complete Dakota Monet MD [address] [place] [address] Phone: tel: fax: [address] Phone: tel: fax: Referral ID Status Reason Start Date Expiration Date Visits Re quested Visits Authorized [id number] Closed 06/30/2024 06/30/2025 1 1 Encounter Details Date Type Department Care Team (Late st Contact Info) Description 06/30/2024 Orders Only [facility] MEDICINE [address] [place] [address] Dakota Monet MD [address] [place] [address] Transaminitis (Primary Dx) Social History [...] Upcoming Encounters Date Type Department Care Team ([facility] st Contact Info) Description 07/17/2024 3:30 PM EDT Office Visit [facility] CHC MED & PEDS [address] [place] [address] Dakota Monet MD [address] [place] [address] Scheduled Orders Name Type Priority Associated Diagnoses Orde r Schedule US Abdomen Complete Imaging Routine Transaminitis Expected: 06/30/2024, Expires: 06/30/2025 documented as of this encounter Procedures Procedure Name Priority Date/Time Associated Diagnosis Comments HEPATITIS PANEL, GENERAL Routine 07/01/2024 8:14 AM EST Transaminitis documented in this encounter Results * Hepatitis A,B,C Profile (07/01/2024 8:14 AM EST) Hepatitis A IgM Nonreactive Nonreactive [facility] Comment:IgM antibodies to MARIE V not detected; does not exclude earlyacute or recovered HAV infection. ~Hepatitis B Surface Antibody REACTIVE Nonreactive [facility] Comment:REACTIVE: > 11.99 mI U/mL Hepatitis B Core Antibody Nonreactive Nonreactive [facility] Hepatitis C Antibody Nonreactive Nonreactive [facility] Comment:Antibodies to HCV no t detected; does not exclude early acuteHCV infection. Blood Venous blood specimen / Unknown 07/01/2024 8:14 AM EST 07/01/2024 8:14 AM EST us Dakota Monet MD LAB BLOOD ORDERABLES Final Result [facility] [address] [place] [address] [phone] documented in this encounter Visit Diagnoses Diagnosis Transaminitis- Primary Nonspecific elevation of levels of transaminase or lactic acid dehydrogenase (LDH) documented in this encounter Additional Health Concerns Assessment Noted Time PHQ-9 Depression Total Score: 8 06/29/19 25 3:42 PM EST documented as of this encounter Care Teams Clipper And Turner Relationship Specialty Start Date End Date Dakota Monet MD [address] [place] [phone] PCP - General Internal Medicine 05/10/13 documented as of this encounter
--- OUTSIDE RECORDS SUMMARY | 2024-07-03 18:37 | XMS_ITS | Encounter Summary ---
Author Organization [employer] Address [address] [place] [address] 7 [place] [address] Care Team Providers Care Supervisor Metal Placing Name Role Phone Dakota Monet MD Primary Care Provider [phone] Encounter Details Date Type Department Care Team (Latest Contact Info) Description 02/06/2021 Abstract [facility] Dental, Provider, DDS Social [...] Description 07/17/2024 3:30 PM EDT Office Visit [facility] CHC MED & PEDS [address] [place] [address] Dakota Monet MD [address] [place] [address] documented as of this encounter Visit Diagnoses Not on filedocumented in this encounter Care Teams Supervisor Metal Placing Relationship Specialty Start Date End Date Dakota Monet MD [address] [place] [address] PCP - General Internal Medicine 05/10/13 documented as of this encounter
--- OUTSIDE RECORDS SUMMARY | 2024-07-03 18:38 | XMS_ITS | Encounter Summary ---
Author Organization [employer] Address [address] [place] [address] Care Team Providers Care Media Planner / Buyer Name Role Phone Dakota Monet MD Primary Care Provider [phone] Reason for Visit * Reason Comments Med Refill Encounter Details Date Type Department Care Team ([facility] Contact Info) Description 06/03/2024 Refill [facility] MED & PEDS [address] [place] [address] Dakota Monet MD [address] [place] [address] Chronic pain syndrome; Chronic right-sided low back [...] Upcoming Encounters Date Type Department Care Team ([facility] Contact Info) Description 07/17/2024 3:30 PM EDT Office Visit [facility] MED & PEDS [address] [place] [address] Dakota Monet MD [address] [place] [address] documented as of this encounter Visit Diagnoses Diagnosis Chronic pain syndrome Chronic right-sided low back pain with right-sided sciatica documented in this encounter Additional Health Concerns Assessment Noted Time PHQ-9 Depression Total Score: 10 023 3:54 PM EST documented as of this encounter Care Teams Media Planner / Buyer Relationship Specialty Start Date End Date Dakota Monet MD [address] [place] [address] PCP - General Internal Medicine 05/10/13 documented as of this encounter
--- OUTSIDE RECORDS SUMMARY | 2024-07-03 18:38 | XMS_ITS | Encounter Summary ---
Author Organization [employer] Address [address] [place] [id number] Care Team Providers Care Special Trackwork Blacksmith Name Role Phone Dakota Monet MD Primary Care Provider [phone] Reason for Referral * Medications - Pending Review Specialty Diagnoses / Procedures Referred By Contac t Referred To Contact Diagnoses Chronic migraine with aura without status migrainosus, not intractable Dakota Monet MD [address] [place] [address] Phone: tel: fax: Referral ID Status Reason Start Date Expiration Date V isits Requested Visits Authorized [id number] Pending Review 06/29/2024 06/29/2025 1 1 Encounter Details Date Type Department Care Team (Latest Contact Info) Description 06/29/2024 3:30 PM EST Office Visit [facility] [address] [place] [address] Dakota Monet MD [address] [place] [address] Airway disease due to other specific organic [...] disease due to other specific organic dusts ([facility]) Comments: An x-ray was ordered to perform [...] Upcoming Encounters Date Type Department Care Team ([facility] Contact Info) Description 07/17/2024 3:30 PM EDT Office Visit [facility] [address] [place] [address] Dakota Monet MD [address] [facility] 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 [facility] ?[address] ?[place] [address] ?XRay Report ? Signed ? Patient: Paola,Lidagma ?MR#: [id number] ?? [id number] ? : 1975 ?Acct:[id number] ? Age/Sex: 48 / F ?ADM Date: 07/01/24 ? Loc: HO.XRAY ? Attending Dr: Dakota Monet MD ? Ordering Physician: Dakota Monet MD ?? Date of Service: 07/01/24 ?? Procedure(s): XR chest 2V ?? Accession Number(s): [id number] ? cc: Dakota Monet MD ? EXAMINATION: [...] 03//25 0816 ? TD/TT: 07/01/25 0824 ? Founder: ? 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 ([facility])- Primary Biliary calculus of other site without obstruction Chronic pain syndrome Chronic right-sided low back pain with right-sided sciatica Calculus of gallbladder without cholecystitis without obstruction Chronic migraine with aura without status migrainosus, not intractable documented in this encounter Additional Health Concerns Assessment Noted Time PHQ-9 Depression Total Score: 8 06/29/19 25 3:42 PM EST documented as of this encounter Care Teams Special Trackwork Blacksmith Relationship Specialty Start Date End Date Dakota Monet MD [address] [place] [id number] PCP - General Internal Medicine 05/10/13 documented as of this encounter
--- OUTSIDE RECORDS SUMMARY | 2024-07-03 18:38 | XMS_ITS | Clinical Summary ---
Author Organization [employer] Address [address] [facility] 7[address] [place] [address] Care Team Providers Care Nylon Mender Name Role Phone Dakota Monet MD Primary Care Provider [phone] Allergies No known active allergies Medications traZODone [...] Type Department Care Team Description 07/03/[address] [address] Dakota Monet MD Prior Authorization 07/01/2024 Orders Only [facility] [address] [place] [address] Dakota Monet MD 06/30/[address] [address] Dakota Monet MD 06/30/2024 Orders Only [address] [address] Dakota Monet MD Transaminitis (Primary Dx) 06/29/2024 3:30 PM EST Office Visit [facility] [address] [place] [address] Dakota Monet MD 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); Biliary calculus of other site without obstruction; Chronic pain syndrome; Chronic right-sided low back pain with right-sided sciatica; Calculus of gallbladder without cholecystitis without obstruction; Chronic migraine with aura without status migrainosus, not intractable 06/29/2024 Travel 06/26/2024 Telephone [facility] [address] [facility] [place] [address] Dakota Monet MD chart prep 06/26/2024 Telephone [facility] [address] [facility] [place] [address] Dakota Monet MD ER Follow-up 06/22/2024 Orders Only [facility] [address] [place], [place] [phone] Dakota Monet MD Chronic migraine with aura without status migrainosus, not intractable (Primary Dx) 06/06/[address] [facility] [address] [place] [address] Dakota Monet MD PA 06/03/2024 Refill [facility] [address] [place], [place] [phone] Dakota Monet MD Chronic pain syndrome; Chronic right-sided low back pain with right-sided sciatica 05/30/2024 4:00 PM EST Office Visit [facility] [address] [place], [place] [phone] aDkota Monet MD Neurofibromatosis syndrome (CMS/HCC) (Primary Dx); Chronic migraine with aura without status migrainosus, not intractable; Soft tissue tumor of left foot 05/30/2024 Travel 05/28/[address] [facility] [address] [place] [address] Ann Givens MD Primary insomnia 05/02/2024 Refill [facility] [address] [place], [place] [phone] Dakota Monet MD Chronic pain syndrome; Chronic right-sided low back pain with right-sided sciatica 04/29/2024 Orders Only [facility] [address] [place], [place] [phone] Dakota Monet MD 04/17/2024 Telephone [facility] [address] [place], [place] [phone] Dakota Monet MD Appointment Request (Pt needs appt ) 04/12/[address] [facility] [address] [place] [address] Dakota Monet MD Primary insomnia 04/12/[address] [facility] [address] [place], [place] [phone] Dakota Monet MD Referral 04/07/2024 Refill [facility] [address] [place] [address] Ann Givens MD 04/07/[address] [facility] [address] [place] [address] Dakota Monet MD Anxiety from Last 3 [...] Description 07/17/2024 3:30 PM EDT Office Visit [facility] [address] [place] [address] Dakota Monet MD [address] [place] [address] Health Maintenance Due Date Last Done Comments [...] EST Narrative 07/03/2024 10:02 AM EST ? [facility] ?[address] ?[place] [address] ?XRay Report ? Signed ? Patient: Paola,Lidagma ?MR#: [id number] ?? 356 ? : 1975 ?Acct:[id number] ? Age/Sex: 48 / F ?ADM Date: 07/01/24 ? Loc: HO.XRAY ? Attending Dr: Dakota Monet MD ? Ordering Physician: Dakota Monet MD ?? Date of Service: 07/01/24 ?? Procedure(s): XR chest 2V ?? Accession Number(s): [id number] ? cc: Dakota Monet MD ? EXAMINATION: [...] EST ?? RP ? Dictated By: ?Geoff Millna MD ? Signed By: ?<Electronically signed by Geoff Millan MD in OV> ?07/03/24 0959 ? DD/ 5 ? TD/TT: 07/01/24823 ? Food Services Coordinator: ? Procedure Note Satish Browning - 07/03/[address] [address] XRay Report Signed Patient: Gerlad Guevara#: [id number] 356 : 1975Acct:[id number] Age/Sex: 48 / FADM Date: 07/01/24 Loc: HO.XRAY Attending Dr: Dakota Monet MD Ordering Physician: Dakota Monet MD Date of Service: 07/01/24 Procedure(s): XR chest 2V Accession Number(s): [id number] cc: Dakota Monet MD EXAMINATION: XR CHEST [...] 07/03/24 0959 DD/ 0816 TD/TT: 07/01/24 0824 Food Services Coordinator: us Dakota Monet MD IMG XR PROCEDURES Final Res ult * Hepatitis B Surface Antigen (07/01/2024 8:14 AM EST) Pathologist [facility] Hepatitis B Surface Ag NEGATIVE Negative [facility] 07/01/2024 8:14 AM EST 07/01/2024 8:14 AM EST us Dakota Monet MD HISTORICAL/NON ORDERABLE LA BS Final Result [facility] [address] [place] [phone] * Hepatitis A,B,C Profile (07/01/2024 8:14 AM EST) Hepatitis A IgM Nonreactive Nonreactive [facility] Comment:IgM antibodies to MARIE V not detected; does not exclude earlyacute or recovered HAV infection. ~Hepatitis B Surface Antibody REACTIVE Nonreactive [facility] Comment:REACTIVE: > 11.99 mI U/mL Hepatitis B Core Antibody Nonreactive Nonreactive [facility] Hepatitis C Antibody Nonreactive Nonreactive [facility] Comment:Antibodies to HCV no t detected; does not exclude early acuteHCV infection. Blood Venous blood specimen / Unknown 07/01/2024 8:14 AM EST 07/01/2024 8:14 AM EST Dakota Monet MD LAB BLOOD ORDERABLES Final Result Performing Organization Address [facility] Co de Phone Number [facility] [address] [place] [phone] * TSH W/Reflex to FT4 (06/29/2024 4:26 PM EST) Pathologist [facility] TSH reflex Free T4 3.04 0.32 - 4.0 uIU/mL [facility] Blood Venous blood specimen / Unknown 06/29/2024 4:26 PM EST 06/29/2024 6:11 PM EST us Dakota Monet MD LAB BLOOD ORDERABLES Final Result Performing Organization Address [facility] de Phone Number [facility] [address] [place] [phone] * CBC auto differential (06/29/2024 4:26 PM EST) White Blood Count 6.6 4.8 - 10.8 X10*3/uL [facility] Red Blood Count 4.52 4.20 - 5.50 X10*6/uL [facility] Hemoglobin 13.1 12.0 - 16.0 g/dl [facility] Hematocrit 39.2 37.0 - 47.0 % [facility] Mean Corpuscular Volume 86.7 80.0 - 98.0 fL [facility] Mean Corpuscular Hemoglobin 29.0 27.0 - 33.0 pg [facility] Mean Corpuscular HGB Conc 33.4 31.0 - 35.0 g/dl [facility] Red Cell Distribution Width 13.0 11.0 - 16.0 % [facility] Platelet Count 226 160 - 400 X10*3/uL [facility] Mean Platelet Volume 9.6 9.4 - 12.3 fL [facility] Neutrophils Percent Auto 60.5 45 - 73 % [facility] Imm Gran Pct Auto 0.3 0.0 - 0.4 % [facility] Lymphocytes Percent Auto 28.9 20 - 40 % [facility] Monocytes Percent Auto 8.2 2 - 11 % [facility] Eosinophils Percent Auto 1.5 0 - 4 % [facility] Basophils Percent Auto 0.6 0 - 2 % [facility] NRBC Pct Auto 0.0 0.0 - 0.2 /100WBC [facility] Neutrophils Absolute Auto 4.0 2.0 - 8.3 x10*3/uL [facility] Imm Gran Abs Auto 0.02 0.00 - 0.03 X10*3/uL [facility] Lymphocytes Absolute Auto 1.9 1.2 - 4.9 X10*3/uL [facility] Monocytes Absolute Auto 0.5 0.1 - 1.2 X10*3/uL [facility] Eosinophils Absolute Auto 0.1 0.0 - 0.4 X10*3/uL [facility] Basophils Absolute Auto 0.0 0.0 - 0.2 X10*3/uL [facility] NRBC Abs Auto 0.000 0.0 - 0.012 X10*3/uL [facility] Blood Venous blood specimen / Unknown 06/29/2024 4:26 PM EST 06/29/2024 6:11 PM EST us Dakota Monet MD LAB BLOOD ORDERABLES Final Result [facility] [address] [place] [address] [phone] * Lipid Panel, Standard (06/29/2024 4:26 PM EST) Triglycerides 88 <150 mg/dL [facility] Comment:Desirable Triglyceri de: less than 150 mg/dLBorderline High Triglyceride 150-199 mg/dLHigh Triglyceride: 200-499 mg/dLVery High Triglyceride: greater than or equal to 5OO mg/dL Cholesterol 163 <200 mg/dL [facility] Comment:Desirable Cholestero l: less than 200 mg/dLBorderline High Cholesterol: 200-239 mg/dLHigh Cholesterol: greater than 239 mg/dL LDL Cholesterol Calculated 95 <100 mg/dL [facility] Comment:Desirable LDL: less than 100 mg/dLNear Optimal/Above Optimal LDL: 110- 129 mg/dLBorderline High LDL: 130-159 mg/dLHigh LDL: 160-189 mg/dLVery High LDL: greater than or equal to 190 mg/dL HDL Cholesterol 51 >40 mg/dL [facility] Comment:Desirable HDL: great er than 40 mg/dL Note: This HDL assay may give artificially low results in patients with liver disease. Blood Venous blood specimen / Unknown 06/29/2024 4:26 PM EST 06/29/2024 6:11 PM EST us Dakota Monet MD LAB BLOOD ORDERABLES Final Result [facility] [address] [place] [phone] * (ABNORMAL) Comprehensive Metabolic Panel (06/29/2024 4:26 PM EST) Pathologist [facility] Sodium 139 135 - 145 mmol/L [facility] Potassium 3.9 3.3 - 5.1 mmol/L [facility] Chloride 106 96 - 108 mmol/L [facility] Carbon Dioxide 26 22 - 29 mmol/L [facility] Anion Gap 11(L) 12 - 20 [facility] Urea Nitrogen (BUN) 17(H) 9 - 16 mg/dL [facility] Creatinine, Serum 0.66 0.5 - 1.4 mg/dL [facility] Estimated Glomerular Filt Rate >60 [facility] Comment:Chronic Kidney Disea se: Estimated GFR < 60 mL/min/1.38o3Dhdjsu Kidney Disease: Estimated GFR < 15 mL/min/1.73m2 Glucose 80 60 - 115 mg/dL [facility] Calcium 9.3 8.4 - 10.2 mg/dL [facility] Bilirubin, Total 0.5 0.0 - 1.0 mg/dL [facility] Aspartate Amino Transferase 22 5 - 31 U/L [facility] Alanine Aminotransferase 51(H) 0 - 31 U/L [facility] Total Protein 7.4 6.5 - 8.0 g/dL [facility] Albumin Level 4.2 3.5 - 5.0 g/dL [facility] Alkaline Phosphatase 77 39 - 117 U/L [facility] Blood Venous blood specimen / Unknown 06/29/2024 4:26 PM EST 06/29/2024 6:11 PM EST us Dakota Monet MD LAB BLOOD ORDERABLES Final Result [facility] [address] [place] [address] [phone] * CT Lumbar Spine w/o Contrast (06/24/2024 7:36 PM EST) Anatomical Region Laterality Modality Spine, L-spine Computed Tomogra phy 06/24/2024 7:3 6 PM EST Narrative 06/24/2024 7:37 PM EST ? [facility] ?[address] ?[place] [address] ? CT Scan Report ? Signed ? Patient: Paola,Lidagma ?MR#: [id number] ?? 356 ? : 1975 ?Acct:[id number] ? Age/Sex: 48 / F ?ADM Date: 02/22/25 ? Loc: HO.ED ? Attending Dr: ? Ordering Physician: Re Barber ?? Date of Service: 06/24/24 ?? Procedure(s): CT lumbar spine wo IV con ?? Accession Number(s): [id number] ? cc: Dakota Monet MD; Re Barber ? Report Number: ?? [id number]: Total DLP = 2098.00 mGy-cm ? CLINICAL [...] Moderate to severe stool burden in the bzasj-du-flpg. Cholelithiasis in ?? the bwkti-lj-soca. ? IMPRESSION: ?? 1. No acute fracture of the lumbar spine. ? 2. Worsening lower lumbar facet arthropathy compared to 11/07/2021. ? This document has been electronically signed by: Javed Queen MD on ?? 06/24/2024 19:36:00 ? Dictated By: ?Javed Queen MD ? Signed By: ?<Electronically signed by Javed Queen MD in OV> ? 06/24/241935 ? DD/ 35 ? TD/TT: 06/24/241935 ? Food Services Coordinator: ? Procedure Note Nallely, Image - 06/24/[address] [place] [address] [address] Scan Report Signed Patient: Gerald Guevara#: [id number] 356 : 1975Acct:[id number] Age/Sex: 48 / FADM Date: 06/24/24 Loc: HO.ED Attending Dr: Ordering Physician: Re Barber Date of Service: 06/24/24 Procedure(s): CT lumbar spine wo IV con Accession Number(s): [id number] cc: Dakota Monet MD; Re Barber Report Number: [id number]: Total DLP = 2098.00 mGy-cm CLINICAL HISTORY: [...] Moderate to severe stool burden in the segpf-rr-uqwq. Cholelithiasis in the haiot-qj-fned. IMPRESSION: 1. No acute fracture of the lumbar spine. 2. Worsening lower lumbar facet arthropathy compared to 11/07/2021. This document has been electronically signed by: Javed Queen MD on 06/24/2024 19:36:00 Dictated By: Javed Queen MD Signed By: <Electronically signed by Javed Queen MD in OV> 06/24/241935 DD/ 35 TD/TT: 06/24/241935 Food Services Coordinator: [facility] External Provider IMG CT PROCEDURES Edited Result - Final * CT Chest w/o Contrast (06/24/2024 7:33 PM EST) Anatomical Region Laterality Modality Body, Chest Computed Tomogra phy 06/24/2024 7:33 PM EST Narrative 06/24/2024 7:35 PM EST ? [facility] ?[address] ?[place] [address] ? CT Scan Report ? Signed ? Patient: Paola,Lidagma ?MR#: [id number] ?? 356 ? : 1975 ?Acct:[id number] ? Age/Sex: 48 / F ?ADM Date: //25 ? Loc: HO.ED ? Attending Dr: ? Ordering Physician: Kaylan Underwood CNP ?? Date of Service: 06/24/24 ?? Procedure(s): CT chest wo IV con ?? Accession Number(s): [id number] ? cc: Kaylan Underwood CNP; Dakota Monet MD ? Report Number: ?? [id number]: Total DLP = 2098.00 mGy-cm ? CLINICAL [...] ? DD/ 32 ? TD/TT: 06/24/241932 ? Food Services Coordinator: ? Procedure Note Satish Browning - 06/24/[address] [place] [address] [address] Scan Report Signed Patient: Gerald Guevara#: [id number] 356 : 1975Acct:[id number] Age/Sex: 48 / FADM Date: 06/24/24 Loc: HO.ED Attending Dr: Ordering Physician: Kaylan Underwood CNP Date of Service: 06/24/24 Procedure(s): CT chest wo IV con Accession Number(s): [id number] cc: Kaylan Underwood CNP; Dakota Monet MD Report Number: [id number]: Total DLP = 2098.00 mGy-cm CLINICAL HISTORY: [...] in OV> 06/24/241933 DD/ 32 TD/TT: 06/24/241932 Food Services Coordinator: [facility] External Provider IMG CT PROCEDURES Edited Result - Final * CT Head w/o Contrast (06/24/2024 7:28 PM EST) Anatomical Region Laterality Modality Head, Neck Computed Tomogra phy 06/24/2024 7:28 PM EST Narrative 06/24/2024 7:30 PM EST ? [facility] ?[address] ?[place] [address] ? CT Scan Report ? Signed ? Patient: Paola,Lidagma ?MR#: [id number] ?? 356 ? : 1975 ?Acct:[id number] ? Age/Sex: 48 / F ?ADM Date: 02/22/25 ? Loc: HO.ED ? Attending Dr: ? Ordering Physician: Re Barber ?? Date of Service: 06/24/24 ?? Procedure(s): CT head/brain wo IV con ?? Accession Number(s): [id number] ? cc: Dakota Monet MD; Re Barber ? Report Number: ?? [id number]: Total DLP = 2098.00 mGy-cm ? CLINICAL [...] ? DD/ 27 ? TD/TT: 06/24/241927 ? Food Services Coordinator: ? Procedure Note Nallely, Image - 06/24/[address] [place] [address] [address] Scan Report Signed Patient: Gerald Guevaar#: [id number] 356 : 1975Acct:[id number] Age/Sex: 48 / FADM Date: 06/24/24 Loc: HO.ED Attending Dr: Ordering Physician: Re Barber Date of Service: 06/24/24 Procedure(s): CT head/brain wo IV con Accession Number(s): [id number] cc: Dakota Monet MD; Re Barber Report Number: [id number]: Total DLP = 2098.00 mGy-cm CLINICAL HISTORY: [...] in OV> 06/24/241928 DD/ 27 TD/TT: 06/24/241927 Food Services Coordinator: [facility] External Provider IMG CT PROCEDURES Edited Result - Final * CT Cervical Spine w/o Contrast (06/24/2024 7:25 PM EST) Anatomical Region Laterality Modality Spine, C-spine Computed Tomogra phy 06/24/2024 7:25 PM EST Narrative 06/24/2024 7:27 PM EST ? [facility] ?[address] ?[place] [address] ? CT Scan Report ? Signed ? Patient: Paola,Lidagma ?MR#: [id number] ?? 356 ? : 1975 ?Acct:[id number] ? Age/Sex: 48 / F ?ADM Date: 06/24/24 ? Loc: HO.ED ? Attending Dr: ? Ordering Physician: Re Barber ?? Date of Service: 06/24/24 ?? Procedure(s): CT cervical spine wo IV con ?? Accession Number(s): [id number] ? cc: Dakota Monet MD; Re Barber ? Report Number: ?? [id number]: Total DLP = 2098.00 mGy-cm ? CLINICAL [...] ? DD/ 24 ? TD/TT: 06/24/241924 ? Food Services Coordinator: ? Procedure Note Dondanielter, Image - 06/24/[address] [place] [address] [address] Scan Report Signed Patient: Gerald Guevara#: [id number] 356 : 1975Acct:[id number] Age/Sex: 48 / FADM Date: 06/24/24 Loc: HO.ED Attending Dr: Ordering Physician: Re Barber Date of Service: 06/24/24 Procedure(s): CT cervical spine wo IV con Accession Number(s): [id number] cc: Dakota Monet MD; Re Barber Report Number: [id number]: Total DLP = 2098.00 mGy-cm CLINICAL HISTORY: [...] in OV> 06/24/241925 DD/ 24 TD/TT: 06/24/241924 Food Services Coordinator: us [facility] External Provider IMG CT PROCEDURES Edited Result - Final * BI Mammogram Screening Tomosynthesis Bilateral (04/29/2024 8:25 AM EST) Anatomical Region Laterality Modality Breast Bilateral Mammography 04/29/2024 8:25 AM EST Narrative 05/12/2024 3:20 PM EST ? [facility] [place] ? [address] ?[place] [address] ? Mammography Report ? Signed ? Patient: Paola,Lidagma ?MR#: [id number] ?? 356 ? : 1975 ?Acct:[id number] ? Age/Sex: 48 / F ?ADM Date: 04/29/ ? Loc: HO.MAMMO ? Attending Dr: Dakota Monet MD ? Ordering Physician: Dakota Monet MD ?Results: 2 ?? Benign Findings ? Date of Service: 04/29/ ?Follow Up: 1 Year From Orig ?? inal Mammogram ? Procedure(s): MM tomosynthesis screening BI ?? Accession Number(s): [id number] ? cc: Dakota Monet MD ? EXAMINATION: [...] DD/ 0825 ? TD/TT: 04/29/24 0836 ? Food Services Coordinator: ? Procedure Note Maximinojami, Image - 05/12/2024 [facility] [address] [place] [address] Mammography Report Signed Patient: Gerald Guevara#: [id number] 356 : 1975Acct:[id number] Age/Sex: 48 / FADM Date: 04/29/24 Loc: HO.MAMMO Attending Dr: Dakota Monet MD Ordering Physician: Dakota Monet MDResults: 2 Benign Findings Date of Service: 04/29/24Follow Up: 1 Year From Orig inal Mammogram Procedure(s): MM tomosynthesis screening BI Accession Number(s): [id number] cc: Dakota Monet MD EXAMINATION: MM SCREENING [...] 05/12/24 1516 DD/ 0825 TD/TT: 04/29/24 0836 Food Services Coordinator: Dakota Monet MD IMG BI PROCEDURES Final [...] historic and ?? current clinical information. ?? Road Mender : SEE COMMENT [facility] Comment: KF, CT(ASCP) CT screening location: [address] ??[address] Interpretation/R esult: Negative for intraepithelial lesion or malignancy. [facility] LMP: NONE GIVEN [facility] Prev. BX: NONE GIVEN [facility] Prev. PAP: NONE GIVEN [facility] SOURCE: None given [facility] Statement Of Adequacy: SEE COMMENT [facility] Comment: Satisfactory for evaluation. Endocervical/transformation zone component absent. Age and/or menstrual status not provided 11/27/2020 3:44 PM EDT [facility] PATHOLOGY ORDERABLES Final Result Performing Organization Address [facility] de Phone Number [facility] [address] * HPV mRNA E6/E7 (11/27/2020 3:44 PM EDT) HPV nRNA E6/E7 Not Detected Not Detected [facility] Comment: Methodology: Hopper Attendant-Mediated Amplification This assay detects E6/E7 viral messenger RNA (mRNA) from 14 high-risk HPV types (16,18,31,33,35,39,45,51,52,56,58,59,66,68). ? The analytical performance characteristics of this assay have been determined by [employer]. The modifications have not been cleared or approved by the FDA. This assay has been validated pursuant to the CLIA regulations and is used for clinical purposes. ?? For additional information, please refer to http://education.[employer]/faq/IBC302l9 (This link if provided for information/ educational purposes only.) 11/27/2020 3:44 PM EDT [facility] BLOOD ORDERABLES Josiane l Result Performing Organization Address [facility] Co de Phone Number [facility] [address] from Last 3 Months or Most Recently Relevant to Health Maintenance Insurance [facility] , [address] [place] [address] Care Teams Nylon Mender Relationship Specialty Start Date End Date Dakota Monet MD [address] [place] [phone] PCP - General Internal Medicine 05/10/13
--- OUTSIDE RECORDS SUMMARY | 2024-07-03 18:38 | XMS_ITS | Encounter Summary ---
Author Organization [employer] Address [address] [place] [address] Care Team Providers Care Herbarium Worker Name Role Phone Dkaota Monet MD Primary Care Provider [phone] Reason for Visit * Reason Onset Date Comments Results 01/06/2023 Encounter Details Date Type Department Care Team ([facility] st Contact Info) Description 01/06/2023 Telephone [facility] [address] [place], [place] [phone] Dakota Monet MD [address] [place] [address] Results Social History Tobacco Use Types Packs/Day [...] States she will get the vaccine at [facility] pharmacy. Pt also requesting this message [...] verbalized understanding. Pt reports no access to [facility]. RN informed link will be sent to [...] 3:30 PM EDT Office Visit [facility] [address] [place] [address] Dakota Monet MD [address] [place] [address] documented as of this encounter Visit Diagnoses Diagnosis Chronic pain syndrome documented in this encounter Additional Health Concerns Assessment Noted Time PHQ-9 Depression Total Score: 10 023 3:54 PM EST documented as of this encounter Care Teams Herbarium Worker Relationship Specialty Start Date End Date Dakota Monet MD [address] [place] [address] PCP - General Internal Medicine 05/10/13 documented as of this encounter
--- OUTSIDE RECORDS SUMMARY | 2024-07-03 18:38 | XMS_ITS | Encounter Summary ---
Author Organization [employer] Address [address] [place] [address] [facility] [address] Care Team Providers Care Motors And Controls Tester Name Role Phone Dakota Monet MD Primary Care Provider [phone] Encounter Details Date Type Department Care Team ([facility] Contact Info) Description 2023 Orders Only [facility] [address] [place], [place] [phone] Dakota Monet MD [address] [place] [address] Social History Tobacco Use Types Packs/Day Years [...] [facility] [address] [place], [place] [phone] Dakota Monet MD [address] [place] [address] documented as of this encounter Visit Diagnoses Not on filedocumented in this encounter Additional Health Concerns Assessment Noted Time PHQ-9 Depression Total Score: 10 023 3:54 PM EST documented as of this encounter Care Teams Motors And Controls Tester Relationship Specialty Start Date End Date Dakota Monet MD [address] [place] [address] [place] [address] PCP - General Internal Medicine 05/10/13 documented as of this encounter
--- OUTSIDE RECORDS SUMMARY | 2024-07-03 18:38 | XMS_ITS | Encounter Summary ---
Author Organization [employer] Address [address] [place] [address] 7 [place] [address] Care Team Providers Care Project Control Manager Name Role Phone Dakota Monet MD Primary Care Provider [phone]- [phone] Encounter Details Date Type Department Care Team (Latest Contact Info) Description 03/17/2023 Orders Only [facility] MED & PEDS [address] [place], [place] [phone] Dakota Monet MD 505 [place] [address] Neurofibromatosis syndrome (CMS/HCC) (Primary Dx) Social History [...] [facility] [address] [place], [place] [phone] Dakota Monet MD 505 [place] [address] documented as of this encounter Visit Diagnoses Diagnosis Neurofibromatosis syndrome (CMS/HCC)- Primary Neurofibromatosis, unspecified documented in this encounter Additional Health Concerns Assessment Noted Time PHQ-9 Depression Total Score: 10 023 3:54 PM EST documented as of this encounter Care Teams Project Control Manager Relationship Specialty Start Date End Date Dakota Monet MD 505 [place] [address] PCP - General Internal Medicine 05/10/13 documented as of this encounter
--- OUTSIDE RECORDS SUMMARY | 2024-07-03 18:38 | XMS_ITS | Encounter Summary ---
Author Organization [employer] Address [address] [place] [address] Care Team Providers Care Land Management Forester Name Role Phone Dakota Monet MD Primary Care Provider +[phone] Reason for Visit * Reason Comments Med Refill Encounter Details Date Type Department Care Team ([facility] Contact Info) Description 01/16/2024 Refill [facility] MED & PEDS [address] [place] [address] Dakota Monet MD 505 [place] [address] Chronic pain syndrome; Chronic right-sided low back [...] Upcoming Encounters Date Type Department Care Team ([facility] Contact Info) Description 07/17/2024 3:30 PM EDT Office Visit [facility] MED & PEDS [address] [place] [address] Dakota Monet MD 505 [place] [address] documented as of this encounter Visit Diagnoses Diagnosis Chronic pain syndrome Chronic right-sided low back pain with right-sided sciatica documented in this encounter Additional Health Concerns Assessment Noted Time PHQ-9 Depression Total Score: 10 023 3:54 PM EST documented as of this encounter Care Teams Land Management Forester Relationship Specialty Start Date End Date Dakota Monet MD 505 [place] [address] PCP - General Internal Medicine 05/10/13 documented as of this encounter
--- OUTSIDE RECORDS SUMMARY | 2024-07-03 18:38 | XMS_ITS | Encounter Summary ---
Author Organization [employer] Address [address] [place] [address] 7 [place] [address] Care Team Providers Care Land Developer Name Role Phone Dakota Monet MD Primary Care Provider [phone]- [phone] Encounter Details Date Type Department Care Team (Late Contact Info) Description 06/22/2024 Orders Only [facility] MED & PEDS [address] [place] [address] Dakota Monet MD 505 [place] [address] Chronic migraine with aura without status migrainosus, [...] [facility] MED & PEDS [address] [place] [address] Dakota Monet MD 505 [facility] [place] [address] documented as of this encounter Procedures Procedure [...] EST Narrative 06/24/2024 7:37 PM EST ? [facility] ?[address] ?[place] [address] ? CT Scan Report ? Signed ? Patient: Paola,Lidagma ?MR#: [id number] ?? 356 ? : 1975 ?Acct:[id number] ? Age/Sex: 48 / F ?ADM Date: 06/24/24 ? Loc: HO.ED ? Attending Dr: ? Ordering Physician: Re Barber ?? Date of Service: 06/24/24 ?? Procedure(s): CT lumbar spine wo IV con ?? Accession Number(s): [id number] ? cc: Dakota Monet MD; Re Barber ? Report Number: ?? [id number]: Total DLP = 2098.00 mGy-cm ? CLINICAL [...] Moderate to severe stool burden in the bggxi-bx-yliq. Cholelithiasis in ?? the yyypf-lu-bwmv. ? IMPRESSION: ?? 1. No acute fracture of the lumbar spine. ? 2. Worsening lower lumbar facet arthropathy compared to 11/07/2021. ? This document has been electronically signed by: Javed Queen MD on ?? 06/24/2024 19:36:00 ? Dictated By: ?Javed Queen MD ? Signed By: ?<Electronically signed by Javed Queen MD in OV> ? 06/24/24 1936 ? DD/ 35 ? TD/TT: 06/24/241935 ? Hearing Therapy Director: ? Procedure Note Dondanielter, Image - 06/24/[address] [place] [address] [address] Scan Report Signed Patient: Gerald Guevara#: [id number] 356 : 1975Acct:[id number] Age/Sex: 48 / FADM Date: 06/24/24 Loc: HO.ED Attending Dr: Ordering Physician: Re Barber Date of Service: 06/24/24 Procedure(s): CT lumbar spine wo IV con Accession Number(s): [id number] cc: Dakota Monet MD; Re Barber Report Number: [id number]: Total DLP = 2098.00 mGy-cm CLINICAL HISTORY: [...] Moderate to severe stool burden in the rgyvs-gy-yuut. Cholelithiasis in the leiqd-dr-jyoh. IMPRESSION: 1. No acute fracture of the lumbar spine. 2. Worsening lower lumbar facet arthropathy compared to 11/07/2021. This document has been electronically signed by: Javed Queen MD on 06/24/2024 19:36:00 Dictated By: Javed Queen MD Signed By: <Electronically signed by Javed Queen MD in OV> 06/24/241935 DD/ 35 TD/TT: 06/24/241935 Hearing Therapy Director: [facility] External Provider IMG CT PROCEDURES Edited Result - Final * CT Chest w/o Contrast (06/24/2024 7:33 PM EST) Anatomical Region Laterality Modality Body, Chest Computed Tomogra phy 06/24/2024 7:33 PM EST Narrative 06/24/2024 7:35 PM EST ? [facility] ?[address] ?[place] [address] ? CT Scan Report ? Signed ? Patient: Paola,Lidagma ?MR#: [id number] ?? 356 ? : 1975 ?Acct:[id number] ? Age/Sex: 48 / F ?ADM Date: 06/24/24 ? Loc: HO.ED ? Attending Dr: ? Ordering Physician: Kaylan Underwood CNP ?? Date of Service: 06/24/24 ?? Procedure(s): CT chest wo IV con ?? Accession Number(s): [id number] ? cc: Kaylan Underwood CNP; Dakota Monet MD ? Report Number: ?? [id number]: Total DLP = 2098.00 mGy-cm ? CLINICAL [...] ? DD/ 32 ? TD/TT: 06/24/241932 ? Hearing Therapy Director: ? Procedure Note Nallely, Satish - 06/24/[address] [place] [address] [address] Scan Report Signed Patient: Gerald Guevara#: [id number] 356 : 1975Acct:[id number] Age/Sex: 48 / FADM Date: 06/24/24 Loc: HO.ED Attending Dr: Ordering Physician: Kaylan Underwood CNP Date of Service: 06/24/24 Procedure(s): CT chest wo IV con Accession Number(s): [id number] cc: Kaylan Underwood CNP; Dakota Monet MD Report Number: [id number]: Total DLP = 2098.00 mGy-cm CLINICAL HISTORY: [...] in OV> 06/24/241933 DD/ 32 TD/TT: 06/24/241932 Hearing Therapy Director: [facility] External Provider IMG CT PROCEDURES Edited Result - Final * CT Head w/o Contrast (06/24/2024 7:28 PM EST) Anatomical Region Laterality Modality Head, Neck Computed Tomogra phy 06/24/2024 7:28 PM EST Narrative 06/24/2024 7:30 PM EST ? [facility] ?[address] ?[place] [address] ? CT Scan Report ? Signed ? Patient: Paola,Lidagma ?MR#: [id number] ?? 356 ? : 1975 ?Acct:[id number] ? Age/Sex: 48 / F ?ADM Date: 06/24/24 ? Loc: HO.ED ? Attending Dr: ? Ordering Physician: Re Barber ?? Date of Service: 06/24/24 ?? Procedure(s): CT head/brain wo IV con ?? Accession Number(s): [id number] ? cc: Dakota Monet MD; Re Barber ? Report Number: ?? [id number]: Total DLP = 2098.00 mGy-cm ? CLINICAL [...] ? DD/ 27 ? TD/TT: 06/24/241927 ? Hearing Therapy Director: ? Procedure Note Nallely, Image - 06/24/[address] [place] [address] [address] Scan Report Signed Patient: Gerald Guevara#: [id number] 356 : 1975Acct:[id number] Age/Sex: 48 / FADM Date: 06/24/24 Loc: HO.ED Attending Dr: Ordering Physician: Re Barber Date of Service: 06/24/24 Procedure(s): CT head/brain wo IV con Accession Number(s): [id number] cc: Dakota Monet MD; Re Barber Report Number: [id number]: Total DLP = 2098.00 mGy-cm CLINICAL HISTORY: [...] in OV> 06/24/241928 DD/ 27 TD/TT: 06/24/241927 Hearing Therapy Director: [facility] External Provider IMG CT PROCEDURES Edited Result - Final * CT Cervical Spine w/o Contrast (06/24/2024 7:25 PM EST) Anatomical Region Laterality Modality Spine, C-spine Computed Tomogra phy 06/24/2024 7:25 PM EST Narrative 06/24/2024 7:27 PM EST ? [facility] ?[address] ?[place] [address] ? CT Scan Report ? Signed ? Patient: Paola,Lidagma ?MR#: [id number] ?? 356 ? : 1975 ?Acct:[id number] ? Age/Sex: 48 / F ?ADM Date: 06/24/24 ? Loc: HO.ED ? Attending Dr: ? Ordering Physician: Re Barber ?? Date of Service: 06/24/24 ?? Procedure(s): CT cervical spine wo IV con ?? Accession Number(s): [id number] ? cc: Dakota Monet MD; Re Barber ? Report Number: ?? [id number]: Total DLP = 2098.00 mGy-cm ? CLINICAL [...] ? DD/ 24 ? TD/TT: 06/24/241924 ? Hearing Therapy Director: ? Procedure Note Donotuseinterpreter, Image - 06/24/[address] [address] [address] Scan Report Signed Patient: Gerald Guevara#: [id number] 356 : 1975Acct:[id number] Age/Sex: 48 / FADM Date: 06/24/24 Loc: HO.ED Attending Dr: Ordering Physician: Re Barber Date of Service: 06/24/24 Procedure(s): CT cervical spine wo IV con Accession Number(s): [id number] cc: Dakota Monet MD; Re Barber Report Number: [id number]: Total DLP = 2098.00 mGy-cm CLINICAL HISTORY: [...] in OV> 06/24/241925 DD/ 24 TD/TT: 06/24/241924 Hearing Therapy Director: [facility] External Provider IMG CT PROCEDURES Edited Result - Final documented in this encounter Visit Diagnoses Diagnosis Chronic migraine with aura without status migrainosus, not intractable- Primary documented in this encounter Additional Health Concerns Assessment Noted Time PHQ-9 Depression Total Score: 10 023 3:54 PM EST documented as of this encounter Care Teams Land Developer Relationship Specialty Start Date End Date Dakota Monet MD [address] [place] [address] PCP - General Internal Medicine 05/10/13 documented as of this encounter
--- OUTSIDE RECORDS SUMMARY | 2024-07-03 18:38 | XMS_ITS | Encounter Summary ---
Author Organization [employer] Address [address] [address] Care Team Providers Care Cardiovascular Surgeon Name Role Phone Dakota Monet MD Primary Care Provider [phone] Reason for Visit * Reason Onset Date Comments PA 06/06/2024 Encounter Details Date Type Department Care Team (Late st Contact Info) Description 06/06/2024 Telephone [facility] MEDICINE [address] [place] [address] Dakota Monet MD [address] [place] [address] PA Social History Tobacco Use Types Packs/Day [...] (Qulipta) 30 MG tablet Contact pt at [phone] * Telephone Encounter - Mike Parkinson - 06/06/2024 8:53 AM EST TC from pt requesting a PA for Medication Atogepant (Qulipta) 30 MG tablet Contact pt at [phone] documented in this encounter Plan of Treatment Upcoming Encounters Date Type Department Care Team ([facility] st Contact Info) Description 07/17/2024 3:30 PM EDT Office Visit [facility] MED & PEDS 505 [place] [address] Dakota Monet MD 505 [place] [address] documented as of this encounter Visit Diagnoses Not on filedocumented in this encounter Additional Health Concerns Assessment Noted Time PHQ-9 Depression Total Score: 10 023 3:54 PM EST documented as of this encounter Care Teams Cardiovascular Surgeon Relationship Specialty Start Date End Date Dakota Monet MD 505 [place] [address] PCP - General Internal Medicine 05/10/13 documented as of this encounter
--- OUTSIDE RECORDS SUMMARY | 2024-07-03 18:38 | XMS_ITS | Encounter Summary ---
Author Organization [employer] Address 75 [facility] 7t [place] [address] Care Team Providers Care Recycling Crew Supervisor Name Role Phone Dakota Monet MD Primary Care Provider [phone] Encounter Details Date Type Department Care Team [...] Description 07/17/2024 3:30 PM EDT Office Visit [facility] CHC MED & PEDS 505 [place] [address] Dakota Monet MD 505 [place] [address] documented as of this encounter Visit Diagnoses Not on filedocumented in this encounter Additional Health Concerns Assessment Noted Time PHQ-9 Depression Total Score: 8 06/29/19 25 3:42 PM EST documented as of this encounter Care Teams Recycling Crew Supervisor Relationship Specialty Start Date End Date Dakota Monet MD 505 [place] [address] PCP - General Internal Medicine 05/10/13 documented as of this encounter
--- OUTSIDE RECORDS SUMMARY | 2024-07-03 18:38 | XMS_ITS | Encounter Summary ---
Author Organization [employer] Address [address] [place] [address] Care Team Providers Care Wind Up Operator Name Role Phone Dakota Monet MD Primary Care Provider [phone] Reason for Visit * Reason Comments Med Refill Encounter Details Date Type Department Care Team ([facility] Contact Info) Description 03/19/2024 Refill [facility] MED & PEDS 505 [place] [address] Dakota Monet MD 505 [place] [address] Primary insomnia Social History Tobacco Use Types [...] Upcoming Encounters Date Type Department Care Team ([facility] Contact Info) Description 07/17/2024 3:30 PM EDT Office Visit [facility] MED & PEDS 505 [place] [address] Dakota Monet MD 505 [place] [address] documented as of this encounter Visit Diagnoses Diagnosis Primary insomnia Persistent disorder of initiating or maintaining sleep documented in this encounter Additional Health Concerns Assessment Noted Time PHQ-9 Depression Total Score: 10 023 3:54 PM EST documented as of this encounter Care Teams Wind Up Operator Relationship Specialty Start Date End Date Dakota Monet MD 505 [place] [address] PCP - General Internal Medicine 05/10/13 documented as of this encounter
--- OUTSIDE RECORDS SUMMARY | 2024-07-03 18:38 | XMS_ITS | Encounter Summary ---
Author Organization [employer] Address 75 [facility] 7 [place] [address] Care Team Providers Care Manager Labor Delivery Name Role Phone Dakota Monet MD Primary Care Provider [phone]- [phone] Reason for Visit * Reason Onset Date Comments Referral 04/12/2024 Encounter Details Date Type Department Care Team ([facility] st Contact Info) Description 04/12/2024 Telephone [facility] MEDICINE [address] [place] [address] Dakota Monet MD 505 [place], [place] [phone] Referral Social History Tobacco Use Types Packs/Day [...] from pt requesting new referral : Address: [address] [place] [address] Facility Name: [facility] Type of Specialist: Neurology * Telephone Encounter - Toño Patel - 04/12/2024 10:06 AM EST TC from pt requesting new referral : Address: [address] [place] [address] Facility Name: [facility] Type of Specialist: Neurology documented in this encounter Plan of Treatment Upcoming Encounters Date Type Department Care Team (Late st Contact Info) Description 07/17/2024 3:30 PM EDT Office Visit [facility] MED & PEDS [address] [place] [address] Dakota Monet MD [address] [place] [address] documented as of this encounter Visit Diagnoses Not on filedocumented in this encounter Additional Health Concerns Assessment Noted Time PHQ-9 Depression Total Score: 10 023 3:54 PM EST documented as of this encounter Care Teams Manager Labor Delivery Relationship Specialty Start Date End Date Dakota Monet MD [address] [place] [address] PCP - General Internal Medicine 05/10/13 documented as of this encounter
--- OUTSIDE RECORDS SUMMARY | 2024-07-03 18:38 | XMS_ITS | Encounter Summary ---
Author Organization [employer] Address [address] [place] [address] Care Team Providers Care Memorial Marker Designer Name Role Phone Dakota Monet MD Primary Care Provider [phone] Reason for Visit * Reason Onset Date Comments Referral 03/19/2023 Encounter Details Date Type Department Care Team ([facility] st Contact Info) Description 03/19/2023 Telephone [facility] CHC MED & PEDS [address] [place], [place] [phone] Dakota Monet MD 505 [place] [address] Referral Social History Tobacco Use Types Packs/Day [...] to ov w/ PCP 04.22.23. Will FYI yard specialist neuro referral on hold for now. * Telephone Encounter - Sharri Gann - 03/22/2023 3:06 PM EST TC to [facility] neuro-surgery and there is doctors that will see patient with diagnosis but requires an MRI? Please advise, thank you. * Telephone Encounter - Didi Calhoun RN - 03/19/2023 3:45 PM EST Placed call to [facility] neuro regarding message below. Referral was received [...] referral for Neurology, pt advised she called [facility] for an appt and [facility] advised they will not see her without explanation in why. Please contact pt at [phone] documented in this encounter Plan of Treatment Upcoming Encounters Date Type Department Care Team (Late st Contact Info) Description 07/17/2024 3:30 PM EDT Office Visit [facility] MED & PEDS [address] [place], [place] [phone] Dakota Monet MD [address] [place] [address] documented as of this encounter Visit Diagnoses Not on filedocumented in this encounter Additional Health Concerns Assessment Noted Time PHQ-9 Depression Total Score: 10 023 3:54 PM EST documented as of this encounter Care Teams Memorial Marker Designer Relationship Specialty Start Date End Date Dakota Monet MD [address] [place] [address] [place] [address] PCP - General Internal Medicine 05/10/13 documented as of this encounter
--- OUTSIDE RECORDS SUMMARY | 2024-07-03 18:38 | XMS_ITS | Encounter Summary ---
Author Organization [employer] Address [address] [place] [address] 7 [place] [address] Care Team Providers Care Detailer Pharmaceuticals Name Role Phone Dakota Monet MD Primary Care Provider [phone] Encounter Details Date Type Department Care Team (Late Contact Info) Description 03/05/[address] [facility] MEDICINE [address] [place] [address] Milagro Bear Social History Tobacco Use Types [...] Description 07/17/2024 3:30 PM EDT Office Visit [facility] CHC MED & PEDS [address] [place], [place] [phone] Dakota Monet MD 505 [place] [address] documented as of this encounter Procedures Procedure [...] documented as of this encounter Care Teams Detailer Pharmaceuticals Relationship Specialty Start Date End Date Dakota Monet MD [address] [place] [address] PCP - General Internal Medicine 05/10/13 documented as of this encounter
--- OUTSIDE RECORDS SUMMARY | 2024-07-03 18:38 | XMS_ITS | Encounter Summary ---
Author Organization [employer] Address [address] [place] [address] Care Team Providers Care Community Living Coach Name Role Phone Dakota Monet MD Primary Care Provider [phone] Reason for Visit * Reason Onset Date Comments ER Follow-up 06/26/2024 Encounter Details Date Type Department Care Team ([facility] st Contact Info) Description 06/26/2024 Telephone [facility] CHC MED & PEDS [address] [place], [place] [phone] Dakota Monet MD 505 [place] [address] ER Follow-up Social History Tobacco Use Types [...] 3:30 PM EDT Office Visit [facility] MED & PEDS [address] [place] [address] Dakota Monet MD 505 [place] [address] documented as of this encounter Visit Diagnoses Not on filedocumented in this encounter Additional Health Concerns Assessment Noted Time PHQ-9 Depression Total Score: 10 023 3:54 PM EST documented as of this encounter Care Teams Community Living Coach Relationship Specialty Start Date End Date Dakota Monet MD 505 [place] [address] PCP - General Internal Medicine 05/10/13 documented as of this encounter
--- OUTSIDE RECORDS SUMMARY | 2024-07-03 18:38 | XMS_ITS | Encounter Summary ---
Author Organization [employer] Address [address] [place] [address] Care Team Providers Care Copy Chief Name Role Phone Dakota Monet MD Primary Care Provider [phone] Reason for Visit * Reason Onset Date Comments chart prep 06/26/2024 Encounter Details Date Type Department Care Team ([facility] st Contact Info) Description 06/26/2024 Telephone [facility] CHC MED & PEDS [address] [place] [address] Dakota Monet MD 505 [place] [address] chart prep Social History Tobacco Use Types [...] Upcoming Encounters Date Type Department Care Team ([facility] st Contact Info) Description 07/17/2024 3:30 PM EDT Office Visit [facility] MED & PEDS [address] [place] [address] Dakota Monet MD 505 [place] [address] documented as of this encounter Visit Diagnoses Not on filedocumented in this encounter Additional Health Concerns Assessment Noted Time PHQ-9 Depression Total Score: 10 023 3:54 PM EST documented as of this encounter Care Teams Copy Chief Relationship Specialty Start Date End Date Dakota Monet MD 505 [place] [address] PCP - General Internal Medicine 05/10/13 documented as of this encounter
== END 2024-07-03 15:23 | disposition home or self-care (01) ==
LOC: HO.LNP 15:22
PROVIDERS: PCP Internal Medicine; Visit Provider Surgery
DX: D23.72 Other benign neoplasm of skin of left lower limb, including hip (principal); D36.13 Benign neoplasm of peripheral nerves and autonomic nervous system of lower limb, including hip
CPT/HCPCS: 11402; 11403; 11622; 88304; 88305; 88341; 88342

== ENCOUNTER 2024-07-20 15:22 | Outpatient (AMB) | payer OTHER, SELFPAY ==
--- NOTE | 2024-07-20 15:44 | A.OFFVIS_ITS ---
Intake Visit Reasons: stitches removal left foot Allergies No Known Allergies Allergy (Verified 07/03/24 15:23) HPI HPI stitches removal left foot: Details: She underwent excision of a skin lesion from the left foot weeks ago. She is here for postop visit and for removal sutures. She denies significant pain. [facility] Medical History Foot lesion COVID-19 vaccine series completed No pertinent past medical history Surgical History History of excision of lesion (~07/03/24) Hx of colonoscopy Hx of tubal ligation Hx of bilateral breast reduction surgery Hx of section Family History Mother Pancreas cancer Father Testicular cancer Paternal Aunt Colon cancer Breast CA Son URVASHI (juvenile rheumatoid arthritis) Social History Household Members: Children Household Members Other:: cat Are you a primary healthcare architect to a significant other at home: No Do you presently have visiting nurse or other home services: No Alcohol intake: current Alcohol intake frequency: holidays/special occasions only Patient Tobacco Use Status: Never used Tobacco Substance Use Type: Marijuana Current occupational status: employed 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 I removed her sutures. The wound edges remained well apposed. She can follow up on a p.r.n. basis. Coding Level of Care Code Global (14260) Diagnoses Foot lesion L98.9
== END 2024-07-20 15:50 | disposition home or self-care (01) ==
LOC: HO.HGS 15:23
PROVIDERS: PCP Internal Medicine; Visit Provider Surgery
DX: L98.9 Disorder of the skin and subcutaneous tissue, unspecified (principal)
CPT/HCPCS: 99024

== ENCOUNTER 2024-09-26 08:16 | Outpatient (REF) | payer OTHER, SELFPAY ==
--- NOTE | ~2024-09-26 | US_ITS ---
CLINICAL HISTORY: Transaminitis Ultrasound of the abdomen Comparison: None Findings: The liver is normal in size, measuring 14.6cm. Normal echogenicity without focal lesions. Normal flow is visualized within the portal vein. No intrahepatic biliary ductal dilatation. The gallbladder is filled with stones. There on non mobile, impacted stones in the neck of the gallbladder. No gallbladder wall thickening or pericholecystic fluid. Negative Gómez's sign. The common bile duct is normal, measuring 0.2cm. Unremarkable limited evaluation of the pancreas. The right kidney is normal in echogenicity and size, measuring 9.8cm. No nephrolithiasis or hydronephrosis. The left kidney is normal echogenicity and size, measuring 10.3cm. No nephrolithiasis or hydronephrosis. The spleen is without focal lesions and normal in size, measuring 11.0cm. The aorta and IVC are unremarkable. No ascites. Impression: Cholelithiasis without acute cholecystitis. This document has been electronically signed by: Franca Mendoza MD on 09/26/2024 14:29:32
== END 2024-09-26 08:17 | disposition home or self-care (01) ==
LOC: HO.US 08:16
PROVIDERS: PCP Internal Medicine; Visit Provider Internal Medicine
DX: R74.01 Elevation of levels of liver transaminase levels (principal)
CPT/HCPCS: 76700

== ENCOUNTER → 2024-09-26 08:19 | Outpatient (BNV) | payer OTHER, SELFPAY | PROVIDERS: PCP Internal Medicine; Visit Provider Radiology Diagnostic Radiology | DX: K80.20 Calculus of gallbladder without cholecystitis without obstruction (principal) | CPT/HCPCS: 76700 ==

== ENCOUNTER 2024-11-22 14:10 | Outpatient (AMB) | payer OTHER, SELFPAY ==
--- NOTE | 2024-11-22 14:13 | MHC.OFFVIS ---
Vital Signs 11/22/24 14:19 Height 4 ft 10 in Weight 148 lb BMI 30.9 BP 110/58 L Blood Pressure Location Rt brachial Position Sitting Pulse 89 Intake Visit Reasons: Gallbladder problems Intake Note: Patient referred by pcp Dr. Monet for evaluation and treatment of Calculus of gallbladder. Patient c/o: denies pain, nausea, diarrhea. 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: No Accompanied by: Self / Same As Patient Allergies No Known Allergies Allergy (Verified 11/22/24 14:18) Medication List - Last Reconciled 11/22/24 by George Smith MD butalbital-acetaminophen 50-325 mg 1 - 2 tabs orally a day as needed for headache PRN; 30 days hydroxyzine pamoate 25 mg PO TID PRN levonorgestrel (Mirena) intrauterine lidocaine 5% (Lidoderm) 1 patch topical DAILY loratadine 10 mg PO DAILY PRN melatonin 10 mg PO BEDTIME PRN meloxicam 15 mg PO DAILY paroxetine HCl 40 mg PO QAM pregabalin 200 mg PO TID quetiapine 150 mg PO BEDTIME sennosides (senna) 8.6 mg PO BEDTIME PRN sumatriptan succinate 50 mg PO DAILY PRN tizanidine 4 mg PO BEDTIME topiramate 100 mg PO BEDTIME trazodone 50 - 100 mg PO BEDTIME PRN HPI HPI Gallbladder problems: Details: 48 year female here for gallstones. She apparently had slightly elevated ALT last Aug, 2024 shows she was sent by her primary care physician for an ultrasound. This showed an incidental finding of gallstones She says she has never had any right upper quadrant pain. She denies any problems with oral intake. She says she actually feels well overall. 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 COUNTS INCLUDE 234 BEDS AT THE [facility] Medical History (Updated 11/22/24 @ 14:37 by George mSith MD) Gallstones Foot lesion COVID-19 vaccine series completed No pertinent past medical history Surgical History History of excision of lesion (~07/03/24) Hx of colonoscopy Hx of tubal ligation Hx of bilateral breast reduction surgery Hx of section Family History Mother Pancreas cancer Father Testicular cancer Paternal Aunt Colon cancer Breast CA Son JRMary Ann (juvenile rheumatoid arthritis) Social History Household Members: Children Household Members Other:: cat Are you a primary family day carer to a significant other at home: No Do you presently have visiting nurse or other home services: No Alcohol intake: current Alcohol intake frequency: holidays/special occasions only Patient Tobacco Use Status: Never used Tobacco Substance Use Type: Marijuana Current occupational status: employed 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, 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 Review of Systems Const Denies chills and Denies fever(s) Card Denies chest pain, Denies dyspnea and Denies dyspnea on exertion Resp Denies cough, Denies dyspnea and Denies dyspnea on exertion GI Denies hematochezia and Denies change in bowel habits Denies hematuria Musc Denies back pain and Denies limited range of motion Neuro Denies focal weakness and Denies convulsions Psych Denies depression and Denies mood swings Physical Exam Vital Signs: Last Vital Signs Pulse 89 11/22/24 14:19 BP 110/58 L 11/22/24 14:19 BMI result Body Mass Index 30.9 Const Other: Neurofibromatosis all over General: comfortable and no acute distress Orientation/consciousness: patient oriented x3 Neck Neck: Yes no lymphadenopathy Resp Auscultation: clear to auscultation bilaterally Cardio Rhythm: regular rhythm GI Palpation (GI): Soft to palpation, nontender and no guarding Neuro General: patient oriented x3 Assessment & Plan Assessment & Plan (1) Gallstones: Code(s): K80.20 - Calculus of gallbladder without cholecystitis without obstruction Category: Medical Plan: She had an incidental finding of gallstones on ultrasound last Aug, 2024 he had she denies any pain in the right upper quadrant. She denies any GI complaints. She has good oral intake. I told her that in the absence of symptoms, we may hold off on doing any cholecystectomy. I told her about symptoms of gallbladder disease. I told her that if she develops any of these, she is welcome to come back to the office to be re-evaluated She understands the plan and is comfortable with this. Coding Level of Care Code Est Pt Level 3 (91560) Diagnoses Gallstones K80.20
[2024-11-22 14:19] VITALS: BP 110/58; PULSE 89; BMI 30.9
--- OUTSIDE RECORDS SUMMARY | 2024-11-22 14:52 | XMS_ITS | Encounter Summary ---
Author Organization [employer] Address [address] [place] [address] Care Team Providers Care Cognos Bi Administrator Name Role Phone Dakota Monet MD Primary Care Provider [phone] Reason for Referral * Imaging (Routine) - Closed Specialty Diagnoses / Procedures Referred By Contanabela adrian Referred To Contact Radiology Diagnoses Transaminitis Procedures US Abdomen Complete Dakota Monet MD [address] [place] [address] Phone: tel: fax: [address] Phone: tel: fax: Referral ID Status Reason Start Date Expiration Date Visits Re quested Visits Authorized [id number] Closed 06/30/2024 06/30/2025 1 1 Encounter Details Date Type Department Care Team (Late st Contact Info) Description 06/30/2024 Orders Only [facility] MEDICINE [address] [place] [address] Dakota Monet MD [address] [place], [place] [phone] Transaminitis (Primary Dx) Social History Tobacco Use [...] as of this encounter Plan of Treatment Not on file documented as of this encounter Procedures Procedure Name Priority Date/Time Associated Diagnosis Comments US ABDOMEN COMPLETE Routine 09/26/2024 2 :29 PM EDT Transaminitis HEPATITIS PANEL, GENERAL Routine 07/01/2024 8:14 AM EST Transaminitis documented in this encounter Results * US Abdomen Complete (09/26/2024 2:29 PM EDT) Anatomical Region Laterality Modality Abdomen Ultrasound 09/26/2024 2:29 PM EDT Narrative 09/26/2024 2:30 PM EDT [address] [address] Ultrasound Report Signed Patient: Cornel Guevara MR#: [id number] 356 : 1975 Acct:[id number] Age/Sex: 48 / F ADM Date: 09/26/24 Loc: HO.US Attending Dr: Dakota Monet MD Ordering Physician: Dakota Monet MD Date of Service: 09/26/24 Procedure(s): US abdomen complete Accession Number(s): [id number] cc: Dakota Monet MD CLINICAL HISTORY: Transaminitis Ultrasound of the abdomen Comparison: None Findings: The liver is normal in size, measuring 14.6cm. Normal echogenicity without focal lesions. Normal flow is visualized within the portal vein. No intrahepatic biliary ductal dilatation. The gallbladder is filled with stones. There on non mobile, impacted stones in the neck of the gallbladder. No gallbladder wall thickening or pericholecystic fluid. Negative Gómez's sign. The common bile duct is normal, measuring 0.2cm. Unremarkable limited evaluation of the pancreas. The right kidney is normal in echogenicity and size, measuring 9.8cm. No nephrolithiasis or hydronephrosis. The left kidney is normal echogenicity and size, measuring 10.3cm. No nephrolithiasis or hydronephrosis. The spleen is without focal lesions and normal in size, measuring 11.0cm. The aorta and IVC are unremarkable. No ascites. Impression: Cholelithiasis without acute cholecystitis. This document has been electronically signed by: Franca Mendoza MD on 09/26/2024 14:29:32 Dictated By: Franca Chavez MD Signed By: <Electronically signed by Franca Chavez MD in OV> 09/26/24 1430 DD/ 1429 TD/TT: 09/26/24 142 Manager Economic: Procedure Note Donotuseinterpreter, Image - 09/26/[address] [address] Ultrasound Report Signed Patient: Gerald Guevara#: [id number] 356 : 1975Acct:[id number] Age/Sex: 48 / FADM Date: 09/26/24 Loc: HO.US Attending Dr: Dakota Monet MD Ordering Physician: Dakota Monet MD Date of Service: 09/26/24 Procedure(s): US abdomen complete Accession Number(s): [id number] cc: Dakota Monet MD CLINICAL HISTORY: Transaminitis Ultrasound of the abdomen Comparison: None Findings: The liver is normal in size, measuring 14.6cm. Normal echogenicity without focal lesions. Normal flow is visualized within the portal vein. No intrahepatic biliary ductal dilatation. The gallbladder is filled with stones. There on non mobile, impacted stones in the neck of the gallbladder. No gallbladder wall thickening or pericholecystic fluid. Negative Gómez's sign. The common bile duct is normal, measuring 0.2cm. Unremarkable limited evaluation of the pancreas. The right kidney is normal in echogenicity and size, measuring 9.8cm. No nephrolithiasis or hydronephrosis. The left kidney is normal echogenicity and size, measuring 10.3cm. No nephrolithiasis or hydronephrosis. The spleen is without focal lesions and normal in size, measuring 11.0cm. The aorta and IVC are unremarkable. No ascites. Impression: Cholelithiasis without acute cholecystitis. This document has been electronically signed by: Franca Mendoza MD on 09/26/2024 14:29:32 Dictated By: Franca Chavez MD Signed By: <Electronically signed by Franca Chavez MD in OV> 09/26/24 1430 DD/ 1429 TD/TT: 09/26/24 1429 Manager Economic: us Dakota Monet MD IMG US PROCEDURES Final Res ult * Hepatitis A,B,C Profile (07/01/2024 8:14 AM EST) Hepatitis A IgM Nonreactive Nonreactive [facility] Comment:IgM antibodies to MAIRE V not detected; does not exclude earlyacute or recovered HAV infection. ~Hepatitis B Surface Antibody REACTIVE Nonreactive [facility] Comment:REACTIVE: > 11.99 mI U/mL Hepatitis B Core Antibody Nonreactive Nonreactive [facility] Hepatitis C Antibody Nonreactive Nonreactive [facility] Comment:Antibodies to HCV no t detected; does not exclude early acuteHCV infection. Blood Venous blood specimen / Unknown 07/01/2024 8:14 AM EST 07/01/2024 8:14 AM EST us Dakota Monet MD LAB BLOOD ORDERABLES Final Result [facility] [address] [place] [phone] [phone] documented in this encounter Visit Diagnoses Diagnosis Transaminitis- Primary Nonspecific elevation of levels of transaminase or lactic acid dehydrogenase (LDH) documented in this encounter Additional Health Concerns Assessment Noted Time PHQ-9 Depression Total Score: 8 06/29/19 25 3:42 PM EST documented as of this encounter Care Teams Cognos Bi Administrator Relationship Specialty Start Date End Date Dakota Monet MD [address] [place] [phone] PCP - General Internal Medicine 05/10/13 documented as of this encounter
== END 2024-11-22 14:34 | disposition home or self-care (01) ==
LOC: HO.HGS 14:11
PROVIDERS: PCP Internal Medicine; Visit Provider Surgery
DX: K80.20 Calculus of gallbladder without cholecystitis without obstruction (principal)
CPT/HCPCS: 99213

== ENCOUNTER 2024-12-20 15:04 | Outpatient (AMB) | payer OTHER, SELFPAY ==
--- NOTE | 2024-12-20 15:16 | A.OFFVIS_ITS ---
Vital Signs 12/20/24 15:17 Height 4 ft 10 in Weight 149 lb BMI 31.1 BP 123/60 Blood Pressure Location Lt brachial Position Sitting Respiration 18 Pulse 88 Pulse Source Pulse Oximeter Pulse Oximetry (%) 100 Oxygen Delivery Method Room Air Intake Visit Reasons: Back Pain MICA 10/21/23 Skoog Machine Operator Required: No Allergies No Known Allergies Allergy (Verified 12/20/24 15:16) HPI Comments Details: Cornel is back in my office with request to perform right sacroiliac joint injection again for her. Last time her injection was denied by insurance company because she had physical therapy long time ago. She change her insurance company due to change of the employment. Previous insurance company allowed us to perform : 1. diagnostic sacroiliac joint injection in the right which was very successful, 2. After the she received therapeutic sacroiliac joint 2 times with relatively good results each time her pain relief lasted several weeks. I will send this patient for physical therapy, after she will complete physical therapy I will schedule her again for right sacroiliac joint injection. Other options for the patient would include sacroiliac joint fusion, sacroiliac joint innervation stimulation Curonix and possibly sprint PNS on medial cluneal nerve at the projection of the 2nd sacral foramina lateral border could be tried. However all this procedures would require her to abstain from heavy lifting torso twisting forward bending side bending for significant period of time from 8-10 weeks. 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 Then I offered her possible PRP injection into the right sacroiliac joint however it looks like that patient does not want to pay for this procedure. [facility] Medical History (Updated 11/22/24 @ 14:37 by George Smith MD) Gallstones Foot lesion COVID-19 vaccine series completed No pertinent past medical history Surgical History History of excision of lesion (~07/03/24) Hx of colonoscopy Hx of tubal ligation Hx of bilateral breast reduction surgery Hx of section Family History Mother Pancreas cancer Father Testicular cancer Paternal Aunt Colon cancer Breast CA Son JRA (juvenile rheumatoid arthritis) Social History Household Members: Children Household Members Other:: cat Are you a primary chronic care nurse to a significant other at home: No Do you presently have visiting nurse or other home services: No Alcohol intake: current Alcohol intake frequency: holidays/special occasions only Patient Tobacco Use Status: Never used Tobacco Substance Use Type: Marijuana Current occupational status: employed 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, 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 Review of Systems Const All systems reviewed & are unremarkable except as noted in HPI and below Physical Exam Vital Signs: Last Vital Signs Pulse 88 12/20/24 15:17 Resp 18 12/20/24 15:17 BP 123/60 12/20/24 15:17 Pulse Ox 100 12/20/24 15:17 Oxygen Delivery Method Room Air 12/20/24 15:17 BMI result Body Mass Index 31.1 Const General: healthy appearing, no acute distress and well developed Nutritional Appearance: well nourished Orientation/consciousness: patient oriented x3 HEENT Head: Yes normal to inspection, Yes normocephalic and Yes atraumatic Face and sinus: Yes normal facial exam Mouth: Normal oral and palatal mucosa present Throat: Yes posterior oropharynx normal, Yes tonsils normal and Yes uvula midline Eyes General: appearance normal, both eyes and all related structures Neck Neck: Yes normal visual inspection, Yes full ROM and Yes trachea midline Thyroid: Thyroid normal Resp Effort & Inspection: normal respiratory effort, able to speak in complete sentences, no tracheal deviation and symmetric chest movement Auscultation: clear to auscultation bilaterally Cardio Jugular venous distension: no JVD Rate: regular rate Heart sounds: S1 normal heart sound present, S2 normal heart sound present, no gallops and no murmurs GI Inspection: Yes normal to inspection, No distended and Yes obesity Palpation (GI): Soft to palpation, not firm, nontender and No hepatosplenomegaly present Auscultation: normal bowel sounds General: Yes no CVA tenderness Back/Spine/Pelvis Other: No weakness or numbness in bilateral lower extremities able to walk without difficulties stand on bilateral tiptoes and stand on bilateral heels. Loading test is positive on physical exam. Flexing forward and flexing backwards extremely painful. Tenderness of palpation paraspinal spinal region in the projection of the lower lumbar spine. Back: no CVA tenderness Skin General skin exam: elasticity normal, turgor normal and dry skin Neuro General: patient oriented x3 Psych Appearance: grossly normal Mental Status: mental status grossly normal Speech and movement: Normal speech and movement present Affect: normal affect Attitude: cooperative Thought process: Normal thought process present Thought content: Normal thought content present Insight: Good insight present (Psych) Judgement: Good judgement present (Psych) Assessment & Plan Assessment & Plan (1) Polyarthralgia: Code(s): M25.50 - Pain in unspecified joint Category: Medical (2) Spondylosis of lumbar region without myelopathy or radiculopathy: Code(s): M47.816 - Spondylosis without myelopathy or radiculopathy, lumbar region Category: Medical (3) Pain of both sacroiliac joints: Code(s): M53.3 - Sacrococcygeal disorders, not elsewhere classified Category: Medical (4) Sacroiliitis: Code(s): M46.1 - Sacroiliitis, not elsewhere classified Category: Medical (5) Neurofibromatosis: Code(s): Q85.00 - Neurofibromatosis, unspecified Category: Medical (6) Sacroiliac joint dysfunction of both sides: Code(s): M53.3 - Sacrococcygeal disorders, not elsewhere classified Category: Medical Plan In the order to prepare this patient for bilateral diagnostic sacroiliac joint injection I will send her for physical therapy. We agreed that the patient will give us a call when she will complete physical therapy will discuss results of physical therapy and possible schedule her for diagnostic sacroiliac joint injection bilateral. Orders: Orders PT Evaluation and Treatment Today M46.1 - Sacroiliitis, not elsewhere classified, M53.3 - Sacrococcygeal disorders, not elsewhere classified Coding Level of Care Code Est Pt Level 3 (34393) Diagnoses Polyarthralgia M25.50 Spondylosis of lumbar region without myelopathy or radiculopathy M47.816 Pain of both sacroiliac joints M53.3 Sacroiliitis M46.1 Neurofibromatosis Q85.00 Sacroiliac joint dysfunction of both sides M53.3
[2024-12-20 15:17] VITALS: BP 123/60; PULSE 88; RESP 18; O2SAT 100; BMI 31.1
--- OUTSIDE RECORDS SUMMARY | 2024-12-20 16:00 | XMS_ITS | Encounter Summary ---
Author Organization [employer] Address [address] [place] [address] Care Team Providers Care Sheet Layer Name Role Phone Dakota Monet MD Primary Care Provider [phone] Reason for Referral * Imaging (Routine) - Closed Specialty Diagnoses / Procedures Referred By Contanabela adrian Referred To Contact Radiology Diagnoses Transaminitis Procedures US Abdomen Complete Dakota Monet MD [address] [place] [address] Phone: tel: fax: [address] Phone: tel: fax: Referral ID Status Reason Start Date Expiration Date Visits Re quested Visits Authorized [id number] Closed 06/30/2024 06/30/2025 1 1 Encounter Details Date Type Department Care Team (Late st Contact Info) Description 06/30/2024 Orders Only [facility] MEDICINE [address] [place] [address] Dakota Monet MD [address] [place], [place] [phone] Transaminitis (Primary Dx) Social History Tobacco Use [...] Upcoming Encounters Date Type Department Care Team ([facility] st Contact Info) Description 01/31/2025 10:30 AM EDT Office Visit [facility] MED & PEDS [address] [place] [address] Dakota Monet MD [address] [place] [address] documented as of this encounter Procedures Procedure Name Priority Date/Time Associated Diagnosis Comments US ABDOMEN COMPLETE Routine 09/26/2024 2 :29 PM EDT Transaminitis HEPATITIS PANEL, GENERAL Routine 07/01/2024 8:14 AM EST Transaminitis documented in this encounter Results * US Abdomen Complete (09/26/2024 2:29 PM EDT) Anatomical Region Laterality Modality Abdomen Ultrasound 09/26/2024 2:29 PM EDT Narrative 09/26/2024 2:30 PM EDT [place] [address] Ultrasound Report Signed Patient: Cornel Guevara MR#: [id number] 356 : 1975 Acct:[id number] Age/Sex: 48 / F ADM Date: 09/26/24 Loc: HO.US Attending Dr: Dakota Monet MD Ordering Physician: Dakota Monet MD Date of Service: 09/26/24 Procedure(s): US abdomen complete Accession Number(s): [id number] cc: Dakota Monet MD CLINICAL HISTORY: Transaminitis [...] Chavez MD in OV> 09/26/24 1430 DD/ 28 TD/TT: 09/26/241428 Educational Recruiter: Procedure Note Donotvolodymyrter, Image - 09/26/2024 [place] [address] Ultrasound Report Signed Patient: Gerald Guevara#: [id number] 356 : 1975Acct:[id number] Age/Sex: 48 / FADM Date: 09/26/24 Loc: HO.US Attending Dr: Dakota Monet MD Ordering Physician: Dakota Monet MD Date of Service: 09/26/24 Procedure(s): US abdomen complete Accession Number(s): [id number] cc: Dakota Monet MD CLINICAL HISTORY: Transaminitis [...] Chavez MD in OV> 09/26/24 1430 DD/ 28 TD/TT: 05/27/25 1429 Educational Recruiter: us Dakota Monet MD IMG US PROCEDURES Final Res ult * Hepatitis A,B,C Profile (07/01/2024 8:14 AM EST) Hepatitis A IgM Nonreactive Nonreactive [facility] Comment:IgM antibodies to MARIE V not detected; does not exclude earlyacute or recovered HAV infection. ~Hepatitis B Surface Antibody REACTIVE Nonreactive [facility] Comment:REACTIVE: > 11.99 mI U/mL Hepatitis B Core Antibody Nonreactive Nonreactive [facility] Hepatitis C Antibody Nonreactive Nonreactive [facility] Comment:Antibodies to HCV no t detected; does not exclude early acuteHCV infection. Blood Venous blood specimen / Unknown 07/01/2024 8:14 AM EST 07/01/2024 8:14 AM EST us Dakota Monet MD LAB BLOOD ORDERABLES Final Result Performing Organization Address City/State/[facility] Co de Phone Number [facility] [address] [place] [address] [phone] documented in this encounter Visit Diagnoses Diagnosis Transaminitis- Primary Nonspecific elevation of levels of transaminase or lactic acid dehydrogenase (LDH) documented in this encounter Additional Health Concerns Assessment Noted Time PHQ-9 Depression Total Score: 8 06/29/19 25 3:42 PM EST documented as of this encounter Care Teams Sheet Layer Relationship Specialty Start Date End Date Dakota Monet MD [address] [place] [phone] PCP - General Internal Medicine 05/10/13 documented as of this encounter
== END 2024-12-20 15:31 | disposition home or self-care (01) ==
LOC: HO.PMC 15:05
PROVIDERS: PCP Internal Medicine; Visit Provider Anesthesiology
DX: M25.50 Pain in unspecified joint (principal); M47.816 Spondylosis without myelopathy or radiculopathy, lumbar region; M53.3 Sacrococcygeal disorders, not elsewhere classified; M46.1 Sacroiliitis, not elsewhere classified; Q85.00 Neurofibromatosis, unspecified
CPT/HCPCS: 99213

== ENCOUNTER 2025-02-01 08:54 | Outpatient (REF) | payer OTHER, SELFPAY ==
--- OUTSIDE RECORDS SUMMARY | 2025-01-31 10:30 | XMS_ITS | Encounter Summary ---
Author Organization [employer] Address [address] [place] [address] 7 [place] [address] Care Team Providers Care Gas Golf Cart Repairer Name Role Phone Dakota Monet MD Primary Care Provider [phone]- [phone] Reason for Visit * Reason Comments Back Pain Encounter Details Date Type Department Care Team (Latest Contact Info) Description 01/31/2025 10:30 AM EDT Telemedicine [facility] CH[facility] MED & PEDS [address] [place], [place] [phone] Dakota Monet MD [address] [place] [address] Neurofibromatosis syndrome (HCC) (Primary Dx); Chronic pain syndrome; Acute right-sided low back pain without sciatica Social History Tobacco Use Types Packs/Day [...] AM EDT documented as of this encounter Progress Notes * Dakota Monet MD - 01/31/2025 10:30 AM EDT SUBJECTIVE Cornel Guevara is a 49 y.o. female who presents for Back Pain. Back Pain This is a chronic problem. The pain is present in the lumbar spine. The pain is moderate. Pertinentnegatives include no abdominal pain, bladder incontinence, bowel incontinence, numbness, paresis orparesthesias. H/o NF1, C/o worsening back pain x 2 months. Pt has to take 400 mg celebrex about 2-3 times a week to control her pain. No fever/saddle anesthesia/urinary retention. Scheduled to start physical therapy in 1 week. Problem List[1] Allergies[2] Medications Ordered Prior to Encounter[3] Review of Systems Constitutional: Negative for chills, diaphoresis and fatigue. Respiratory: Negative for cough, choking and shortness of breath. Gastrointestinal: Negative for abdominal pain and bowel incontinence. Genitourinary: Negative for bladder incontinence. Musculoskeletal: Positive for back pain. Neurological: Negative for numbness and paresthesias. OBJECTIVE There were no vitals filed for this visit. Physical Exam Assessment/Plan Assessment/Plan Diagnoses and all orders for this visit: Neurofibromatosis syndrome (HCC) Chronic pain syndrome - XR Lumbar Spine Complete 4+ Views; Future - traMADol (Ultram) 50 MG tablet; Take 1 tablet (50 mg) by mouth 2 times daily for 15 days. Advise not to go over 400 mg celebrex in a day. Ms Cornel Guevara will need a follow up after completion of her PT sessions. Acute right-sided low back pain without sciatica - XR Lumbar Spine Complete 4+ Views; Future - Basic Metabolic Panel; Future - CBC auto differential; Future [1] Patient Active Problem List Diagnosis Neurofibromatosis syndrome (HCC) Anemia Depressive disorder Migraine Class 1 obesity Tachycardia Macromastia Chronic pain of right knee Chronic pain syndrome Calculus of gallbladder without cholecystitis without obstruction [2] Allergies Allergen Reactions Peanut-Containing Drug Products [3] Current Outpatient Medications on File Prior to Visit Medication Sig Dispense Refill Atogepant (Qulipta) 30 MG tablet Take 30 mg by mouth Once per day. 30 tablet 2 Blood Pressure kit BP check at home daily 1 kit 0 celecoxib (CeleBREX) 200 MG capsule TAKE 1 CAPSULE BY MOUTH IN THE MORNING AND AT BEDTIME NEEDEDFOR PAIN 60 capsule 0 Diclofenac Sodium 1 % gel APPLY 2 GRAMS TO AFFECTED AREA TWICE A DAY docusate sodium (Colace) 100 MG capsule Take 100 mg by mouth at bedtime. estradiol (Estrace) 0.1 MG/GM vaginal cream INSERT (1 GRAM) VAGINALLY TWICE A WEEK fexofenadine (Ashely) 180 MG tablet Take 1 tablet (180 mg) by mouth if needed each day (Allergies). 30 tablet 2 Flowflex COVID-19 Ag Home Test kit USE [...] Take 100 mg by mouth at bedtime. traZODone (Desyrel) 50 MG tablet Take 1 tablet (50 mg) by mouth at bedtime. 1 to 2 tabs at bedtime 60 tablet 3 [DISCONTINUED] traMADol (Ultram) 50 MG tablet TAKE 1 TABLET BY MOUTH EVERY 12 HOURS NEEDED FOR SEVERE PAIN 30 tablet 0 No current facility-administered medications on file prior to visit. documented in this encounter Plan of Treatment Upcoming Encounters Date Type Department Care Team (Late st Contact Info) Description 03/15/2025 10:30 AM EST Office Visit [facility] MED & PEDS [address] [place] [address] Dakota Monet MD [address] [place] [address] Scheduled Orders Name Type Priority Associated Diagnoses Orde r Schedule XR Lumbar Spine Complete 4+ Views Imaging Routine Chronic pain syndrome Acute right-sided low back pain without sciatica Expected: 01/31/2025, Expires: 01/31/2026 Basic Metabolic Panel Lab Routine Acute right-sided low back pain without sciatica Expected: 01/31/2025 (Approximate), Expires: 01/31/2026 CBC auto differential Lab Routine Acute right-sided low back pain without sciatica Expected: 01/31/2025 (Approximate), Expires: 01/31/2026 documented as of this encounter Visit Diagnoses Diagnosis Neurofibromatosis syndrome (HCC)- Primary Neurofibromatosis, unspecified Chronic pain syndrome Acute right-sided low back pain without sciatica documented in this encounter Additional Health Concerns Assessment Noted Time PHQ-9 Depression Total Score: 8 06/29/19 25 3:42 PM EST documented as of this encounter Care Teams Gas Golf Cart Repairer Relationship Specialty Start Date End Date Dakota Monet MD [address] [place] [address] PCP - General Internal Medicine 05/10/13 documented as of this encounter
--- NOTE | ~2025-02-01 | XR_ITS ---
EXAMINATION: XR LUMBOSACRAL SPINE CLINICAL INFORMATION: LBP COMPARISON: CT lumbar spine 06/24/2024. TECHNIQUE: 5 views of the lumbar spine, inclusive of bilateral oblique views, were obtained. FINDINGS: There is no significant scoliosis. There is a normal lordosis. There is no fracture, compression, or suspicious bone lesion. There is a 4 mm stable degenerative appearing anterolisthesis of L4 on L5. There are no definite pars defects present. There are degenerative facet changes present at L4-5. Disc spaces appear largely preserved with mild degeneration at L4-5. The sacrum is intact. The SI joints appear normal. Soft tissues appear grossly normal. There is an IUD within the central pelvis. XR/XR lumbar spine 4V min IMPRESSION: 1. No acute finding of the lumbar spine. 2. Similar degenerative disc and facet changes at L4-5. Electronically signed by: Kalpesh Escalona MD 02/01/2025 10:08 AM EDT
[2025-02-01 09:07] LABS: MANUAL DIFF FLAG NO
--- OUTSIDE RECORDS SUMMARY | 2025-02-01 09:31 | XMS_ITS | Encounter Summary ---
Author Organization [employer] Address [address] [place] [address] Care Team Providers Care Laboratory Engineer Name Role Phone Dakota Monet MD Primary Care Provider [phone]- [phone] Reason for Visit * Reason Onset Date Comments Med Refill 12/21/2022 Encounter Details Date Type Department Care Team ([facility] st Contact Info) Description 12/21/2022 Telephone [facility] CHC MED & PEDS [address] [place] [address] Dakota Monet MD [address] [place] [address] Med Refill Social History Tobacco Use Types [...] pended to PCP. * Telephone Encounter - Gabynikkie Grant - 12/21/2022 11:35 AM EDT Tc from patient requesting a med refill for medication tiZANidine (Zanaflex) [address] Monet documented in this encounter Plan of Treatment Upcoming Encounters Date Type Department Care Team (Late st Contact Info) Description 03/15/2025 10:30 AM EST Office Visit [facility] MED & PEDS [address] [place] [address] Dakota Monet MD [address] [place] [address] documented as of this encounter Visit Diagnoses Not on filedocumented in this encounter Additional Health Concerns Assessment Noted Time PHQ-9 Depression Total Score: 10 023 3:54 PM EST documented as of this encounter Care Teams Laboratory Engineer Relationship Specialty Start Date End Date Dakota Monet MD [address] [place] [address] PCP - General Internal Medicine 05/10/13 documented as of this encounter
--- OUTSIDE RECORDS SUMMARY | 2025-02-01 09:31 | XMS_ITS | Encounter Summary ---
Author Organization [employer] Address [address] [place] [address] 7 [place] [address] Care Team Providers Care Software Qa System Specialist Name Role Phone Dakota Monet MD Primary Care Provider [phone] Encounter Details Date Type Department Care Team (Latest Contact Info) Description 02/06/2021 Abstract [facility], Provider, DDS Social History Tobacco [...] Description 03/15/2025 10:30 AM EST Office Visit [facility] CHC MED & PEDS [address] [place] [address] Dakota Monet MD [address] [place] [address] documented as of this encounter Visit Diagnoses Not on filedocumented in this encounter Care Teams Software Qa System Specialist Relationship Specialty Start Date End Date Dakota Monet MD [address] [place] [address] PCP - General Internal Medicine 05/10/13 documented as of this encounter
--- OUTSIDE RECORDS SUMMARY | 2025-02-01 09:31 | XMS_ITS | Encounter Summary ---
Author Organization [employer] Address [address] [place] [address] 7 [place] [address] Care Team Providers Care Heel Curver Name Role Phone Dakota Monet MD Primary Care Provider [phone]- [phone] Encounter Details Date Type Department Care Team (Late Contact Info) Description 06/22/2024 Orders Only [facility] MED & PEDS [address] [place] [address] Dakota Monet MD [address] [place] [address] Chronic migraine with aura without status migrainosus, [...] Department Care Team (Late Contact Info) Description 03/15/2025 10:30 AM EST Office Visit [facility] MED & PEDS [address] [place] [address] Dakota Monet MD [address] [place] [address] documented as of this encounter Procedures Procedure [...] PM EST Narrative 06/24/2024 7:37 PM EST [place] [address] CT Scan Report Signed Patient: Cornel Guevara MR#: [id number] 356 : 1975 Acct:[id number] Age/Sex: 48 / F ADM Date: 06/24/24 Loc: .ED Attending Dr: Ordering Physician: Re Barber Date of Service: 06/24/24 Procedure(s): CT lumbar spine wo IV con Accession Number(s): [id number] cc: Dakota Monet MD; Re Barber Report Number: [id number]: Total DLP = 2098.00 mGy-cm CLINICAL HISTORY: [...] Moderate to severe stool burden in the ajzcq-ur-omkw. Cholelithiasis in the xsckt-vd-acyv. IMPRESSION: 1. No acute fracture of the lumbar spine. 2. Worsening lower lumbar facet arthropathy compared to 11/07/2021. This document has been electronically signed by: Javed Queen MD on 06/24/2024 19:36:00 Dictated By: Javed Queen MD Signed By: <Electronically signed by Javed Queen MD in OV> 06/24/241935 DD/ 35 TD/TT: 06/24/241935 Subassembler: Procedure Note Donotuseinterpreter, Image - 06/24/[address] [place] [address] [address] Scan Report Signed Patient: Gerald Guevara#: [id number] 356 : 1975Acct:[id number] Age/Sex: 48 / FADM Date: 06/24/24 Loc: HO.ED Attending Dr: Ordering Physician: Re Barber Date of Service: 06/24/24 Procedure(s): CT lumbar spine wo IV con Accession Number(s): [id number] cc: Dakota Monet MD; Re Barber Report Number: [id number]: Total DLP = 2098.00 mGy-cm CLINICAL HISTORY: [...] Moderate to severe stool burden in the cymoq-rx-esym. Cholelithiasis in the nzukk-bw-mzhr. IMPRESSION: 1. No acute fracture of the lumbar spine. 2. Worsening lower lumbar facet arthropathy compared to 11/07/2021. This document has been electronically signed by: Javed Queen MD on 06/24/2024 19:36:00 Dictated By: Javed Queen MD Signed By: <Electronically signed by Javed Queen MD in OV> 06/24/241935 DD/ 35 TD/TT: 06/24/241935 Subassembler: [facility] External Provider IMG CT PROCEDURES Edited Result - Final * CT Chest w/o Contrast (06/24/2024 7:33 PM EST) Anatomical Region Laterality Modality Body, Chest Computed Tomogra phy 06/24/2024 7:33 PM EST Narrative 06/24/2024 7:35 PM EST [address] [address] [address] Scan Report Signed Patient: Cornel Guevara MR#: [id number] 356 : 1975 Acct:[id number] Age/Sex: 48 / F ADM Date: 06/24/24 Loc: HO.ED Attending Dr: Ordering Physician: Kaylan Underwood CNP Date of Service: 06/24/24 Procedure(s): CT chest wo IV con Accession Number(s): [id number] cc: Kaylan Underwood CNP; Dakota Monet MD Report Number: [id number]: Total DLP = 2098.00 mGy-cm CLINICAL HISTORY: [...] Queen MD Signed By: <Electronically signed by Javde Queen MD in OV> 06/24/241933 DD/ 32 TD/TT: 06/24/241932 Subassembler: Procedure Note Donotuseinterpreter, Image - 06/24/[address] [place] [address] [address] Scan Report Signed Patient: Gerald Guevara#: [id number] 356 : 1975Acct:[id number] Age/Sex: 48 / FADM Date: 06/24/24 Loc: HO.ED Attending Dr: Ordering Physician: Kaylan Underwood CNP Date of Service: 06/24/24 Procedure(s): CT chest wo IV con Accession Number(s): [id number] cc: Kaylan Underwood CNP; Dakota Monet MD Report Number: [id number]: Total DLP = 2098.00 mGy-cm CLINICAL HISTORY: [...] in OV> 06/24/241933 DD/ 32 TD/TT: 06/24/241932 Subassembler: [facility] External Provider IMG CT PROCEDURES Edited Result - Final * CT Head w/o Contrast (06/24/2024 7:28 PM EST) Anatomical Region Laterality Modality Head, Neck Computed Tomogra phy 06/24/2024 7:28 PM EST Narrative 06/24/2024 7:30 PM EST [place] [address] CT Scan Report Signed Patient: Cornel Guevara MR#: [id number] 356 : 1975 Acct:[id number] Age/Sex: 48 / F ADM Date: 06/24/24 Loc: HO.ED Attending Dr: Ordering Physician: Re Barber Date of Service: 06/24/24 Procedure(s): CT head/brain wo IV con Accession Number(s): [id number] cc: Dakota Monet MD; Re Barber Report Number: [id number]: Total DLP = 2098.00 mGy-cm CLINICAL HISTORY: [...] in OV> 06/24/241928 DD/ 27 TD/TT: 06/24/241927 Subassembler: Procedure Note Donotvolodymyrter, Image - 06/24/[address] [place] [address] [address] Scan Report Signed Patient: Gerald Guevara#: [id number] 356 : 1975Acct:[id number] Age/Sex: 48 / FADM Date: 06/24/24 Loc: HO.ED Attending Dr: Ordering Physician: Re Barber Date of Service: 06/24/24 Procedure(s): CT head/brain wo IV con Accession Number(s): [id number] cc: Dakota Monet MD; Re Barber Report Number: [id number]: Total DLP = 2098.00 mGy-cm CLINICAL HISTORY: [...] in OV> 06/24/241928 DD/ 27 TD/TT: 06/24/241927 Subassembler: [facility] External Provider IMG CT PROCEDURES Edited Result - Final * CT Cervical Spine w/o Contrast (06/24/2024 7:25 PM EST) Anatomical Region Laterality Modality Spine, C-spine Computed Tomogra phy 06/24/2024 7:25 PM EST Narrative 06/24/2024 7:27 PM EST [address] [address] [address] Scan Report Signed Patient: Cornel Guevara MR#: [id number] 356 : 1975 Acct:[id number] Age/Sex: 48 / F ADM Date: 06/24/24 Loc: HO.ED Attending Dr: Ordering Physician: Re Barber Date of Service: 06/24/24 Procedure(s): CT cervical spine wo IV con Accession Number(s): [id number] cc: Dakota Monet MD; Re Barber Report Number: [id number]: Total DLP = 2098.00 mGy-cm CLINICAL HISTORY: [...] in OV> 06/24/241925 DD/ 24 TD/TT: 06/24/241924 Subassembler: Procedure Note Donotuseinterpreter, Image - 06/24/[address] [address] [address] Scan Report Signed Patient: Dewey GuevaraR#: [id number] 356 : 1975Acct:[id number] Age/Sex: 48 / FADM Date: 06/24/24 Loc: HO.ED Attending Dr: Ordering Physician: Re Barber Date of Service: 06/24/24 Procedure(s): CT cervical spine wo IV con Accession Number(s): [id number] cc: Dakota Monet MD; Re Barber Report Number: [id number]: Total DLP = 2098.00 mGy-cm CLINICAL HISTORY: [...] in OV> 06/24/241925 DD/ 24 TD/TT: 06/24/241924 Subassembler: [facility] External Provider IMG CT PROCEDURES Edited Result - Final documented in this encounter Visit Diagnoses Diagnosis Chronic migraine with aura without status migrainosus, not intractable- Primary documented in this encounter Additional Health Concerns Assessment Noted Time PHQ-9 Depression Total Score: 10 023 3:54 PM EST documented as of this encounter Care Teams Heel Curver Relationship Specialty Start Date End Date Dakota Monet MD [address] [place] [address] PCP - General Internal Medicine 05/10/13 documented as of this encounter
--- OUTSIDE RECORDS SUMMARY | 2025-02-01 09:31 | XMS_ITS | Encounter Summary ---
Author Organization [employer] Address [address] [place] [address] Care Team Providers Care Bridge Opener Name Role Phone Dakota Monet MD Primary Care Provider [phone] Encounter Details Date Type Department Care Team ([facility] Contact Info) Description 2023 Orders Only [facility] MED & PEDS [address] [place] [address] Dakota Monet MD [address] [place] [address] Social History Tobacco Use Types Packs/Day Years [...] Description 03/15/2025 10:30 AM EST Office Visit [facility] MED & PEDS [address] [place], [place] [phone] Dakota Monet MD [address] [place], [place] [phone] documented as of this encounter Visit Diagnoses Not on filedocumented in this encounter Additional Health Concerns Assessment Noted Time PHQ-9 Depression Total Score: 10 023 3:54 PM EST documented as of this encounter Care Teams Bridge Opener Relationship Specialty Start Date End Date Dakota Monet MD [address] [place] [address] [place] [address] PCP - General Internal Medicine 05/10/13 documented as of this encounter
--- OUTSIDE RECORDS SUMMARY | 2025-02-01 09:31 | XMS_ITS | Encounter Summary ---
Author Organization [employer] Address [address] [place] [address] Care Team Providers Care Nurse Anesthesia Program Director Name Role Phone Dakota Monet MD Primary Care Provider [phone] Reason for Referral * Consultation (Routine) - Closed Specialty Diagnoses / Procedures Referred By Contanabela t Referred To Contact General Surgery Diagnoses Calculus of gallbladder without cholecystitis without obstruction Dakota Monet MD [address] [place] [address] Phone: tel: fax: George Smith MD [address] [place] [address] Phone: tel: fax: Referral ID Status Reason Start Date Expiration Date V isits Requested Visits Authorized [id number] Closed Specialty Services Required 09/26/2024 09/26/2025 1 1 Encounter Details Date Type Department Care Team (Late st Contact Info) Description 09/26/2024 Orders Only [facility] CHC MED & PEDS [address] [place], [place] [phone] Dakota Monet MD [address] [place], [place] [phone] Calculus of gallbladder without cholecystitis without obstruction (Primary Dx) Social History Tobacco Use Types [...] Description 03/15/2025 10:30 AM EST Office Visit [facility] CHC MED & PEDS [address] [place], [place] [phone] Dakota Monet MD [address] [place] [address] Scheduled Referrals Name Type Priority Associated Diagnoses Orde r Schedule Referral to General Surgery Outpatient Referral Routine Calculus of gallbladder without cholecystitis without obstruction Expected: 09/26/2024 (Approximate), Expires: 09/26/2025 documented as of this encounter Visit Diagnoses Diagnosis Calculus of gallbladder without cholecystitis without obstruction- Primary documented in this encounter Additional Health Concerns Assessment Noted Time PHQ-9 Depression Total Score: 8 06/29/19 25 3:42 PM EST documented as of this encounter Care Teams Nurse Anesthesia Program Director Relationship Specialty Start Date End Date Dakota Monet MD [address] [place] [address] PCP - General Internal Medicine 05/10/13 documented as of this encounter
--- OUTSIDE RECORDS SUMMARY | 2025-02-01 09:31 | XMS_ITS | Encounter Summary ---
Author Organization [employer] Address [address] [place] [address] Care Team Providers Care Assignment Clerk Name Role Phone Dakota Monet MD Primary Care Provider [phone] Reason for Referral * Imaging (Routine) - Closed Specialty Diagnoses / Procedures Referred By Contanabela adrian Referred To Contact Radiology Diagnoses Transaminitis Procedures US Abdomen Complete Dakota Monet MD [address] [place] [address] Phone: tel: fax: [address] Phone: tel: fax: Referral ID Status Reason Start Date Expiration Date Visits Re quested Visits Authorized [id number] Closed 06/30/2024 06/30/2025 1 1 Encounter Details Date Type Department Care Team (Late st Contact Info) Description 06/30/2024 Orders Only [facility] MEDICINE [address] [place] [address] Dakota Monet MD [address] [place], [place] [phone] Transaminitis (Primary Dx) Social History Tobacco Use [...] 03/15/2025 10:30 AM EST Office Visit [facility] CHC MED & PEDS [address] [place] [address] Dakota Monet MD [address] [place] [address] documented as of this encounter Procedures Procedure Name Priority Date/Time Associated Diagnosis Comments US ABDOMEN COMPLETE Routine 09/26/2024 2 :29 PM EDT Transaminitis HEPATITIS PANEL, GENERAL Routine 07/01/2024 8:14 AM EST Transaminitis documented in this encounter Results * US Abdomen Complete (09/26/2024 2:29 PM EDT) Anatomical Region Laterality Modality Abdomen Ultrasound 09/26/2024 2:29 PM EDT Narrative 09/26/2024 2:30 PM EDT [address] [address] Ultrasound Report Signed Patient: Cornel Guevara MR#: [id number] 356 : 1975 Acct:[id number] Age/Sex: 48 / F ADM Date: 09/26/24 Loc: HO.US Attending Dr: Dakota Monet MD Ordering Physician: Dakota Monet MD Date of Service: 09/26/24 Procedure(s): US abdomen complete Accession Number(s): [id number] cc: Dakota Monet MD CLINICAL HISTORY: Transaminitis [...] OV> 09/26/24 1430 DD/ 28 TD/TT: 09/26/241428 Systems Trainer: Procedure Note Donotcammieinterpreter, Image - 09/26/2024 [place] [address] Ultrasound Report Signed Patient: Gerald Guevara#: [id number] 356 : 1975Acct:[id number] Age/Sex: 48 / FADM Date: 09/26/24 Loc: HO.US Attending Dr: Dakota Monet MD Ordering Physician: Dakota Monet MD Date of Service: 09/26/24 Procedure(s): US abdomen complete Accession Number(s): [id number] cc: Dakota Monet MD CLINICAL HISTORY: Transaminitis [...] 09/26/24 1430 DD/ 28 TD/TT: 05/27/25 1429 Systems Trainer: us Dakota Monet MD IMG US PROCEDURES Final Res ult * Hepatitis A,B,C Profile (07/01/2024 8:14 AM EST) Hepatitis A IgM Nonreactive Nonreactive [facility] Comment:IgM antibodies to MARIE V not detected; does not exclude earlyacute or recovered HAV infection. ~Hepatitis B Surface Antibody REACTIVE Nonreactive [facility] Comment:REACTIVE: > 11.99 mI U/mL Hepatitis B Core Antibody Nonreactive Nonreactive [facility] Hepatitis C Antibody Nonreactive Nonreactive [facility] Comment:Antibodies to HCV no t detected; does not exclude early acuteHCV infection. Blood Venous blood specimen / Unknown 07/01/2024 8:14 AM EST 07/01/2024 8:14 AM EST us Dakota Monet MD LAB BLOOD ORDERABLES Final Result Performing Organization Address City/State/[facility] Co de Phone Number [facility] [address] [place] [address] [phone] documented in this encounter Visit Diagnoses Diagnosis Transaminitis- Primary Nonspecific elevation of levels of transaminase or lactic acid dehydrogenase (LDH) documented in this encounter Additional Health Concerns Assessment Noted Time PHQ-9 Depression Total Score: 8 06/29/19 25 3:42 PM EST documented as of this encounter Care Teams Assignment Clerk Relationship Specialty Start Date End Date Dakota Monet MD [address] [place] [address] PCP - General Internal Medicine 05/10/13 documented as of this encounter
--- OUTSIDE RECORDS SUMMARY | 2025-02-01 09:31 | XMS_ITS | Encounter Summary ---
Author Organization [employer] Address [address] [place] [address] Care Team Providers Care Sales Contractor Name Role Phone Dakota Monet MD Primary Care Provider [phone] Reason for Visit * Reason Onset Date Comments Referral 04/12/2024 Encounter Details Date Type Department Care Team ([facility] st Contact Info) Description 04/12/2024 Telephone [facility] MEDICINE [address] [place] [address] Dakota Monet MD [address] [place] [address] Referral Social History Tobacco Use Types Packs/Day [...] from pt requesting new referral : Address: [address] [place] [address] Facility Name: [facility] Type of Specialist: Neurology * Telephone Encounter - Toño Patel - 04/12/2024 10:06 AM EST TC from pt requesting new referral : Address: [address] [place] [address] Facility Name: [facility] Type of Specialist: Neurology documented in this encounter Plan of Treatment Upcoming Encounters Date Type Department Care Team (Late st Contact Info) Description 03/15/2025 10:30 AM EST Office Visit [facility] CHC MED & PEDS [address] [place] [address] Dakota Monet MD [address] [place] [address] documented as of this encounter Visit Diagnoses Not on filedocumented in this encounter Additional Health Concerns Assessment Noted Time PHQ-9 Depression Total Score: 10 023 3:54 PM EST documented as of this encounter Care Teams Sales Contractor Relationship Specialty Start Date End Date Dakota Monet MD [address] [place] [address] PCP - General Internal Medicine 05/10/13 documented as of this encounter
--- OUTSIDE RECORDS SUMMARY | 2025-02-01 09:31 | XMS_ITS | Clinical Summary ---
Author Organization [employer] Address [address] [place] [address] [address] [place] [address] Care Team Providers Care Automation And Control Engineer Name Role Phone Dakota Monet MD Primary Care Provider +1- [phone] Allergies Active Allergy Reactions Criticality Noted Date Comments Peanut-Containing Drug Products 09/01 Medications SUMAtriptan (Imitrex) 50 MG tablet TAKE 1 [...] 100 mg by mouth at bedtime. Active Diclofenac Sodium 1 % gel APPLY 2 GRAMS TO AFFECTED AREA TWICE A DAY 022 Active rizatriptan (Maxalt) 10 MG tablet TAKE [...] daily. 90 tablet 11 024 2024 Active SUMAtriptan (Imitrex) 50 MG tabletIndicatio ns:Chronic [...] per day. 30 tablet 2 025 Active PARoxetine (Paxil) 40 MG tabletIndicatio ns:Anxiety TAKE 1 TABLET BY MOUTH EVERY DAY IN THE MORNING 30 tablet 5 025 Active traZODone (Desyrel) 50 MG tabletIndicatio ns:Primary insomnia Take 1 tablet (50 mg) by mouth at bedtime. 1 to 2 tabs at bedtime 60 tablet 3 025 Active QUEtiapine (SEROquel) 50 MG tabletIndicatio ns:Primary insomnia TAKE 3 TABLETS BY MOUTH AT BEDTIME 30 tablet 1 025 Active fexofenadine (Ashely) 180 MG tabletIndicatio ns:Allergic symptoms, initial encounter Take 1 tablet (180 mg) by mouth if needed each day (Allergies). 30 tablet 2 025 Active loratadine (Claritin) 10 MG tablet TAKE 1 TABLET BY MOUTH EVERY DAY NEEDED 90 tablet 1 025 Active tiZANidine (Zanaflex) 4 MG tabletIndicatio ns:Chronic pain syndrome TAKE 1 TABLET BY ORAL ROUTE ONCE A DAY AT BEDTIME 30 tablet 3 025 Active hydrOXYzine pamoate (Vistaril) 25 MG capsule TAKE 1 CAPSULE BY MOUTH 3 TIMES EVERY DAY NEEDED FOR ANXIETY 90 capsule 1 025 Active celecoxib (CeleBREX) 200 MG capsuleIndicati ons:Chronic pain syndrome,Chroni c right-sided low back pain with right-sided sciatica TAKE 1 CAPSULE BY MOUTH IN THE MORNING AND AT BEDTIME NEEDED FOR PAIN 60 capsule 025 Active traMADol (Ultram) 50 MG tabletIndicatio ns:Chronic pain syndrome Take 1 tablet (50 mg) by mouth 2 times daily for 15 days. 30 tablet 025 2024 Active traMADol (Ultram) 50 MG tabletIndicatio ns:Chronic pain syndrome TAKE 1 TABLET BY MOUTH EVERY 12 HOURS NEEDED FOR SEVERE PAIN 30 tablet 023 2024 Discontinued(R eorder (will not trigger notification to Pharmacy)) hydrOXYzine pamoate (Vistaril) 25 MG capsule TAKE 1 CAPSULE BY MOUTH 3 TIMES EVERY DAY NEEDED FOR ANXIETY 90 capsule 1 025 2024 Discontinued celecoxib (CeleBREX) 200 MG capsuleIndicati ons:Chronic pain syndrome,Chroni c right-sided low back pain with right-sided sciatica TAKE 1 CAPSULE BY MOUTH IN THE MORNING AND AT BEDTIME NEEDED FOR PAIN 60 capsule 025 2024 Discontinued(R eorder (will not trigger [...] Encounters Date Type Department Care Team Description 01/31/2025 10:30 AM EDT Telemedicine [facility] & PEDS [address] [place] [address] Dakota Monet MD Neurofibromatosis syndrome (HCC) (Primary Dx); Chronic pain syndrome; Acute right-sided low back pain without sciatica 01/11/2025 Refill [facility] & PED[facility] [address] [place] [address] Dakota Monet MD Chronic pain syndrome; Chronic right-sided low back pain with right-sided sciatica 01/11/2025 Refill [facility] [address] [place] [address] Thomas Bhatti MD Chronic pain syndrome; Chronic right-sided low back pain with right-sided sciatica 12/10/2024 Refill [facility] [address] [place] [address] Dakota Monet MD Chronic pain syndrome; Chronic right-sided low back pain with right-sided sciatica 12/10/2024 Refill [facility] [address] [place] [address] Gabriella Rao FNP Chronic pain syndrome; Chronic right-sided low back pain with right-sided sciatica 11/10/2024 Refill [facility] [address] [place] [address] Dakota Monet MD Chronic pain syndrome; Chronic right-sided low back pain with right-sided sciatica 11/07/2024 Refill [facility] [address] [place] [address] Dakota Monet MD 11/03/2024 Refill [facility] [address] [place] [address] Dakota Monet MD from Last 3 Months Immunizations Immunization Administration Dates Next Due HepB-CpG 03/02/2023,01/11/2023 Influenza Injectable Quadriv alant Preservative Free IIV4 MDCK 02/13/2019,12/27/2016 Influenza injectable quadriv alent preservative free 03/02/2023,02/25/2022,02/05/2021,2019,01/15/2018,01/21/2016 Influenza, High Dose Seasona l, Preservative Free 02/04/2017 Influenza, IIV3, injectable 01/07/2025, 1,04/12/2010 Influenza, Injectable, MDCK, preservative free 12/26/2023 Moderna [...] Sign Reading Time Taken Comments Blood Pressure 129/83 09/27/2024 2:22 PM EDT Pulse 101 09/27/2024 2:22 PM EDT Temperature 36.6 C (97.9 F) 09/27/2024 2:22 PM EDT Respiratory Rate 20 09/27/2024 2:22 PM EDT Oxygen Saturation 99% 09/27/2024 2:22 PM EDT Inhaled Oxygen Concentration - - Weight 65.3 kg (144 lb) 09/27/2024 2:22 PM EDT Height 147.3 cm (4' 10 ) 09/27/2024 2:22 PM EDT Body Mass Index 30.1 09/27/2024 2:22 PM EDT Plan of Treatment Upcoming Encounters Date Type Department Care Team ([facility] Contact Info) Description 03/15/2025 10:30 AM EST Office Visit [facility] [address] [place] [address] Dakota Monet MD [address] [place] [phone] Health Maintenance Due Date Last Done Comments CT Colonography 1975 FIT DNA/Cologuard 1975 FIT 1975 FOBT 1975 HIV Screening 1975 Sigmoidoscopy 1975 Derm Melanoma Skin Check 06/18/1976 Family Planning (PISQ) 12/16/1990 Alcohol/Substance Use Screening 06/29/2025 06/29/2024 Depression Screening 06/29/2025 06/29/2024, 06/29/19 SDOH Screening 06/29/2025 06/29/2024 Cervical Cancer Screening 11/27/2025 HPV/Cotest 11/27/2025 11/27/2020, 04/13/2017 Pap Smear 11/27/2025 11/27/2020 Zoster Vaccines (1 of 2) 12/16/2025 Disability Screening 01/31/2026 01/31/2025 Tobacco Screening 01/31/2026 01/31/2025 Mammogram 04/29/2026 04/29/2024, 01/02, 06/16/2019, Additional history exists Colonoscopy 08/22/2026 08/22/2021 Colorectal Cancer Screening 08/22/2026 DTaP/Tdap/Td Vaccines (3 - Td or Tdap) 02/27/2034 02/28/2024, 12/08/2010 RSV Patients and Patients Aged 60 years or older (1 - 1-dose 75+ series) 12/16/2050 Hepatitis B Vaccines Completed 03/02/2023, 01/12/20 23 COVID-19 Vaccine Completed 12/27/2023, , 02/28/2021, Additional history exists Hepatitis C Screening Completed 07/01/2024, 023 Influenza Vaccine Completed 01/07/2025, , 12/26/2023, Additional history exists HIB Vaccines Aged Out [...] patient's age to complete this topic Meningococcal B Vaccine Aged Out No l onger eligible based on patient's age to complete this topic Meningococcal Vaccine Aged Out No luis f adryan eligible based on patient's age to complete this topic Pneumococcal Vaccine: Pediatrics (0 to 5 Years) and At-Risk Patients (6 to 49) Years Aged Out No longer eligible based on patient's age to complete this topic RSV under 20 months Aged Out No longe r eligible based on patient's age to complete this topic Rotavirus Vaccines Aged Out No longer eligible based on patient's age to complete this topic Procedures Procedure Name Priority Date/Time Associated Diagnosis Comments HEPATITIS PANEL, GENERAL Routine 07/01/2024 8:14 AM EST Transaminitis BI MAMMOGRAM SCREENING TOMOSYNTHESIS BILATERAL Routine 04/29/2024 8:25 AM EST HM COLONOSCOPY Routine 08/22/2021 HPV MRNA E6/E7 Routine 11/27/2020 3:44 PM EDT THINPREP PAP Routine 11/27/2020 3:44 PM EDT from Last 3 Months or Most Recently Relevant to Health Maintenance Results * Hepatitis A,B,C Profile (07/01/2024 8:14 AM EST) Hepatitis A IgM Nonreactive Nonreactive [facility] Comment:IgM antibodies to MARIE V not detected; does not exclude earlyacute or recovered HAV infection. ~Hepatitis B Surface Antibody REACTIVE Nonreactive [facility] Comment:REACTIVE: > 11.99 mI U/mL Hepatitis B Core Antibody Nonreactive Nonreactive [facility] Hepatitis C Antibody Nonreactive Nonreactive [facility] Comment:Antibodies to HCV no t detected; does not exclude early acuteHCV infection. Blood Venous blood specimen / Unknown 07/01/2024 8:14 AM EST 07/01/2024 8:14 AM EST us Dakota Monet MD LAB BLOOD ORDERABLES Final Result [facility] [address] [place] [address] [phone] * BI Mammogram Screening Tomosynthesis Bilateral (04/29/2024 8:25 AM EST) Anatomical Region Laterality Modality Breast Bilateral Mammography 04/29/2024 8:25 AM EST Narrative 05/12/2024 3:20 PM EST [facility] [address] [place] [address] Mammography Report Signed Patient: Cornel Guevara MR#: [id number] : 1975 Acct:[id number] Age/Sex: 48 / F ADM Date: 04/29/24 Loc: HO.MAMMO Attending Dr: Dakota Monet MD Ordering Physician: Dakota Monet MD Results: 2 Benign Findings Date of Service: 04/29/24 Follow Up: 1 Year From [facility] Mammogram Procedure(s): MM tomosynthesis screening BI Accession Number(s): [id number] cc: Dakota Monet MD EXAMINATION: MM SCREENING [...] Miles DO in OV> 05/12/24 1516 DD/ 4 TD/TT: 04/29/24835 Rental Car Deliverer: Procedure Note Dondanielter, Image - 05/12/2024 [facility] [address] [place] [address] Mammography Report Signed Patient: Gerald Guevara#: [id number] : 1975Acct:[id number] Age/Sex: 48 / FADM Date: 04/29/24 Loc: HO.MAMMO Attending Dr: Dakota Monet MD Ordering Physician: Dakota Monet MDResults: 2 Benign Findings Date of Service: 04/29/24Follow Up: 1 Year From [facility] Mammogram Procedure(s): MM tomosynthesis screening BI Accession Number(s): [id number] cc: Dakota Monet MD EXAMINATION: MM SCREENING [...] by: Mishel Miles DO 05/12/2024 03:[address] [facility] Dictated By: Mishel Miles DO Signed By: <Electronically signed by Mishel Miles DO in OV> 05/12/24 1516 DD/ 0825 TD/TT: 04/29/24 0836 Rental Car Deliverer: us Dakota Monet MD IMG BI PROCEDURES Final Res ult * Hm Colonoscopy (08/22/2021) Colonoscopy Normal Normal Narrative Milagro Bear - 08/22/2021 Recommended 5 year follow up us Historical Provider MD HEALTH MAINTENANCE Final Result * THINPREP PAP (11/27/2020 3:44 PM EDT) Clinical Information: None given [facility] COMMENT SEE COMMENT [facility] Comment: EXPLANATORY NOTE: The Pap is a screening test for cervical cancer. It is not a diagnostic test and is subject to false negative and false positive results. It is most reliable when a satisfactory sample, regularly obtained, is submitted with relevant clinical findings and history, and when the Pap result is evaluated along with historic and current clinical information. Inspector Shells : SEE COMMENT [facility] Comment: KF, CT(ASCP) CT screening location: [place] [address] Interpretation/R esult: Negative for intraepithelial lesion or malignancy. [facility] LMP: NONE GIVEN [facility] Prev. BX: NONE GIVEN [facility] Prev. PAP: NONE GIVEN [facility] SOURCE: None given [facility] Statement Of Adequacy: SEE COMMENT [facility] Comment: Satisfactory for evaluation. Endocervical/transformation zone component absent. Age and/or menstrual status not provided 11/27/2020 3:44 PM EDT us Tamar Carbajal CNM LAB PATHOLOGY ORDERABLES Final Result [facility] [address] * HPV mRNA E6/E7 (11/27/2020 3:44 PM EDT) HPV nRNA E6/E7 Not Detected Not Detected [facility] Comment: Methodology: Telegraphic Instrument Supervisor-Mediated Amplification This assay detects E6/E7 viral messenger RNA (mRNA) from 14 high-risk HPV types (16,18,31,33,35,39,45,51,52,56,58,59,66,68). The analytical performance characteristics of this assay have been determined by [employer]. The modifications have not been cleared or approved by the FDA. This assay has been validated pursuant to the CLIA regulations and is used for clinical purposes. For additional information, please refer to http://education.Ghostery/faq/PEV399b0 (This link if provided for information/ educational purposes only.) 11/27/2020 3:44 PM EDT us Tamar Carbajal CNM LAB BLOOD ORDERABLES Josiane reddy Result [facility] [address] from Last 3 Months or Most Recently Relevant to Health Maintenance Insurance [facility] Care Teams Automation And Control Engineer Relationship Specialty Start Date End Date Dakota Monet MD [address] [place] [phone] PCP - General Internal Medicine 05/10/13
--- OUTSIDE RECORDS SUMMARY | 2025-02-01 09:32 | XMS_ITS | Encounter Summary ---
Author Organization [employer] Address [address] [place] [address] Care Team Providers Care Sports Manager Name Role Phone Dakota Monet MD Primary Care Provider +1- [phone] Reason for Visit * Reason Comments Med Refill Encounter Details Date Type Department Care Team ([facility] Contact Info) Description 03/19/2024 Refill [facility] MED [facility] PED[facility] [address] [place] [address] Dakota Monet MD [address] [place] [address] Primary insomnia Social History Tobacco Use Types [...] Upcoming Encounters Date Type Department Care Team ([facility] Contact Info) Description 03/15/2025 10:30 AM EST Office Visit [facility] P[facility] [address] [place] [address] Dakota Monet MD [address] [place] [address] documented as of this encounter Visit Diagnoses Diagnosis Primary insomnia Persistent disorder of initiating or maintaining sleep documented in this encounter Additional Health Concerns Assessment Noted Time PHQ-9 Depression Total Score: 10 023 3:54 PM EST documented as of this encounter Care Teams Sports Manager Relationship Specialty Start Date End Date Dakota Monet MD [address] [place] [address] PCP - General Internal Medicine 05/10/13 documented as of this encounter
--- OUTSIDE RECORDS SUMMARY | 2025-02-01 09:32 | XMS_ITS | Encounter Summary ---
Author Organization [employer] Address [address] [place] [address] Care Team Providers Care Software Consultant Name Role Phone Dakota Monet MD Primary Care Provider +1- [phone] Reason for Visit * Reason Onset Date Comments Results 01/06/2023 Encounter Details Date Type Department Care Team ([facility] st Contact Info) Description 01/06/2023 Telephone [facility] & PEDS [address] [place], [place] [phone] Dakota Monet MD [address] [place] [address] Results Social History Tobacco Use Types Packs/Day [...] verbalized understanding. Pt reports no access to [employer]. RN informed link will be sent to [...] Description 03/15/2025 10:30 AM EST Office Visit [facility] MED & PEDS [address] [place] [address] Dakota Monet MD [address] [place] [address] documented as of this encounter Visit Diagnoses Diagnosis Chronic pain syndrome documented in this encounter Additional Health Concerns Assessment Noted Time PHQ-9 Depression Total Score: 10 023 3:54 PM EST documented as of this encounter Care Teams Software Consultant Relationship Specialty Start Date End Date Dakota Monet MD [address] [place] [address] PCP - General Internal Medicine 05/10/13 documented as of this encounter
--- OUTSIDE RECORDS SUMMARY | 2025-02-01 09:32 | XMS_ITS | Encounter Summary ---
Author Organization [employer] Address [address] [place] [address] Care Team Providers Care Contract Admin Name Role Phone Dakota Monet MD Primary Care Provider +1- [phone] Reason for Visit * Reason Onset Date Comments Referral 03/19/2023 Encounter Details Date Type Department Care Team ([facility] st Contact Info) Description 03/19/2023 Telephone [facility] MED & PEDS [address] [place], [place] [phone] Dakota Monet MD [address] [place] [address] Referral Social History Tobacco Use Types Packs/Day [...] encounter Miscellaneous Notes * Telephone Encounter - hSarri Gann - 03/23/2023 2:41 PM EST Thank [...] to ov w/ PCP 04.22.23. Will FYI incident response specialist neuro referral on hold for now. * Telephone Encounter - Sharri Gann - 03/22/2023 3:06 PM EST TC to [facility] neuro-surgery and there is doctors that will see patient with diagnosis but requires an MRI? Please advise, thank you. * Telephone Encounter - Didi Calhoun RN - 03/19/2023 3:45 PM EST Placed call to [facility] neuro regarding message below. [...] for Neurology, pt advised she called [facility] for an appt and [facility] advised they will not see her without explanation in why. Please contact pt at [phone] documented in this encounter Plan of Treatment Upcoming Encounters Date Type Department Care Team (Late st Contact Info) Description 03/15/2025 10:30 AM EST Office Visit [facility] MED & PEDS [address] [place] [address] Dakota Monet MD [address] [place] [address] documented as of this encounter Visit Diagnoses Not on filedocumented in this encounter Additional Health Concerns Assessment Noted Time PHQ-9 Depression Total Score: 10 023 3:54 PM EST documented as of this encounter Care Teams Contract Admin Relationship Specialty Start Date End Date Dakota Monet MD [address] [place] [address] [place] [address] PCP - General Internal Medicine 05/10/13 documented as of this encounter
--- OUTSIDE RECORDS SUMMARY | 2025-02-01 09:32 | XMS_ITS | Encounter Summary ---
Author Organization [employer] Address [address] [place] [address] 7 [place] [address] Care Team Providers Care Cow Tender Name Role Phone Dakota Monet MD Primary Care Provider +1- [phone] Encounter Details Date Type Department Care Team (Latest Contact Info) Description 03/17/2023 Orders Only [facility] MED & PEDS [address] [place], [place] [phone] Dakota Monet MD [address] [place] [address] Neurofibromatosis syndrome (CMS/HCC) (Primary Dx) Social History [...] Care Team ( st Contact Info) Description 03/15/2025 10:30 AM EST Office Visit [facility] MED & PED[facility] [address] [place], [place] [phone] Dakota Monet MD [address] [place] [address] documented as of this encounter Visit Diagnoses Diagnosis Neurofibromatosis syndrome (HCC)- Primary Neurofibromatosis, unspecified documented in this encounter Additional Health Concerns Assessment Noted Time PHQ-9 Depression Total Score: 10 023 3:54 PM EST documented as of this encounter Care Teams Cow Tender Relationship Specialty Start Date End Date Dakota Monet MD [address] [place] [address] PCP - General Internal Medicine 05/10/13 documented as of this encounter
--- OUTSIDE RECORDS SUMMARY | 2025-02-01 09:32 | XMS_ITS | Encounter Summary ---
Author Organization [employer] Address [address] [place] [address] Care Team Providers Care Track Inspector Name Role Phone Dakota Monet MD Primary Care Provider +1- [phone] Encounter Details Date Type Department Care Team (Late Contact Info) Description 03/05/2023 Abstract [facility] MEDICINE [address] [place] [address] Milagro Bear Social History Tobacco Use Types [...] Description 03/15/2025 10:30 AM EST Office Visit [facility] MED & PEDS [address] [place], [place] [phone] Dakota Monet MD [address] [place], [place] [phone] documented as of this encounter Procedures Procedure Name Priority Date/Time Associated Diagnosis Comments HM COLONOSCOPY Routine 08/22/2021 documented in this encounter Results * Hm Colonoscopy (08/22/2021) Colonoscopy Normal Normal Narrative Milagro Bear - 08/22/2021 Recommended 5 year follow up us Historical Provider HEALTH MAINTENANCE Final Result documented in this encounter Visit Diagnoses Not on filedocumented in this encounter Additional Health Concerns Assessment Noted Time PHQ-9 Depression Total Score: 10 023 3:54 PM EST documented as of this encounter Care Teams Track Inspector Relationship Specialty Start Date End Date Dakota Monet MD [address] [place] [address] PCP - General Internal Medicine 05/10/13 documented as of this encounter
--- OUTSIDE RECORDS SUMMARY | 2025-02-01 09:32 | XMS_ITS | Encounter Summary ---
Author Organization [employer] Address [address] [place] [address] Care Team Providers Care Frame Hand Name Role Phone Dakota Monet MD Primary Care Provider [phone] Reason for Visit * Reason Comments Med Refill Encounter Details Date Type Department Care Team ([facility] Contact Info) Description 01/16/2024 Refill [facility] & PEDS [address] [place] [address] Dakota Monet MD [address] [place] [address] Chronic pain syndrome; Chronic right-sided low back [...] Care Team ([facility] Contact Info) Description 03/15/2025 10:30 AM EST Office Visit [facility] [address] [place] [address] Dakota Monet MD [address] [place] [address] documented as of this encounter Visit Diagnoses Diagnosis Chronic pain syndrome Chronic right-sided low back pain with right-sided sciatica documented in this encounter Additional Health Concerns Assessment Noted Time PHQ-9 Depression Total Score: 10 023 3:54 PM EST documented as of this encounter Care Teams Frame Hand Relationship Specialty Start Date End Date Dakota Monet MD [address] [place] [address] PCP - General Internal Medicine 05/10/13 documented as of this encounter
[2025-02-01 09:34] LABS: Hematocrit 42.1 % (37.0-47.0); Hemoglobin 14.4 g/dl (12.0-16.0); Imm Gran Abs Auto 0.03 X10*3/uL (0.00-0.03); Imm Gran Pct Auto 0.4 % (0.0-0.4); Lymphocytes Absolute Auto 1.3 X10*3/uL (1.2-4.9); Mean Corpuscular HGB Conc 34.2 g/dl (31.0-35.0); Mean Corpuscular Hemoglobin 28.6 pg (27.0-33.0); Mean Corpuscular Volume 83.7 fL (80.0-98.0); NRBC Abs Auto 0.000 X10*3/uL (0.0-0.012); NRBC Pct Auto 0.0 /100WBC (0.0-0.2); Platelet Count 208 X10*3/uL (160-400); Red Blood Count 5.03 X10*6/uL (4.20-5.50); White Blood Count 6.8 X10*3/uL (4.8-10.8)
[2025-02-01 10:02] LABS: Anion Gap 11 (12-20); Blood Urea Nitrogen 15 mg/dL (9-16); Calcium 9.8 mg/dL (8.4-10.2); Carbon Dioxide 23 mmol/L (22-29); Chloride 110 mmol/L (96-108); Estimated Glomerular Filt Rate > 60; Potassium 4.2 mmol/L (3.3-5.1); Sodium 140 mmol/L (135-145)
== END 2025-02-01 08:55 | disposition home or self-care (01) ==
LOC: HO.XRAY 08:54
PROVIDERS: Visit Provider Internal Medicine
DX: G89.4 Chronic pain syndrome (principal); M54.50 Low back pain, unspecified
CPT/HCPCS: 36415; 72110; 80048; 85025

== ENCOUNTER → 2025-02-01 09:08 | Outpatient (BNV) | payer OTHER, SELFPAY | PROVIDERS: Visit Provider Radiology Diagnostic Radiology | DX: M51.360 Other intervertebral disc degeneration, lumbar region with discogenic back pain only (principal) | CPT/HCPCS: 72110 ==

== ENCOUNTER 2025-02-08 08:30 | Outpatient (REF) | payer OTHER, SELFPAY | END 2025-02-08 08:31 | disposition home or self-care (01) | LOC: HO.LAB 08:30 | PROVIDERS: PCP Internal Medicine; Visit Provider Family Medicine | DX: Z01.84 Encounter for antibody response examination (principal); J02.9 Acute pharyngitis, unspecified | CPT/HCPCS: 36415; 86308 ==

== ENCOUNTER 2025-02-22 09:45 | Outpatient (AMB) | payer OTHER, SELFPAY ==
--- NOTE | 2025-02-22 09:48 | A.OFFVIS_ITS ---
Intake Visit Reasons: 3m Allergies No Known Allergies Allergy (Verified 12/20/24 15:16) Medication List - Last Reconciled 02/22/25 by Gay Fuentes MD butalbital-acetaminophen 50-325 mg 1 - 2 tabs orally a day as needed for headache PRN; 30 days cholecalciferol (vitamin D3) 10 mcg PO DAILY escitalopram oxalate 5 mg PO DAILY hydroxyzine pamoate 25 mg PO TID PRN levonorgestrel (Mirena) intrauterine lidocaine 5% (Lidoderm) 1 patch topical DAILY loratadine 10 mg PO DAILY PRN melatonin 10 mg PO BEDTIME PRN meloxicam 15 mg PO DAILY metoclopramide HCl 10 - 20 mg PO paroxetine HCl 40 mg PO QAM pregabalin 200 mg PO TID propranolol 20 mg PO QAM quetiapine 150 mg PO BEDTIME sennosides (senna) 8.6 mg PO BEDTIME PRN sumatriptan succinate 50 mg PO DAILY PRN tizanidine 4 mg PO BEDTIME topiramate 100 mg PO BEDTIME trazodone 50 - 100 mg PO BEDTIME PRN HPI Comments Details: 49 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 She is presenting with chronic insomnia and headaches, primarily attributed to migraines. She reports ongoing difficulty with sleep despite using Trazodone and having adverse reactions to melatonin. Currently, the insomnia remains unalleviated. For anxiety management, she uses Lexapro and Hydroxyzine. In the past, she used Lyrica for body pain, with the prescribing physician being Dr. Warner. The patient also suffers from nausea related to GERD, but she has stopped Metoclopramide based on recent advice. For headache management, the patient uses Nuterol alongside another, unnamed medication, which partly alleviates her symptoms. Her allergic rhinitis is managed with Loratadine. There have been no recent changes in her medication regimen, and she has faced difficulties in accessing psychiatric care due to insurance issues. [facility] Medical History (Updated 02/22/25 @ 09:52 by Gay Fuentes MD) Anxiety Insomnia Daily headache Obesity Migraine Recklinghausen disease Gallstones Foot lesion COVID-19 vaccine series completed No pertinent past medical history Surgical History History of excision of lesion (~07/03/24) Hx of colonoscopy Hx of tubal ligation Hx of bilateral breast reduction surgery Hx of section Family History Mother Pancreas cancer Father Testicular cancer Paternal Aunt Colon cancer Breast CA Son URVASHI (juvenile rheumatoid arthritis) Social History Household Members: Children Household Members Other:: cat Are you a primary post acute care nurse practitioner to a significant other at home: No Do you presently have visiting nurse or other home services: No Alcohol intake: current Alcohol intake frequency: holidays/special occasions only Patient Tobacco Use Status: Never used Tobacco Substance Use Type: Marijuana Current occupational status: employed 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 - Psychiatric: Reports symptom relief with Lexapro and Hydroxyzine; reports that melatonin induced nightmares. - Gastrointestinal: Reports past nausea. - Musculoskeletal: Previously prescribed Lyrica for body pain. - Allergic/Immunologic: Reports use of Loratadine for allergy management. - General: Reports stopped use of Metoclopramide for nausea. Physical Exam Neuro Other: Mental Status: Alert and oriented to person, place, and time. Normal attention. Normal spontane ous speech, fluency, and comprehension. No obvious issues with mood and memory. Affect is appropriate. Cranial Nerves: CN II: Visual shahid full to confrontation, visual acuity intact. CN III, IV, : Pupils equal, round, reactive to light and accommodation. Extraocular movements are normal. CN V: Facial sensation is normal. CN VII: Facial movements symmetrical. CN VIII: Hearing intact to bedside conversation is normal. CN IX, X: Palate elevates symmetrically. CN XI: Shoulder shrug and head turn symmetrical. CN XII: Tongue midline without atrophy or fasciculations. Motor: Bulk and tone normal in all extremities. No significant muscle weakness in arms and legs. No drift. Reflexes: Deep tendon reflexes 2+ and symmetric. Plantar response down-going bilaterally. Coordination: Xciwdc-xq-uchj and fvlc-dx-blfb testing normal. No dysmetria. Gait and Station: No obvious gait abnormality. No ataxia or instability. Extrapyramidal: Full facial expressions and blinking. No rigidity. Movements are appropriate with no tremor or abnormality. Speech: Normal; no dysarthria or tremor. Assessment & Plan Assessment & Plan (1) Neurofibromatosis: Comment: MRI brain WWO at [facility] in August of 2013: WNL Code(s): Q85.00 - Neurofibromatosis, unspecified Category: Medical (2) Migraine: Comment: Meds tried for migraine: Topiramate, sumatriptan, metoclopromide Code(s): G43.909 - Migraine, unspecified, not intractable, without status migrainosus Category: Medical Qualifiers: Migraine type: without aura Status migrainosus presence: without status migrainosus Intractability: not intractable Qualified Code(s): G43.009 - Migraine without aura, not intractable, without status migrainosus (3) Insomnia: Code(s): G47.00 - Insomnia, unspecified Category: Medical Qualifiers: Insomnia type: due to medical condition Qualified Code(s): G47.01 - Insomnia due to medical condition Plan Impression: a: NF 1 b: Migraine w/o aura c: Insomnia Rec: a: Topiramate 100mg one at bedtime b: Sumatriptan 50mg one qd prn c: Fiorecet 1-2 qd prn, max 10 a months d: Quetiapine 100mg one at night Medications: New quetiapine 100 mg PO BEDTIME 90 tabs 0RF Coding Level of Care Code Est Pt Level 4 (79360) Diagnoses Neurofibromatosis Q85.00 Migraine without aura and without status migrainosus, not intractable G43.009 Migraine type: without aura Status migrainosus presence: without status migrainosus Intractability: not intractable Insomnia due to medical condition G47.01 Insomnia type: due to medical condition
--- OUTSIDE RECORDS SUMMARY | 2025-02-22 11:08 | XMS_ITS | Encounter Summary ---
Author Organization [employer] Address [address] [place] [address] 7 [place] [address] Care Team Providers Care Center Maker Hand Name Role Phone Dakota Monet MD Primary Care Provider +1 [phone] Reason for Visit * Reason Comments Med Refill Encounter Details Date Type Department Care Team ([facility] Contact Info) Description 02/19/2025 Refill [facility] CHC MED & PEDS [address] [place], [place] [phone] Dakota Monet MD [address] [place] [address] Primary insomnia; Chronic pain syndrome; Chronic right-sided low back [...] 10:30 AM EST Office Visit [facility] MED & PEDS [address] [place] [address] Dakota Monet MD [address] [place] [address] documented as of this encounter Visit Diagnoses Diagnosis Primary insomnia Persistent disorder of initiating or maintaining sleep Chronic pain syndrome Chronic right-sided low back pain with right-sided sciatica documented in this encounter Additional Health Concerns Assessment Noted Time PHQ-9 Depression Total Score: 8 06/29/19 25 3:42 PM EST documented as of this encounter Care Teams Center Maker Hand Relationship Specialty Start Date End Date Dakota Monet MD [address] [place] [address] PCP - General Internal Medicine 05/10/13 documented as of this encounter
--- OUTSIDE RECORDS SUMMARY | 2025-02-22 11:08 | XMS_ITS | Encounter Summary ---
Author Organization [employer] Address [address] [place] [address] Care Team Providers Care Float Operator Name Role Phone Dakota Monet MD Primary Care Provider [phone]- [phone] Encounter Details Date Type Department Care Team ([facility] Contact Info) Description 2023 Orders Only [facility] MED & PEDS [address] [place] [address] Dakota Monet MD [address] [place] [address] Social History Tobacco Use Types Packs/Day Years [...] 03/15/2025 10:30 AM EST Office Visit [facility] MED & PEDS [address] [place], [place] [phone] Dakota Monet MD [address] [place], [place] [phone] documented as of this encounter Visit Diagnoses Not on filedocumented in this encounter Additional Health Concerns Assessment Noted Time PHQ-9 Depression Total Score: 10 023 3:54 PM EST documented as of this encounter Care Teams Float Operator Relationship Specialty Start Date End Date Dakota Monet MD [address] [place] [address] [place] [address] PCP - General Internal Medicine 05/10/13 documented as of this encounter
--- OUTSIDE RECORDS SUMMARY | 2025-02-22 11:08 | XMS_ITS | Encounter Summary ---
Author Organization [employer] Address [address] [place] [address] 7 [place] [address] Care Team Providers Care Communications Engineer Name Role Phone Dakota Monet MD Primary Care Provider [phone]- [phone] Encounter Details Date Type Department Care Team (Late Contact Info) Description 06/22/2024 Orders Only [facility] MED & PEDS [address] [place] [address] Dakota Monet MD [address] [place] [address] Chronic migraine with aura without status migrainosus, [...] EST Office Visit [facility] MED & PEDS [address] [place] [address] Dakota Monet MD [address] [place] [address] documented as of this encounter Procedures Procedure [...] PM EST Narrative 06/24/2024 7:37 PM EST [place] [address] [address] Scan Report Signed Patient: Cornel Guevara MR#: [id number] 356 : 1975 Acct:[id number] Age/Sex: 48 / F ADM Date: 06/24/24 Loc: .ED Attending Dr: Ordering Physician: Re Barber Date of Service: 06/24/24 Procedure(s): CT lumbar spine wo IV con Accession Number(s): [id number] cc: Dakota Monet MD; Re Barber Report Number: [id number]: Total DLP = 2098.00 mGy-cm CLINICAL HISTORY: [...] Moderate to severe stool burden in the felyx-xf-nisi. Cholelithiasis in the blces-vc-wucv. IMPRESSION: 1. No acute fracture of the lumbar spine. 2. Worsening lower lumbar facet arthropathy compared to 11/07/2021. This document has been electronically signed by: Javed Queen MD on 06/24/2024 19:36:00 Dictated By: Javed Queen MD Signed By: <Electronically signed by Javed Queen MD in OV> 06/24/241935 DD/ 35 TD/TT: 06/24/241935 Die Presser: Procedure Note Donotuseinterpreter, Image - 06/24/[address] [place] [address] [address] Scan Report Signed Patient: Gerald Guevara#: [id number] 356 : 1975Acct:[id number] Age/Sex: 48 / FADM Date: 06/24/24 Loc: HO.ED Attending Dr: Ordering Physician: Re Barber Date of Service: 06/24/24 Procedure(s): CT lumbar spine wo IV con Accession Number(s): [id number] cc: Dakota Monet MD; Re Barber Report Number: [id number]: Total DLP = 2098.00 mGy-cm CLINICAL HISTORY: [...] Moderate to severe stool burden in the xyguk-il-sivw. Cholelithiasis in the ypnnt-jm-nzii. IMPRESSION: 1. No acute fracture of the lumbar spine. 2. Worsening lower lumbar facet arthropathy compared to 11/07/2021. This document has been electronically signed by: Javed Queen MD on 06/24/2024 19:36:00 Dictated By: Javed Queen MD Signed By: <Electronically signed by Javed Queen MD in OV> 06/24/241935 DD/ 35 TD/TT: 06/24/241935 Die Presser: [facility] External Provider IMG CT PROCEDURES Edited Result - Final * CT Chest w/o Contrast (06/24/2024 7:33 PM EST) Anatomical Region Laterality Modality Body, Chest Computed Tomogra phy 06/24/2024 7:33 PM EST Narrative 06/24/2024 7:35 PM EST [address] [address] [address] Scan Report Signed Patient: Cornel Guevara MR#: [id number] 356 : 1975 Acct:[id number] Age/Sex: 48 / F ADM Date: 06/24/24 Loc: HO.ED Attending Dr: Ordering Physician: Kaylan Underwood CNP Date of Service: 06/24/24 Procedure(s): CT chest wo IV con Accession Number(s): [id number] cc: Kaylan Underwood CNP; Dakota Monet MD Report Number: [id number]: Total DLP = 2098.00 mGy-cm CLINICAL HISTORY: [...] in OV> 06/24/241933 DD/ 32 TD/TT: 06/24/241932 Die Presser: Procedure Note Donotuseinterpreter, Image - 06/24/[address] [place] [address] [address] Scan Report Signed Patient: Gerald Guevara#: [id number] 356 : 1975Acct:[id number] Age/Sex: 48 / FADM Date: 06/24/24 Loc: HO.ED Attending Dr: Ordering Physician: Kaylan Underwood CNP Date of Service: 06/24/24 Procedure(s): CT chest wo IV con Accession Number(s): [id number] cc: Kaylan Underwood CNP; Dakota Monet MD Report Number: [id number]: Total DLP = 2098.00 mGy-cm CLINICAL HISTORY: [...] in OV> 06/24/241933 DD/ 32 TD/TT: 06/24/241932 Die Presser: [facility] External Provider IMG CT PROCEDURES Edited Result - Final * CT Head w/o Contrast (06/24/2024 7:28 PM EST) Anatomical Region Laterality Modality Head, Neck Computed Tomogra phy 06/24/2024 7:28 PM EST Narrative 06/24/2024 7:30 PM EST [place] [address] CT Scan Report Signed Patient: Cornel Guevara MR#: [id number] 356 : 1975 Acct:[id number] Age/Sex: 48 / F ADM Date: 06/24/24 Loc: HO.ED Attending Dr: Ordering Physician: Re Barber Date of Service: 06/24/24 Procedure(s): CT head/brain wo IV con Accession Number(s): [id number] cc: Dakota Monet MD; Re Barber Report Number: [id number]: Total DLP = 2098.00 mGy-cm CLINICAL HISTORY: [...] in OV> 06/24/241928 DD/ 27 TD/TT: 06/24/241927 Die Presser: Procedure Note Donotvolodymyrter, Image - 06/24/[address] [place] [address] [address] Scan Report Signed Patient: Gerald Guevara#: [id number] 356 : 1975Acct:[id number] Age/Sex: 48 / FADM Date: 06/24/24 Loc: HO.ED Attending Dr: Ordering Physician: Re Barber Date of Service: 06/24/24 Procedure(s): CT head/brain wo IV con Accession Number(s): [id number] cc: Dakota Monet MD; Re Barber Report Number: [id number]: Total DLP = 2098.00 mGy-cm CLINICAL HISTORY: [...] in OV> 06/24/241928 DD/ 27 TD/TT: 06/24/241927 Die Presser: [facility] External Provider IMG CT PROCEDURES Edited Result - Final * CT Cervical Spine w/o Contrast (06/24/2024 7:25 PM EST) Anatomical Region Laterality Modality Spine, C-spine Computed Tomogra phy 06/24/2024 7:25 PM EST Narrative 06/24/2024 7:27 PM EST [address] [address] [address] Scan Report Signed Patient: Cornel Guevara MR#: [id number] 356 : 1975 Acct:[id number] Age/Sex: 48 / F ADM Date: 06/24/24 Loc: HO.ED Attending Dr: Ordering Physician: Re Barber Date of Service: 06/24/24 Procedure(s): CT cervical spine wo IV con Accession Number(s): [id number] cc: Dakota Monet MD; Re Barber Report Number: [id number]: Total DLP = 2098.00 mGy-cm CLINICAL HISTORY: [...] in OV> 06/24/241925 DD/ 24 TD/TT: 06/24/241924 Die Presser: Procedure Note Donotuseinterpreter, Image - 06/24/[address] [address] [address] Scan Report Signed Patient: Dewey GuevaraR#: [id number] 356 : 1975Acct:[id number] Age/Sex: 48 / FADM Date: 06/24/24 Loc: HO.ED Attending Dr: Ordering Physician: Re Barber Date of Service: 06/24/24 Procedure(s): CT cervical spine wo IV con Accession Number(s): [id number] cc: Dakota Monet MD; Re Barber Report Number: [id number]: Total DLP = 2098.00 mGy-cm CLINICAL HISTORY: [...] in OV> 06/24/241925 DD/ 24 TD/TT: 06/24/241924 Die Presser: [facility] External Provider IMG CT PROCEDURES Edited Result - Final documented in this encounter Visit Diagnoses Diagnosis Chronic migraine with aura without status migrainosus, not intractable- Primary documented in this encounter Additional Health Concerns Assessment Noted Time PHQ-9 Depression Total Score: 10 023 3:54 PM EST documented as of this encounter Care Teams Communications Engineer Relationship Specialty Start Date End Date Dakota Monet MD [address] [place] [address] PCP - General Internal Medicine 05/10/13 documented as of this encounter
--- OUTSIDE RECORDS SUMMARY | 2025-02-22 11:08 | XMS_ITS | Encounter Summary ---
Author Organization [employer] Address [address] [place] [address] [address] [place] [address] Care Team Providers Care Dancer Or Choreographer Name Role Phone Dakota Monet MD Primary Care Provider +1 [phone] Encounter Details Date Type Department Care Team (Latest Contact Info) Description 02/06/2021 Abstract [facility] CONVERSIONS Dental, Provider, DDS Social History [...] 03/15/2025 10:30 AM EST Office Visit [facility] CHC MED & PEDS [address] [place] [address] Dakota Monet MD [address] [place] [address] documented as of this encounter Visit Diagnoses Not on filedocumented in this encounter Care Teams Dancer Or Choreographer Relationship Specialty Start Date End Date Dakota Monet MD [address] [place] [address] PCP - General Internal Medicine 05/10/13 documented as of this encounter
--- OUTSIDE RECORDS SUMMARY | 2025-02-22 11:08 | XMS_ITS | Encounter Summary ---
Author Organization [employer] Address [address] [place] [address] Care Team Providers Care Glass Furnace Tender Name Role Phone Dakota Monet MD Primary Care Provider +[phone] Reason for Visit * Reason Comments Med Refill Encounter Details Date Type Department Care Team ([facility] Contact Info) Description 01/16/2024 Refill [facility] MED & PEDS [address] [place] [address] Dakota Monet MD [address] [place] [address] Chronic pain syndrome; Chronic right-sided low back [...] Upcoming Encounters Date Type Department Care Team ([facility] Contact Info) Description 03/15/2025 10:30 AM EST Office Visit [facility] MED & PEDS [address] [place] [address] Dakota Monet MD [address] [place] [address] documented as of this encounter Visit Diagnoses Diagnosis Chronic pain syndrome Chronic right-sided low back pain with right-sided sciatica documented in this encounter Additional Health Concerns Assessment Noted Time PHQ-9 Depression Total Score: 10 023 3:54 PM EST documented as of this encounter Care Teams Glass Furnace Tender Relationship Specialty Start Date End Date Dakota Monet MD [address] [place] [address] PCP - General Internal Medicine 05/10/13 documented as of this encounter
--- OUTSIDE RECORDS SUMMARY | 2025-02-22 11:08 | XMS_ITS | Encounter Summary ---
Author Organization [employer] Address [address] [place] [address] Care Team Providers Care Insect Control Inspector Name Role Phone Dakota Monet MD Primary Care Provider +1- [phone] Reason for Visit * Reason Onset Date Comments Med Refill 12/21/2022 Encounter Details Date Type Department Care Team ([facility] st Contact Info) Description 12/21/2022 Telephone [facility] CHC MED & PEDS [address] [place] [address] Dakota Monet MD [address] [place] [address] Med Refill Social History Tobacco Use Types [...] Description 03/15/2025 10:30 AM EST Office Visit [facility] MED & PEDS [address] [place] [address] Dakota Monet MD [address] [place] [address] documented as of this encounter Visit Diagnoses Not on filedocumented in this encounter Additional Health Concerns Assessment Noted Time PHQ-9 Depression Total Score: 10 023 3:54 PM EST documented as of this encounter Care Teams Insect Control Inspector Relationship Specialty Start Date End Date Dakota Monet MD [address] [place] [address] PCP - General Internal Medicine 05/10/13 documented as of this encounter
--- OUTSIDE RECORDS SUMMARY | 2025-02-22 11:08 | XMS_ITS | Encounter Summary ---
Author Organization [employer] Address [address] [place] [address] Care Team Providers Care Customer Complaint Clerk Name Role Phone Dakota Monet MD Primary Care Provider [phone]- [phone] Reason for Visit * Reason Onset Date Comments Results 01/06/2023 Encounter Details Date Type Department Care Team ([facility] st Contact Info) Description 01/06/2023 Telephone [facility] CHC MED & PEDS [address] [place], [place] [phone] Dakota Monet MD [address] [place] [address] Results Social History Tobacco Use Types Packs/Day [...] States she will get the vaccine at [facility] pharmacy. Pt also requesting this [...] verbalized understanding. Pt reports no access to [employer]. RN informed link will be sent to [...] Description 03/15/2025 10:30 AM EST Office Visit [facility] MED & PEDS [address] [place] [address] Dakota Monet MD [address] [place] [address] documented as of this encounter Visit Diagnoses Diagnosis Chronic pain syndrome documented in this encounter Additional Health Concerns Assessment Noted Time PHQ-9 Depression Total Score: 10 023 3:54 PM EST documented as of this encounter Care Teams Customer Complaint Clerk Relationship Specialty Start Date End Date Dakota Monet MD [address] [place] [address] PCP - General Internal Medicine 05/10/13 documented as of this encounter
--- OUTSIDE RECORDS SUMMARY | 2025-02-22 11:08 | XMS_ITS | Encounter Summary ---
Author Organization [employer] Address [address] [place] [address] Care Team Providers Care Agricultural Produce Packer Name Role Phone Dakota Monet MD Primary Care Provider [phone] Reason for Referral * Imaging (Routine) - Closed Specialty Diagnoses / Procedures Referred By Contanabela adrian Referred To Contact Radiology Diagnoses Transaminitis Procedures US Abdomen Complete Dakota Monet MD [address] [place] [address] Phone: tel: fax: [address] Phone: tel: fax: Referral ID Status Reason Start Date Expiration Date Visits Re quested Visits Authorized [id number] Closed 06/30/2024 06/30/2025 1 1 Encounter Details Date Type Department Care Team (Late st Contact Info) Description 06/30/2024 Orders Only [facility] MEDICINE [address] [place] [address] Dakota Monet MD [address] [place], [place] [phone] Transaminitis (Primary Dx) Social History Tobacco Use [...] Description 03/15/2025 10:30 AM EST Office Visit [facility] MED [facility] PEDS [address] [place] [address] Dakota Monet MD [address] [place] [address] documented as of this encounter Procedures Procedure Name Priority Date/Time Associated Diagnosis Comments US ABDOMEN COMPLETE Routine 09/26/2024 2 :29 PM EDT Transaminitis HEPATITIS PANEL, GENERAL Routine 07/01/2024 8:14 AM EST Transaminitis documented in this encounter Results * US Abdomen Complete (09/26/2024 2:29 PM EDT) Anatomical Region Laterality Modality Abdomen Ultrasound 09/26/2024 2:29 PM EDT Narrative 09/26/2024 2:30 PM EDT [address] [address] Ultrasound Report Signed Patient: Cornel Guevara MR#: [id number] : 1975 Acct:[id number] Age/Sex: 48 / F ADM Date: 09/26/24 Loc: HO.US Attending Dr: Dakota Monet MD Ordering Physician: Dakota Monet MD Date of Service: 09/26/24 Procedure(s): US abdomen complete Accession Number(s): [id number] cc: Dakota Monet MD CLINICAL HISTORY: Transaminitis [...] Mendoza MD on 09/26/2024 14:29:32 Dictated By: Frnaca Chavez MD Signed By: <Electronically signed by Franca Chavez MD in OV> 09/26/24 1430 DD/ 28 TD/TT: 09/26/241428 Maintenance Carpenter: Procedure Note Donotcammieinterpreter, Image - 09/26/2024 [place] [address] Ultrasound Report Signed Patient: Gerald Guevara#: [id number] : 1975Acct:[id number] Age/Sex: 48 / FADM Date: 09/26/24 Loc: HO.US Attending Dr: Dakota Monet MD Ordering Physician: Dakota Monet MD Date of Service: 09/26/24 Procedure(s): US abdomen complete Accession Number(s): [id number] cc: Dakota Monet MD CLINICAL HISTORY: Transaminitis [...] 09/26/24 1430 DD/ 28 TD/TT: 05/27/25 1429 Maintenance Carpenter: us Dakota Monet MD IMG US PROCEDURES Final Res ult * Hepatitis A,B,C Profile (07/01/2024 8:14 AM EST) Hepatitis A IgM Nonreactive Nonreactive [facility] Comment:IgM antibodies to MARIE V not detected; does not exclude earlyacute or recovered HAV infection. ~Hepatitis B Surface Antibody REACTIVE Nonreactive [facility] Comment:REACTIVE: > 11.99 mI U/mL Hepatitis B Core Antibody Nonreactive Nonreactive [facility] Hepatitis C Antibody Nonreactive Nonreactive [facility] Comment:Antibodies to HCV no t detected; does not exclude early acuteHCV infection. Blood Venous blood specimen / Unknown 07/01/2024 8:14 AM EST 07/01/2024 8:14 AM EST us Dakota Monet MD LAB BLOOD ORDERABLES Final Result Performing Organization Address City/State/[facility] Co de Phone Number [facility] [address] [place] [phone] documented in this encounter Visit Diagnoses Diagnosis Transaminitis- Primary Nonspecific elevation of levels of transaminase or lactic acid dehydrogenase (LDH) documented in this encounter Additional Health Concerns Assessment Noted Time PHQ-9 Depression Total Score: 8 06/29/19 25 3:42 PM EST documented as of this encounter Care Teams Agricultural Produce Packer Relationship Specialty Start Date End Date Dakota Monet MD [address] [place] [phone] PCP - General Internal Medicine 05/10/13 documented as of this encounter
--- OUTSIDE RECORDS SUMMARY | 2025-02-22 11:08 | XMS_ITS | Encounter Summary ---
Author Organization [employer] Address [address] [facility] [place] [address] Care Team Providers Care Light Rail Vehicle Operator Name Role Phone Dakota Monet MD Primary Care Provider [phone] Encounter Details Date Type Department Care Team ([facility] st Contact Info) Description 02/05/2025 Results Follow-Up [facility] MED & PEDS [address] [place] [address] Manuel Quintero MD [address] [place] [address] Influenza A (ID NOW Rapid Molecular), Influenza B (ID NOW Rapid Molecular), POCT Rapid COVID Ag, Additional followed-up results: 2 Social History Tobacco Use Types Packs/Day Years [...] Description 03/15/2025 10:30 AM EST Office Visit [facility] MED & PEDS [address] [place] [address] Dakota Monet MD [address] [place] [address] documented as of this encounter Visit Diagnoses Not on filedocumented in this encounter Additional Health Concerns Assessment Noted Time PHQ-9 Depression Total Score: 8 06/29/19 25 3:42 PM EST documented as of this encounter Care Teams Light Rail Vehicle Operator Relationship Specialty Start Date End Date Dakota Monet MD [address] [place] [address] PCP - General Internal Medicine 05/10/13 documented as of this encounter
--- OUTSIDE RECORDS SUMMARY | 2025-02-22 11:08 | XMS_ITS | Encounter Summary ---
Author Organization [employer] Address [address] [place] [address] Care Team Providers Care Rural Health Consultant Name Role Phone Dakota Monet MD Primary Care Provider [phone] Reason for Referral * Consultation (Routine) - Closed Specialty Diagnoses / Procedures Referred By Contanabela t Referred To Contact General Surgery Diagnoses Calculus of gallbladder without cholecystitis without obstruction Dakota Monet MD [address] [place] [address] Phone: tel: fax: George Smith MD [address] [place] [address] Phone: tel: fax: Referral ID Status Reason Start Date Expiration Date V isits Requested Visits Authorized [id number] Closed Specialty Services Required 09/26/2024 09/26/2025 1 1 Encounter Details Date Type Department Care Team (Late st Contact Info) Description 09/26/2024 Orders Only [facility] CH[facility] MED & PEDS [address] [place], [place] [phone] Dakota Monet MD [address] [place], [place] [phone] Calculus of gallbladder without cholecystitis without obstruction [...] Description 03/15/2025 10:30 AM EST Office Visit [facility] MED & PEDS [address] [place], [place] [phone] Dakota Monet MD [address] [place] [address] Scheduled Referrals Name Type Priority Associated Diagnoses [...] documented as of this encounter Care Teams Rural Health Consultant Relationship Specialty Start Date End Date Dakota Monet MD [address] [place] [phone] PCP - General Internal Medicine 05/10/13 documented as of this encounter
--- OUTSIDE RECORDS SUMMARY | 2025-02-22 11:08 | XMS_ITS | Encounter Summary ---
Author Organization [employer] Address [address] [place] [address] Care Team Providers Care Wax Bleacher Name Role Phone Dakota Monet MD Primary Care Provider [phone] Reason for Visit * Reason Onset Date Comments Referral 04/12/2024 Encounter Details Date Type Department Care Team ([facility] st Contact Info) Description 04/12/2024 Telephone [facility] MEDICINE [address] [place] [address] Dakota Monet MD [address] [place] [address] Referral Social History Tobacco Use Types Packs/Day [...] from pt requesting new referral : Address: [address] [place] [address] Facility Name: [facility] Type of Specialist: Neurology * Telephone Encounter - Toño Patel - 04/12/2024 10:06 AM EST TC from pt requesting new referral : Address: [address] [place] [address] Facility Name: [facility] Type of Specialist: Neurology documented in this encounter Plan of Treatment Upcoming Encounters Date Type Department Care Team (Late st Contact Info) Description 03/15/2025 10:30 AM EST Office Visit [facility] CH[facility] MED & PEDS [address] [place] [address] Dakota Monet MD [address] [place] [address] documented as of this encounter Visit Diagnoses Not on filedocumented in this encounter Additional Health Concerns Assessment Noted Time PHQ-9 Depression Total Score: 10 023 3:54 PM EST documented as of this encounter Care Teams Wax Bleacher Relationship Specialty Start Date End Date Dakota Monet MD [address] [place] [address] PCP - General Internal Medicine 05/10/13 documented as of this encounter
--- OUTSIDE RECORDS SUMMARY | 2025-02-22 11:08 | XMS_ITS | Clinical Summary ---
Author Organization [employer] Address [address] [place] [address] [address] [place] [address] Care Team Providers Care Tariff Publishing Agent Name Role Phone Dakota Monet MD Primary Care Provider [phone]- [phone] Allergies Active Allergy Reactions Criticality Noted Date [...] 3 times daily. 90 tablet 11 024 Active SUMAtriptan (Imitrex) 50 MG tabletIndicatio ns:Chronic [...] THE MORNING 30 tablet 5 025 Active QUEtiapine (SEROquel) 50 MG tabletIndicatio [...] FOR ANXIETY 90 capsule 1 025 Active traZODone (Desyrel) 50 MG tabletIndicatio ns:Primary insomnia TAKE 1-2 TABS BY MOUTH AT BEDTIME 60 tablet 3 025 Active celecoxib (CeleBREX) 200 MG capsuleIndicati [...] eorder (will not trigger notification to Pharmacy)) traZODone (Desyrel) 50 MG tabletIndicatio ns:Primary insomnia Take 1 tablet (50 mg) by mouth at bedtime. 1 to 2 tabs at bedtime 60 tablet 3 025 2024 Discontinued celecoxib (CeleBREX) 200 MG capsuleIndicati ons:Chronic pain syndrome,Chroni c right-sided low back pain with right-sided sciatica TAKE 1 CAPSULE BY MOUTH IN THE MORNING AND AT BEDTIME NEEDED FOR PAIN 60 capsule 025 2024 Discontinued traMADol (Ultram) 50 MG tabletIndicatio ns:Chronic pain syndrome Take 1 tablet (50 mg) by mouth 2 times daily for 15 days. 30 tablet 025 2024 Active Problems Problem Noted Date Diagnosed Date [...] Encounters Date Type Department Care Team Description 02/19/2025 Refill [facility] [address] [place] [address] Dakota Monet MD Primary insomnia; Chronic pain syndrome; Chronic right-sided low back pain with right-sided sciatica 02/05/2025 Results Follow-Up [facility] [address] [place] [address] Manuel Quintero MD Influenza A (ID NOW Rapid Molecular), Influenza B (ID NOW Rapid Molecular), POCT Rapid COVID Ag, Additional followed-up results: 2 02/01/2025 10:20 AM EDT Office Visit [facility] [address] [place] [phone] Manuel Quintero MD Pharyngitis, unspecified etiology 02/01/2025 Results Follow-Up [facility] [address] [place] [address] Dakota Monet MD Basic Metabolic Panel, CBC auto differential, XR Lumbar Spine Complete 4+ Views 02/01/2025 Telephone [facility] [address] [place], [place] [phone] Dakota Monet MD Lab Orders 01/31/2025 10:30 AM EDT Telemedicine [facility] [address] [place] [address] Dakota Monet MD Neurofibromatosis syndrome (HCC) (Primary Dx); Chronic pain syndrome; Acute right-sided low back pain without sciatica 01/11/2025 Refill [facility] [address] [place] [address] Dakota Monet MD Chronic pain syndrome; Chronic right-sided low back pain with right-sided sciatica 01/11/2025 Refill [facility] [address] [place] [address] Thomas Bhatti MD Chronic pain syndrome; Chronic right-sided low back pain with right-sided sciatica 12/10/2024 Refill [facility] [address] [place] [address] Dakota Monet MD Chronic pain syndrome; Chronic right-sided low back pain with right-sided sciatica 12/10/2024 Refill [facility] [address] [place] [address] Gabriella Rao FNP Chronic pain syndrome; Chronic right-sided low back pain with right-sided sciatica from Last 3 Months Immunizations Immunization Administration [...] Sign Reading Time Taken Comments Blood Pressure 99/72 02/01/2025 10:13 AM EDT Pulse 83 02/01/2025 10:13 AM EDT Temperature 36.7 C (98 F) 02/01/2025 10:13 AM EDT Respiratory Rate 16 02/01/2025 10:13 AM EDT Oxygen Saturation 98% 02/01/2025 10:13 AM EDT Inhaled Oxygen Concentration - - Weight 65.8 kg (145 lb) 02/01/2025 10:13 AM EDT Height 147.3 cm (4' 10 ) 09/27/2024 2:22 PM EDT Body Mass Index 30.31 09/27/2024 2:22 PM EDT Plan of Treatment Upcoming Encounters Date Type Department Care Team ([facility] st Contact Info) Description 03/15/2025 10:30 AM EST Office Visit [facility] [address] [place] [address] Dakota Monet MD [address] [place] [address] Health Maintenance Due Date Last Done Comments CT Colonography 1975 FIT DNA/Cologuard 1975 FIT 1975 FOBT 1975 HIV Screening 1975 Sigmoidoscopy 1975 Derm Melanoma Skin Check 06/18/1976 Family Planning (PISQ) 12/16/1990 Alcohol/Substance Use Screening 06/29/2025 06/29/2024 Depression Screening 06/29/2025 06/29/2024, 06/29/19 25 SDOH Screening 06/29/2025 06/29/2024 Cervical Cancer Screening 11/27/2025 HPV/Cotest 11/27/2025 11/27/2020, 04/13/2017 Pap Smear 11/27/2025 11/27/2020 Zoster Vaccines (1 of 2) 12/16/2025 Disability Screening 01/31/2026 01/31/2025 Tobacco Screening 02/01/2026 02/01/2025 Mammogram 04/29/2026 04/29/2024, 01/02, 06/16/2019, Additional history [...] Procedure Name Priority Date/Time Associated Diagnosis Comments MONONUCLEOSIS TEST, QUALITATIVE Routine 02/08/2025 8:38 AM EDT Pharyngitis, unspecified etiology POCT INFLUENZA B (ID NOW RAPID MOLECULAR) Routine 02/01/2025 10:28 AM EDT Pharyngitis, unspecified etiology POCT INFLUENZA A (ID NOW RAPID MOLECULAR) Routine 02/01/2025 10:28 AM EDT Pharyngitis, unspecified etiology POCT RAPID STREP A Routine 02/01/2025 10 :24 AM EDT Pharyngitis, unspecified etiology POCT RAPID COVID ANTIGEN Routine 02/01/2025 10:24 AM EDT Pharyngitis, unspecified etiology XR LUMBAR SPINE COMPLETE 4+ VIEWS Routine 02/01/2025 9:08 AM EDT Chronic pain syndrome Acute right-sided low back pain without sciatica CBC WITH AUTO DIFFERENTIAL Routine 02/01/2025 9:06 AM EDT Acute right-sided low back pain without sciatica BASIC METABOLIC PANEL Routine 02/01/2025 9:06 AM EDT Acute right-sided low back pain without sciatica HEPATITIS PANEL, GENERAL Routine 07/01/2024 8:14 AM EST Transaminitis BI MAMMOGRAM SCREENING TOMOSYNTHESIS BILATERAL Routine 04/29/2024 8:25 AM EST HM COLONOSCOPY Routine 08/22/2021 HPV MRNA E6/E7 Routine 11/27/2020 3:44 PM EDT THINPREP PAP Routine 11/27/2020 3:44 PM EDT from Last 3 Months or Most Recently Relevant to Health Maintenance Results * Mononucleosis Test, Qualitative (02/08/2025 8:38 AM EDT) Monotest Negative Negative [facility] Blood Venous blood specimen / Unknown 02/08/2025 8:38 AM EDT 02/08/2025 8:38 AM EDT Manuel Quintero MD LAB BLOOD ORDERABLES Final Resul t [facility] [address] [place] [phone] * Influenza B (ID NOW Rapid Molecular) (02/01/2025 10:28 AM EDT) Influenza B Negative Negative, Indeterminate [facility] Swab 02/01/2025 10:2 8 AM EDT Manuel Quintero MD POINT OF CARE TEST ENTER/EDIT OR DERABLES Final Result Performing Organization Address City/[facility]/ZIP Co de Phone Number [facility] [address] [place] [phone] * Influenza A (ID NOW Rapid Molecular) (02/01/2025 10:28 AM EDT) Influenza A Negative Negative, Indeterminate [facility] Swab 02/01/2025 10:2 8 AM EDT us Manuel Quintero MD POINT OF CARE TEST ENTER/EDIT OR DERABLES Final Result Performing Organization Address City/[facility] Co de Phone Number [facility] [address] [place] [address] [phone] * POCT Rapid COVID Ag (02/01/2025 10:24 AM EDT) [facility] Rapid COVID Ag Negative Swab 02/01/2025 10:2 4 AM EDT us Manuel Quintero MD POINT OF CARE TEST ENTER/EDIT OR DERABLES Final Result * POCT rapid strep A manually resulted (02/01/2025 10:24 AM EDT) [facility] Rapid Strep A Screen Negative Negative, None Detected Swab 02/01/2025 10:2 4 AM EDT us Manuel Quintero MD POINT OF CARE TEST ENTER/EDIT OR DERABLES Final Result * XR Lumbar Spine Complete 4+ Views (02/01/2025 9:08 AM EDT) Anatomical Region Laterality Modality Spine, L-spine Radiographic Odette ging 02/01/2025 9:08 AM EDT Narrative 02/01/2025 10:11 AM EDT [address] [address] XRay Report Signed Patient: Cornel Guevara MR#: [id number] 356 : 1975 Acct:[id number] Age/Sex: 49 / F ADM Date: 02/01/25 Loc: HOJOANIE Attending Dr: Dakota Monet MD Ordering Physician: Dakota Monet MD Date of Service: 02/01/25 Procedure(s): XR lumbar spine 4V min Accession Number(s): [id number] cc: Dakota Monet MD Reason for Exam: LBP EXAMINATION: XR LUMBOSACRAL SPINE CLINICAL INFORMATION: LBP COMPARISON: CT lumbar spine 06/24/2024. TECHNIQUE: 5 views of the lumbar spine, inclusive of bilateral oblique views, were obtained. FINDINGS: There is no significant scoliosis. There is a normal lordosis. There is no fracture, compression, or suspicious bone lesion. There is a 4 mm stable degenerative appearing anterolisthesis of L4 on L5. There are no definite pars defects present. There are degenerative facet changes present at L4-5. Disc spaces appear largely preserved with mild degeneration at L4-5. The sacrum is intact. The SI joints appear normal. Soft tissues appear grossly normal. There is an IUD within the central pelvis. XR/XR lumbar spine 4V min IMPRESSION: 1. No acute finding of the lumbar spine. 2. Similar degenerative disc and facet changes at L4-5. Electronically signed by: Kalpesh Escalona MD 02/01/2025 10:08 AM EDT Dictated By: Kalpesh Escalona MD Signed By: <Electronically signed by Kalpesh Escalona MD in OV> 02/01/25 1008 DD/ 0908 TD/TT: 02/01/25 0920 Pheresis Nurse: Procedure Note Donotuseinterpreter, Image - 02/01/[address] [address] XRay Report Signed Patient: Gerald Guevara#: [id number] 356 : 1975Acct:[id number] Age/Sex: 49 / FADM Date: 02/01/25 Loc: ODETTE Attending Dr: Dakota Monet MD Ordering Physician: Dakota Monet MD Date of Service: 02/01/25 Procedure(s): XR lumbar spine 4V min Accession Number(s): [id number] cc: Dakota Monet MD Reason for Exam: LBP EXAMINATION: XR LUMBOSACRAL SPINE CLINICAL INFORMATION: LBP COMPARISON: CT lumbar spine 06/24/2024. TECHNIQUE: 5 views of the lumbar spine, inclusive of bilateral oblique views, were obtained. FINDINGS: There is no significant scoliosis. There is a normal lordosis. There is no fracture, compression, or suspicious bone lesion. There is a 4 mm stable degenerative appearing anterolisthesis of L4 on L5. There are no definite pars defects present. There are degenerative facet changes present at L4-5. Disc spaces appear largely preserved with mild degeneration at L4-5. The sacrum is intact. The SI joints appear normal. Soft tissues appear grossly normal. There is an IUD within the central pelvis. XR/XR lumbar spine 4V min IMPRESSION: 1. No acute finding of the lumbar spine. 2. Similar degenerative disc and facet changes at L4-5. Electronically signed by: Kalpesh Escalona MD 02/01/2025 10:08 AM EDT Dictated By: Kalpesh Escalona MD Signed By: <Electronically signed by Kalpesh Escalona MD in OV> 02/01/25 1008 DD/ 0908 TD/TT: 02/01/25 0920 Pheresis Nurse: Dakota Monet MD IM XR PROCEDURES Edited Re sult - Final * (ABNORMAL) CBC auto differential (02/01/2025 9:06 AM EDT) White Blood Count 6.8 4.8 - 10.8 X10*3/uL [facility] Red Blood Count 5.03 4.20 - 5.50 X10*6/uL [facility] Hemoglobin 14.4 12.0 - 16.0 g/dl [facility] Hematocrit 42.1 37.0 - 47.0 % [facility] Mean Corpuscular Volume 83.7 80.0 - 98.0 fL [facility] Mean Corpuscular Hemoglobin 28.6 27.0 - 33.0 pg [facility] Mean Corpuscular HGB Conc 34.2 31.0 - 35.0 g/dl [facility] Red Cell Distribution Width 13.3 11.0 - 16.0 % [facility] Platelet Count 208 160 - 400 X10*3/uL [facility] Mean Platelet Volume 9.8 9.4 - 12.3 fL [facility] Neutrophils Percent Auto 69.3 45 - 73 % [facility] Imm Gran Pct Auto 0.4 0.0 - 0.4 % [facility] Lymphocytes Percent Auto 19.0(L) 20 - 40 % [facility] Monocytes Percent Auto 9.5 2 - 11 % [facility] Eosinophils Percent Auto 1.2 0 - 4 % [facility] Basophils Percent Auto 0.6 0 - 2 % [facility] NRBC Pct Auto 0.0 0.0 - 0.2 /100WBC [facility] Neutrophils Absolute Auto 4.7 2.0 - 8.3 x10*3/uL [facility] Imm Gran Abs Auto 0.03 0.00 - 0.03 X10*3/uL [facility] Lymphocytes Absolute Auto 1.3 1.2 - 4.9 X10*3/uL [facility] Monocytes Absolute Auto 0.7 0.1 - 1.2 X10*3/uL [facility] Eosinophils Absolute Auto 0.1 0.0 - 0.4 X10*3/uL [facility] Basophils Absolute Auto 0.0 0.0 - 0.2 X10*3/uL [facility] NRBC Abs Auto 0.000 0.0 - 0.012 X10*3/uL [facility] Blood Venous blood specimen / Unknown 02/01/2025 9:06 AM EDT 02/01/2025 9:06 AM EDT Dakota Monet MD LAB BLOOD ORDERABLES Final Result [facility] [address] [place] [address] [phone] * (ABNORMAL) Basic Metabolic Panel (02/01/2025 9:06 AM EDT) Pathologist [facility] Sodium 140 135 - 145 mmol/L [facility] Potassium 4.2 3.3 - 5.1 mmol/L [facility] Chloride 110(H) 96 - 108 mmol/L [facility] Carbon Dioxide 23 22 - 29 mmol/L [facility] Anion Gap 11(L) 12 - 20 [facility] Urea Nitrogen (BUN) 15 9 - 16 mg/dL [facility] Creatinine, Serum 0.80 0.5 - 1.4 mg/dL [facility] Estimated Glomerular Filt Rate >60 [facility] Comment:Chronic Kidney Disea se: Estimated GFR < 60 mL/min/1.86m5Jhhzhp Kidney Disease: Estimated GFR < 15 mL/min/1.73m2 Glucose 96 60 - 115 mg/dL [facility] Calcium 9.8 8.4 - 10.2 mg/dL [facility] Blood Venous blood specimen / Unknown 02/01/2025 9:06 AM EDT 02/01/2025 9:06 AM EDT us Dakota Monte MD LAB BLOOD ORDERABLES Final Result [facility] [address] [place] [address] [phone] * Hepatitis A,B,C Profile (07/01/2024 8:14 AM EST) Pathologist [facility] Hepatitis A IgM Nonreactive Nonreactive [facility] Comment:IgM antibodies to MARIE V not detected; does not exclude earlyacute or recovered HAV infection. ~Hepatitis B Surface Antibody REACTIVE Nonreactive [facility] Comment:REACTIVE: > 11.99 mI U/mL Hepatitis B Core Antibody Nonreactive Nonreactive [facility] Hepatitis C Antibody Nonreactive Nonreactive [facility] Comment:Antibodies to HCV no t detected; does not exclude early acuteHCV infection. Blood Venous blood specimen / Unknown 07/01/2024 8:14 AM EST 07/01/2024 8:14 AM EST us Dakota Monet MD LAB BLOOD ORDERABLES Final Result [facility] [address] [place] [address] [phone] * BI Mammogram Screening Tomosynthesis Bilateral (04/29/2024 8:25 AM EST) Anatomical Region Laterality Modality Breast Bilateral Mammography 04/29/2024 8:25 AM EST Narrative 05/12/2024 3:20 PM EST [address] [place] [address] Mammography Report Signed Patient: Cornel Guevara MR#: [id number] 356 : 1975 Acct:[id number] Age/Sex: 48 / F ADM Date: 04/29/24 Loc: HO.MAMMO Attending Dr: Dakota Monet MD Ordering Physician: Dakota Monet MD Results: 2 Benign Findings Date of Service: 04/29/24 Follow Up: 1 Year From [facility] Mammogram Procedure(s): MM tomosynthesis screening BI Accession Number(s): [id number] cc: Dakota Monet MD EXAMINATION: MM SCREENING [...] Miles DO in OV> 05/12/24 1516 DD/ TD/TT: 04/29/24 0836 Pheresis Nurse: Procedure Note Donotuseinterpreter, Image - 05/12/2024 [facility] [address] [place] [address] Mammography Report Signed Patient: Gerald Guevara#: [id number] 356 : 1975Acct:[id number] Age/Sex: 48 / FADM Date: 04/29/24 Loc: HO.MAMMO Attending Dr: Dakota Monet MD Ordering Physician: Dakota Monet MDResults: 2 Benign Findings Date of Service: 04/29/24Follow Up: 1 Year From Orig in[facility] Mammogram Procedure(s): MM tomosynthesis screening BI Accession Number(s): [id number] cc: Dakota Monet MD EXAMINATION: MM SCREENING [...] Mishel Miles DO 05/12/2024 03:16 PM EST RP Dictated By: Mishel Miles DO Signed By: <Electronically signed by Mishel Miles DO in OV> 05/12/24 1516 DD/ 0825 TD/TT: 04/29/24 0836 Pheresis Nurse: us Dakota Monet MD IMG BI PROCEDURES Final Res ult * Hm Colonoscopy (08/22/2021) Colonoscopy Normal Normal Narrative Milagro Bear - 08/22/2021 Recommended 5 year follow up us Historical Provider HEALTH MAINTENANCE Final Result * [...] along with historic and current clinical information. Engineering Supervisor : SEE COMMENT [facility] Comment: KF, CT(ASCP) CT screening location: [place] [address] Interpretation/R esult: Negative for intraepithelial lesion or malignancy. [facility] LMP: NONE [facility]EN [facility] Prev. BX: NONE [facility]IVEN [facility] Prev. PAP: NONE [facility]IVEN [facility] SOURCE: None given [facility] Statement Of Adequacy: SEE COMMENT [facility] Comment: Satisfactory for evaluation. Endocervical/transformation zone component absent. Age and/or menstrual status not provided 11/27/2020 3:44 PM EDT us Tamar Carbajal CNM LAB PATHOLOGY ORDERABLES Final Result [facility] [address] * HPV mRNA E6/E7 (11/27/2020 3:44 PM EDT) HPV nRNA E6/E7 Not Detected Not Detected [facility] Comment: Methodology: Iron Erector-Mediated Amplification This assay detects E6/E7 viral messenger RNA (mRNA) from 14 high-risk HPV types (16,18,31,33,35,39,45,51,52,56,58,59,66,68). The analytical performance characteristics of this assay have been determined by [employer]. The modifications have not been cleared or approved by the FDA. This assay has been validated pursuant to the CLIA regulations and is used for clinical purposes. For additional information, please refer to http://education.[employer]/faq/FOF758b6 (This link if provided for information/ educational purposes only.) 11/27/2020 3:44 PM EDT Tamar Carbajal [facility] LAB BLOOD ORDERABLES Josiane l Result [facility] [address] from Last 3 Months or Most Recently Relevant to Health Maintenance Insurance [facility] , [address] [place] [address] , [place] [address] Care Teams Tariff Publishing Agent Relationship Specialty Start Date End Date Dakota Monet MD [address] [place] [phone] PCP - General Internal Medicine 05/10/13
--- OUTSIDE RECORDS SUMMARY | 2025-02-22 11:09 | XMS_ITS | Encounter Summary ---
Author Organization [employer] Address [address] [place] [address] Care Team Providers Care Foil Operator Name Role Phone Dakota Monet MD Primary Care Provider +1- [phone] Reason for Visit * Reason Comments Med Refill Encounter Details Date Type Department Care Team ([facility] Contact Info) Description 03/19/2024 Refill [facility] [address] [place] [address] Dakota Monet MD [address] [place] [address] Primary insomnia Social History Tobacco Use Types [...] Upcoming Encounters Date Type Department Care Team ([facility] Contact Info) Description 03/15/2025 10:30 AM EST Office Visit [facility] [address] [place] [address] Dakota Monet MD [address] [place] [address] documented as of this encounter Visit Diagnoses Diagnosis Primary insomnia Persistent disorder of initiating or maintaining sleep documented in this encounter Additional Health Concerns Assessment Noted Time PHQ-9 Depression Total Score: 10 023 3:54 PM EST documented as of this encounter Care Teams Foil Operator Relationship Specialty Start Date End Date Dakota Monet MD [address] [place] [address] PCP - General Internal Medicine 05/10/13 documented as of this encounter
--- OUTSIDE RECORDS SUMMARY | 2025-02-22 11:09 | XMS_ITS | Encounter Summary ---
Author Organization [employer] Address [address] [place] [address] [address] [place] [address] Care Team Providers Care Cook Chef Name Role Phone Dakota Monet MD Primary Care Provider +1- [phone] Encounter Details Date Type Department Care Team (Latest Contact Info) Description 03/17/2023 Orders Only [facility] [address] [place], [place] [phone] Dakota Monet MD [address] [place] [address] Neurofibromatosis syndrome (CMS/HCC) (Primary Dx) Social History [...] [facility] [address] [place], [place] [phone] Dakota Monet MD [address] [place] [address] documented as of this encounter Visit Diagnoses Diagnosis Neurofibromatosis syndrome (HCC)- Primary Neurofibromatosis, unspecified documented in this encounter Additional Health Concerns Assessment Noted Time PHQ-9 Depression Total Score: 10 023 3:54 PM EST documented as of this encounter Care Teams Cook Chef Relationship Specialty Start Date End Date Dakota Monet MD [address] [place] [address] PCP - General Internal Medicine 05/10/13 documented as of this encounter
--- OUTSIDE RECORDS SUMMARY | 2025-02-22 11:09 | XMS_ITS | Encounter Summary ---
Author Organization [employer] Address [address] [place] [address] [place] [address] Care Team Providers Care Tissue Packer Name Role Phone Dakota Monet MD Primary Care Provider +1- [phone] Encounter Details Date Type Department Care Team (Late Contact Info) Description 03/05/2023 Abstract [facility] [address] [place] [address] Milagro Bear Social History Tobacco Use Types [...] Description 03/15/2025 10:30 AM EST Office Visit [facility] [address] [place], [place] [phone] Dakota Monet MD [address] [place], [place] [phone] documented as of this encounter Procedures Procedure [...] documented as of this encounter Care Teams Tissue Packer Relationship Specialty Start Date End Date Dakota Monet MD [address] [place] [phone] PCP - General Internal Medicine 05/10/13 documented as of this encounter
--- OUTSIDE RECORDS SUMMARY | 2025-02-22 11:09 | XMS_ITS | Encounter Summary ---
Author Organization [employer] Address [address] [place] [address] Care Team Providers Care Personnel Recruiter Name Role Phone Dakota Monet MD Primary Care Provider +1- [phone] Reason for Visit * Reason Onset Date Comments Referral 03/19/2023 Encounter Details Date Type Department Care Team ([facility] st Contact Info) Description 03/19/2023 Telephone [facility] [address] [place], [place] [phone] Dakota Monet MD [address] [place] [address] Referral Social History Tobacco Use Types Packs/Day [...] to ov w/ PCP 04.22.23. Will FYI medical imaging specialist neuro referral on hold for now. * Telephone Encounter - Sharri Gann - 03/22/2023 3:06 PM EST TC to [facility] neuro-surgery and there is doctors that will see patient with diagnosis but requires an MRI? Please advise, thank you. * Telephone Encounter - Didi Calhoun RN - 03/19/2023 3:45 PM EST Placed call to [facility] neuro regarding message [...] referral for Neurology, pt advised she called [facility] for an appt and [facility] advised they will not see her without explanation in why. Please contact pt at [phone] documented in this encounter Plan of Treatment Upcoming Encounters Date Type Department Care Team (Late st Contact Info) Description 03/15/2025 10:30 AM EST Office Visit [facility] MED & PEDS [address] [place] [address] Dakota Monet MD [address] [place] [address] documented as of this encounter Visit Diagnoses Not on filedocumented in this encounter Additional Health Concerns Assessment Noted Time PHQ-9 Depression Total Score: 10 023 3:54 PM EST documented as of this encounter Care Teams Personnel Recruiter Relationship Specialty Start Date End Date Dakota Monet MD [address] [place] [address] [place] [address] PCP - General Internal Medicine 05/10/13 documented as of this encounter
== END 2025-02-22 09:57 | disposition home or self-care (01) ==
LOC: HO.HSM 09:46
PROVIDERS: PCP Internal Medicine; Visit Provider Psychiatry & Neurology Neurology
DX: Q85.00 Neurofibromatosis, unspecified (principal); G43.009 Migraine without aura, not intractable, without status migrainosus; G47.01 Insomnia due to medical condition
CPT/HCPCS: 99214

== ENCOUNTER 2025-03-26 14:07 | Outpatient (REF) | payer OTHER, SELFPAY ==
--- OUTSIDE RECORDS SUMMARY | 2025-03-26 19:05 | XMS_ITS | Clinical Summary ---
Author Organization [employer] Address [address] [facility] [address] [place] [address] Care Team Providers Care Cloth Desizing Range Tender Name Role Phone Dakota Monet MD Primary Care Provider [phone] Allergies Active Allergy Reactions Criticality Noted Date Comments Peanut-Containing Drug Products 09/01 Medications SUMAtriptan (Imitrex) 50 MG tablet TAKE 1 TABLET BY MOUTH EVERY DAY NEEDED *FOR 30 DAYS* 04/15/20 22 Active topiramate (Topamax) 100 MG tablet Take 100 mg by mouth at bedtime. 02/03/20 22 Active Senna-Time 8.6 MG tablet TAKE 1 TABLET BY MOUTH EVERY DAY AT BEDTIME NEEDED FOR CONSTIPATION 02/03/20 22 Active GaviLAX 17 GM/SCOOP powder MIX 1 CAPFUL (17G) WITH 8 OUNCES OF FLUID AND DRINK DAILY 04/08/20 22 Active Levonorgestrel (Mirena, 52 MG,) 20 MCG/DAY intrauterine device 52 mg. 05/27/19 22 Active hydrOXYzine HCl (Atarax) 50 MG tablet TAKE 1 TABLET BY ORAL ROUTE 3 TIMES PER DAY NEEDED FOR ANXIETY 04/23/20 22 Active hydrocortisone (Anusol-HC) 2.5 % rectal cream APPLY RECTALLY 4 TIMES DAILY NEEDED FOR HEMORRHOIDS 12/09/19 22 Active estradiol (Estrace) 0.1 MG/GM vaginal cream INSERT (1 GRAM) VAGINALLY TWICE A WEEK 05/26/19 22 Active docusate sodium (Colace) 100 MG capsule Take 100 mg by mouth at bedtime. 01/15/20 22 Active Diclofenac Sodium 1 % gel APPLY 2 GRAMS TO AFFECTED AREA TWICE A DAY 10/15/19 22 Active rizatriptan (Maxalt) 10 MG tablet TAKE 1 TABLET BY MOUTH EVERY DAY NEEDED 10 10/27/19 23 Active Flowflex COVID-19 Ag Home Test kit USE DIRECTED 08/23/19 23 Active lidocaine (Lidoderm) 5 % patchIndications :Radiculopathy, lumbar region APPLY 1 PATCH EVERY DAY MAY WEAR UP TO 12 HOURS DAILY 30 patch 5 09/08/19 24 Active fluticasone (Flonase) 50 MCG/ACT nasal sprayIndications :Seasonal allergies SPRAY 2 SPRAYS INTO EACH NOSTRIL IN THE MORNING 48 mL 09/24/19 24 Active Blood Pressure kitIndications:E levated BP without diagnosis of hypertension BP check at home daily 1 kit 12/30/19 24 Active SUMAtriptan (Imitrex) 50 MG tabletIndication s:Chronic migraine with aura without status migrainosus, not intractable Take 1 tablet (50 mg) by mouth 1 (one) time if needed for migraine for up to 108 doses. May repeat dose once in 2 hours if no relief. Do not exceed 2 doses in 24 hours. 9 tablet 11 06/22/19 25 Active Atogepant (Qulipta) 30 MG tabletIndication s:Chronic migraine with aura without status migrainosus, not intractable Take 30 mg by mouth Once per day. 30 tablet 2 06/29/19 25 Active PARoxetine (Paxil) 40 MG tabletIndication s:Anxiety TAKE 1 TABLET BY MOUTH EVERY DAY IN THE MORNING 30 tablet 5 08/25/19 25 Active QUEtiapine (SEROquel) 50 MG tabletIndication s:Primary insomnia TAKE 3 TABLETS BY MOUTH AT BEDTIME 30 tablet 1 10/04/19 25 Active fexofenadine (Ashely) 180 MG tabletIndication s:Allergic symptoms, initial encounter Take 1 tablet (180 mg) by mouth if needed each day (Allergies). 30 tablet 2 10/27/19 25 Active loratadine (Claritin) 10 MG tablet TAKE 1 TABLET BY MOUTH EVERY DAY NEEDED 90 tablet 1 11/09/19 25 Active tiZANidine (Zanaflex) 4 MG tabletIndication s:Chronic pain syndrome TAKE 1 TABLET BY ORAL ROUTE ONCE A DAY AT BEDTIME 30 tablet 3 12/12/19 25 Active hydrOXYzine pamoate (Vistaril) 25 MG capsule TAKE 1 CAPSULE BY MOUTH 3 TIMES EVERY DAY NEEDED FOR ANXIETY 90 capsule 1 01/12/20 25 Active traZODone (Desyrel) 50 MG tabletIndication s:Primary insomnia TAKE 1-2 TABS BY MOUTH AT BEDTIME 60 tablet 3 02/20/20 25 Active celecoxib (CeleBREX) 200 MG capsuleIndicatio ns:Chronic pain syndrome,Chronic right-sided low back pain with right-sided sciatica TAKE 1 CAPSULE BY MOUTH IN THE MORNING AND AT BEDTIME NEEDED FOR PAIN 60 capsule 02/20/20 25 Active gabapentin (Neurontin) 800 MG tabletIndication s:Paresthesia Take 1 tablet (800 mg) by mouth 2 times daily. 60 tablet 11 03/15/20 25 026 Active gabapentin (Neurontin) 600 MG tabletIndication s:Chronic pain syndrome Take 1 tablet (600 mg) by mouth 3 times daily. 90 tablet 11 02/17/20 24 025 Discontin ued(Thera py completed ) Active Problems Problem Noted Date Diagnosed Date [...] Encounters Date Type Department Care Team Description 03/15/2025 10:30 AM EST Office Visit [facility] [address] [place] [address] Dakota Monet MD Neurofibromatosis syndrome (HCC) (Primary Dx); Subcutaneous mass; Elevated BP without diagnosis of hypertension; Paresthesia; Dietary counseling; Exercise counseling; Class 1 obesity due to excess calories with serious comorbidity and body mass index (BMI) of 30.0 to 30.9 in adult 03/15/2025 Travel 02/19/2025 Refill [facility] [address] [place] [address] Dakota Monet MD Primary insomnia; Chronic pain syndrome; Chronic right-sided low back pain with right-sided sciatica 02/05/2025 Results Follow-Up [facility] [address] [place] [address] Manuel Quintero MD Influenza A (ID NOW Rapid Molecular), Influenza B (ID NOW Rapid Molecular), POCT Rapid COVID Ag, Additional followed-up results: 2 02/01/2025 10:20 AM EDT Office Visit [facility] [address] [place] [phone] Manuel Quintero MD Pharyngitis, unspecified etiology 02/01/2025 Results Follow-Up [facility] [address] [place] [address] Dakota Monet MD Basic Metabolic Panel, CBC auto differential, XR Lumbar Spine Complete 4+ Views 02/01/2025 Telephone [facility] MEDICINE [address] [place] [phone] Dakota Monet MD Lab Orders 01/31/2025 10:30 AM EDT Telemedicine [facility] [address] [place] [address] Dakota Monet MD Neurofibromatosis syndrome (HCC) (Primary Dx); Chronic pain syndrome; Acute right-sided low back pain without sciatica 01/11/2025 Refill [facility] [address] [place] [address] Dakota Monet MD Chronic pain syndrome; Chronic right-sided low back pain with right-sided sciatica 01/11/2025 Refill [facility] & PEDS [address] [place], [place] [phone] Thomas Bhatti MD Chronic pain syndrome; Chronic [...] your housing situation today? I have rojelio sing 06/29/[address] you li [...] Sign Reading Time Taken Comments Blood Pressure 138/79 03/15/2025 10:28 AM EST Pulse 57 03/15/2025 10:28 AM EST Temperature 36.9 C (98.5 F) 03/15/2025 10:28 AM EST Respiratory Rate 19 03/15/2025 10:28 AM EST Oxygen Saturation 90% 03/15/2025 10:28 AM EST Inhaled Oxygen Concentration - - Weight 65.8 kg (145 lb) 03/15/2025 10:28 AM EST Height 147.3 cm (4' 10 ) 03/15/2025 10:28 AM EST Body Mass Index 30.31 03/15/2025 10:28 AM EST Plan of Treatment Health Maintenance Due Date Last Done Comments CT Colonography 1975 FIT DNA/Cologuard 1975 FIT 1975 FOBT 1975 HIV Screening 1975 Sigmoidoscopy 1975 Derm Melanoma Skin Check 06/18/1976 Family Planning (PISQ) 12/16/1990 COVID-19 Vaccine ( season) 2025 12/27/2023, 09/12/2021, 02/28/2021, Additional history exists Alcohol/Substance Use Screening 06/29/2025 06/29/2024 Depression Screening 06/29/2025 06/29/2024, 06/29/19 SDOH Screening 06/29/2025 06/29/2024 Cervical Cancer Screening 11/27/2025 HPV/Cotest 11/27/2025 11/27/2020, 04/13/2017 Pap Smear 11/27/2025 11/27/2020 Zoster Vaccines (1 of 2) 12/16/2025 Disability Screening 01/31/2026 01/31/2025 Tobacco Screening 03/15/2026 03/15/2025 Mammogram 04/29/2026 04/29/2024, 01/02, 06/16/2019, Additional history exists Colonoscopy 08/22/2026 08/22/2021 Colorectal Cancer Screening 08/22/2026 Lipid Panel 06/29/2029 06/29/2024 DTaP/Tdap/Td Vaccines (3 - Td or Tdap) 02/27/2034 02/28/2024, 12/08/2010 RSV Patients and Patients Aged 60 years or older (1 - 1-dose 75+ series) 12/16/2050 Hepatitis B Vaccines Completed 03/02/2023, 01/12/20 23 Hepatitis C Screening Completed 07/01/2024, 023 Influenza [...] Procedure Name Priority Date/Time Associated Diagnosis Comments AMB REFERRAL TO ALLERGY Routine 03/15/2025 Allergic symptoms, initial encounter MONONUCLEOSIS TEST, QUALITATIVE Routine 02/08/2025 8:38 AM [...] GENERAL Routine 07/01/2024 8:14 AM EST Transaminitis LIPID PANEL, STANDARD Routine 06/29/2024 4:26 PM EST Elevated BP without diagnosis of hypertension BI MAMMOGRAM SCREENING TOMOSYNTHESIS BILATERAL Routine 04/29/2024 8:25 AM EST HM COLONOSCOPY Routine 08/22/2021 HPV MRNA E6/E7 Routine 11/27/2020 3:44 PM EDT THINPREP PAP Routine 11/27/2020 3:44 PM EDT from Last 3 Months or Most Recently Relevant to Health Maintenance Results * Referral to Allergy (03/15/2025) us Dakota Monet MD OUTPATIENT REFERRAL ORDERAB LES Final Result * Mononucleosis Test, Qualitative (02/08/2025 8:38 AM EDT) Monotest Negative Negative [facility] Blood Venous blood specimen / Unknown 02/08/2025 8:38 AM EDT 02/08/2025 8:38 AM EDT us Manuel Quintero MD LAB BLOOD ORDERABLES Final Resul t Performing Organization Address [facility] Co de Phone Number [facility] [address] [place] [phone] * Influenza B (ID NOW Rapid Molecular) (02/01/2025 10:28 AM EDT) Influenza B Negative Negative, Indeterminate [facility] Swab 02/01/2025 10:2 8 AM EDT us Manuel Quintero MD POINT OF CARE TEST ENTER/EDIT OR DERABLES Final Result Performing Organization Address [facility] Co de Phone Number [facility] [address] [place] [phone] * Influenza A (ID NOW Rapid Molecular) (02/01/2025 10:28 AM EDT) Influenza A Negative Negative, Indeterminate [facility] Swab 02/01/2025 10:2 8 AM EDT us Manuel Quintero MD POINT OF CARE TEST ENTER/EDIT OR DERABLES Final Result Performing Organization Address [facility] Co de Phone Number [facility] [address] [place] [phone] * POCT Rapid COVID Ag (02/01/2025 10:24 AM EDT) Rapid COVID Ag Negative Swab 02/01/2025 10:2 4 AM EDT us Manuel Quintero MD POINT OF CARE TEST ENTER/EDIT OR DERABLES Final Result * POCT rapid strep A manually resulted (02/01/2025 10:24 AM EDT) Rapid Strep A Screen Negative Negative, None Detected Swab 02/01/2025 10:2 4 AM EDT us Manuel Quintero MD POINT OF CARE TEST ENTER/EDIT OR DERABLES Final Result * XR Lumbar Spine Complete 4+ Views (02/01/2025 9:08 AM EDT) Anatomical Region Laterality Modality Spine, L-spine Radiographic Odette ging 02/01/2025 9:08 AM EDT Narrative 02/01/2025 10:11 AM EDT [address] [address] XRay Report Signed Patient: Cornel Guevara MR#: [id number] 356 : 1975 Acct:[id number] Age/Sex: 49 / F ADM Date: 02/01/25 Loc: [facility] Attending Dr: Dakota Monet MD Ordering Physician: Dakota Monet MD Date of Service: 02/01/25 Procedure(s): XR lumbar spine 4V min Accession Number(s): [id number] cc: Dakota Monet MD Reason for Exam: [...] Kalpesh Escalona MD 02/01/2025 10:08 AM EDT RP Dictated By: Kalpesh Escalona MD Signed By: <Electronically signed by Kalpesh Escalona MD in OV> 02/01/25 1008 DD/ 7 TD/TT: 02/01/25 0920 Color Television Console Monitor: Procedure Note Donotuseinterpreter, Image - 02/01/2025 [place] [address] XRay Report Signed Patient: Gerald Guevara#: [id number] 356 : 1975Acct:[id number] Age/Sex: 49 / FADM Date: 02/01/25 Loc: HO.XRMAAME Attending Dr: Dakota Monet MD Ordering Physician: Dakota Monet MD Date of Service: 02/01/25 Procedure(s): XR lumbar spine 4V min Accession Number(s): [id number] cc: Dakota Monet MD Reason for Exam: [...] Escalona MD in OV> 02/01/25 1008 DD/ 7 TD/TT: 02/01/25919 Color Television Console Monitor: Dakota Monet MD IMG XR PROCEDURES Edited Re sult - Final * (ABNORMAL) CBC auto differential (02/01/2025 9:06 AM EDT) White Blood Count 6.8 4.8 - 10.8 X10*3/uL [facility] Red Blood Count 5.03 4.20 - 5.50 X10*6/uL [facility] Hemoglobin 14.4 12.0 - 16.0 g/dl [facility] Hematocrit 42.1 37.0 - 47.0 % [facility] Mean Corpuscular Volume 83.7 80.0 - 98.0 fL [facility] Mean Corpuscular Hemoglobin 28.6 27.0 - 33.0 pg [facility] Mean Corpuscular HGB Conc 34.2 31.0 - 35.0 g/dl [facility] Red Cell Distribution Width 13.3 11.0 - 16.0 % [facility] Platelet Count 208 160 - 400 X10*3/uL [facility] Mean Platelet Volume 9.8 9.4 - 12.3 fL [facility] Neutrophils Percent Auto 69.3 45 - 73 % [facility] Imm Gran Pct Auto 0.4 0.0 - 0.4 % [facility] Lymphocytes Percent Auto 19.0(L) 20 - 40 % [facility] Monocytes Percent Auto 9.5 2 - 11 % [facility] Eosinophils Percent Auto 1.2 0 - 4 % [facility] Basophils Percent Auto 0.6 0 - 2 % [facility] NRBC Pct Auto 0.0 0.0 - 0.2 /100WBC [facility] Neutrophils Absolute Auto 4.7 2.0 - 8.3 x10*3/uL [facility] Imm Gran Abs Auto 0.03 0.00 - 0.03 X10*3/uL [facility] Lymphocytes Absolute Auto 1.3 1.2 - 4.9 X10*3/uL [facility] Monocytes Absolute Auto 0.7 0.1 - 1.2 X10*3/uL [facility] Eosinophils Absolute Auto 0.1 0.0 - 0.4 X10*3/uL [facility] Basophils Absolute Auto 0.0 0.0 - 0.2 X10*3/uL [facility] NRBC Abs Auto 0.000 0.0 - 0.012 X10*3/uL [facility] Blood Venous blood specimen / Unknown 02/01/2025 9:06 AM EDT 02/01/2025 9:06 AM EDT us Dakota Monet MD LAB BLOOD ORDERABLES Final Result [facility] [address] [place] [phone] [phone] * (ABNORMAL) Basic Metabolic Panel (02/01/2025 9:06 AM EDT) Sodium 140 135 - 145 mmol/L [facility] Potassium 4.2 3.3 - 5.1 mmol/L [facility] Chloride 110(H) 96 - 108 mmol/L [facility] Carbon Dioxide 23 22 - 29 mmol/L [facility] Anion Gap 11(L) 12 - 20 [facility] Urea Nitrogen (BUN) 15 9 - 16 mg/dL [facility] Creatinine, Serum 0.80 0.5 - 1.4 mg/dL [facility] Estimated Glomerular Filt Rate >60 [facility] Comment:Chronic Kidney Disea se: Estimated GFR < 60 mL/min/1.52m2Tjlmmx Kidney Disease: Estimated GFR < 15 mL/min/1.73m2 Glucose 96 60 - 115 mg/dL [facility] Calcium 9.8 8.4 - 10.2 mg/dL [facility] Blood Venous blood specimen / Unknown 02/01/2025 9:06 AM EDT 02/01/2025 9:06 AM EDT us Dakota Monet MD LAB BLOOD ORDERABLES Final Result Performing Organization Address [facility] Co de Phone Number [facility] [address] [place] [phone] * Hepatitis A,B,C Profile (07/01/2024 8:14 AM EST) Hepatitis A IgM Nonreactive Nonreactive [facility] Comment:IgM antibodies to MARIE V not detected; does not exclude earlyacute or recovered HAV infection. ~Hepatitis B Surface Antibody REACTIVE Nonreactive [facility] Comment:REACTIVE: > 11.99 mI U/mL Hepatitis B Core Antibody Nonreactive Nonreactive [facility] Hepatitis C Antibody Nonreactive Nonreactive [facility] Comment:Antibodies to HCV no t detected; does not exclude early acuteHCV infection. Blood Venous blood specimen / Unknown 07/01/2024 8:14 AM EST 07/01/2024 8:14 AM EST us Dakota Monet MD LAB BLOOD ORDERABLES Final Result Performing Organization Address [facility]/ZIP Co de Phone Number [facility] [address] [place] [phone] * Lipid Panel, Standard (06/29/2024 4:26 PM EST) Triglycerides 88 <150 mg/dL [facility] Comment:Desirable Triglyceri de: less than 150 mg/dLBorderline High Triglyceride 150-199 mg/dLHigh Triglyceride: 200-499 mg/dLVery High Triglyceride: greater than or equal to 5OO mg/dL Cholesterol 163 <200 mg/dL [facility] Comment:Desirable Cholestero l: less than 200 mg/dLBorderline High Cholesterol: 200-239 mg/dLHigh Cholesterol: greater than 239 mg/dL LDL Cholesterol Calculated 95 <100 mg/dL [facility] Comment:Desirable LDL: less than 100 mg/dLNear Optimal/Above Optimal LDL: 110- 129 mg/dLBorderline High LDL: 130-159 mg/dLHigh LDL: 160-189 mg/dLVery High LDL: greater than or equal to 190 mg/dL HDL Cholesterol 51 >40 mg/dL [facility] Comment:Desirable HDL: great er than 40 mg/dL Note: This HDL assay may give artificially low results in patients with liver disease. Blood Venous blood specimen / Unknown 06/29/2024 4:26 PM EST 06/29/2024 6:11 PM EST Dakota Monet MD LAB BLOOD ORDERABLES Final Result [facility] [address] [place] [address] [phone] * BI Mammogram Screening Tomosynthesis Bilateral (04/29/2024 8:25 AM EST) Anatomical Region Laterality Modality Breast Bilateral Mammography 04/29/2024 8:25 AM EST Narrative 05/12/2024 3:20 PM EST [facility] [address] [place] [address] [place] [address] Mammography Report Signed Patient: Cornel Guevara MR#: [id number] 356 : 1975 Acct:[id number] Age/Sex: 48 / F ADM Date: 04/29/24 Loc: HO.MAMMO Attending Dr: Dakota Monet MD Ordering Physician: Dakota Monet MD Results: 2 Benign Findings Date of Service: 04/29/24 Follow Up: 1 Year From Orig inal Mammogram Procedure(s): MM tomosynthesis screening BI Accession Number(s): [id number] cc: Dakota Monet MD EXAMINATION: MM SCREENING [...] by: Mishel Miles DO 05/12/2024 03:16 PM [facility] Dictated By: Mishel Miles DO Signed By: <Electronically signed by Mishel Miles DO in OV> 05/12/24 1516 DD/ 0825 TD/TT: 04/29/24 0836 Color Television Console Monitor: Procedure Note Donotuseinterpreter, Image - 05/12/2024 [facility] [address] [place], [place] [address] Mammography Report Signed Patient: Gerald Guevara#: [id number] 356 : 1975Acct:[id number] Age/Sex: 48 / FADM Date: 04/29/24 Loc: HO.MAMMO Attending Dr: Dakota Monet MD Ordering Physician: Dakota Monet MDResults: 2 Benign Findings Date of Service: 04/29/24Follow Up: 1 Year From Orig inal Mammogram Procedure(s): MM tomosynthesis screening BI Accession Number(s): [id number] cc: Dakota Monet MD EXAMINATION: MM SCREENING [...] by: Mishel Miles DO 05/12/2024 03:16 PM [facility] Dictated By: Mishel Miles DO Signed By: <Electronically signed by Mishel Miles DO in OV> 05/12/24 1516 DD/ 0825 TD/TT: 04/29/24 0836 Color Television Console Monitor: Dakota Monet MD IMG BI PROCEDURES Final [...] along with historic and current clinical information. [place] : SEE COMMENT [facility] Comment: KF, CT(ASCP) CT screening location: [place] [address] Interpretation/R esult: Negative for intraepithelial lesion or malignancy. [facility] LMP: NONE [facility]IVEN [facility] Prev. BX: NONE [facility]IVEN [facility] Prev. PAP: NONE [facility]IVEN [facility] SOURCE: None given [facility] Statement Of Adequacy: SEE COMMENT [facility] Comment: Satisfactory for evaluation. Endocervical/transformation zone component absent. Age and/or menstrual status not provided 11/27/2020 3:44 PM EDT [facility] PATHOLOGY ORDERABLES Final Result Performing Organization Address [facility] Phone Number [facility] [address] * HPV mRNA E6/E7 (11/27/2020 3:44 PM EDT) HPV nRNA E6/E7 Not Detected Not Detected [facility] Comment: Methodology: Vp Product-Mediated Amplification This assay detects E6/E7 viral messenger RNA (mRNA) from 14 high-risk HPV types (16,18,31,33,35,39,45,51,52,56,58,59,66,68). The analytical performance characteristics of this assay have been determined by [employer]. The modifications have not been cleared or approved by the FDA. This assay has been validated pursuant to the CLIA regulations and is used for clinical purposes. For additional information, please refer to http://education.[employer]/faq/CVW845a6 (This link if provided for information/ educational purposes only.) 11/27/2020 3:44 PM EDT [facility] BLOOD ORDERABLES Josiane l Result Performing Organization Address [facility] Co de Phone Number [facility] [address] from Last 3 Months or Most Recently Relevant to Health Maintenance Insurance [facility] , [address] [place] [address] Care Teams Cloth Desizing Range Tender Relationship Specialty Start Date End Date Dakota Monet MD [address] [place] [phone] PCP - General Internal Medicine 05/10/13
--- OUTSIDE RECORDS SUMMARY | 2025-03-26 19:05 | XMS_ITS | Encounter Summary ---
Author Organization [employer] Address [address] [place] [address] [address] [place] [address] Care Team Providers Care Household Chores Name Role Phone Dakota Monet MD Primary Care Provider [phone]- [phone] Encounter Details Date Type Department Care Team (Latest Contact Info) Description 03/17/2023 Orders Only [facility] [address] [place], [place] [phone] Dakota Monet MD [address] [place] [address] Neurofibromatosis syndrome (CMS/HCC) (Primary Dx) Social History [...] on file documented as of this encounter Visit Diagnoses Diagnosis Neurofibromatosis syndrome (HCC)- Primary Neurofibromatosis, unspecified documented in this encounter Additional Health Concerns Assessment Noted Time PHQ-9 Depression Total Score: 10 023 3:54 PM EST documented as of this encounter Care Teams Household Chores Relationship Specialty Start Date End Date Dakota Monet MD [address] [place] [phone] PCP - General Internal Medicine 05/10/13 documented as of this encounter
--- OUTSIDE RECORDS SUMMARY | 2025-03-26 19:05 | XMS_ITS | Encounter Summary ---
Author Organization [employer] Address [address] [place] [address] [place] [address] Care Team Providers Care Palletiser Operator Name Role Phone Dakota Monet MD Primary Care Provider [phone]- [phone] Reason for Visit * Reason Comments Med Refill Encounter Details Date Type Department Care Team ([facility] st Contact Info) Description 03/19/2024 Refill [facility] MED & PEDS [address] [place], [place] [phone] Dakota Monet MD [address] [place] [address] Primary insomnia Social History Tobacco Use Types [...] documented as of this encounter Care Teams Palletiser Operator Relationship Specialty Start Date End Date Dakota Monet MD [address] [place] [phone] PCP - General Internal Medicine 05/10/13 documented as of this encounter
--- OUTSIDE RECORDS SUMMARY | 2025-03-26 19:05 | XMS_ITS | Encounter Summary ---
Author Organization [employer] Address [address] [place] [address] Care Team Providers Care Console Attendant Name Role Phone Dakota Monet MD Primary Care Provider [phone] Reason for Visit * Reason Onset Date Comments Results 01/06/2023 Encounter Details Date Type Department Care Team ([facility] st Contact Info) Description 01/06/2023 Telephone [facility] CHC MED & PEDS [address] [place], [place] [phone] Dakota Monet MD 505 [place] [address] Results Social History Tobacco Use Types Packs/Day [...] States she will get the vaccine at [facility] pharmacy. Pt also requesting this message [...] verbalized understanding. Pt reports no access to [employer]. RN informed link will be sent to [...] documented in this encounter Plan of Treatment Not on file documented as of this encounter Visit Diagnoses Diagnosis Chronic pain syndrome documented in this encounter Additional Health Concerns Assessment Noted Time PHQ-9 Depression Total Score: 10 05/19/ 023 3:54 PM EST documented as of this encounter Care Teams Console Attendant Relationship Specialty Start Date End Date Dakota Monet MD [address] [place] [address] PCP - General Internal Medicine 05/10/13 documented as of this encounter
--- OUTSIDE RECORDS SUMMARY | 2025-03-26 19:05 | XMS_ITS | Encounter Summary ---
Author Organization [employer] Address [address] [place] [address] Care Team Providers Care Financial Services Counselor Name Role Phone Dakota Monet MD Primary Care Provider [phone]- [phone] Reason for Visit * Reason Onset Date Comments Med Refill 12/21/2022 Encounter Details Date Type Department Care Team ([facility] st Contact Info) Description 12/21/2022 Telephone [facility] CHC MED & PEDS 505 [place] [address] Dakota Monet MD 505 [place] [address] Med Refill Social History Tobacco Use Types [...] documented as of this encounter Care Teams Financial Services Counselor Relationship Specialty Start Date End Date Dakota Monet MD [address] [place] [address] PCP - General Internal Medicine 05/10/13 documented as of this encounter
--- OUTSIDE RECORDS SUMMARY | 2025-03-26 19:05 | XMS_ITS | Encounter Summary ---
Author Organization [employer] Address [address] [place] [address] 7 [place] [address] Care Team Providers Care Mine Exploration Engineer Name Role Phone Dakota Monet MD Primary Care Provider [phone] Encounter Details Date Type Department Care Team (Latest Contact Info) Description 02/06/2021 Abstract [facility] Dental, Provider, DDS Social History Tobacco [...] on filedocumented in this encounter Care Teams Mine Exploration Engineer Relationship Specialty Start Date End Date Dakota Monet MD 505 [place] [address] PCP - General Internal Medicine 05/10/13 documented as of this encounter
--- OUTSIDE RECORDS SUMMARY | 2025-03-26 19:05 | XMS_ITS | Encounter Summary ---
Author Organization [employer] Address [address] [facility] 7t [place] [address] Care Team Providers Care Mallet Cutter Name Role Phone Dakota Monet MD Primary Care Provider [phone] Encounter Details Date Type Department Care Team ([facility] st Contact Info) Description 02/05/2025 Results Follow-Up [facility] CHC MED & PEDS 505 [place] [address] Manuel Quintero MD [address] [place] [address] Influenza A (ID NOW Rapid Molecular), Influenza [...] documented as of this encounter Care Teams Mallet Cutter Relationship Specialty Start Date End Date Dakota Monet MD [address] [place] [address] PCP - General Internal Medicine 05/10/13 documented as of this encounter
--- OUTSIDE RECORDS SUMMARY | 2025-03-26 19:05 | XMS_ITS | Encounter Summary ---
Author Organization [employer] Address [address] [place] [address] Care Team Providers Care Asbestos Brake Lining Finisher Helper Name Role Phone Dakota Monet MD Primary Care Provider [phone]- [phone] Reason for Visit * Reason Onset Date Comments Referral 04/12/2024 Encounter Details Date Type Department Care Team ([facility] st Contact Info) Description 04/12/2024 Telephone [facility] MEDICINE 230 [place] [address] Dakota Monet MD 505 [place] [address] Referral Social History Tobacco Use Types Packs/Day [...] from pt requesting new referral : Address: [address] [place] [address] Facility Name: [facility] Type of Specialist: Neurology * Telephone Encounter - Toño Patel - 04/12/2024 10:06 AM EST TC from pt requesting new referral : Address: [address] [place] [address] Facility Name: [facility] Type of Specialist: Neurology documented in this encounter Plan of Treatment Not on file documented as of this encounter Visit Diagnoses Not on filedocumented in this encounter Additional Health Concerns Assessment Noted Time PHQ-9 Depression Total Score: 10 023 3:54 PM EST documented as of this encounter Care Teams Asbestos Brake Lining Finisher Helper Relationship Specialty Start Date End Date Dakota Monet MD [address] [place] [address] PCP - General Internal Medicine 05/10/13 documented as of this encounter
--- OUTSIDE RECORDS SUMMARY | 2025-03-26 19:05 | XMS_ITS | Encounter Summary ---
Author Organization [employer] Address [address] [place] [address] Care Team Providers Care Production Welder Name Role Phone Dakota Monet MD Primary Care Provider [phone] Reason for Referral * Consultation (Routine) - Closed Specialty Diagnoses / Procedures Referred By Contanabela t Referred To Contact General Surgery Diagnoses Calculus of gallbladder without cholecystitis without obstruction Dakota Monet MD 505 [place] [address] Phone: tel: fax: George Smith MD [address] [place] [address] Phone: tel: fax: Referral ID Status Reason Start Date Expiration Date V isits Requested Visits Authorized [id number] Closed Specialty Services Required 09/26/2024 09/26/2025 1 1 Encounter Details Date Type Department Care Team (Late st Contact Info) Description 09/26/2024 Orders Only [facility] CHC MED & PEDS 505 [place], [place] [phone] Dakota Monet MD 505 [place], [place] [phone] Calculus of gallbladder without cholecystitis without obstruction [...] as of this encounter Plan of Treatment Scheduled Referrals Name Type Priority Associated Diagnoses [...] documented as of this encounter Care Teams Production Welder Relationship Specialty Start Date End Date Dakota Monet MD [address] [place] [address] PCP - General Internal Medicine 05/10/13 documented as of this encounter
--- OUTSIDE RECORDS SUMMARY | 2025-03-26 19:05 | XMS_ITS | Encounter Summary ---
Author Organization [employer] Address [address] [place] [address] 7 [place] [address] Care Team Providers Care Trader Name Role Phone Dakota Monet MD Primary Care Provider [phone] Encounter Details Date Type Department Care Team ([facility] st Contact Info) Description 06/22/2024 Orders Only [facility] CHC MED & PEDS 505 [place], [place] [phone] Dakota Monet MD 505 [place] [address] Chronic migraine with aura without status migrainosus, [...] PM EST Narrative 06/24/2024 7:37 PM EST [place] [address] [address] Scan Report Signed Patient: Cornel Guevara MR#: [id number] 356 : 1975 Acct:[id number] Age/Sex: 48 / F ADM Date: 06/24/24 Loc: HO.ED Attending Dr: Ordering Physician: Re Barber Date of Service: 06/24/24 Procedure(s): CT lumbar spine wo IV con Accession Number(s): [id number] cc: Dakota Monet MD; Re Barber Report Number: [id number]: Total DLP = 2098.00 mGy-cm CLINICAL HISTORY: [...] Moderate to severe stool burden in the hfihr-ew-knnj. Cholelithiasis in the yoqbv-ix-tull. IMPRESSION: 1. No acute fracture of the lumbar spine. 2. Worsening lower lumbar facet arthropathy compared to 11/07/2021. This document has been electronically signed by: Javed Queen MD on 06/24/2024 19:36:00 Dictated By: Javed Queen MD Signed By: <Electronically signed by Javed Queen MD in OV> 06/24/241935 DD/ 35 TD/TT: 06/24/241935 Frame Assembler: Procedure Note Donotcammieinterpreter, Image - 06/24/[address] [place] [address] [address] Scan Report Signed Patient: Gerald Guevara#: [id number] 356 : 1975Acct:[id number] Age/Sex: 48 / FADM Date: 06/24/24 Loc: HO.ED Attending Dr: Ordering Physician: Re Barber Date of Service: 06/24/24 Procedure(s): CT lumbar spine wo IV con Accession Number(s): [id number] cc: Dakota Monet MD; Re Barber Report Number: [id number]: Total DLP = 2098.00 mGy-cm CLINICAL HISTORY: [...] Moderate to severe stool burden in the xyoka-fk-shqu. Cholelithiasis in the bpcpg-sq-yynt. IMPRESSION: 1. No acute fracture of the lumbar spine. 2. Worsening lower lumbar facet arthropathy compared to 11/07/2021. This document has been electronically signed by: Javed Queen MD on 06/24/2024 19:36:00 Dictated By: Javed Queen MD Signed By: <Electronically signed by Javed Queen MD in OV> 06/24/241935 DD/ 35 TD/TT: 06/24/241935 Frame Assembler: [facility] External Provider IMG CT PROCEDURES Edited Result - Final * CT Chest w/o Contrast (06/24/2024 7:33 PM EST) Anatomical Region Laterality Modality Body, Chest Computed Tomogra phy 06/24/2024 7:33 PM EST Narrative 06/24/2024 7:35 PM EST [address] [address] [address] Scan Report Signed Patient: Cronel Guevara MR#: [id number] 356 : 1975 Acct:[id number] Age/Sex: 48 / F ADM Date: 06/24/24 Loc: HO.ED Attending Dr: Ordering Physician: Kaylan Underwood CNP Date of Service: 06/24/24 Procedure(s): CT chest wo IV con Accession Number(s): [id number] cc: Kaylan Underwood CNP; Dakota Monet MD Report Number: [id number]: Total DLP = 2098.00 mGy-cm CLINICAL HISTORY: [...] in OV> 06/24/241933 DD/ 32 TD/TT: 06/24/241932 Frame Assembler: Procedure Note Donotuseinterpreter, Image - 06/24/[address] [address] [address] Scan Report Signed Patient: Gerald Guevara#: [id number] 356 : 1975Acct:[id number] Age/Sex: 48 / FADM Date: 06/24/24 Loc: HO.ED Attending Dr: Ordering Physician: Kaylan Underwood CNP Date of Service: 06/24/24 Procedure(s): CT chest wo IV con Accession Number(s): [id number] cc: Kaylan Underwood CNP; Dakota Monet MD Report Number: [id number]: Total DLP = 2098.00 mGy-cm CLINICAL HISTORY: [...] in OV> 06/24/241933 DD/ 32 TD/TT: 06/24/241932 Frame Assembler: [facility] External Provider IMG CT PROCEDURES Edited Result - Final * CT Head w/o Contrast (06/24/2024 7:28 PM EST) Anatomical Region Laterality Modality Head, Neck Computed Tomogra phy 06/24/2024 7:28 PM EST Narrative 06/24/2024 7:30 PM EST [address] [address] [address] Scan Report Signed Patient: Cornel Guevara MR#: [id number] 356 : 1975 Acct:[id number] Age/Sex: 48 / F ADM Date: 06/24/24 Loc: HO.ED Attending Dr: Ordering Physician: Re Barber Date of Service: 06/24/24 Procedure(s): CT head/brain wo IV con Accession Number(s): [id number] cc: Dakota Monet MD; Re Barber Report Number: [id number]: Total DLP = 2098.00 mGy-cm CLINICAL HISTORY: [...] in OV> 06/24/241928 DD/ 27 TD/TT: 06/24/241927 Frame Assembler: Procedure Note Donotuseinterpreter, Image - 06/24/[address] [place] [address] CT Scan Report Signed Patient: Dewey GuevaraR#: [id number] 356 : 1975Acct:[id number] Age/Sex: 48 / FADM Date: 06/24/24 Loc: HO.ED Attending Dr: Ordering Physician: Re Barber Date of Service: 06/24/24 Procedure(s): CT head/brain wo IV con Accession Number(s): [id number] cc: Dakota Monet MD; Re Barber Report Number: [id number]: Total DLP = 2098.00 mGy-cm CLINICAL HISTORY: [...] in OV> 06/24/241928 DD/ 27 TD/TT: 06/24/241927 Frame Assembler: [facility] External Provider IMG CT PROCEDURES Edited Result - Final * CT Cervical Spine w/o Contrast (06/24/2024 7:25 PM EST) Anatomical Region Laterality Modality Spine, C-spine Computed Tomogra phy 06/24/2024 7:25 PM EST Narrative 06/24/2024 7:27 PM EST [address] [address] [address] Scan Report Signed Patient: Cornel Guevara MR#: [id number] 356 : 1975 Acct:[id number] Age/Sex: 48 / F ADM Date: 06/24/24 Loc: HO.ED Attending Dr: Ordering Physician: Re Barber Date of Service: 06/24/24 Procedure(s): CT cervical spine wo IV con Accession Number(s): [id number] cc: Dakota Monet MD; Re Barber Report Number: [id number]: Total DLP = 2098.00 mGy-cm CLINICAL HISTORY: [...] in OV> 06/24/241925 DD/ 24 TD/TT: 06/24/241924 Frame Assembler: Procedure Note Donotuseinterpreter, Image - 06/24/[address] [place] [address] [address] Scan Report Signed Patient: Gerald Guevara#: [id number] 356 : 1975Acct:[id number] Age/Sex: 48 / FADM Date: 06/24/24 Loc: HO.ED Attending Dr: Ordering Physician: Re Barber Date of Service: 06/24/24 Procedure(s): CT cervical spine wo IV con Accession Number(s): [id number] cc: Dakota Monet MD; Re Barber Report Number: [id number]: Total DLP = 2098.00 mGy-cm CLINICAL HISTORY: [...] in OV> 06/24/241925 DD/ 24 TD/TT: 06/24/241924 Frame Assembler: [facility] External Provider IMG CT PROCEDURES Edited Result - Final documented in this encounter Visit Diagnoses Diagnosis Chronic migraine with aura without status migrainosus, not intractable- Primary documented in this encounter Additional Health Concerns Assessment Noted Time PHQ-9 Depression Total Score: 10 05/19/ 023 3:54 PM EST documented as of this encounter Care Teams Trader Relationship Specialty Start Date End Date Dakota Monet MD [address] [place] [address] PCP - General Internal Medicine 05/10/13 documented as of this encounter
--- OUTSIDE RECORDS SUMMARY | 2025-03-26 19:05 | XMS_ITS | Encounter Summary ---
Author Organization [employer] Address [address] [place] [address] Care Team Providers Care Hat Brim And Crown Laminating Operator Name Role Phone Dakota Monet MD Primary Care Provider [phone] Reason for Referral * Imaging (Routine) - Closed Specialty Diagnoses / Procedures Referred By Contanabela adrian Referred To Contact Radiology Diagnoses Transaminitis Procedures US Abdomen Complete Dakota Monet MD 505 [place] [address] Phone: tel: fax: [facility] [address] [place] [phone] Phone: tel: fax: Referral ID Status Reason Start Date Expiration Date Visits Re quested Visits Authorized [id number] Closed 06/30/2024 06/30/2025 1 1 Encounter Details Date Type Department Care Team (Late st Contact Info) Description 06/30/[address] [facility] MEDICINE [address] [place] [address] Dakota Monet MD 505 [place], [place] [phone] Transaminitis (Primary Dx) Social History Tobacco Use [...] PM EDT Narrative 09/26/2024 2:30 PM EDT [address] [address] Ultrasound Report Signed Patient: Cornel Guevara MR#: [id number] 356 : 1975 Acct:[id number] Age/Sex: 48 / F ADM Date: 09/26/24 Loc: HO.US Attending Dr: Dakota Monet MD Ordering Physician: Dakota Monet MD Date of Service: 09/26/24 Procedure(s): US abdomen complete Accession Number(s): [id number] cc: Dakota Monet MD CLINICAL HISTORY: Transaminitis [...] 09/26/24 1430 DD/ 1429 TD/TT: 09/26/24 142 Health Social Work Professor: Procedure Note Donotuseinterpreter, Image - 09/26/[address] [address] Ultrasound Report Signed Patient: Gerald Guevara#: [id number] 356 : 1975Acct:[id number] Age/Sex: 48 / FADM Date: 09/26/24 Loc: HO.US Attending Dr: Dakota Monet MD Ordering Physician: Dakota Monet MD Date of Service: 09/26/24 Procedure(s): US abdomen complete Accession Number(s): [id number] cc: Dakota Monet MD CLINICAL HISTORY: Transaminitis [...] 09/26/24 1430 DD/ 1429 TD/TT: 09/26/24 1429 Health Social Work Professor: us Dakota Monet MD IM US PROCEDURES Final Res ult * Hepatitis A,B,C Profile (07/01/2024 8:14 AM EST) Hepatitis A IgM Nonreactive Nonreactive [facility] Comment:IgM antibodies to MARIE V not detected; does not exclude earlyacute or recovered HAV infection. ~Hepatitis B Surface Antibody REACTIVE Nonreactive [facility] Comment:REACTIVE: > 11.99 mI U/mL Hepatitis B Core Antibody Nonreactive Nonreactive [facility] Hepatitis C Antibody Nonreactive Nonreactive [facility] Comment:Antibodies to HCV no t detected; does not exclude early acuteHCV infection. Blood Venous blood specimen / Unknown 07/01/2024 8:14 AM EST 07/01/2024 8:14 AM EST us Dakota Monet MD LAB BLOOD ORDERABLES Final Result [facility] [address] [place] [address] [phone] documented in this encounter Visit Diagnoses Diagnosis Transaminitis- Primary Nonspecific elevation of levels of transaminase or lactic acid dehydrogenase (LDH) documented in this encounter Additional Health Concerns Assessment Noted Time PHQ-9 Depression Total Score: 8 06/29/19 25 3:42 PM EST documented as of this encounter Care Teams Hat Brim And Crown Laminating Operator Relationship Specialty Start Date End Date Dakota Monet MD [address] [place] [address] PCP - General Internal Medicine 05/10/13 documented as of this encounter
--- OUTSIDE RECORDS SUMMARY | 2025-03-26 19:05 | XMS_ITS | Encounter Summary ---
Author Organization [employer] Address [address] [place] [address] 7 [place] [address] Care Team Providers Care Bronze Chaser Name Role Phone Dakota Monet MD Primary Care Provider [phone] Encounter Details Date Type Department Care Team ([facility] st Contact Info) Description 2023 Orders Only [facility] CHC MED & PEDS [address] [place], [place] [phone] Dakota Monet MD [address] [place] [address] Social History Tobacco Use Types Packs/Day Years [...] documented as of this encounter Care Teams Bronze Chaser Relationship Specialty Start Date End Date Dakota Monet MD [address] [place] [address] [address] PCP - General Internal Medicine 05/10/13 documented as of this encounter
--- OUTSIDE RECORDS SUMMARY | 2025-03-26 19:05 | XMS_ITS | Encounter Summary ---
Author Organization [employer] Address [address] [place] [address] [place] [address] Care Team Providers Care Manager Medical Writing Name Role Phone Dakota Monet MD Primary Care Provider [phone]- [phone] Reason for Visit * Reason Comments Med Refill Encounter Details Date Type Department Care Team ([facility] st Contact Info) Description 01/16/2024 Refill [facility] CHC MED & PEDS [address] [place], [place] [phone] Dakota Monet MD [address] [place] [address] Chronic pain syndrome; Chronic right-sided low back [...] as of this encounter Care Teams Manager Medical Writing Relationship Specialty Start Date End Date Dakota Monet MD [address] [place] [address] PCP - General Internal Medicine 05/10/13 documented as of this encounter
--- OUTSIDE RECORDS SUMMARY | 2025-03-26 19:05 | XMS_ITS | Encounter Summary ---
Author Organization [employer] Address [address] [place] [address] Care Team Providers Care Relocation Commissioner Name Role Phone Dakota Monet MD Primary Care Provider [phone] Reason for Visit * Reason Onset Date Comments Referral 03/19/2023 Encounter Details Date Type Department Care Team ([facility] st Contact Info) Description 03/19/2023 Telephone [facility] CHC MED & PEDS 505 [place], [place] [phone] Dakota Monet MD 505 [place] [address] Referral Social History Tobacco Use Types Packs/Day [...] to ov w/ PCP 04.22.23. Will FYI internal control specialist neuro referral on hold for now. * Telephone Encounter - Sharri Gann - 03/22/2023 3:06 PM EST TC to [facility] neuro-surgery and there is doctors that will see patient with diagnosis but requires an MRI? Please advise, thank you. * Telephone Encounter - Didi Calhoun RN - 03/19/2023 3:45 PM EST Placed call to [facility] neuro regarding message below. Referral was received [...] referral for Neurology, pt advised she called [facility] for an appt and [facility] advised they will not see her without explanation in why. Please contact pt at [phone] documented in this encounter Plan of Treatment Not on file documented as of this encounter Visit Diagnoses Not on filedocumented in this encounter Additional Health Concerns Assessment Noted Time PHQ-9 Depression Total Score: 10 023 3:54 PM EST documented as of this encounter Care Teams Relocation Commissioner Relationship Specialty Start Date End Date Dakota Monet MD [address] [place], [place] [address] [address] PCP - General Internal Medicine 05/10/13 documented as of this encounter
--- OUTSIDE RECORDS SUMMARY | 2025-03-26 19:05 | XMS_ITS | Encounter Summary ---
Author Organization [employer] Address [address] [place] [address] 7t [place] [address] Care Team Providers Care Race Relations Adviser Name Role Phone Dakota Monet MD Primary Care Provider [phone] Encounter Details Date Type Department Care Team ([facility] st Contact Info) Description 03/05/2023 Abstract [facility] MEDICINE [address] [place] [address] Milagro Bear Social History Tobacco Use Types [...] Procedure Name Priority Date/Time Associated Diagnosis Comments COLONOSCOPY Routine 08/22/2021 documented in this encounter Results * Hm Colonoscopy (08/22/2021) Colonoscopy Normal Normal Narrative Milagro Bear - 08/22/2021 Recommended 5 year follow up Historical Provider HEALTH MAINTENANCE Final Result documented in this encounter Visit Diagnoses Not on filedocumented in this encounter Additional Health Concerns Assessment Noted Time PHQ-9 Depression Total Score: 10 023 3:54 PM EST documented as of this encounter Care Teams Race Relations Adviser Relationship Specialty Start Date End Date Dakota Monet MD [address] [place] [address] PCP - General Internal Medicine 05/10/13 documented as of this encounter
== END 2025-03-26 14:08 | disposition home or self-care (01) ==
LOC: HO.LAB 14:07
PROVIDERS: PCP Internal Medicine; Visit Provider Internal Medicine
DX: L29.9 Pruritus, unspecified (principal); Z91.010 Allergy to peanuts
CPT/HCPCS: 36415; 86003

== ENCOUNTER 2025-04-05 13:10 | Outpatient (AMB) | payer OTHER, SELFPAY ==
--- NOTE | 2025-04-05 13:16 | A.OFFVIS_ITS ---
Vital Signs 04/05/25 13:17 Height 4 ft 10 in Weight 152 lb 2 oz BMI 31.8 Intake Visit Reasons: lump on foot Intake Note: Patient presents for several skin lesions. Pt c/o; right pinky finger, upper lip and has one on the left periocular area, denies oozing, discharge or pus, denies fever or chills. Sustainable Systems Analyst Required: No Accompanied by: Self / Same As Patient Allergies No Known Allergies Allergy (Verified 04/05/25 13:25) Medication List - Last Reconciled 04/05/25 by George Smith MD butalbital-acetaminophen 50-325 mg 1 - 2 tabs orally a day as needed for headache PRN; 30 days cholecalciferol (vitamin D3) 10 mcg PO DAILY escitalopram oxalate 5 mg PO DAILY hydroxyzine pamoate 25 mg PO TID PRN levonorgestrel (Mirena) intrauterine lidocaine 5% (Lidoderm) 1 patch topical DAILY loratadine 10 mg PO DAILY PRN melatonin 10 mg PO BEDTIME PRN meloxicam 15 mg PO DAILY paroxetine HCl 40 mg PO QAM pregabalin 200 mg PO TID propranolol 20 mg PO QAM quetiapine 150 mg PO BEDTIME quetiapine 100 mg PO BEDTIME sennosides (senna) 8.6 mg PO BEDTIME PRN sumatriptan succinate 50 mg PO DAILY PRN tizanidine 4 mg PO BEDTIME topiramate 100 mg PO BEDTIME trazodone 50 - 100 mg PO BEDTIME PRN HPI HPI lump on foot: Details: She says she is here because of 2 lesions on the upper lip as well as in the 5th finger in the right side that she wants removed. She has no neurofibromatosis. I had actually removed a neurofibroma from the foot in the past She says that these 2 lesions described above in bothering her. [facility] Medical History Anxiety Insomnia Daily headache Obesity Migraine Recklinghausen disease Gallstones Foot lesion COVID-19 vaccine series completed No pertinent past medical history Surgical History History of excision of lesion (~07/03/24) Hx of colonoscopy Hx of tubal ligation Hx of bilateral breast reduction surgery Hx of section Family History Mother Pancreas cancer Father Testicular cancer Paternal Aunt Colon cancer Breast CA Son JRMary Ann (juvenile rheumatoid arthritis) Social History Household Members: Children Household Members Other:: cat Are you a primary school childcare attendant to a significant other at home: No Do you presently have visiting nurse or other home services: No Alcohol intake: current Alcohol intake frequency: holidays/special occasions only Patient Tobacco Use Status: Never used Tobacco Substance Use Type: Marijuana Current occupational status: employed 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, 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 Review of Systems Const Denies chills and Denies fever(s) Card Denies chest pain, Denies dyspnea and Denies dyspnea on exertion Resp Denies cough, Denies dyspnea and Denies dyspnea on exertion GI Denies hematochezia and Denies change in bowel habits Denies hematuria Musc Denies back pain and Denies limited range of motion Neuro Denies focal weakness and Denies convulsions Psych Denies depression and Denies mood swings Physical Exam Vital Signs: BMI result Body Mass Index 31.8 Const General: comfortable and no acute distress Orientation/consciousness: patient oriented x3 HEENT Other: Fibromatous lesion about 1 cm on the area above the upper lip to the right Neck Neck: Yes no lymphadenopathy Resp Auscultation: clear to auscultation bilaterally Cardio Rhythm: regular rhythm GI Palpation (GI): Soft to palpation, nontender and no guarding Skin Other: She has diffuse neurofibromatosis Neuro General: patient oriented x3 Extrem Other: Fibromatous lesion on the 5th finger on the right, about 7 mm in diameter Assessment & Plan Assessment & Plan (1) Neurofibromatosis: Comment: MRI brain WWO at [facility] in August of 2013: WNL Code(s): Q85.00 - Neurofibromatosis, unspecified Category: Medical Plan: She has a fibromatous lesion as described above on the area of the upper lip as well as on the 5th finger on the right. She wants both of these removed. I explained the technique of excision under local anesthesia. I reviewed with the risks including but not limited to bleeding, infections, poor cosmetic appearance and poor healing, as well as the benefits and alternatives. She understands and wants to proceed This will be done in the office under local anesthesia on her next visit. Coding Level of Care Code Est Pt Level 3 (80496) Diagnoses Neurofibromatosis Q85.00
[2025-04-05 13:17] VITALS: BMI 31.8
== END 2025-04-05 13:58 | disposition home or self-care (01) ==
LOC: HO.HGS 13:10
PROVIDERS: PCP Internal Medicine; Visit Provider Surgery
DX: Q85.00 Neurofibromatosis, unspecified (principal)
CPT/HCPCS: 99213

== ENCOUNTER 2025-04-12 13:04 | Outpatient (AMB) | payer OTHER, SELFPAY ==
--- NOTE | 2025-04-12 13:05 | A.OFFVIS_ITS ---
Vital Signs 04/12/25 13:06 Height 4 ft 10 in Weight 154 lb BMI 32.2 BP 128/73 Blood Pressure Location Rt brachial Position Sitting Respiration 16 Pulse 91 Pulse Source Pulse Oximeter Pulse Oximetry (%) 98 Oxygen Delivery Method Room Air Intake Visit Reasons: Back Pain Checkout Operator Required: No Accompanied by: Self / Same As Patient Allergies No Known Allergies Allergy (Verified 04/12/25 13:09) HPI Comments Details: Lidagma is back in my office is back in my office request to perform bilateral therapeutic sacroiliac joint injections. In the past patient received bilateral therapeutic sacroiliac joint injection with excellent pain relief up to 85 % lasting for 4-5 month. The patient went for physical therapy. She had 12 sessions of physical therapy with minimal pain relief. She continues to do home exercise programs she tries to remain active. 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 She wants to perform those bilateral therapeutic sacroiliac joint injections as soon as possible. We will schedule her for the procedure. In the past we discussed possibility of sacroiliac joint fusion however patient can not afford to stop working for 10-12 weeks and therefore she will not be able to go for the procedure. [facility] Medical History Anxiety Insomnia Daily headache Obesity Migraine Recklinghausen disease Gallstones Foot lesion COVID-19 vaccine series completed No pertinent past medical history Surgical History History of excision of lesion (~07/03/24) Hx of colonoscopy Hx of tubal ligation Hx of bilateral breast reduction surgery Hx of section Family History Mother Pancreas cancer Father Testicular cancer Paternal Aunt Colon cancer Breast CA Son JRA (juvenile rheumatoid arthritis) Social History Household Members: Children Household Members Other:: cat Are you a primary nurse behavioral health care to a significant other at home: No Do you presently have visiting nurse or other home services: No Alcohol intake: current Alcohol intake frequency: holidays/special occasions only Patient Tobacco Use Status: Never used Tobacco Substance Use Type: Marijuana Current occupational status: employed 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, 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 Review of Systems Const All systems reviewed & are unremarkable except as noted in HPI and below Physical Exam Vital Signs: Last Vital Signs Pulse 91 04/12/25 13:06 Resp 16 04/12/25 13:06 BP 128/73 04/12/25 13:06 Pulse Ox 98 04/12/25 13:06 Oxygen Delivery Method Room Air 04/12/25 13:06 BMI result Body Mass Index 32.2 Const General: healthy appearing, no acute distress and well developed Nutritional Appearance: well nourished Orientation/consciousness: patient oriented x3 HEENT Head: Yes normal to inspection, Yes normocephalic and Yes atraumatic Face and sinus: Yes normal facial exam Mouth: Normal oral and palatal mucosa present Throat: Yes posterior oropharynx normal, Yes tonsils normal and Yes uvula midline Eyes General: appearance normal, both eyes and all related structures Neck Neck: Yes normal visual inspection, Yes full ROM and Yes trachea midline Thyroid: Thyroid normal Resp Effort & Inspection: normal respiratory effort, able to speak in complete sentences, no tracheal deviation and symmetric chest movement Auscultation: clear to auscultation bilaterally Cardio Jugular venous distension: no JVD Rate: regular rate Heart sounds: S1 normal heart sound present, S2 normal heart sound present, no gallops and no murmurs GI Inspection: Yes normal to inspection, No distended and Yes obesity Palpation (GI): Soft to palpation, not firm, nontender and No hepatosplenomegaly present Auscultation: normal bowel sounds General: Yes no CVA tenderness Back/Spine/Pelvis Other: No weakness or numbness in bilateral lower extremities able to walk without difficulties stand on bilateral tiptoes and stand on bilateral heels. Loading test is positive on physical exam. Flexing forward and flexing backwards extremely painful. Tenderness of palpation paraspinal spinal region in the projection of the lower lumbar spine. Gallo test is positive bilaterally, Gaenslen test is positive bilaterally, pelvic compression test and pelvic distraction tests are both positive bilateral. [place]'s test is positive bilaterally. Back: no CVA tenderness Skin General skin exam: elasticity normal, turgor normal and dry skin Neuro General: patient oriented x3 Psych Appearance: grossly normal Mental Status: mental status grossly normal Speech and movement: Normal speech and movement present Affect: normal affect Attitude: cooperative Thought process: Normal thought process present Thought content: Normal thought content present Insight: Good insight present (Psych) Judgement: Good judgement present (Psych) Results Reviewed Results Reviewed: CT LUMBAR SPINE WITHOUT CONTRAST 11/07/21 CLINICAL INFORMATION: Radiculopathy. COMPARISON: None FINDINGS: Normal vertebral body alignment. The lumbar lordosis is maintained. No acute fracture or subluxation. No loss of vertebral body or intervertebral disc height. No concerning lytic or blastic osseous lesion. Bilateral facet arthropathy at L4-L5 and L5-S1. The visualized paraspinal soft tissues are unremarkable. No abnormal soft tissue mass or fluid collection. No significant disc bulge. No central canal or neural foraminal stenosis. IMPRESSION: 1. Moderate bilateral facet arthropathy at L4-L5 and L5-S1. 2. No significant disc bulge, central canal stenosis, or neural foraminal stenosis. Assessment & Plan Assessment & Plan (1) Polyarthralgia: Code(s): M25.50 - Pain in unspecified joint Category: Medical (2) Spondylosis of lumbar region without myelopathy or radiculopathy: Code(s): M47.816 - Spondylosis without myelopathy or radiculopathy, lumbar region Category: Medical (3) Pain of both sacroiliac joints: Code(s): M53.3 - Sacrococcygeal disorders, not elsewhere classified Category: Medical (4) Sacroiliitis: Code(s): M46.1 - Sacroiliitis, not elsewhere classified Category: Medical (5) Neurofibromatosis: Comment: MRI brain WWO at [facility] in August of 2013: WNL Code(s): Q85.00 - Neurofibromatosis, unspecified Category: Medical (6) Sacroiliac joint dysfunction of both sides: Code(s): M53.3 - Sacrococcygeal disorders, not elsewhere classified Category: Medical Plan I will schedule this patient for bilateral therapeutic sacroiliac joint injection. I will see this patient after the injection. Coding Level of Care Code Est Pt Level 3 (88465) Diagnoses Polyarthralgia M25.50 Spondylosis of lumbar region without myelopathy or radiculopathy M47.816 Pain of both sacroiliac joints M53.3 Sacroiliitis M46.1 Neurofibromatosis Q85.00 Sacroiliac joint dysfunction of both sides M53.3
[2025-04-12 13:06] VITALS: BP 128/73; PULSE 91; RESP 16; O2SAT 98; BMI 32.2
--- OUTSIDE RECORDS SUMMARY | 2025-04-12 20:10 | XMS_ITS | Encounter Summary ---
Author Organization [employer] Address [address] [facility] [address] [place] [address] Care Team Providers Care Ip Technology Transactions Attorney Name Role Phone Dakota Monet MD Primary Care Provider [phone] Encounter Details Date Type Department Care Team ([facility] st Contact Info) Description 02/05/2025 Results Follow-Up [facility] PEDS [address] [place] [address] Manuel Quintero MD [address] [place] [address] Influenza A (ID NOW Rapid Molecular), Influenza [...] documented as of this encounter Care Teams Ip Technology Transactions Attorney Relationship Specialty Start Date End Date Dakota Monet MD [address] [place] [phone] PCP - General Internal Medicine 05/10/13 documented as of this encounter
--- OUTSIDE RECORDS SUMMARY | 2025-04-12 20:10 | XMS_ITS | Encounter Summary ---
Author Organization [employer] Address [address] [place] [address] Care Team Providers Care Veterans Contact Representative Name Role Phone Dakota Monet MD Primary Care Provider [phone] Reason for Referral * Imaging (Routine) - Closed Specialty Diagnoses / Procedures Referred By Contanabela adrian Referred To Contact Radiology Diagnoses Transaminitis Procedures US Abdomen Complete Dakota Monet MD [address] [place] [address] Phone: tel: fax: [facility] [address] [place] [phone] Phone: tel: fax: Referral ID Status Reason Start Date Expiration Date Visits Re quested Visits Authorized [id number] Closed 06/30/2024 06/30/2025 1 1 Encounter Details Date Type Department Care Team (Late st Contact Info) Description 06/30/2024 Orders Only [facility] MEDICINE [address] [place] [address] Dakota Monet MD [address] [place], [place] [phone] Transaminitis (Primary Dx) Social History Tobacco Use [...] PM EDT Narrative 09/26/2024 2:30 PM EDT [address] [address] Ultrasound Report Signed Patient: Cornel Guevara MR#: [id number] : 1975 Acct:[id number] Age/Sex: 48 / F ADM Date: 09/26/24 Loc: HO.US Attending Dr: Dakota Monet MD Ordering Physician: Dakota Monet MD Date of Service: 09/26/24 Procedure(s): US abdomen complete Accession Number(s): [id number] cc: Dakota Monet MD CLINICAL HISTORY: Transaminitis [...] 09/26/24 1430 DD/ 1429 TD/TT: 09/26/24 142 Systems Programmer Analyst: Procedure Note Donotuseinterpreter, Image - 09/26/[address] [address] Ultrasound Report Signed Patient: Gerald Guevara#: [id number] : 1975Acct:[id number] Age/Sex: 48 / FADM Date: 09/26/24 Loc: HO.US Attending Dr: Dakota Monet MD Ordering Physician: Dakota Monet MD Date of Service: 09/26/24 Procedure(s): US abdomen complete Accession Number(s): [id number] cc: Dakota Monet MD CLINICAL HISTORY: Transaminitis [...] 09/26/24 1430 DD/ 1429 TD/TT: 09/26/24 1429 Systems Programmer Analyst: us Dakota Monet MD IM US PROCEDURES Final Res ult * Hepatitis A,B,C Profile (07/01/2024 8:14 AM EST) Hepatitis A IgM Nonreactive Nonreactive [facility] Comment:IgM antibodies to MARIE V not detected; does not exclude earlyacute or recovered HAV infection. ~Hepatitis B Surface Antibody REACTIVE Nonreactive [facility] Comment:REACTIVE: > 11.99 mI U/mL Hepatitis B Core Antibody Nonreactive Nonreactive [facility] Hepatitis C Antibody Nonreactive Nonreactive [facility] Comment:Antibodies to HCV no t detected; does not exclude early acuteHCV infection. Blood Venous blood specimen / Unknown 07/01/2024 8:14 AM EST 07/01/2024 8:14 AM EST us Dakota Monet MD LAB BLOOD ORDERABLES Final Result [facility] [address] [place] [address] [phone] documented in this encounter Visit Diagnoses Diagnosis Transaminitis- Primary Nonspecific elevation of levels of transaminase or lactic acid dehydrogenase (LDH) documented in this encounter Additional Health Concerns Assessment Noted Time PHQ-9 Depression Total Score: 8 06/29/19 25 3:42 PM EST documented as of this encounter Care Teams Veterans Contact Representative Relationship Specialty Start Date End Date Dakota Monet MD [address] [place] [phone] PCP - General Internal Medicine 05/10/13 documented as of this encounter
--- OUTSIDE RECORDS SUMMARY | 2025-04-12 20:11 | XMS_ITS | Encounter Summary ---
Author Organization [employer] Address [address] [place] [address] Care Team Providers Care Chemical Lab Technician Name Role Phone Dakota Monet MD Primary Care Provider [phone] Reason for Referral * Consultation (Routine) - Closed Specialty Diagnoses / Procedures Referred By Contanabela t Referred To Contact General Surgery Diagnoses Calculus of gallbladder without cholecystitis without obstruction Dakota Monet MD [address] [place] [address] Phone: tel: fax: George Smith MD [address] [place] [address] Phone: tel: fax: Referral ID Status Reason Start Date Expiration Date V isits Requested Visits Authorized [id number] Closed Specialty Services Required 09/26/2024 09/26/2025 1 1 Encounter Details Date Type Department Care Team (Late st Contact Info) Description 09/26/2024 Orders Only [facility] [address] [place], [place] [phone] Dakota Monet MD [address] [place], [place] [phone] Calculus of gallbladder without cholecystitis without obstruction [...] documented as of this encounter Care Teams Chemical Lab Technician Relationship Specialty Start Date End Date Dakota Monet MD [address] [place] [phone] PCP - General Internal Medicine 05/10/13 documented as of this encounter
--- OUTSIDE RECORDS SUMMARY | 2025-04-12 20:11 | XMS_ITS | Encounter Summary ---
Author Organization [employer] Address [address] [place] [address] [address] [place] [address] Care Team Providers Care Outboard Motorboat Operator Name Role Phone Dakota Monet MD Primary Care Provider [phone] Encounter Details Date Type Department Care Team [...] on filedocumented in this encounter Care Teams Outboard Motorboat Operator Relationship Specialty Start Date End Date Dakota Monet MD [address] [place] [address] PCP - General Internal Medicine 05/10/13 documented as of this encounter
--- OUTSIDE RECORDS SUMMARY | 2025-04-12 20:11 | XMS_ITS | Encounter Summary ---
Author Organization [email or web address] Address [address] [place] [address] Care Team Providers Care Human Services Assistant Name Role Phone Dakota Monet MD Primary Care Provider [phone] Reason for Visit * Reason Onset Date Comments Med Refill 12/21/2022 Encounter Details Date Type Department Care Team ([facility] st Contact Info) Description 12/21/2022 Telephone [facility]S [address] [place] [address] Dakota Monet MD [address] [place] [address] Med Refill Social History Tobacco Use Types [...] documented as of this encounter Care Teams Human Services Assistant Relationship Specialty Start Date End Date Dakota Monet MD [address] [place] [phone] PCP - General Internal Medicine 05/10/13 documented as of this encounter
--- OUTSIDE RECORDS SUMMARY | 2025-04-12 20:12 | XMS_ITS | Clinical Summary ---
Author Organization [employer] Address [address] [place] [address] 7[address] [place] [address] Care Team Providers Care Shuttlecock Feather Trimmer Name Role Phone Dakota Monet MD Primary Care Provider +1- [phone] Allergies Active Allergy Reactions Criticality Noted Date [...] at home daily 1 kit 024 Active SUMAtriptan (Imitrex) 50 MG tabletIndicatio [...] AT BEDTIME 60 tablet 3 025 Active gabapentin (Neurontin) 800 MG tabletIndicatio ns:Paresthesia Take 1 tablet (800 mg) by mouth 2 times daily. 60 tablet 11 025 2025 Active celecoxib (CeleBREX) 200 MG capsuleIndicati ons:Chronic pain syndrome,Chroni c right-sided low back pain with right-sided sciatica TAKE 1 CAPSULE BY MOUTH IN THE MORNING AND AT BEDTIME NEEDED FOR PAIN 60 capsule 025 Active gabapentin (Neurontin) 600 MG tabletIndicatio ns:Chronic pain syndrome Take 1 tablet (600 mg) by mouth 3 times daily. 90 tablet 11 024 2024 Discontinued(T herapy completed) celecoxib (CeleBREX) 200 MG capsuleIndicati ons:Chronic pain syndrome,Chroni c right-sided low back pain with right-sided sciatica TAKE 1 CAPSULE BY MOUTH IN THE MORNING AND AT BEDTIME NEEDED FOR PAIN 60 capsule 025 2024 Discontinued Active Problems Problem Noted Date Diagnosed Date [...] Encounters Date Type Department Care Team Description 04/12/2025 Refill [facility] [address] [place] [address] Dakota Monet MD Chronic pain syndrome; Chronic right-sided low back pain with right-sided sciatica 03/15/2025 10:30 AM EST Office Visit [facility] [address] [place] [address] Dakota Monet MD Neurofibromatosis syndrome (HCC) (Primary Dx); Subcutaneous mass; Elevated BP without diagnosis of hypertension; Paresthesia; Dietary counseling; Exercise counseling; Class 1 obesity due to excess calories with serious comorbidity and body mass index (BMI) of 30.0 to 30.9 in adult 03/15/2025 Travel 02/19/2025 Refill [facility] [address] [place] [address] Dakota Monet MD Primary insomnia; Chronic pain syndrome; Chronic right-sided low back pain with right-sided sciatica 02/05/2025 Results Follow-Up [facility] [address] [place] [address] Manuel Quintero MD Influenza A (ID NOW Rapid Molecular), Influenza B (ID NOW Rapid Molecular), POCT Rapid COVID Ag, Additional followed-up results: 2 02/01/2025 10:20 AM EDT Office Visit [facility] [address] [place] [phone] Manuel Quintero MD Pharyngitis, unspecified etiology 02/01/2025 Results Follow-Up [facility] [address] [place] [address] Dakota Monet MD Basic Metabolic Panel, CBC auto differential, XR Lumbar Spine Complete 4+ Views 02/01/2025 Telephone [facility] [address] [place] [address] Dakota Monet MD Lab Orders 01/31/2025 10:30 AM EDT Telemedicine [facility] [address] [place] [address] Dakota Monet MD Neurofibromatosis syndrome (HCC) (Primary Dx); Chronic pain syndrome; Acute right-sided low back pain without sciatica 01/11/2025 Refill [facility] [address] [place] [address] Dakota Monet MD Chronic pain syndrome; Chronic right-sided low back pain with right-sided sciatica 01/11/2025 Refill [facility] [address] [place] [address] EleThomas Gallego MD Chronic pain syndrome; Chronic right-sided low [...] (02/08/2025 8:38 AM EDT) Monotest Negative Negative [facility] Blood Venous blood specimen / Unknown 02/08/2025 8:38 AM EDT 02/08/2025 8:38 AM EDT us Manuel Quintero MD LAB BLOOD ORDERABLES Final Resul t Performing Organization Address City/[facility]/ZIP Co de Phone Number [facility] [address] [place] [phone] * Influenza B (ID NOW Rapid Molecular) (02/01/2025 10:28 AM EDT) Influenza B Negative Negative, Indeterminate [facility] Swab 02/01/2025 10:2 8 AM EDT us Manuel Quintero MD POINT OF CARE TEST ENTER/EDIT OR DERABLES Final Result Performing Organization Address City/[facility]/ZIP Co de Phone Number [facility] [address] [place] [phone] * Influenza A (ID NOW Rapid Molecular) (02/01/2025 10:28 AM EDT) Pathologist [facility] Influenza A Negative Negative, Indeterminate [facility] Swab 02/01/2025 10:2 8 AM EDT us Manuel Quintero MD POINT OF CARE TEST ENTER/EDIT OR DERABLES Final Result [facility] [address] [place] [phone] * POCT Rapid COVID Ag (02/01/2025 10:24 AM EDT) [facility] Rapid COVID Ag Negative Swab 02/01/2025 10:2 4 AM EDT us Manuel Quintero MD POINT OF CARE TEST ENTER/EDIT OR DERABLES Final Result * POCT rapid strep A manually resulted (02/01/2025 10:24 AM EDT) [facility] Rapid Strep A Screen Negative Negative, None Detected Swab 02/01/2025 10:2 4 AM EDT us Manuel Quintero MD POINT OF CARE TEST ENTER/EDIT OR DERABLES Final Result * XR Lumbar Spine Complete 4+ Views (02/01/2025 9:08 AM EDT) Anatomical Region Laterality Modality Spine, L-spine Radiographic Odette ging 02/01/2025 9:08 AM EDT Narrative 02/01/2025 10:11 AM EDT [address] [address] XRay Report Signed Patient: Cornel Guevara MR#: [id number] 356 : 1975 Acct:[id number] Age/Sex: 49 / F ADM Date: 02/01/25 Loc: [facility] Attending Dr: Dakota Monet MD Ordering Physician: Dakota Monet MD Date of Service: 02/01/25 Procedure(s): XR lumbar spine 4V min Accession Number(s): [id number] cc: Dakota Monet MD Reason for Exam: [...] 02/01/25 1008 DD/ 0908 TD/TT: 02/01/25 0920 Head Waiter/Waitress: Procedure Note Donotuseinterpreter, Image - 02/01/[address] [address] XRay Report Signed Patient: Gerald Guevara#: [id number] : 1975Acct:[id number] Age/Sex: 49 / FADM Date: 02/01/25 Loc: [facility]ET[facility] Attending Dr: Dakota Monet MD Ordering Physician: Dakota Monet MD Date of Service: 02/01/25 Procedure(s): XR lumbar spine 4V min Accession Number(s): [id number] cc: Dakota Monet MD Reason for Exam: [...] 02/01/25 1008 DD/ 0908 TD/TT: 02/01/25 0920 Head Waiter/Waitress: Dakota Monet MD IMG XR PROCEDURES Edited Re sult - Final * (ABNORMAL) CBC auto differential (02/01/2025 9:06 AM EDT) White Blood Count 6.8 4.8 - 10.8 X10*3/uL [facility] Red Blood Count 5.03 4.20 - 5.50 X10*6/uL [facility] Hemoglobin 14.4 12.0 - 16.0 g/dl [facility] Hematocrit 42.1 37.0 - 47.0 % [facility] Mean Corpuscular Volume 83.7 80.0 - 98.0 fL [facility] Mean Corpuscular Hemoglobin 28.6 27.0 - 33.0 pg [facility] Mean Corpuscular HGB Conc 34.2 31.0 - 35.0 g/dl [facility] Red Cell Distribution Width 13.3 11.0 - 16.0 % [facility] Platelet Count 208 160 - 400 X10*3/uL [facility] Mean Platelet Volume 9.8 9.4 - 12.3 fL [facility] Neutrophils Percent Auto 69.3 45 - 73 % [facility] Imm Gran Pct Auto 0.4 0.0 - 0.4 % [facility] Lymphocytes Percent Auto 19.0(L) 20 - 40 % [facility] Monocytes Percent Auto 9.5 2 - 11 % [facility] Eosinophils Percent Auto 1.2 0 - 4 % [facility] Basophils Percent Auto 0.6 0 - 2 % [facility] NRBC Pct Auto 0.0 0.0 - 0.2 /100WBC [facility] Neutrophils Absolute Auto 4.7 2.0 - 8.3 x10*3/uL [facility] Imm Gran Abs Auto 0.03 0.00 - 0.03 X10*3/uL [facility] Lymphocytes Absolute Auto 1.3 1.2 - 4.9 X10*3/uL [facility] Monocytes Absolute Auto 0.7 0.1 - 1.2 X10*3/uL [facility] Eosinophils Absolute Auto 0.1 0.0 - 0.4 X10*3/uL [facility] Basophils Absolute Auto 0.0 0.0 - 0.2 X10*3/uL [facility] NRBC Abs Auto 0.000 0.0 - 0.012 X10*3/uL [facility] Blood Venous blood specimen / Unknown 02/01/2025 9:06 AM EDT 02/01/2025 9:06 AM EDT us Dakota Monet MD LAB BLOOD ORDERABLES Final Result [facility] [address] [place] [phone] * (ABNORMAL) Basic Metabolic Panel (02/01/2025 9:06 AM EDT) Sodium 140 135 - 145 mmol/L [facility] Potassium 4.2 3.3 - 5.1 mmol/L [facility] Chloride 110(H) 96 - 108 mmol/L [facility] Carbon Dioxide 23 22 - 29 mmol/L [facility] Anion Gap 11(L) 12 - 20 [facility] Urea Nitrogen (BUN) 15 9 - 16 mg/dL [facility] Creatinine, Serum 0.80 0.5 - 1.4 mg/dL [facility] Estimated Glomerular Filt Rate >60 [facility] Comment:Chronic Kidney Disea se: Estimated GFR < 60 mL/min/1.80d3Zwoeev Kidney Disease: Estimated GFR < 15 mL/min/1.73m2 Glucose 96 60 - 115 mg/dL [facility] Calcium 9.8 8.4 - 10.2 mg/dL [facility] Blood Venous blood specimen / Unknown 02/01/2025 9:06 AM EDT 02/01/2025 9:06 AM EDT Dakota Monet MD LAB BLOOD ORDERABLES Final Result [facility] [address] [place] [phone] * Hepatitis A,B,C Profile (07/01/2024 8:14 AM EST) Pathologist [facility] Hepatitis A IgM Nonreactive Nonreactive [facility] Comment:IgM antibodies to MARIE V not detected; does not exclude earlyacute or recovered HAV infection. ~Hepatitis B Surface Antibody REACTIVE Nonreactive [facility] Comment:REACTIVE: > 11.99 mI U/mL Hepatitis B Core Antibody Nonreactive Nonreactive [facility] Hepatitis C Antibody Nonreactive Nonreactive [facility] Comment:Antibodies to HCV no t detected; does not exclude early acuteHCV infection. Blood Venous blood specimen / Unknown 07/01/2024 8:14 AM EST 07/01/2024 8:14 AM EST us Dakota Monet MD LAB BLOOD ORDERABLES Final Result Performing Organization Address City/[facility]/ZIP Co de Phone Number [facility] [address] [place] [phone] * Lipid Panel, Standard (06/29/2024 4:26 PM EST) Triglycerides 88 <150 mg/dL [facility] Comment:Desirable Triglyceri de: less than 150 mg/dLBorderline High Triglyceride 150-199 mg/dLHigh Triglyceride: 200-499 mg/dLVery High Triglyceride: greater than or equal to 5OO mg/dL Cholesterol 163 <200 mg/dL [facility] Comment:Desirable Cholestero l: less than 200 mg/dLBorderline High Cholesterol: 200-239 mg/dLHigh Cholesterol: greater than 239 mg/dL LDL Cholesterol Calculated 95 <100 mg/dL [facility] Comment:Desirable LDL: less than 100 mg/dLNear Optimal/Above Optimal LDL: 110- 129 mg/dLBorderline High LDL: 130-159 mg/dLHigh LDL: 160-189 mg/dLVery High LDL: greater than or equal to 190 mg/dL HDL Cholesterol 51 >40 mg/dL [facility] Comment:Desirable HDL: great er than 40 mg/dL Note: This HDL assay may give artificially low results in patients with liver disease. Blood Venous blood specimen / Unknown 06/29/2024 4:26 PM EST 06/29/2024 6:11 PM EST us Dakota Monet MD LAB BLOOD ORDERABLES Final Result Performing Organization Address City/[facility]/ZIP Co de Phone Number [facility] [address] [place] [phone] * BI Mammogram Screening Tomosynthesis Bilateral (04/29/2024 8:25 AM EST) Anatomical Region Laterality Modality Breast Bilateral Mammography 04/29/2024 8:25 AM EST Narrative 05/12/2024 3:20 PM EST [address] [place] [address] Mammography Report Signed Patient: Cornel Guevara MR#: [id number] 356 : 1975 Acct:[id number] Age/Sex: 48 / F ADM Date: 04/29/24 Loc: HO.MAMMO Attending Dr: Dakota Monet MD Ordering Physician: Dakota Monet MD Results: 2 Benign Findings Date of Service: 04/29/24 Follow Up: 1 Year From [facility] ina Mammogram Procedure(s): MM tomosynthesis screening BI Accession Number(s): [id number] cc: Dakota Monet MD EXAMINATION: MM SCREENING [...] OV> 05/12/24 1516 DD/ TD/TT: 04/29/24 0836 Head Waiter/Waitress: Procedure Note Donotuseinterpreter, Image - 05/12/[address] [place] [address] Mammography Report Signed Patient: Gerald Guevara#: [id number] : 1975Acct:[id number] Age/Sex: 48 / FADM Date: 04/29/24 Loc: HO.MAMMO Attending Dr: Dakota Monet MD Ordering Physician: Dakota Monet MDResults: 2 Benign Findings Date of Service: 04/29/24Follow Up: 1 Year From [facility] Mammogram Procedure(s): MM tomosynthesis screening BI Accession Number(s): [id number] cc: Dakota Monet MD EXAMINATION: MM SCREENING [...] by: Mishel Miles DO 05/12/2024 03:16 PM [facility] Dictated By: Mishel Miles DO Signed By: <Electronically signed by Mishel Miles DO in OV> 05/12/24 1516 DD/ 0825 TD/TT: 04/29/24 0836 Head Waiter/Waitress: us Dakota Monet MD IMG BI PROCEDURES [...] along with historic and current clinical information. Pressroom Supervisor : SEE [facility] Comment: KF, CT(ASCP) CT screening location: [place] [address] Interpretation/R esult: Negative for intraepithelial lesion or malignancy. [facility] LMP: NONE GIVEN [facility] Prev. BX: NONE GIVEN [facility] Prev. PAP: NONE GIVEN [facility] SOURCE: None given [facility] Statement Of Adequacy: [facility] Comment: Satisfactory for evaluation. Endocervical/transformation zone component absent. Age and/or menstrual status not provided 11/27/2020 3:44 PM EDT Tamar Carbajal [facility] LAB PATHOLOGY ORDERABLES Final Result [facility] [address] * HPV mRNA E6/E7 (11/27/2020 3:44 PM EDT) HPV nRNA E6/E7 Not Detected Not Detected [facility] Comment: Methodology: Architecture Department Chair-Mediated Amplification This assay detects E6/E7 viral messenger RNA (mRNA) from 14 high-risk HPV types (16,18,31,33,35,39,45,51,52,56,58,59,66,68). The analytical performance characteristics of this assay have been determined by [employer]. The modifications have not been cleared or approved by the FDA. This assay has been validated pursuant to the CLIA regulations and is used for clinical purposes. For additional information, please refer to http://education.[employer].com/faq/XFC655o5 (This link if provided for information/ educational purposes only.) 11/27/2020 3:44 PM EDT us Tamar Carbajal CNM LAB BLOOD ORDERABLES Josiane l Result [facility] [address] from Last 3 Months or Most Recently Relevant to Health Maintenance Insurance [facility] , [address] [place] [address] Care Teams Shuttlecock Feather Trimmer Relationship Specialty Start Date End Date Dakota Monet MD [address] [place] [phone] PCP - General Internal Medicine 05/10/13
--- OUTSIDE RECORDS SUMMARY | 2025-04-12 20:12 | XMS_ITS | Encounter Summary ---
Author Organization [employer] Address [address] [place] [address] Care Team Providers Care Manufacturers Representative Name Role Phone Dakota Monet MD Primary Care Provider [phone]- [phone] Reason for Visit * Reason Onset Date Comments Results 01/06/2023 Encounter Details Date Type Department Care Team ([facility] st Contact Info) Description 01/06/[address] [facility] MED & PEDS [address] [place], [place] [phone] Dakota Monet MD [address] [place] [address] Results Social History Tobacco Use Types Packs/Day [...] States she will get the vaccine at [facility] pharmacy. Pt also requesting this [...] verbalized understanding. Pt reports no access to [facility]. RN informed link will be sent to [...] documented as of this encounter Care Teams Manufacturers Representative Relationship Specialty Start Date End Date Dakota Monet MD [address] [place] [phone] PCP - General Internal Medicine 05/10/13 documented as of this encounter
--- OUTSIDE RECORDS SUMMARY | 2025-04-12 20:12 | XMS_ITS | Encounter Summary ---
Author Organization [employer] Address [address] [place] [address] [address] [place] [address] Care Team Providers Care Psychological Assistant Name Role Phone Dakota Monet MD Primary Care Provider [phone]- [phone] Encounter Details Date Type Department Care Team ([facility] st Contact Info) Description 2023 Orders Only [facility] MED & PEDS [address] [place], [place] [phone] Dakota Monet MD [address] [place] [address] Social History Tobacco Use Types Packs/Day Years [...] documented as of this encounter Care Teams Psychological Assistant Relationship Specialty Start Date End Date Dakota Monet MD [address] [place], [place] [address], [place] [address] PCP - General Internal Medicine 05/10/13 documented as of this encounter
--- OUTSIDE RECORDS SUMMARY | 2025-04-12 20:12 | XMS_ITS | Encounter Summary ---
Author Organization [employer] Address [address] [place] [address] Care Team Providers Care Electric Tool Repairer Name Role Phone Dakota Monet MD Primary Care Provider [phone]- [phone] Reason for Visit * Reason Onset Date Comments Referral 04/12/2024 Encounter Details Date Type Department Care Team ([facility] st Contact Info) Description 04/12/2024 Telephone [facility] MEDICINE [address] [place] [address] Dakota Monet MD [address] [place] [address] Referral Social History Tobacco Use Types Packs/Day [...] from pt requesting new referral : Address: [address] [place] [address] Facility Name: [facility] Type of Specialist: Neurology * Telephone Encounter - Toño Patel - 04/12/2024 10:06 AM EST TC from pt requesting new referral : Address: [address] [place] [address] Facility Name: [facility] Type of Specialist: Neurology documented in this encounter Plan of Treatment Not on file documented as of this encounter Visit Diagnoses Not on filedocumented in this encounter Additional Health Concerns Assessment Noted Time PHQ-9 Depression Total Score: 10 023 3:54 PM EST documented as of this encounter Care Teams Electric Tool Repairer Relationship Specialty Start Date End Date Dakota Monet MD [address] [place] [phone] PCP - General Internal Medicine 05/10/13 documented as of this encounter
--- OUTSIDE RECORDS SUMMARY | 2025-04-12 20:12 | XMS_ITS | Encounter Summary ---
Author Organization [employer] Address [address] [place] [address] 7 [place] [address] Care Team Providers Care Top Steep Tender Name Role Phone Dakota Monet MD Primary Care Provider [phone] Encounter Details Date Type Department Care Team ([facility] st Contact Info) Description 06/22/2024 Orders Only [facility] CHC MED & PEDS [address] [place], [place] [phone] Dakota Monet MD 505 [place] [address] Chronic migraine with aura without status migrainosus, [...] PM EST Narrative 06/24/2024 7:37 PM EST [place] [address] CT Scan Report Signed Patient: Cornel Guevara MR#: [id number] 356 : 1975 Acct:[id number] Age/Sex: 48 / F ADM Date: 06/24/24 Loc: HO.ED Attending Dr: Ordering Physician: Re Barber Date of Service: 06/24/24 Procedure(s): CT lumbar spine wo IV con Accession Number(s): [id number] cc: Dakota Monet MD; Re Barber Report Number: [id number]: Total DLP = 2098.00 mGy-cm CLINICAL HISTORY: [...] Moderate to severe stool burden in the ojghv-wf-zopn. Cholelithiasis in the nrebb-hb-tiks. IMPRESSION: 1. No acute fracture of the lumbar spine. 2. Worsening lower lumbar facet arthropathy compared to 11/07/2021. This document has been electronically signed by: Javed Queen MD on 06/24/2024 19:36:00 Dictated By: Javed Queen MD Signed By: <Electronically signed by Javed Queen MD in OV> 06/24/241935 DD/ 35 TD/TT: 06/24/241935 Economics Faculty Member: Procedure Note Donotcammieinterpreter, Image - 06/24/[address] [place] [address] [address] Scan Report Signed Patient: Gerald Guevara#: [id number] 356 : 1975Acct:[id number] Age/Sex: 48 / FADM Date: 06/24/24 Loc: HO.ED Attending Dr: Ordering Physician: Re Barber Date of Service: 06/24/24 Procedure(s): CT lumbar spine wo IV con Accession Number(s): [id number] cc: Dakota Monet MD; Re Barber Report Number: [id number]: Total DLP = 2098.00 mGy-cm CLINICAL HISTORY: [...] Moderate to severe stool burden in the bkzhm-ao-erwg. Cholelithiasis in the rhsbm-ls-lsds. IMPRESSION: 1. No acute fracture of the lumbar spine. 2. Worsening lower lumbar facet arthropathy compared to 11/07/2021. This document has been electronically signed by: Javed Queen MD on 06/24/2024 19:36:00 Dictated By: Javed Queen MD Signed By: <Electronically signed by Javed Queen MD in OV> 06/24/241935 DD/ 35 TD/TT: 06/24/241935 Economics Faculty Member: [facility] External Provider IMG CT PROCEDURES Edited Result - Final * CT Chest w/o Contrast (06/24/2024 7:33 PM EST) Anatomical Region Laterality Modality Body, Chest Computed Tomogra phy 06/24/2024 7:33 PM EST Narrative 06/24/2024 7:35 PM EST [address] [address] [address] Scan Report Signed Patient: Cornel Guevara MR#: [id number] 356 : 1975 Acct:[id number] Age/Sex: 48 / F ADM Date: 06/24/24 Loc: HO.ED Attending Dr: Ordering Physician: Kaylan Underwood CNP Date of Service: 06/24/24 Procedure(s): CT chest wo IV con Accession Number(s): [id number] cc: Kaylan Underwood CNP; Dakota Monet MD Report Number: [id number]: Total DLP = 2098.00 mGy-cm CLINICAL HISTORY: [...] in OV> 06/24/241933 DD/ 32 TD/TT: 06/24/241932 Economics Faculty Member: Procedure Note Donotuseinterpreter, Image - 06/24/[address] [address] [address] Scan Report Signed Patient: Gerald Guevara#: [id number] 356 : 1975Acct:[id number] Age/Sex: 48 / FADM Date: 06/24/24 Loc: HO.ED Attending Dr: Ordering Physician: Kaylan Underwood CNP Date of Service: 06/24/24 Procedure(s): CT chest wo IV con Accession Number(s): [id number] cc: Kaylan Underwood CNP; Dakota Monet MD Report Number: [id number]: Total DLP = 2098.00 mGy-cm CLINICAL HISTORY: [...] in OV> 06/24/241933 DD/ 32 TD/TT: 06/24/241932 Economics Faculty Member: [facility] External Provider IMG CT PROCEDURES Edited Result - Final * CT Head w/o Contrast (06/24/2024 7:28 PM EST) Anatomical Region Laterality Modality Head, Neck Computed Tomogra phy 06/24/2024 7:28 PM EST Narrative 06/24/2024 7:30 PM EST [address] [address] [address] Scan Report Signed Patient: Cornel Guevara MR#: [id number] 356 : 1975 Acct:[id number] Age/Sex: 48 / F ADM Date: 06/24/24 Loc: HO.ED Attending Dr: Ordering Physician: Re Barber Date of Service: 06/24/24 Procedure(s): CT head/brain wo IV con Accession Number(s): [id number] cc: Dakota Monet MD; Re Barber Report Number: [id number]: Total DLP = 2098.00 mGy-cm CLINICAL HISTORY: [...] in OV> 06/24/241928 DD/ 27 TD/TT: 06/24/241927 Economics Faculty Member: Procedure Note Donotuseinterpreter, Image - 06/24/[address] [place] [address] CT Scan Report Signed Patient: Dewey GuevaraR#: [id number] 356 : 1975Acct:[id number] Age/Sex: 48 / FADM Date: 06/24/24 Loc: HO.ED Attending Dr: Ordering Physician: Re Barber Date of Service: 06/24/24 Procedure(s): CT head/brain wo IV con Accession Number(s): [id number] cc: Dakota Monet MD; Re Barber Report Number: [id number]: Total DLP = 2098.00 mGy-cm CLINICAL HISTORY: [...] in OV> 06/24/241928 DD/ 27 TD/TT: 06/24/241927 Economics Faculty Member: [facility] External Provider IMG CT PROCEDURES Edited Result - Final * CT Cervical Spine w/o Contrast (06/24/2024 7:25 PM EST) Anatomical Region Laterality Modality Spine, C-spine Computed Tomogra phy 06/24/2024 7:25 PM EST Narrative 06/24/2024 7:27 PM EST [address] [address] [address] Scan Report Signed Patient: Cornel Guevara MR#: [id number] 356 : 1975 Acct:[id number] Age/Sex: 48 / F ADM Date: 06/24/24 Loc: HO.ED Attending Dr: Ordering Physician: Re Barber Date of Service: 06/24/24 Procedure(s): CT cervical spine wo IV con Accession Number(s): [id number] cc: Dakota Monet MD; Re Barber Report Number: [id number]: Total DLP = 2098.00 mGy-cm CLINICAL HISTORY: [...] in OV> 06/24/241925 DD/ 24 TD/TT: 06/24/241924 Economics Faculty Member: Procedure Note Donotuseinterpreter, Image - 06/24/[address] [place] [address] [address] Scan Report Signed Patient: Gerald Guevara#: [id number] 356 : 1975Acct:[id number] Age/Sex: 48 / FADM Date: 06/24/24 Loc: HO.ED Attending Dr: Ordering Physician: Re Barber Date of Service: 06/24/24 Procedure(s): CT cervical spine wo IV con Accession Number(s): [id number] cc: Dakota Monet MD; Re Barber Report Number: [id number]: Total DLP = 2098.00 mGy-cm CLINICAL HISTORY: [...] in OV> 06/24/241925 DD/ 24 TD/TT: 06/24/241924 Economics Faculty Member: [facility] External Provider IMG CT PROCEDURES Edited Result - Final documented in this encounter Visit Diagnoses Diagnosis Chronic migraine with aura without status migrainosus, not intractable- Primary documented in this encounter Additional Health Concerns Assessment Noted Time PHQ-9 Depression Total Score: 10 05/19/ 023 3:54 PM EST documented as of this encounter Care Teams Top Steep Tender Relationship Specialty Start Date End Date Dakota Monet MD [address] [place] [address] PCP - General Internal Medicine 05/10/13 documented as of this encounter
--- OUTSIDE RECORDS SUMMARY | 2025-04-12 20:13 | XMS_ITS | Encounter Summary ---
Author Organization [employer] Address [address] [place] [address] [place] [address] Care Team Providers Care Chief Deputy Clerk/Bailiff Name Role Phone Dakota Monet MD Primary Care Provider [phone] Reason for Visit * Reason Comments Med Refill Encounter Details Date Type Department Care Team ([facility] st Contact Info) Description 01/16/2024 Refill [facility] CHC MED & PEDS [address] [place], [place] [phone] Dakota Monet MD [address] [place] [address] Chronic pain syndrome; Chronic right-sided low back [...] documented as of this encounter Care Teams Chief Deputy Clerk/Bailiff Relationship Specialty Start Date End Date Dakota Monet MD [address] [place] [address] PCP - General Internal Medicine 05/10/13 documented as of this encounter
--- OUTSIDE RECORDS SUMMARY | 2025-04-12 20:13 | XMS_ITS | Encounter Summary ---
Author Organization [employer] Address [address] [place] [address] 7 [place] [address] Care Team Providers Care Machine Woodworking Sander Name Role Phone Dakota Monet MD Primary Care Provider [phone]- [phone] Encounter Details Date Type Department Care Team (Latest Contact Info) Description 03/17/2023 Orders Only [facility] CHC MED & PEDS [address] [place], [place] [phone] Dakota Monet MD [address] [place] [address] Neurofibromatosis syndrome (CMS/HCC) (Primary Dx) Social History [...] as of this encounter Care Teams Machine Woodworking Sander Relationship Specialty Start Date End Date Dakota Monet MD [address] [place] [address] PCP - General Internal Medicine 05/10/13 documented as of this encounter
--- OUTSIDE RECORDS SUMMARY | 2025-04-12 20:13 | XMS_ITS | Encounter Summary ---
Author Organization [email or web address] Address [address] [place] [address] Care Team Providers Care Convention Worker Name Role Phone Dakota Monet MD Primary Care Provider [phone]- [phone] Reason for Visit * Reason Onset Date Comments Referral 03/19/2023 Encounter Details Date Type Department Care Team ([facility] st Contact Info) Description 03/19/2023 Telephone [facility] CHC MED & PEDS [address] [place], [place] [phone] Dakota Monet MD [address] [place] [address] Referral Social History Tobacco Use Types Packs/Day [...] to ov w/ PCP 04.22.23. Will FYI acute specialist neuro referral on hold for now. * Telephone Encounter - Sharri Gann - 03/22/2023 3:06 PM EST TC to [facility] [place] and there is doctors that will see patient with diagnosis but requires an MRI? Please advise, thank you. * Telephone Encounter - Didi Calhoun RN - 03/19/2023 3:45 PM EST Placed call to [facility] [place] regarding message below. Referral was received [...] referral for Neurology, pt advised she called [facility] for an appt and [facility] advised they will not see her without explanation in why. Please contact pt at [phone] documented in this encounter Plan of Treatment Not on file documented as of this encounter Visit Diagnoses Not on filedocumented in this encounter Additional Health Concerns Assessment Noted Time PHQ-9 Depression Total Score: 10 023 3:54 PM EST documented as of this encounter Care Teams Convention Worker Relationship Specialty Start Date End Date Dakota Monet MD [address] [place], [place] [address] [address] PCP - General Internal Medicine 05/10/13 documented as of this encounter
--- OUTSIDE RECORDS SUMMARY | 2025-04-12 20:13 | XMS_ITS | Encounter Summary ---
Author Organization [employer] Address [address] [place] [address] [place] [address] Care Team Providers Care Electronic Technologist Name Role Phone Dakota Monet MD Primary Care Provider [phone] Reason for Visit * Reason Comments Med Refill Encounter Details Date Type Department Care Team ([facility] st Contact Info) Description 03/19/2024 Refill [facility] CHC MED & PEDS [address] [place], [place] [phone] Dakota Monet MD [address] [place] [address] Primary insomnia Social History Tobacco Use Types [...] documented as of this encounter Care Teams Electronic Technologist Relationship Specialty Start Date End Date Dakota Monet MD [address] [place] [address] PCP - General Internal Medicine 05/10/13 documented as of this encounter
--- OUTSIDE RECORDS SUMMARY | 2025-04-12 20:13 | XMS_ITS | Encounter Summary ---
Author Organization [employer] Address [address] [place] [address] 7 [place] [address] Care Team Providers Care Dry Curer Name Role Phone Dakota Monet MD Primary Care Provider [phone] Reason for Visit * Reason Comments Med Refill Encounter Details Date Type Department Care Team ([facility] Contact Info) Description 04/12/2025 Refill [facility] CHC MED & PEDS [address] [place], [place] [phone] Dakota Monet MD 505 [place] [address] Chronic pain syndrome; Chronic right-sided low back [...] documented as of this encounter Care Teams Dry Curer Relationship Specialty Start Date End Date Dakota Monet MD [address] [place] [address] PCP - General Internal Medicine 05/10/13 documented as of this encounter
--- OUTSIDE RECORDS SUMMARY | 2025-04-12 20:14 | XMS_ITS | Encounter Summary ---
Author Organization [employer] Address [address] [place] [address] 7t [place] [address] Care Team Providers Care Microfilm Operator Name Role Phone Dakota Monet MD Primary Care Provider [phone] Encounter Details Date Type Department Care Team ([facility] st Contact Info) Description 03/05/2023 Abstract [facility] MEDICINE [address] [place] [address] Milagro Bear Social History Tobacco Use Types [...] documented as of this encounter Care Teams Microfilm Operator Relationship Specialty Start Date End Date Dakota Monet MD [address] [place] [address] PCP - General Internal Medicine 05/10/13 documented as of this encounter
== END 2025-04-12 13:32 | disposition home or self-care (01) ==
LOC: HO.PMC 13:05
PROVIDERS: PCP Internal Medicine; Visit Provider Anesthesiology
DX: M25.50 Pain in unspecified joint (principal); M47.816 Spondylosis without myelopathy or radiculopathy, lumbar region; M53.3 Sacrococcygeal disorders, not elsewhere classified; M46.1 Sacroiliitis, not elsewhere classified; Q85.00 Neurofibromatosis, unspecified
CPT/HCPCS: 99213